=== PATIENT | male | born 1970 | race Caucasian/White ===

== ENCOUNTER 2020-12-03 18:45 | Inpatient (IN) | payer BC ==
[2020-12-03] MEDS ORDERED: KETOROLAC 15 MG/ML 1 ML VIAL IVP STA (19:01)
[2020-12-03] MEDS ORDERED: DEXAMETHASONE SOD PHOSPHATE 4 MG/ML 1 ML VIAL IV STA (19:01)
--- NOTE | 2020-12-03 19:46 | XR ---
EXAMINATION TYPE: XR chest 1V portable DATE OF EXAM: 12/03/2020 COMPARISON: NONE HISTORY: Shortness of breath. TECHNIQUE: Single frontal view of the chest is obtained. FINDINGS: There is bilateral diffuse patchy airspace opacities. No pleural effusion, or pneumothorax seen. The cardiac silhouette size is within normal limits. The osseous structures are intact. IMPRESSION: Bilateral infiltrates.
[2020-12-03 19:55] LABS: Basophils % (A) 0 %; Eosinophils % (A) 0 %; HCT 39.7 % (39.0-53.0); Lymphocytes # (A) 1.1 k/uL (1.0-4.8); Lymphocytes % (A) 14 %; MCH 29.5 pg (25.0-35.0); MCHC 35.3 g/dL (31.0-37.0); MCV 83.5 fL (80.0-100.0); Mean Platelet Volume 7.1; Monocytes # (A) 0.5 k/uL (0-1.0); Monocytes % (A) 7 %; Neutrophils # (A) 5.6 k/uL (1.3-7.7); Neutrophils % (A) 77 %; Platelet Count 346 k/uL (150-450); RBC 4.75 m/uL (4.30-5.90); RDW 12.7 % (11.5-15.5); WBC 7.4 k/uL (3.8-10.6)
[2020-12-03 20:08] LABS: ALT 27 U/L (4-49); AST 39 U/L (17-59); African American GFR (CKD) >90 (>60 ml/min/1.73 sqM); Albumin 3.3 g/dL (3.5-5.0); Alkaline Phosphatase 71 U/L (38-126); Anion Gap 11 mmol/L; Blood Urea Nitrogen 20 mg/dL (9-20); Calcium 8.4 mg/dL (8.4-10.2); Carbon Dioxide 28 mmol/L (22-30); Chloride 93 mmol/L (98-107); Glucose 305 mg/dL (74-99); LDH 1489 U/L (313-618); Non-African American GFR(CKD) >90 (>60 ml/min/1.73 sqM); Potassium 4.2 mmol/L (3.5-5.1); Sodium 132 mmol/L (137-145); Total Bilirubin 0.7 mg/dL (0.2-1.3); Total Protein 6.5 g/dL (6.3-8.2)
[2020-12-03 20:17] LABS: INR 1.1 (<1.2); Partial Thromboplastin Time 23.9 sec (22.0-30.0); Prothrombin Time 11.2 sec (9.0-12.0)
[2020-12-03] MEDS: SODIUM CHLORIDE 0.9% 1,000 ML IV SCH (20:22)
[2020-12-03 20:24] LABS: D-Dimer 0.91 mg/L FEU (<0.60)
[2020-12-03 20:32] LABS: C Reactive Protein 294.2 mg/L (<10.0)
[2020-12-03] MEDS ORDERED: SODIUM CHLORIDE 0.9% 1,000 ML IV ONE (21:02)
--- NOTE | 2020-12-03 21:25 | CT ---
EXAMINATION TYPE: CT chest angio for PE DATE OF EXAM: 12/03/2020 COMPARISON: Same-day radiograph. HISTORY: Covid +, elevated d-dimer, hypoxia. CT DLP: 895.5 mGycm Automated exposure control for dose reduction was used. CONTRAST: CT Chest for pulmonary embolism performed with with IV Contrast, patient injected with 100 mL of Isov ue 370. FINDINGS: LUNGS: There is bilateral diffuse moderate to marked patchy groundglass opacities. No pleural effusio n or pneumothorax. MEDIASTINUM: There is satisfactory enhancement of the pulmonary artery and its branches, there is no CT evidence for pulmonary embolism. There are scattered multiple mildly enlarged mediastinal lymph n odes, may be reactive. OTHER: Hepatic steatosis. No additional significant abnormality is seen. IMPRESSION: Diffuse patchy ground glass opacities, compatible with history of Covid pneumonia. No acute PE.
[2020-12-03] MEDS ORDERED: AZITHROMYCIN 500 MG in SODIUM CHLORIDE 0.9% 250 ML IVPB STA (21:51)
[2020-12-03] MEDS ORDERED: NALOXONE 0.4 MG/ML 1 ML VIAL IV PRN (21:52)
--- NOTE | 2020-12-03 21:52 | ED ---
SOB HPI - General Chief Complaint: Shortness of Breath Stated Complaint: SOB Time Seen by Provider: 12/03/20 18:52 Source: EMS Mode of arrival: EMS Limitations: no limitations - History of Present Illness Initial Comments: 50-year-old male presenting to the emergency department today for chief complaint of shortness of breath, covert positive. Patient states he's had general malaise for the past 2 days. Patient states that today he developed shortness of breath and cough. He states he went to an urgent care where he started be quite hypoxic and is positive for covert and he was sent to the emergency department. EMS. Patient denies any chest pain jaw pain arm pain and diaphoresis he was to body aches and chills. He denies any nausea vomiting diarrhea or rashes. Patient denies any hemoptysis leg swelling or calf pain. Patient denies any previous history of DVT or pulmonary embolism he denies any history of hypertension or diabetes but states he does not see a primary care provider. Remaining abuse negative upon arrival patient appears well and nontoxic he's in no acute distress. - Related Data Home Medications Medication Instructions Recorded Confirmed No Known Home Medications 12/03/20 12/03/20 Allergies Allergy/AdvReac Type Severity Reaction Status Date / Time Mushroom Allergy Anaphylaxis Verified 12/03/20 20:36 Review of Systems ROS Statement: Those systems with pertinent positive or pertinent negative responses have been documented in the HPI. ROS Other: All systems not noted in ROS Statement are negative. Past Medical History Past Medical History: No Reported History History of Any Multi-Drug Resistant Organisms: None Reported Past Surgical History: Orthopedic Surgery Smoking Status: Former smoker Past Alcohol Use History: None Reported Past Drug Use History: None Reported General Exam - General Exam Comments Initial Comments: General: The patient is awake and alert, in no distress Eye: Pupils are equal, round and reactive to light, extra-ocular movements are intact. No nystagmus. There is normal conjunctiva bilaterally. No signs of icterus. Ears, nose, mouth and throat: There are moist mucous membranes and no oral lesions. Neck: The neck is supple, there is no tenderness or JVD. Cardiovascular: There is a regular rate and rhythm. No murmur, rub or gallop is appreciated. Respiratory: Lungs are clear to auscultation, respirations are non-labored, breath sounds are equal. No wheezes, stridor, rales, or rhonchi. No retractions no abdominal breathing Gastrointestinal: Soft, non-distended, non-tender abdomen without masses or organomegaly noted. There is no rebound or guarding present. Musculoskeletal: Normal ROM, no tenderness. Strength 5/5. Sensation intact. Pulses equal bilaterally 2+. Neurological: A&O x 3. CN II-XII intact, There are no obvious motor or sensory deficits. Coordination appears grossly intact. Speech is normal. Skin: Skin is warm and dry and no rashes or lesions are noted. No LE edema or calf pain Psychiatric: Cooperative, appropriate mood & affect, normal judgment. Limitations: no limitations Course Vital Signs 12/03/20 12/03/20 12/03/20 18:50 19:01 22:43 Temperature 98.8 F 98.9 F Pulse Rate 96 82 Respiratory 18 20 18 Rate Blood Pressure 141/91 127/80 O2 Sat by Pulse 87 L 92 L Oximetry Medical Decision Making - Medical Decision Making covid +/ no distress. but hypoxic. Patient has covert pneumonia. CT negative for pulmonary embolism. Patient was placed on supplemental oxygen given azithromycin as well as steroids. Pulmonary on consult patient be admitted to this hospital for further monitoring on continuous pulse ox. Patient is agreeable to this care plan as well as admission at this time. - Lab Data Result diagrams: 12/03/20 19:37 12/03/20 19:37 Lab Results 12/03/20 12/03/20 12/03/20 Range/Units 19:37 19:37 19:37 WBC 7.4 (3.8-10.6) k/uL RBC 4.75 (4.30-5.90) m/uL Hgb 14.0 (13.0-17.5) gm/dL Hct 39.7 (39.0-53.0) % MCV 83.5 (80.0-100.0) fL MCH 29.5 (25.0-35.0) pg MCHC 35.3 (31.0-37.0) g/dL RDW 12.7 (11.5-15.5) % Plt Count 346 (150-450) k/uL MPV 7.1 Neutrophils % 77 % Lymphocytes % 14 % Monocytes % 7 % Eosinophils % 0 % Basophils % 0 % Neutrophils # 5.6 (1.3-7.7) k/uL Lymphocytes # 1.1 (1.0-4.8) k/uL Monocytes # 0.5 (0-1.0) k/uL Eosinophils # 0.0 (0-0.7) k/uL Basophils # 0.0 (0-0.2) k/uL PT 11.2 (9.0-12.0) sec INR 1.1 (<1.2) APTT 23.9 (22.0-30.0) sec D-Dimer 0.91 H (<0.60) mg/L FEU Sodium 132 L (137-145) mmol/L Potassium 4.2 (3.5-5.1) mmol/L Chloride 93 L (98-107) mmol/L Carbon Dioxide 28 (22-30) mmol/L Anion Gap 11 mmol/L BUN 20 (9-20) mg/dL Creatinine 0.64 L (0.66-1.25) mg/dL Est GFR (CKD-EPI)AfAm >90 (>60 ml/min/1.73 sqM) Est GFR (CKD-EPI)NonAf >90 (>60 ml/min/1.73 sqM) Glucose 305 H (74-99) mg/dL Plasma Lactic Acid Markos (0.7-2.0) mmol/L Calcium 8.4 (8.4-10.2) mg/dL Magnesium 2.0 (1.6-2.3) mg/dL Total Bilirubin 0.7 (0.2-1.3) mg/dL AST 39 (17-59) U/L ALT 27 (4-49) U/L Alkaline Phosphatase 71 (38-126) U/L Lactate Dehydrogenase 1489 H (313-618) U/L Troponin I (0.000-0.034) ng/mL C-Reactive Protein 294.2 H (<10.0) mg/L NT-Pro-B Natriuret Pep pg/mL Total Protein 6.5 (6.3-8.2) g/dL Albumin 3.3 L (3.5-5.0) g/dL 12/03/20 12/03/20 12/03/20 Range/Units 19:37 19:37 19:37 WBC (3.8-10.6) k/uL RBC (4.30-5.90) m/uL Hgb (13.0-17.5) gm/dL Hct (39.0-53.0) % MCV (80.0-100.0) fL MCH (25.0-35.0) pg MCHC (31.0-37.0) g/dL RDW (11.5-15.5) % Plt Count (150-450) k/uL MPV Neutrophils % % Lymphocytes % % Monocytes % % Eosinophils % % Basophils % % Neutrophils # (1.3-7.7) k/uL Lymphocytes # (1.0-4.8) k/uL Monocytes # (0-1.0) k/uL Eosinophils # (0-0.7) k/uL Basophils # (0-0.2) k/uL PT (9.0-12.0) sec INR (<1.2) APTT (22.0-30.0) sec D-Dimer (<0.60) mg/L FEU Sodium (137-145) mmol/L Potassium (3.5-5.1) mmol/L Chloride (98-107) mmol/L Carbon Dioxide (22-30) mmol/L Anion Gap mmol/L BUN (9-20) mg/dL Creatinine (0.66-1.25) mg/dL Est GFR (CKD-EPI)AfAm (>60 ml/min/1.73 sqM) Est GFR (CKD-EPI)NonAf (>60 ml/min/1.73 sqM) Glucose (74-99) mg/dL Plasma Lactic Acid Markos 1.8 (0.7-2.0) mmol/L Calcium (8.4-10.2) mg/dL Magnesium (1.6-2.3) mg/dL Total Bilirubin (0.2-1.3) mg/dL AST (17-59) U/L ALT (4-49) U/L Alkaline Phosphatase (38-126) U/L Lactate Dehydrogenase (313-618) U/L Troponin I <0.012 (0.000-0.034) ng/mL C-Reactive Protein (<10.0) mg/L NT-Pro-B Natriuret Pep 203 pg/mL Total Protein (6.3-8.2) g/dL Albumin (3.5-5.0) g/dL Disposition Clinical Impression: Dyspnea, COVID-19, Pneumonia due to COVID-19 virus Disposition: ADMITTED IP TO THIS HOSP Condition: Stable Is patient prescribed a controlled substance at d/c from ED?: No Time of Disposition: 21:51 Decision to Admit Reason: Admit from EC Decision Date: 12/03/20 Decision Time: 21:51
[2020-12-04] MEDS ORDERED: ALPRAZolam 0.25 MG TAB PO PRN (03:01)
--- NOTE | 2020-12-04 03:07 | P.HPIM ---
History of Present Illness H&P Date: 12/03/20 Chief Complaint: hypoxemia 50-year-old male no significant past medical history Patient comes in today due to shortness of breath found to be hypoxemic at urgent care. Patient claims that for the past 2 days he was feeling sick with some malaise, sore throat, left shoulder pain which has started after he passed out at work he felt dizzy and was sweating profusely and passed out and fell down on his shoulder he woke up immediately denies any symptoms of palpitations chest pain after he woke up. However he was feeling dizzy and short of breath he was also having some sore throat. He denies any nausea vomiting or diarrhea denies any fevers or chills. His main symptoms are sweating and dizziness and shortness of breath. 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 Otherwise he denies any abdominal pain changes in his bowel habits he denies any urinary symptoms do not denies any GI bleeding denies any history of blood clots heart disease history He went to urgent care of [place] to be Covid positive and hypoxemic who recommended that he goes to the ER In the ED d-dimer was found to be slightly elevated blood sugar elevated LDH and CRP both elevated he was hypoxic on room air 87% Patient was started on oxygen currently on [address] angios of the chest showed no evidence of PE however showed diffuse patchy changes He denies any smoking or drug abuse, he denies daily drinking Review of Systems Pertinent positives as noted in HPI. All other systems were reviewed and are negative Past Medical History Past Medical History: No Reported History History of Any Multi-Drug Resistant Organisms: None Reported Past Surgical History: Orthopedic Surgery Smoking Status: Former smoker Past Alcohol Use History: None Reported Past Drug Use History: None Reported - Past Family History Family Family Medical History: No Reported History Medications and Allergies Home Medications Medication Instructions Recorded Confirmed Type No Known Home Medications 12/03/20 12/03/20 History Allergies Allergy/AdvReac Type Severity Reaction Status Date / Time Mushroom Allergy Anaphylaxis Verified 12/03/20 20:36 Physical Exam Vitals: Vital Signs Temp Pulse Resp BP Pulse Ox 12/03/20 19:01 20 12/03/20 18:50 98.8 F 96 18 141/91 87 L Intake and Output 12/03/20 12/03/20 12/03/20 06:59 14:59 22:59 Other: Weight 129.274 kg Constitutional: No acute distress, conversant, pleasant Eyes: Anicteric sclerae, moist conjunctiva, Pupils equal round reactive to light ENMT: NC/AT Oropharynx clear, no erythema, or exudates Neck: Supple, FROM, no masses, or JVD No carotid bruits No thyromegaly Lungs: Clear to auscultation Clear to percussion Normal respiratory effort, no accessory muscle use Cardiovascular: Heart regular in rate and rhythm, No murmurs, gallops, or rubs No peripheral edema Abdominal: Soft Nontender, no guarding, rebound or rigidity Abdomen moving with respiration Normoactive bowel sounds No hepatomegaly, No splenomegaly No palpable mass No abdominal wall hernia noted Skin: Normal temperature, tone, texture, turgor No induration No subcutaneous nodules No rash, lesions No ulcers Extremities: No digital cyanosis No clubbing Pedal pulses intact and symmetrical Radial pulses intact and symmetrical No calf tenderness Psychiatric: Alert and oriented to person, place and time Appropriate affect fair judgement Neuro Muscles Strength 5/5 in all 4 extremities Sensation to light touch grossly present throughout Cranial nerves II-XII grossly intact No focal sensory deficits Lymphatics: no palpable cervical or supraclavicular , or inguinal lymph nodes Results CBC & Chem 7: 12/03/20 19:37 12/03/20 19:37 Labs: Abnormal Lab Results - Last 24 Hours (Table) 12/03/20 12/03/20 Range/Units 19:37 19:37 D-Dimer 0.91 H (<0.60) mg/L FEU Sodium 132 L (137-145) mmol/L Chloride 93 L (98-107) mmol/L Creatinine 0.64 L (0.66-1.25) mg/dL Glucose 305 H (74-99) mg/dL Lactate Dehydrogenase 1489 H (313-618) U/L C-Reactive Protein 294.2 H (<10.0) mg/L Albumin 3.3 L (3.5-5.0) g/dL Assessment and Plan Assessment: Acute hypoxic respiratory failure Pneumonitis Hyperglycemia rule out diabetes mellitus Plan Supportive care Supplemental Oxygen as needed Patient started on Decadron Pulmonary consultation Zinc, vitamin C, vitamin D IV fluid hydration gentle Xanax for anxiety Monitor inflammatory markers Ruslanx 40 mg subcu daily Etiology of the chest no acute PE, showed diffuse patchy infiltrates Patient is full code DVT prophylaxis on Lovenox Anticipated length of stay more than 2 midnights Anticipated discharge to home A total of 70 minutes was spent on the care of this complex patient more than 50 % of the time was spent in counseling and care coordination.
[2020-12-04] MEDS: ENOXAPARIN 40 MG/0.4 ML SYRINGE SQ SCH (03:48)
[2020-12-04 05:09] LABS: Ferritin 1464.6 ng/mL (22.0-322.0)
[2020-12-04] MEDS ORDERED: REMDESIVIR 200 MG in SODIUM CHLORIDE 0.9% 250 ML IVPB ONE (09:00)
[2020-12-04] MEDS ORDERED: CHOLECALCIFEROL 25 MCG (1000 IU) TABLET PO SCH (09:00)
[2020-12-04] MEDS: ZINC SULFATE 220 MG CAP PO SCH (09:16)
[2020-12-04] MEDS: ASCORBIC ACID 500 MG TAB PO SCH (09:17)
[2020-12-04] MEDS: DEXAMETHASONE SOD PHOSPHATE 10 MG/ML 1 ML VIAL IV SCH (09:19)
[2020-12-04] MEDS: SODIUM CHLORIDE 0.9% 1,000 ML IV SCH (09:58)
--- NOTE | 2020-12-04 13:05 | P.CNPUL ---
History of Present Illness Consult date: 12/04/20 Requesting physician: Franco Horn Reason for consult: dyspnea, cough, chest pain, hypoxemia, pneumonia, abnormal CXR/CT Chief complaint: Weakness, syncope, shortness of breath. History of present illness: 50-year-old male, who presents to the emergency department, via EMS, with complaints of weakness, fatigue, syncope, and shortness of breath with cough. Apparently, the patient has not been feeling well for about 2 or 3 days prior to admission. He apparently initially went to urgent care, and was redirected to the emergency department. Currently, the patient is on 5 L nasal cannula. He is receiving saline at 75 mL an hour. He has no sleep and past medical history. He went to the urgent care on December 03. The patient tested positive for coronavirus, and was thought to have COVID 19 pneumonia. CBC was completely normal. He was 0.91. Sodium 132, potassium 4.2, chloride 93, CO2 28, anion gap 11, BUN 20, and creatinine 0.64. His ferritin was 1465, LDH 1489, C-reactive protein to 94, and pro-calcitonin level was 0.62. Chest x-ray was positive for bilateral infiltrates, and CT angiogram was negative for PE, but consistent with COVID 19 pneumonia. Review of Systems REVIEW OF SYSTEMS: CONSTITUTIONAL: Weakness, fatigue, fever. NEUROLOGIC: Syncope. HEENT: [ Negative.] CARDIAC: [Negative.] PULMONARY: Shortness of breath, chest congestion, cough. GI: [Negative.] : [Negative.] RHEUMATOLOGIC: [ Negative.] IMMUNOLOGIC: [ Negative.] ENDOCRINE: [Negative. ] DERMATOLOGIC: [Negative.] Past Medical History Past Medical History: No Reported History History of Any Multi-Drug Resistant Organisms: None Reported Past Surgical History: Orthopedic Surgery Smoking Status: Former smoker Past Alcohol Use History: None Reported Past Drug Use History: None Reported - Past Family History Family Family Medical History: No Reported History Medications and Allergies Home Medications Medication Instructions Recorded Confirmed Type No Known Home Medications 12/03/20 12/03/20 History Allergies Allergy/AdvReac Type Severity Reaction Status Date / Time Mushroom Allergy Anaphylaxis Verified 12/03/20 20:36 Physical Exam Osteopathic Statement: *. No significant issues noted on an osteopathic structural exam other than those noted in the History and Physical/Consult. Vitals: Vital Signs Temp Pulse Resp BP Pulse Ox 12/04/20 09:25 86 18 132/85 91 L 12/04/20 08:13 67 20 94 L 12/04/20 07:16 97.5 F L 76 141/85 90 L 12/04/20 03:47 74 22 130/83 92 L 12/03/20 22:43 98.9 F 82 18 127/80 92 L 12/03/20 19:01 20 12/03/20 18:50 98.8 F 96 18 141/91 87 L Intake and Output 12/03/20 12/04/20 12/04/20 22:59 06:59 14:59 Other: Weight 129.274 kg No acute distress, oriented 3. Nasal O2 at 5 L/m. No conversational dyspnea or use of accessory muscles. HEENT examination is grossly unremarkable. Mucous membranes are moist. No oral lesions. Neck supple. Full range of motion. No adenopathy thyromegaly or neck vein distention. Cardiovascular examination reveals regular rhythm rate. S1-S2 normal. No S3 or S4. No discernible murmur noted. Heart rate 86 bpm. Lungs reveal bilateral rhonchi, and basilar crackles. No wheezes. Breath sounds equal bilaterally. Abdomen soft bowel sounds are heard. No masses or tenderness. Extremities are intact. No cyanosis clubbing or edema. Skin is without rash or lesion. Neurologic examination is brief but nonfocal. Results - Laboratory Findings CBC and BMP: 12/03/20 19:37 12/03/20 19:37 PT/INR, D-dimer PT 11.2 sec (9.0-12.0) 12/03/20 19:37 INR 1.1 (<1.2) 12/03/20 19:37 D-Dimer 0.91 mg/L FEU (<0.60) H 12/03/20 19:37 Abnormal lab findings: Abnormal Labs 12/03/20 12/03/20 12/03/20 19:37 19:37 19:37 D-Dimer 0.91 H Sodium 132 L Chloride 93 L Creatinine 0.64 L Glucose 305 H Ferritin 1464.6 H Lactate Dehydrogenase 1489 H C-Reactive Protein 294.2 H Albumin 3.3 L Procalcitonin 0.62 H - Diagnostic Findings Chest x-ray: image reviewed CT scan - chest: image reviewed Assessment and Plan Assessment: Acute hypoxemic respiratory failure secondary to COVID 19 pneumonia. No significant other medical history. Plan: Plan dated 12/04/2020. We felt the patient was a good candidate for REM, Decadron, convalescent plasma, Lovenox, and vitamin C, D3, and zinc. Those are started IR team in the emergency department. The patient is apparently waiting for bed up on the floor. Patient should have repeat inflammatory markers and chest x-rays in a day or 2. Additional recommendations and suggestions are forthcoming. We will continue to follow and make appropriate recommendations. Time with Patient: Greater than 30
[2020-12-04] MEDS ORDERED: TOCILIZUMAB 800 MG in SODIUM CHLORIDE 0.9% 60 ML IV ONE (15:00)
[2020-12-04 15:54] LABS: Hemoglobin A1C 13.3 % (4.0-6.0)
--- NOTE | 2020-12-04 19:28 | P.PN ---
Subjective Progress Note Date: 12/04/20 (Delayed charting, patient checked on twice throughout the day once at approximately 10:15 AM and once approximately 2 PM.) Principal diagnosis: Shortness of breath Patient is a 50-year-old male with no known past medical history but obesity with BMI of 38.6 who initially presented to urgent care after being sick for 2 days. Urgent care and was found to be hypoxic and have Covid. He therefore presented to the ER. On arrival to the ER he was afebrile but did have a room air pulse ox of 87%. Laboratory analysis showed d-dimer 0.9 one sodium 132, blood sugar of 305, ferritin 1464, LDH 1489, CRP 294, procalcitonin 0.62. CT of the chest demonstrated diffuse groundglass opacities compatible with Covid and no acute pulmonary embolism. EKG demonstrated normal sinus rhythm without any significant ST-T wave changes. He was started on Decadron and REM. Pulmonary was consulted. Throughout the day on 12/04 his O2 requirements increased. Pulmonary was recontacted and the patient was started on TOCI. Patient seen and examined at bedside. He reports that his breathing feels somewhat better, he still feels very tired, he is having some difficulty taking a deep breath, he denies any headache/nausea/vomiting. General: Ill appearing, mild distress, diaphoretic, appears at stated age Derm: warm, [diaphoretic Head: atraumatic, normocephalic, symmetric Eyes: EOMI, no lid lag, anicteric sclera Mouth: no lip lesion, mucus membranes moist Cardiovascular: S1S2 reg, no murmur, positive posterior tibial pulse bilateral, Lungs: Coarse breath sounds bilateral, 3 word conversational dyspnea, no accessory muscle use Abdominal: soft, nontender to palpation, no guarding, no appreciable organomegaly Ext: no gross muscle atrophy, no edema, no contractures Neuro: CN II-XI grossly intact, no focal neuro deficits Psych: Alert, oriented, appropriate affect Covid 19 pneumonitis with acute hypoxic respiratory failure -Pulmonary consulted -Continue with vitamin C, vitamin D, zinc -Continue with REM, Decadron - Toci given 12/04 - wean O2 a able - follow inflammatory markers Hyponatremia -Likely secondary to dehydration -IV fluids Hyperglycemia -Hemoglobin A1c 13.3 consistent with newly discovered diabetes mellitus -Sliding-scale insulin -Consult paraeducator -Consult dietitian -will alert patient of new diagnosis in a.m. Morbid obesity with BMI 38.7 -Structured outpatient weight loss DVT prophylaxis: Lovenox Discussed with: Patient, nursing, pulmonary Anticipated discharge: 7-[address]: home A total of 45 minutes was spent on the care of this complex patient more than 50% of the time was spent in counseling and care coordination. Objective - Vital Signs Vital signs: Vital Signs Temp 97.7 F 12/04/20 16:00 Pulse 86 12/04/20 16:00 Resp 18 12/04/20 16:00 BP 130/94 12/04/20 16:00 Pulse Ox 93 L 12/04/20 16:00 Intake & Output 12/03/20 12/04/20 12/04/20 18:59 06:59 18:59 Intake Total 240 Balance 240 Weight 129.274 kg 129.274 kg Intake: Oral 240 - Labs CBC & Chem 7: 12/03/20 19:37 12/03/20 19:37 Labs: Abnormal Lab Results - Last 24 Hours (Table) 12/03/20 12/03/20 12/03/20 Range/Units 19:37 19:37 19:37 D-Dimer 0.91 H (<0.60) mg/L FEU Sodium 132 L (137-145) mmol/L Chloride 93 L (98-107) mmol/L Creatinine 0.64 L (0.66-1.25) mg/dL Glucose 305 H (74-99) mg/dL Hemoglobin A1c (4.0-6.0) % Ferritin 1464.6 H (22.0-322.0) ng/mL Lactate Dehydrogenase 1489 H (313-618) U/L C-Reactive Protein 294.2 H (<10.0) mg/L Albumin 3.3 L (3.5-5.0) g/dL Procalcitonin 0.62 H (0.02-0.09) ng/mL 12/04/20 Range/Units 04:01 D-Dimer (<0.60) mg/L FEU Sodium (137-145) mmol/L Chloride (98-107) mmol/L Creatinine (0.66-1.25) mg/dL Glucose (74-99) mg/dL Hemoglobin A1c 13.3 H (4.0-6.0) % Ferritin (22.0-322.0) ng/mL Lactate Dehydrogenase (313-618) U/L C-Reactive Protein (<10.0) mg/L Albumin (3.5-5.0) g/dL Procalcitonin (0.02-0.09) ng/mL
[2020-12-05] MEDS: SODIUM CHLORIDE 0.9% 1,000 ML IV SCH ×2 (06:43→13:27)
[2020-12-05] MEDS: CHOLECALCIFEROL 25 MCG (1000 IU) TABLET PO SCH (09:20)
[2020-12-05] MEDS: ASCORBIC ACID 500 MG TAB PO SCH (09:20)
[2020-12-05] MEDS: ZINC SULFATE 220 MG CAP PO SCH (09:20)
[2020-12-05] MEDS: REMDESIVIR 100 MG in SODIUM CHLORIDE 0.9% 250 ML IVPB SCH (09:21)
[2020-12-05] MEDS: ENOXAPARIN 40 MG/0.4 ML SYRINGE SQ SCH (09:21)
[2020-12-05] MEDS: DEXAMETHASONE SOD PHOSPHATE 10 MG/ML 1 ML VIAL IV SCH (09:21)
--- NOTE | 2020-12-05 10:42 | XR ---
EXAMINATION TYPE: XR chest 1V portable DATE OF EXAM: 12/05/2020 COMPARISON: 12/03/2020 HISTORY: Cough TECHNIQUE: Single frontal view of the chest is obtained. FINDINGS: Diffuse bilateral airspace disease is stable. No sizable pleural effusion or pneumothorax. Heart size normal. Arthropathy of the shoulders. IMPRESSION: Diffuse bilateral airspace disease stable
[2020-12-05 11:43] LABS: Glucose,Whole Blood 360 mg/dL (75-99)
[2020-12-05 11:52] LABS: African American GFR (CKD) >90 (>60 ml/min/1.73 sqM); Anion Gap 11 mmol/L; Blood Urea Nitrogen 22 mg/dL (9-20); C Reactive Protein 82.5 mg/L (<10.0); Calcium 8.2 mg/dL (8.4-10.2); Carbon Dioxide 22 mmol/L (22-30); Chloride 101 mmol/L (98-107); Glucose 380 mg/dL (74-99); LDH 1004 U/L (313-618); Magnesium 2.1 mg/dL (1.6-2.3); Non-African American GFR(CKD) >90 (>60 ml/min/1.73 sqM); Sodium 134 mmol/L (137-145)
[2020-12-05 12:00] LABS: HCT 40.4 % (39.0-53.0); HGB 13.9 gm/dL (13.0-17.5); MCH 29.7 pg (25.0-35.0); MCHC 34.4 g/dL (31.0-37.0); MCV 86.4 fL (80.0-100.0); Mean Platelet Volume 7.7; Platelet Count 388 k/uL (150-450); RBC 4.67 m/uL (4.30-5.90); RDW 12.8 % (11.5-15.5); WBC 6.5 k/uL (3.8-10.6)
[2020-12-05] MEDS: LINAGLIPTIN 5 MG TABLET PO SCH (13:26)
[2020-12-05] MEDS: INSULIN ASPART (NovoLOG) 100 UNIT/ML VIAL SQ SCH ×3 (13:26→20:37)
[2020-12-05 14:57] VITALS: BMI 38.3
[2020-12-05 16:12] LABS: Glucose,Whole Blood 328 mg/dL (75-99)
--- NOTE | 2020-12-05 17:00 | P.PN ---
Subjective Progress Note Date: 12/05/20 Principal diagnosis: Acute hypoxemic respiratory failure. 50-year-old male, who presents to the emergency department, via EMS, with complaints of weakness, fatigue, syncope, and shortness of breath with cough. Apparently, the patient has not been feeling well for about 2 or 3 days prior to admission. He apparently initially went to urgent care, and was redirected to the emergency department. Currently, the patient is on 5 L nasal cannula. He is receiving saline at 75 mL an hour. He has no sleep and past medical history. He went to the urgent care on December 03. The patient tested positive for coronavirus, and was thought to have COVID 19 pneumonia. CBC was completely normal. He was 0.91. Sodium 132, potassium 4.2, chloride 93, CO2 28, anion gap 11, BUN 20, and creatinine 0.64. His ferritin was 1465, LDH 1489, C- reactive protein to 94, and pro-calcitonin level was 0.62. Chest x-ray was positive for bilateral infiltrates, and CT angiogram was negative for PE, but consistent with COVID 19 pneumonia. Progress note dated 12/05/2020. Currently, the patient's on 15 L high flow nasal O2. The patient is getting saline at 75 mL an hour. He states that he feeling a bit better. The patient did get REM, and TOCI. The patient denies any chest pain or chest discomfort. He is short of breath. He denies any fever or chills. White count 6.5, hemoglobin 13.9, hematocrit 40.4, and platelet count 398,000. D-dimer is 4.17. Sodium 134, potassium 5, chlorides 101, CO2 22, anion gap 11, BUN 22 and creatinine 0.51. LDH is 1004, and C-reactive protein is 82.5. Chest x-ray shows diffuse bilateral airspace disease. Objective - Vital Signs Vital signs: Vital Signs Temp 98.5 F 12/05/20 08:00 Pulse 92 12/05/20 08:00 Resp 22 12/05/20 08:00 BP 138/90 12/05/20 08:00 Pulse Ox 96 12/05/20 08:00 Intake & Output 12/04/20 12/05/20 12/05/20 18:59 06:59 18:59 Intake Total 240 1320 Output Total 200 Balance 240 -200 1320 Weight 128.3 kg 128.3 kg Intake: Oral 240 1320 Output: Urine 200 Other: Voiding Method Toilet Toilet - Exam No acute distress, oriented 3. Nasal O2 at 15 L/m. No conversational dyspnea or use of accessory muscles. HEENT examination is grossly unremarkable. Mucous membranes are moist. No oral lesions. Neck supple. Full range of motion. No adenopathy thyromegaly or neck vein distention. Cardiovascular examination reveals regular rhythm rate. S1-S2 normal. No S3 or S4. No discernible murmur noted. Heart rate 92 bpm. Lungs reveal bilateral rhonchi, and basilar crackles. No wheezes. Breath sounds equal bilaterally. Breath sounds are bit worse today. Abdomen soft bowel sounds are heard. No masses or tenderness. Extremities are intact. No cyanosis clubbing or edema. Skin is without rash or lesion. Neurologic examination is brief but nonfocal. - Labs CBC & Chem 7: 12/05/20 10:05 12/05/20 10:05 Labs: Abnormal Lab Results - Last 24 Hours (Table) 12/05/20 12/05/20 12/05/20 Range/Units 10:05 10:05 11:41 D-Dimer 4.17 H (<0.60) mg/L FEU Sodium 134 L (137-145) mmol/L BUN 22 H (9-20) mg/dL Creatinine 0.51 L (0.66-1.25) mg/dL Glucose 380 H (74-99) mg/dL POC Glucose (mg/dL) 360 H (75-99) mg/dL Calcium 8.2 L (8.4-10.2) mg/dL Lactate Dehydrogenase 1004 H (313-618) U/L C-Reactive Protein 82.5 H (<10.0) mg/L 12/05/20 Range/Units 16:08 D-Dimer (<0.60) mg/L FEU Sodium (137-145) mmol/L BUN (9-20) mg/dL Creatinine (0.66-1.25) mg/dL Glucose (74-99) mg/dL POC Glucose (mg/dL) 328 H (75-99) mg/dL Calcium (8.4-10.2) mg/dL Lactate Dehydrogenase (313-618) U/L C-Reactive Protein (<10.0) mg/L Microbiology - Last 24 Hours (Table) 12/03/20 19:37 Blood Culture - Preliminary Blood No Growth after 24 hours 12/03/20 19:37 Blood Culture - Preliminary Blood No Growth after 24 hours Assessment and Plan Assessment: Acute hypoxemic respiratory failure secondary to COVID 19 pneumonia. No significant other medical history. Plan: Plan dated 12/04/2020. We felt the patient was a good candidate for REM, Decadron, convalescent plasma, Lovenox, and vitamin C, D3, and zinc. Those are started IR team in the [facility] department. The patient is apparently waiting for bed up on the floor. Patient should have repeat inflammatory markers and chest x-rays in a day or 2. Additional recommendations and suggestions are forthcoming. We will continue to follow and make appropriate recommendations. Plan dated 12/05/2020. The patient received REM, Decadron, convalescent plasma, Lovenox, vitamin C, vitamin D3, and zinc. In addition, the cause of his worsening oxygenation, patient did receive TOCI. We will continue to follow the patient closely, and make additional recommendations were appropriate. Prognosis remains guarded. Will continue to follow. The patient will continue on all current medications. I did tell him to move about in bed. Time with Patient: Less than 30
--- NOTE | 2020-12-05 18:14 | P.PN ---
Subjective Progress Note Date: 12/05/20 Principal diagnosis: Shortness of breath Patient is a 50-year-old male with no known past medical history but obesity with BMI of 38.6 who initially presented to urgent care after being sick for 2 days. Urgent care and was found to be hypoxic and have Covid. He therefore presented to the ER. On arrival to the ER he was afebrile but did have a room air pulse ox of 87%. Laboratory analysis showed d-dimer 0.9 one sodium 132, blood sugar of 305, ferritin 1464, LDH 1489, CRP 294, procalcitonin 0.62. CT of the chest demonstrated diffuse groundglass opacities compatible with Covid and no acute pulmonary embolism. EKG demonstrated normal sinus rhythm without any significant ST-T wave changes. He was started on Decadron and REM. Pulmonary was consulted. Throughout the day on 12/04 his O2 requirements increased. Pulmonary was recontacted and the patient was started on TOCI. Patient seen and examined at bedside. Feeling much better than yesterday, brething better, no merida/n/v/diarrhea/chest pain. We had a long discussion likely home on long acting insulin and oral, new DM 2, shane is a diabetic on insulin who can help him General: Ill appearing, no distress, diaphoretic, appears at stated age Derm: warm, diaphoretic Head: atraumatic, normocephalic, symmetric Eyes: EOMI, no lid lag, anicteric sclera Mouth: no lip lesion, mucus membranes moist Cardiovascular: S1S2 reg, no murmur, positive posterior tibial pulse bilateral, Lungs: Coarse breath sounds bilateral, 3 word conversational dyspnea, no accessory muscle use Abdominal: soft, nontender to palpation, no guarding, no appreciable organomegaly Ext: no gross muscle atrophy, no edema, no contractures Neuro: CN II-XI grossly intact, no focal neuro deficits Psych: Alert, oriented, appropriate affect Covid 19 pneumonitis with acute hypoxic respiratory failure -Pulmonary recs -Continue with vitamin C, vitamin D, zinc -Continue with REM, Decadron - Toci given 12/04 - wean O2 a able - follow inflammatory markers - lovenox changed to 50 q12h Hyponatremia, improving -Likely secondary to dehydration -IV fluids Newly discovered DM 2 -Hemoglobin A1c 13.3 -Sliding-scale insulin - nurses educator recs -dietitian recs Morbid obesity with BMI 38.7 -Structured outpatient weight loss DVT prophylaxis: Lovenox Discussed with: Patient, nursing, Anticipated discharge: [address]: home A total of 45 minutes was spent on the care of this complex patient more than 50% of the time was spent in counseling and care coordination. Objective - Vital Signs Vital signs: Vital Signs Temp 98.5 F 12/05/20 08:00 Pulse 92 12/05/20 08:00 Resp 22 12/05/20 08:00 BP 138/90 12/05/20 08:00 Pulse Ox 96 12/05/20 08:00 Intake & Output 12/04/20 12/05/20 12/05/20 18:59 06:59 18:59 Intake Total 240 2100 Output Total 200 Balance 240 -200 2100 Weight 128.3 kg 128.3 kg Intake: Oral 240 2100 Output: Urine 200 Other: Voiding Method Toilet Toilet # Voids 1 - Labs CBC & Chem 7: 12/05/20 10:05 12/05/20 10:05 Labs: Abnormal Lab Results - Last 24 Hours (Table) 12/05/20 12/05/20 12/05/20 Range/Units 10:05 10:05 11:41 D-Dimer 4.17 H (<0.60) mg/L FEU Sodium 134 L (137-145) mmol/L BUN 22 H (9-20) mg/dL Creatinine 0.51 L (0.66-1.25) mg/dL Glucose 380 H (74-99) mg/dL POC Glucose (mg/dL) 360 H (75-99) mg/dL Calcium 8.2 L (8.4-10.2) mg/dL Lactate Dehydrogenase 1004 H (313-618) U/L C-Reactive Protein 82.5 H (<10.0) mg/L 12/05/20 Range/Units 16:08 D-Dimer (<0.60) mg/L FEU Sodium (137-145) mmol/L BUN (9-20) mg/dL Creatinine (0.66-1.25) mg/dL Glucose (74-99) mg/dL POC Glucose (mg/dL) 328 H (75-99) mg/dL Calcium (8.4-10.2) mg/dL Lactate Dehydrogenase (313-618) U/L C-Reactive Protein (<10.0) mg/L Microbiology - Last 24 Hours (Table) 12/03/20 19:37 Blood Culture - Preliminary Blood No Growth after 24 hours 12/03/20 19:37 Blood Culture - Preliminary Blood No Growth after 24 hours
[2020-12-05 19:51] LABS: Glucose,Whole Blood 331 mg/dL (75-99)
[2020-12-05] MEDS: ENOXAPARIN 60 MG/0.6 ML SYRINGE SQ SCH (20:38)
[2020-12-05] MEDS ORDERED: ACETAMINOPHEN TAB 325 MG TAB PO PRN (20:42)
[2020-12-06 06:06] LABS: Glucose,Whole Blood 255 mg/dL (75-99)
[2020-12-06] MEDS: INSULIN ASPART (NovoLOG) 100 UNIT/ML VIAL SQ SCH ×4 (06:17→21:15)
[2020-12-06 06:47] LABS: Basophils % (A) 0 %; Eosinophils % (A) 1 %; HCT 40.1 % (39.0-53.0); HGB 13.8 gm/dL (13.0-17.5); Lymphocytes # (A) 0.8 k/uL (1.0-4.8); Lymphocytes % (A) 12 %; MCH 29.2 pg (25.0-35.0); MCHC 34.3 g/dL (31.0-37.0); Monocytes # (A) 0.5 k/uL (0-1.0); Monocytes % (A) 7 %; Neutrophils # (A) 5.1 k/uL (1.3-7.7); Neutrophils % (A) 78 %; Platelet Count 412 k/uL (150-450); RBC 4.72 m/uL (4.30-5.90); RDW 12.6 % (11.5-15.5); WBC 6.6 k/uL (3.8-10.6)
[2020-12-06 06:59] LABS: ALT 26 U/L (4-49); AST 27 U/L (17-59); African American GFR (CKD) >90 (>60 ml/min/1.73 sqM); Albumin 2.7 g/dL (3.5-5.0); Alkaline Phosphatase 72 U/L (38-126); Anion Gap 8 mmol/L; Blood Urea Nitrogen 18 mg/dL (9-20); C Reactive Protein 52.5 mg/L (<10.0); Calcium 8.9 mg/dL (8.4-10.2); Carbon Dioxide 26 mmol/L (22-30); Chloride 101 mmol/L (98-107); Glucose 274 mg/dL (74-99); LDH 892 U/L (313-618); Non-African American GFR(CKD) >90 (>60 ml/min/1.73 sqM); Potassium 4.8 mmol/L (3.5-5.1); Sodium 135 mmol/L (137-145); Total Bilirubin 0.4 mg/dL (0.2-1.3); Total Protein 5.6 g/dL (6.3-8.2)
[2020-12-06] MEDS: CHOLECALCIFEROL 25 MCG (1000 IU) TABLET PO SCH (09:32)
[2020-12-06] MEDS: ENOXAPARIN 60 MG/0.6 ML SYRINGE SQ SCH ×2 (09:32→21:15)
[2020-12-06] MEDS: ZINC SULFATE 220 MG CAP PO SCH (09:32)
[2020-12-06] MEDS: DEXAMETHASONE SOD PHOSPHATE 10 MG/ML 1 ML VIAL IV SCH (09:33)
[2020-12-06] MEDS: REMDESIVIR 100 MG in SODIUM CHLORIDE 0.9% 250 ML IVPB SCH (09:33)
[2020-12-06] MEDS: ASCORBIC ACID 500 MG TAB PO SCH (09:33)
[2020-12-06] MEDS: LINAGLIPTIN 5 MG TABLET PO SCH (09:33)
--- NOTE | 2020-12-06 10:59 | P.PN ---
Subjective Progress Note Date: 12/06/20 Patient is doing well today. He denies any shortness of breath. No acute events overnight reported by nursing staff. Objective - Vital Signs Vital signs: Vital Signs Temp 97.2 F L 12/06/20 08:00 Pulse 75 12/06/20 08:00 Resp 20 12/06/20 08:00 BP 148/72 12/06/20 08:00 Pulse Ox 91 L 12/06/20 08:00 Intake & Output 12/05/20 12/06/20 12/06/20 18:59 06:59 18:59 Intake Total 2100 224 240 Balance 2100 224 240 Weight 128.3 kg 135 kg Intake: Oral 2100 240 Blood Product 0 224 Ffp Pher Conval Covid19 0 224 Acda 1 Unit [id number] Other: Voiding Method Toilet Toilet # Voids 1 1 - Exam General: The patient is awake and alert, in no distress Eye: there is normal conjunctiva bilaterally. Neck: The neck is supple, there is no JVD. Cardiovascular: Normal S1-S2, no S3-S4, no murmurs. Respiratory: Lungs clear to auscultation bilaterally Gastrointestinal: Abdomen is soft, nontender Musculoskeletal: There is no pedal edema. Neurological:. Speech is normal. Skin: Skin is warm and dry - Labs CBC & Chem 7: 12/06/20 06:05 12/06/20 06:05 Labs: Abnormal Lab Results - Last 24 Hours (Table) 12/05/20 12/05/20 12/05/20 Range/Units 10:05 10:05 11:41 Lymphocytes # (1.0-4.8) k/uL D-Dimer 4.17 H (<0.60) mg/L FEU Sodium 134 L (137-145) mmol/L BUN 22 H (9-20) mg/dL Creatinine 0.51 L (0.66-1.25) mg/dL Glucose 380 H (74-99) mg/dL POC Glucose (mg/dL) 360 H (75-99) mg/dL Calcium 8.2 L (8.4-10.2) mg/dL Lactate Dehydrogenase 1004 H (313-618) U/L C-Reactive Protein 82.5 H (<10.0) mg/L Total Protein (6.3-8.2) g/dL Albumin (3.5-5.0) g/dL 12/05/20 12/05/20 12/06/20 Range/Units 16:08 19:49 05:52 Lymphocytes # (1.0-4.8) k/uL D-Dimer (<0.60) mg/L FEU Sodium (137-145) mmol/L BUN (9-20) mg/dL Creatinine (0.66-1.25) mg/dL Glucose (74-99) mg/dL POC Glucose (mg/dL) 328 H 331 H 255 H (75-99) mg/dL Calcium (8.4-10.2) mg/dL Lactate Dehydrogenase (313-618) U/L C-Reactive Protein (<10.0) mg/L Total Protein (6.3-8.2) g/dL Albumin (3.5-5.0) g/dL 12/06/20 12/06/20 12/06/20 Range/Units 06:05 06:05 06:05 Lymphocytes # 0.8 L (1.0-4.8) k/uL D-Dimer 3.57 H (<0.60) mg/L FEU Sodium 135 L (137-145) mmol/L BUN (9-20) mg/dL Creatinine 0.54 L (0.66-1.25) mg/dL Glucose 274 H (74-99) mg/dL POC Glucose (mg/dL) (75-99) mg/dL Calcium (8.4-10.2) mg/dL Lactate Dehydrogenase 892 H (313-618) U/L C-Reactive Protein 52.5 H (<10.0) mg/L Total Protein 5.6 L (6.3-8.2) g/dL Albumin 2.7 L (3.5-5.0) g/dL Microbiology - Last 24 Hours (Table) 12/03/20 19:37 Blood Culture - Preliminary Blood No Growth after 48 hours 12/03/20 19:37 Blood Culture - Preliminary Blood No Growth after 48 hours Assessment and Plan Assessment: Patient is a 50-year-old male with no known past medical history but obesity with BMI of 38.6 who initially presented to urgent care after being sick for 2 days. Urgent care and was found to be hypoxic and have Covid. He therefore presented to the ER. On arrival to the ER he was afebrile but did have a room air pulse ox of 87%. Laboratory analysis showed d-dimer 0.9 one sodium 132, blood sugar of 305, ferritin 1464, LDH 1489, CRP 294, procalcitonin 0.62. CT of the chest demonstrated diffuse groundglass opacities compatible with Covid and no acute pulmonary embolism. EKG demonstrated normal sinus rhythm without any significant ST-T wave changes. He was started on Decadron and REM. Pulmonary was consulted. Throughout the day on 12/04 his O2 requirements increased. Pulmonary was recontacted and the patient was started on TOCI. Covid 19 pneumonitis with acute hypoxic respiratory failure -Pulmonary recs -Continue with vitamin C, vitamin D, zinc -Continue with REM, Decadron - Toci given 12/04 - wean O2 a able - follow inflammatory markers - lovenox Hyponatremia, improving -Likely secondary to dehydration -IV fluids Newly discovered DM 2 -Hemoglobin A1c 13.3 -Sliding-scale insulin -Start Levemir 15 units once a day - industrial design engineer recs -dietitian recs Morbid obesity with BMI 38.7 -Structured outpatient weight loss DVT prophylaxis: Lovenox Discussed with: Patient, nursing, Anticipated discharge: [address]: home A total of 45 minutes was spent on the care of this complex patient more than 50% of the time was spent in counseling and care coordination.
[2020-12-06] MEDS: SODIUM CHLORIDE 0.9% 1,000 ML IV SCH (11:18)
[2020-12-06 11:57] LABS: Glucose,Whole Blood 277 mg/dL (75-99)
[2020-12-06] MEDS: INSULIN DETEMIR (LEVEMIR) 100 UNIT/ML SYR SQ SCH (13:43)
--- NOTE | 2020-12-06 14:46 | P.PN ---
Subjective Progress Note Date: 12/06/20 Principal diagnosis: Acute hypoxemic respiratory failure. 50-year-old male, who presents to the emergency department, via EMS, with complaints of weakness, fatigue, syncope, and shortness of breath with cough. Apparently, the patient has not been feeling well for about 2 or 3 days prior to admission. He apparently initially went to urgent care, and was redirected to the emergency department. Currently, the patient is on 5 L nasal cannula. He is receiving saline at 75 mL an hour. He has no sleep and past medical history. He went to the urgent care on December 03. The patient tested positive for coronavirus, and was thought to have COVID 19 pneumonia. CBC was completely normal. He was 0.91. Sodium 132, potassium 4.2, chloride 93, CO2 28, anion gap 11, BUN 20, and creatinine 0.64. His ferritin was 1465, LDH 1489, C- reactive protein to 94, and pro-calcitonin level was 0.62. Chest x-ray was positive for bilateral infiltrates, and CT angiogram was negative for PE, but consistent with COVID 19 pneumonia. Progress note dated 12/05/2020. Currently, the patient's on 15 L high flow nasal O2. The patient is getting saline at 75 mL an hour. He states that he feeling a bit better. The patient did get REM, and TOCI. The patient denies any chest pain or chest discomfort. He is short of breath. He denies any fever or chills. White count 6.5, hemoglobin 13.9, hematocrit 40.4, and platelet count 398,000. D-dimer is 4.17. Sodium 134, potassium 5, chlorides 101, CO2 22, anion gap 11, BUN 22 and creatinine 0.51. LDH is 1004, and C-reactive protein is 82.5. Chest x-ray shows diffuse bilateral airspace disease. Progress note dated 12/06/2020. 50-year-old male, with COVID 19 pneumonitis, and acute hypoxemic respiratory failure. The patient remains on 15 L high flow nasal O2, and saline at 75 mL an hour. He does feel better. The patient was started on REM, and also received TOCI. Currently, the patient does feel a bit better. He feels like his breathing is improved although he does get short of breath with activity. White count 6.6, he will 13.8, hematocrit 40.1, and platelet count 412,000. D-dimer is 3.57. Sodium 135, potassium 4.8,, chlorides 101, CO2 26, anion gap 8, BUN 18, creatinine 0.54. LDH is 892, and C-reactive protein at 52.5. Objective - Vital Signs Vital signs: Vital Signs Temp 97.2 F L 12/06/20 08:00 Pulse 75 12/06/20 08:00 Resp 20 12/06/20 08:00 BP 148/72 12/06/20 08:00 Pulse Ox 91 L 12/06/20 08:00 Intake & Output 12/05/20 12/06/20 12/06/20 18:59 06:59 18:59 Intake Total 2100 224 240 Balance 2100 224 240 Weight 128.3 kg 135 kg Intake: Oral 2100 240 Blood Product 0 224 Ffp Pher Conval Covid19 0 224 Acda 1 Unit [id number] Other: Voiding Method Toilet Toilet # Voids 1 1 - Exam No acute distress, oriented 3. Nasal O2 at 15 L/m. No conversational dyspnea or use of accessory muscles. HEENT examination is grossly unremarkable. Mucous membranes are moist. No oral lesions. Neck supple. Full range of motion. No adenopathy thyromegaly or neck vein distention. Cardiovascular examination reveals regular rhythm rate. S1-S2 normal. No S3 or S4. No discernible murmur noted. Heart rate 75 bpm. Lungs reveal bilateral rhonchi, and basilar crackles. No wheezes. Breath sounds equal bilaterally. Breath sounds are bit worse today. Abdomen soft bowel sounds are heard. No masses or tenderness. Extremities are intact. No cyanosis clubbing or edema. Skin is without rash or lesion. Neurologic examination is brief but nonfocal. - Labs CBC & Chem 7: 12/06/20 06:05 12/06/20 06:05 Labs: Abnormal Lab Results - Last 24 Hours (Table) 12/05/20 12/05/20 12/06/20 Range/Units 16:08 19:49 05:52 Lymphocytes # (1.0-4.8) k/uL D-Dimer (<0.60) mg/L FEU Sodium (137-145) mmol/L Creatinine (0.66-1.25) mg/dL Glucose (74-99) mg/dL POC Glucose (mg/dL) 328 H 331 H 255 H (75-99) mg/dL Lactate Dehydrogenase (313-618) U/L C-Reactive Protein (<10.0) mg/L Total Protein (6.3-8.2) g/dL Albumin (3.5-5.0) g/dL 12/06/20 12/06/20 12/06/20 Range/Units 06:05 06:05 06:05 Lymphocytes # 0.8 L (1.0-4.8) k/uL D-Dimer 3.57 H (<0.60) mg/L FEU Sodium 135 L (137-145) mmol/L Creatinine 0.54 L (0.66-1.25) mg/dL Glucose 274 H (74-99) mg/dL POC Glucose (mg/dL) (75-99) mg/dL Lactate Dehydrogenase 892 H (313-618) U/L C-Reactive Protein 52.5 H (<10.0) mg/L Total Protein 5.6 L (6.3-8.2) g/dL Albumin 2.7 L (3.5-5.0) g/dL 12/06/20 Range/Units 11:55 Lymphocytes # (1.0-4.8) k/uL D-Dimer (<0.60) mg/L FEU Sodium (137-145) mmol/L Creatinine (0.66-1.25) mg/dL Glucose (74-99) mg/dL POC Glucose (mg/dL) 277 H (75-99) mg/dL Lactate Dehydrogenase (313-618) U/L C-Reactive Protein (<10.0) mg/L Total Protein (6.3-8.2) g/dL Albumin (3.5-5.0) g/dL Microbiology - Last 24 Hours (Table) 12/03/20 19:37 Blood Culture - Preliminary Blood No Growth after 48 hours 12/03/20 19:37 Blood Culture - Preliminary Blood No Growth after 48 hours Assessment and Plan Assessment: Acute hypoxemic respiratory failure secondary to COVID 19 pneumonia. No significant other medical history. Plan: Plan dated 12/04/2020. We felt the patient was a good candidate for REM, Decadron, convalescent plasma, Lovenox, and vitamin C, D3, and zinc. Those are started IR team in the emergency department. The patient is apparently waiting for bed up on the floor. Patient should have repeat inflammatory markers and chest x-rays in a day or 2. Additional recommendations and suggestions are forthcoming. We will continue to follow and make appropriate recommendations. Plan dated 12/05/2020. The patient received REM, Decadron, convalescent plasma, Lovenox, vitamin C, vitamin D3, and zinc. In addition, the cause of his worsening oxygenation, patient did receive TOCI. We will continue to follow the patient closely, and make additional recommendations were appropriate. Prognosis remains guarded. Will continue to follow. The patient will continue on all current medications. I did tell him to move about in bed. Plan dated 12/06/2020. The patient has received REM, Decadron, convalescent plasma, Lovenox, vitamin C, vitamin D3, and zinc. He also received TOCI. The patient remains on 15 L high flow oxygen. Labs x-rays a medications are all reviewed. Clinically, he seems to be feeling a bit better. He does get quite a bit short of breath with any activity. We will continue to follow make recommendations were appropriate. Prognosis is guarded. Time with Patient: Less than 30
[2020-12-06 17:00] LABS: Glucose,Whole Blood 307 mg/dL (75-99)
[2020-12-06 20:42] LABS: Glucose,Whole Blood 359 mg/dL (75-99)
[2020-12-07 06:12] LABS: Glucose,Whole Blood 263 mg/dL (75-99)
[2020-12-07] MEDS: INSULIN DETEMIR (LEVEMIR) 100 UNIT/ML SYR SQ SCH ×2 (06:46→21:23)
[2020-12-07] MEDS: INSULIN ASPART (NovoLOG) 100 UNIT/ML VIAL SQ SCH ×6 (06:46→21:23)
[2020-12-07] MEDS: REMDESIVIR 100 MG in SODIUM CHLORIDE 0.9% 250 ML IVPB SCH (09:43)
[2020-12-07] MEDS: DEXAMETHASONE SOD PHOSPHATE 10 MG/ML 1 ML VIAL IV SCH (09:44)
[2020-12-07] MEDS: ASCORBIC ACID 500 MG TAB PO SCH (09:44)
[2020-12-07] MEDS: LINAGLIPTIN 5 MG TABLET PO SCH (09:44)
[2020-12-07] MEDS: ZINC SULFATE 220 MG CAP PO SCH (09:44)
[2020-12-07] MEDS: ENOXAPARIN 60 MG/0.6 ML SYRINGE SQ SCH ×2 (09:44→21:23)
[2020-12-07] MEDS: CHOLECALCIFEROL 25 MCG (1000 IU) TABLET PO SCH (09:44)
[2020-12-07 12:09] LABS: Glucose,Whole Blood 241 mg/dL (75-99)
--- NOTE | 2020-12-07 13:06 | P.PN ---
Subjective Progress Note Date: 12/07/20 Patient is doing fairly well today. He is still on 15 L of oxygen via high flow nasal cannula. He denies any shortness of breath. He is more dyspneic when he get up to the bathroom. No significant cough. No acute events overnight reported by nursing staff. Objective - Vital Signs Vital signs: Vital Signs Temp 97.5 F L 12/07/20 08:00 Pulse 114 H 12/07/20 08:00 Resp 22 12/07/20 08:00 BP 139/97 12/07/20 08:00 Pulse Ox 89 L 12/07/20 08:00 Intake & Output 12/06/20 12/07/20 12/07/20 18:59 06:59 18:59 Intake Total 800 560 Output Total 600 150 Balance 200 -150 560 Weight 137 kg Intake: Oral 800 560 Output: Urine 600 150 Other: Voiding Method Toilet # Voids 0 # Bowel Movements 0 - Exam General: The patient is awake and alert, in no distress Eye: there is normal conjunctiva bilaterally. Neck: The neck is supple, there is no JVD. Cardiovascular: Normal S1-S2, no S3-S4, no murmurs. Respiratory: Lungs clear to auscultation bilaterally Gastrointestinal: Abdomen is soft, nontender Musculoskeletal: There is no pedal edema. Neurological:. Speech is normal. Skin: Skin is warm and dry - Labs CBC & Chem 7: 12/06/20 06:05 12/06/20 06:05 Labs: Abnormal Lab Results - Last 24 Hours (Table) 12/06/20 12/06/20 12/07/20 Range/Units 16:59 20:28 06:07 POC Glucose (mg/dL) 307 H 359 H 263 H (75-99) mg/dL 12/07/20 Range/Units 12:06 POC Glucose (mg/dL) 241 H (75-99) mg/dL Microbiology - Last 24 Hours (Table) 12/03/20 19:37 Blood Culture - Preliminary Blood No Growth after 72 hours 12/03/20 19:37 Blood Culture - Preliminary Blood No Growth after 72 hours Assessment and Plan Assessment: Patient is a 50-year-old male with no known past medical history but obesity with BMI of 38.6 who initially presented to urgent care after being sick for 2 days. Urgent care and was found to be hypoxic and have Covid. He therefore presented to the ER. On arrival to the ER he was afebrile but did have a room air pulse ox of 87%. Laboratory analysis showed d-dimer 0.9 one sodium 132, blood sugar of 305, ferritin 1464, LDH 1489, CRP 294, procalcitonin 0.62. CT of the chest demonstrated diffuse groundglass opacities compatible with Covid and no acute pulmonary embolism. EKG demonstrated normal sinus rhythm without any significant ST-T wave changes. He was started on Decadron and REM. Pulmonary was consulted. Throughout the day on 12/04 his O2 requirements increased. Pulmonary was recontacted and the patient was started on TOCI. Covid 19 pneumonitis with acute hypoxic respiratory failure -Pulmonary recs -Continue with vitamin C, vitamin D, zinc -Continue with REM, Decadron - Toci given 12/04 - wean O2 a able - follow inflammatory markers - lovenox Hyponatremia, improving -Likely secondary to dehydration -Improved with IV fluid hydration Newly discovered DM 2 -Hemoglobin A1c 13.3 -Sliding-scale insulin -Started Levemir 15 units once a day -Blood glucose not well controlled. Add NovoLog 5 units 3 times a day before each meal - clinical educator recs -dietitian recs Morbid obesity with BMI 38.7 -Structured outpatient weight loss DVT prophylaxis: Lovenox Discussed with: Patient, nursing, Anticipated discharge: [address]: home A total of 45 minutes was spent on the care of this complex patient more than 50% of the time was spent in counseling and care coordination.
[2020-12-07 17:00] LABS: Glucose,Whole Blood 265 mg/dL (75-99)
--- NOTE | 2020-12-07 17:45 | P.PN ---
Subjective Progress Note Date: 12/07/20 Principal diagnosis: Acute hypoxemic respiratory failure. 50-year-old male, who presents to the emergency department, via EMS, with complaints of weakness, fatigue, syncope, and shortness of breath with cough. Apparently, the patient has not been feeling well for about 2 or 3 days prior to admission. He apparently initially went to urgent care, and was redirected to the emergency department. Currently, the patient is on 5 L nasal cannula. He is receiving saline at 75 mL an hour. He has no sleep and past medical history. He went to the urgent care on December 03. The patient tested positive for coronavirus, and was thought to have COVID 19 pneumonia. CBC was completely normal. He was 0.91. Sodium 132, potassium 4.2, chloride 93, CO2 28, anion gap 11, BUN 20, and creatinine 0.64. His ferritin was 1465, LDH 1489, C- reactive protein to 94, and pro-calcitonin level was 0.62. Chest x-ray was positive for bilateral infiltrates, and CT angiogram was negative for PE, but consistent with COVID 19 pneumonia. Progress note dated 12/05/2020. Currently, the patient's on 15 L high flow nasal O2. The patient is getting saline at 75 mL an hour. He states that he feeling a bit better. The patient did get REM, and TOCI. The patient denies any chest pain or chest discomfort. He is short of breath. He denies any fever or chills. White count 6.5, hemoglobin 13.9, hematocrit 40.4, and platelet count 398,000. D-dimer is 4.17. Sodium 134, potassium 5, chlorides 101, CO2 22, anion gap 11, BUN 22 and creatinine 0.51. LDH is 1004, and C-reactive protein is 82.5. Chest x-ray shows diffuse bilateral airspace disease. Progress note dated 12/06/2020. 50-year-old male, with COVID 19 pneumonitis, and acute hypoxemic respiratory failure. The patient remains on 15 L high flow nasal O2, and saline at 75 mL an hour. He does feel better. The patient was started on REM, and also received TOCI. Currently, the patient does feel a bit better. He feels like his breathing is improved although he does get short of breath with activity. White count 6.6, he will 13.8, hematocrit 40.1, and platelet count 412,000. D-dimer is 3.57. Sodium 135, potassium 4.8,, chlorides 101, CO2 26, anion gap 8, BUN 18, creatinine 0.54. LDH is 892, and C-reactive protein at 52.5. Progress note dated 12/07/2020. 50-year-old male, admitted with a diagnosis of COVID 19 pneumonitis, and acute hypoxemic respiratory failure. The patient remains on high flow nasal cannula at 15 L. He is also on saline at 75 mL an hour. He does feel a bit better. His breathing is improved. The patient was started on REM, and also received TOCI. There were no new labs today. Also, his last chest x-ray was done on December 05. Objective - Vital Signs Vital signs: Vital Signs Temp 97.5 F L 12/07/20 08:00 Pulse 95 12/07/20 12:00 Resp 18 12/07/20 14:00 BP 140/87 12/07/20 12:00 Pulse Ox 89 L 12/07/20 12:00 Intake & Output 12/06/20 12/07/20 12/07/20 18:59 06:59 18:59 Intake Total 800 1120 Output Total 600 150 Balance 200 -150 1120 Weight 137 kg Intake: Oral 800 1120 Output: Urine 600 150 Other: Voiding Method Toilet # Voids 0 # Bowel Movements 0 - Exam No acute distress, oriented 3. Nasal O2 at 15 L/m. No conversational dyspnea or use of accessory muscles. HEENT examination is grossly unremarkable. Mucous membranes are moist. No oral lesions. Neck supple. Full range of motion. No adenopathy thyromegaly or neck vein distention. Cardiovascular examination reveals regular rhythm rate. S1-S2 normal. No S3 or S4. No discernible murmur noted. Heart rate 95 bpm. Lungs reveal bilateral rhonchi, and basilar crackles. No wheezes. Breath sounds equal bilaterally. Breath sounds are bit worse today. Abdomen soft bowel sounds are heard. No masses or tenderness. Extremities are intact. No cyanosis clubbing or edema. Skin is without rash or lesion. Neurologic examination is brief but nonfocal. - Labs CBC & Chem 7: 12/06/20 06:05 12/06/20 06:05 Labs: Abnormal Lab Results - Last 24 Hours (Table) 12/06/20 12/07/20 12/07/20 Range/Units 20:28 06:07 12:06 POC Glucose (mg/dL) 359 H 263 H 241 H (75-99) mg/dL 12/07/20 Range/Units 16:58 POC Glucose (mg/dL) 265 H (75-99) mg/dL Microbiology - Last 24 Hours (Table) 12/03/20 19:37 Blood Culture - Preliminary Blood No Growth after 72 hours 12/03/20 19:37 Blood Culture - Preliminary Blood No Growth after 72 hours Assessment and Plan Assessment: Acute hypoxemic respiratory failure secondary to COVID 19 pneumonia. No significant other medical history. Plan: Plan dated 12/04/2020. We felt the patient was a good candidate for REM, Decadron, convalescent plasma, Lovenox, and vitamin C, D3, and zinc. Those are started IR team in the emergency department. The patient is apparently waiting for bed up on the floor. Patient should have repeat inflammatory markers and chest x-rays in a day or 2. Additional recommendations and suggestions are forthcoming. We will continue to follow and make appropriate recommendations. Plan dated 12/05/2020. The patient received REM, Decadron, convalescent plasma, Lovenox, vitamin C, vitamin D3, and zinc. In addition, the cause of his worsening oxygenation, patient did receive TOCI. We will continue to follow the patient closely, and make additional recommendations were appropriate. Prognosis remains guarded. Will continue to follow. The patient will continue on all current medications. I did tell him to move about in bed. Plan dated 12/06/2020. The patient has received REM, Decadron, convalescent plasma, Lovenox, vitamin C, vitamin D3, and zinc. He also received TOCI. The patient remains on 15 L high flow oxygen. Labs x-rays a medications are all reviewed. Clinically, he seems to be feeling a bit better. He does get quite a bit short of breath with any activity. We will continue to follow make recommendations were appropriate. Prognosis is guarded. Plan dated 12/07/2020. The patient does feel clinically better today. The patient has received all appropriate therapies including REM, Decadron, convalescent plasma, Lovenox, vitamin C, vitamin D3, zinc, and TOCI. The patient remains on nasal O2, 15 L high flow, saturations in the low 90s. He does feel less short of breath. I've asked him to move around in bed. I've also asked him to get out of bed and sit in the chair. We will continue to follow. Prognosis is guarded. No additional recommendations are made this time. Time with Patient: Less than 30
[2020-12-07 20:25] LABS: Glucose,Whole Blood 294 mg/dL (75-99)
[2020-12-08 07:05] LABS: Glucose,Whole Blood 191 mg/dL (75-99)
[2020-12-08] MEDS: INSULIN ASPART (NovoLOG) 100 UNIT/ML VIAL SQ SCH ×7 (07:06→20:47)
[2020-12-08] MEDS: INSULIN DETEMIR (LEVEMIR) 100 UNIT/ML SYR SQ SCH ×2 (07:06→20:47)
[2020-12-08] MEDS: ZINC SULFATE 220 MG CAP PO SCH (08:23)
[2020-12-08] MEDS: CHOLECALCIFEROL 25 MCG (1000 IU) TABLET PO SCH (08:23)
[2020-12-08] MEDS: LINAGLIPTIN 5 MG TABLET PO SCH (08:24)
[2020-12-08] MEDS: ASCORBIC ACID 500 MG TAB PO SCH (08:24)
[2020-12-08] MEDS: REMDESIVIR 100 MG in SODIUM CHLORIDE 0.9% 250 ML IVPB SCH (08:24)
[2020-12-08] MEDS: DEXAMETHASONE SOD PHOSPHATE 10 MG/ML 1 ML VIAL IV SCH (08:24)
[2020-12-08] MEDS: ENOXAPARIN 60 MG/0.6 ML SYRINGE SQ SCH ×2 (08:26→20:47)
[2020-12-08 09:33] LABS: African American GFR (CKD) >90 (>60 ml/min/1.73 sqM); Anion Gap 6 mmol/L; Basophils % (A) 1 %; Blood Urea Nitrogen 15 mg/dL (9-20); C Reactive Protein 20.4 mg/L (<10.0); Calcium 8.7 mg/dL (8.4-10.2); Carbon Dioxide 28 mmol/L (22-30); Chloride 98 mmol/L (98-107); Eosinophils # (A) 0.1 k/uL (0-0.7); Eosinophils % (A) 2 %; Glucose 298 mg/dL (74-99); HCT 40.8 % (39.0-53.0); HGB 14.3 gm/dL (13.0-17.5); LDH 1347 U/L (313-618); Lymphocytes # (A) 1.7 k/uL (1.0-4.8); Lymphocytes % (A) 21 %; MCH 29.4 pg (25.0-35.0); MCHC 35.1 g/dL (31.0-37.0); MCV 83.9 fL (80.0-100.0); Mean Platelet Volume 6.8; Monocytes # (A) 0.6 k/uL (0-1.0); Monocytes % (A) 8 %; Neutrophils # (A) 5.2 k/uL (1.3-7.7); Neutrophils % (A) 67 %; Non-African American GFR(CKD) >90 (>60 ml/min/1.73 sqM); Platelet Count 421 k/uL (150-450); Potassium 4.1 mmol/L (3.5-5.1); RBC 4.86 m/uL (4.30-5.90); RDW 12.8 % (11.5-15.5); Sodium 132 mmol/L (137-145); WBC 7.8 k/uL (3.8-10.6)
--- NOTE | 2020-12-08 10:22 | XR ---
EXAMINATION TYPE: XR chest 1V portable DATE OF EXAM: 12/08/2020 COMPARISON: 12/05/2020 INDICATION: Short of breath TECHNIQUE: Single frontal view of the chest is obtained. FINDINGS: The heart size is normal. The pulmonary vasculature is slightly prominent. Patchy infiltrates are present bilaterally. This is improving from comparison. IMPRESSION: 1. Diffuse patchy infiltrates present bilaterally. Correlate for atypical pneumonia.
--- NOTE | 2020-12-08 11:49 | P.PN ---
Subjective Progress Note Date: 12/08/20 Patient is doing fairly well today. He is still on 15 L of oxygen via high flow nasal cannula. He denies any shortness of breath. O2 sats around 90% on 15 L. No acute events overnight reported by nursing staff. Objective - Vital Signs Vital signs: Vital Signs Temp 97.9 F 12/08/20 08:00 Pulse 105 H 12/08/20 08:00 Resp 20 12/08/20 08:00 BP 118/75 12/08/20 08:00 Pulse Ox 91 L 12/08/20 08:00 Intake & Output 12/07/20 12/08/20 12/08/20 18:59 06:59 18:59 Intake Total 1680 540 360 Output Total 300 Balance 1380 540 360 Weight 136.5 kg Intake: Oral 1680 540 360 Output: Urine 300 Other: Voiding Method Toilet # Voids 1 - Exam General: The patient is awake and alert, in no distress Eye: there is normal conjunctiva bilaterally. Neck: The neck is supple, there is no JVD. Cardiovascular: Normal S1-S2, no S3-S4, no murmurs. Respiratory: Lungs clear to auscultation bilaterally Gastrointestinal: Abdomen is soft, nontender Musculoskeletal: There is no pedal edema. Neurological:. Speech is normal. Skin: Skin is warm and dry - Labs CBC & Chem 7: 12/08/20 08:57 12/08/20 08:57 Labs: Abnormal Lab Results - Last 24 Hours (Table) 12/07/20 12/07/20 12/07/20 Range/Units 12:06 16:58 20:23 Sodium (137-145) mmol/L Creatinine (0.66-1.25) mg/dL Glucose (74-99) mg/dL POC Glucose (mg/dL) 241 H 265 H 294 H (75-99) mg/dL Lactate Dehydrogenase (313-618) U/L C-Reactive Protein (<10.0) mg/L 12/08/20 12/08/20 Range/Units 07:04 08:57 Sodium 132 L (137-145) mmol/L Creatinine 0.45 L (0.66-1.25) mg/dL Glucose 298 H (74-99) mg/dL POC Glucose (mg/dL) 191 H (75-99) mg/dL Lactate Dehydrogenase 1347 H (313-618) U/L C-Reactive Protein 20.4 H (<10.0) mg/L Microbiology - Last 24 Hours (Table) 12/03/20 19:37 Blood Culture - Preliminary Blood No Growth after 96 hours 12/03/20 19:37 Blood Culture - Preliminary Blood No Growth after 96 hours Assessment and Plan Assessment: Patient is a 50-year-old male with no known past medical history but obesity with BMI of 38.6 who initially presented to urgent care after being sick for 2 days. Urgent care and was found to be hypoxic and have Covid. He therefore presented to the ER. On arrival to the ER he was afebrile but did have a room air pulse ox of 87%. Laboratory analysis showed d-dimer 0.9 one sodium 132, blood sugar of 305, ferritin 1464, LDH 1489, CRP 294, procalcitonin 0.62. CT of the chest demonstrated diffuse groundglass opacities compatible with Covid and no acute pulmonary embolism. EKG demonstrated normal sinus rhythm without any significant ST-T wave changes. He was started on Decadron and REM. Pulmonary was consulted. Throughout the day on 12/04 his O2 requirements increased. Pulmonary was recontacted and the patient was started on TOCI. Covid 19 pneumonitis with acute hypoxic respiratory failure -Pulmonary recs -Continue with vitamin C, vitamin D, zinc -Continue with REM, Decadron - Toci given 12/04 - wean O2 a able currently on 15 L - follow inflammatory markers - lovenox Hyponatremia, improving -Likely secondary to dehydration -Improved with IV fluid hydration Newly discovered DM 2 -Hemoglobin A1c 13.3 -Sliding-scale insulin -Started Levemir 15 units once a day -Blood glucose not well controlled. Add NovoLog 5 units 3 times a day before each meal - patient educator recs -dietitian recs Morbid obesity with BMI 38.7 -Structured outpatient weight loss DVT prophylaxis: Lovenox Discussed with: Patient, nursing, Anticipated discharge: [address]: home A total of 45 minutes was spent on the care of this complex patient more than 50% of the time was spent in counseling and care coordination.
[2020-12-08 12:09] LABS: Glucose,Whole Blood 309 mg/dL (75-99)
--- NOTE | 2020-12-08 16:13 | P.PN ---
Subjective Progress Note Date: 12/08/20 Principal diagnosis: Acute hypoxemic respiratory failure. 50-year-old male, who presents to the emergency department, via EMS, with complaints of weakness, fatigue, syncope, and shortness of breath with cough. Apparently, the patient has not been feeling well for about 2 or 3 days prior to admission. He apparently initially went to urgent care, and was redirected to the emergency department. Currently, the patient is on 5 L nasal cannula. He is receiving saline at 75 mL an hour. He has no sleep and past medical history. He went to the urgent care on December 03. The patient tested positive for coronavirus, and was thought to have COVID 19 pneumonia. CBC was completely normal. He was 0.91. Sodium 132, potassium 4.2, chloride 93, CO2 28, anion gap 11, BUN 20, and creatinine 0.64. His ferritin was 1465, LDH 1489, C- reactive protein to 94, and pro-calcitonin level was 0.62. Chest x-ray was positive for bilateral infiltrates, and CT angiogram was negative for PE, but consistent with COVID 19 pneumonia. Progress note dated 12/05/2020. Currently, the patient's on 15 L high flow nasal O2. The patient is getting saline at 75 mL an hour. He states that he feeling a bit better. The patient did get REM, and TOCI. The patient denies any chest pain or chest discomfort. He is short of breath. He denies any fever or chills. White count 6.5, hemoglobin 13.9, hematocrit 40.4, and platelet count 398,000. D-dimer is 4.17. Sodium 134, potassium 5, chlorides 101, CO2 22, anion gap 11, BUN 22 and creatinine 0.51. LDH is 1004, and C-reactive protein is 82.5. Chest x-ray shows diffuse bilateral airspace disease. Progress note dated 12/06/2020. 50-year-old male, with COVID 19 pneumonitis, and acute hypoxemic respiratory failure. The patient remains on 15 L high flow nasal O2, and saline at 75 mL an hour. He does feel better. The patient was started on REM, and also received TOCI. Currently, the patient does feel a bit better. He feels like his breathing is improved although he does get short of breath with activity. White count 6.6, he will 13.8, hematocrit 40.1, and platelet count 412,000. D-dimer is 3.57. Sodium 135, potassium 4.8,, chlorides 101, CO2 26, anion gap 8, BUN 18, creatinine 0.54. LDH is 892, and C-reactive protein at 52.5. Progress note dated 12/07/2020. 50-year-old male, admitted with a diagnosis of COVID 19 pneumonitis, and acute hypoxemic respiratory failure. The patient remains on high flow nasal cannula at 15 L. He is also on saline at 75 mL an hour. He does feel a bit better. His breathing is improved. The patient was started on REM, and also received TOCI. There were no new labs today. Also, his last chest x-ray was done on December 05. Progress note dated 12/08/2020. 50-year-old male, admitted with a diagnosis of acute hypoxemic respiratory failure, secondary to COVID 19 pneumonitis. The patient remains on high flow nasal O2 at 15 L/m, and saline at 75 mL an hour. He again tells me that he feels better clinically even though his oxygen requirements are still quite high. He feels like he's less short of breath when he is moving around. The patient was started on REM, and also TOCI, and is getting the usual other medications including vitamins, steroids, and blood thinner. Labs today include a white count of 7.8, hemoglobin 14.3, hematocrit 40.8, platelet count 421,000. Sodium 132, potassium 4.1, chlorides 98, CO2 28, anion gap 6, BUN 15, creatinine 0.45. LDH is 1347. C-reactive protein is 20.4. Chest x-ray done today shows diffuse patchy infiltrates bilaterally. Objective - Vital Signs Vital signs: Vital Signs Temp 97.8 F 12/08/20 12:00 Pulse 114 H 12/08/20 12:00 Resp 20 12/08/20 12:00 BP 130/96 12/08/20 12:00 Pulse Ox 92 L 12/08/20 12:00 Intake & Output 12/07/20 12/08/20 12/08/20 18:59 06:59 18:59 Intake Total 1680 540 970 Output Total 300 Balance 1380 540 970 Weight 136.5 kg Intake: Intake, IV Titration 250 Amount Remdesivir 100 mg In 250 Sodium Chloride 0.9% 250 ml @ 250 mls/hr IVPB DAILY [facility] Rx#:[id number] Oral 1680 540 720 Output: Urine 300 Other: Voiding Method Toilet # Voids 1 - Exam No acute distress, oriented 3. Nasal O2 at 15 L/m. No conversational dyspnea or use of accessory muscles. Saturations 91-92%. HEENT examination is grossly unremarkable. Mucous membranes are moist. No oral lesions. Neck supple. Full range of motion. No adenopathy thyromegaly or neck vein distention. Cardiovascular examination reveals regular rhythm rate. S1-S2 normal. No S3 or S4. No discernible murmur noted. Heart rate 114 bpm. Lungs reveal bilateral rhonchi, and basilar crackles. No wheezes. Breath sounds equal bilaterally. Abdomen soft bowel sounds are heard. No masses or tenderness. Extremities are intact. No cyanosis clubbing or edema. Skin is without rash or lesion. Neurologic examination is brief but nonfocal. - Labs CBC & Chem 7: 12/08/20 08:57 12/08/20 08:57 Labs: Abnormal Lab Results - Last 24 Hours (Table) 12/07/20 12/07/20 12/08/20 Range/Units 16:58 20:23 07:04 Sodium (137-145) mmol/L Creatinine (0.66-1.25) mg/dL Glucose (74-99) mg/dL POC Glucose (mg/dL) 265 H 294 H 191 H (75-99) mg/dL Lactate Dehydrogenase (313-618) U/L C-Reactive Protein (<10.0) mg/L 12/08/20 12/08/20 Range/Units 08:57 11:38 Sodium 132 L (137-145) mmol/L Creatinine 0.45 L (0.66-1.25) mg/dL Glucose 298 H (74-99) mg/dL POC Glucose (mg/dL) 309 H (75-99) mg/dL Lactate Dehydrogenase 1347 H (313-618) U/L C-Reactive Protein 20.4 H (<10.0) mg/L Microbiology - Last 24 Hours (Table) 12/03/20 19:37 Blood Culture - Preliminary Blood No Growth after 96 hours 12/03/20 19:37 Blood Culture - Preliminary Blood No Growth after 96 hours Assessment and Plan Assessment: Acute hypoxemic respiratory failure secondary to COVID 19 pneumonia. No significant other medical history. Plan: Plan dated 12/04/2020. We felt the patient was a good candidate for REM, Decadron, convalescent plasma, Lovenox, and vitamin C, D3, and zinc. Those are started IR team in the emergency department. The patient is apparently waiting for bed up on the floor. Patient should have repeat inflammatory markers and chest x-rays in a day or 2. Additional recommendations and suggestions are forthcoming. We will continue to follow and make appropriate recommendations. Plan dated 12/05/2020. The patient received REM, Decadron, convalescent plasma, Lovenox, vitamin C, vitamin D3, and zinc. In addition, the cause of his worsening oxygenation, patient did receive TOCI. We will continue to follow the patient closely, and make additional recommendations were appropriate. Prognosis remains guarded. Will continue to follow. The patient will continue on all current medications. I did tell him to move about in bed. Plan dated 12/06/2020. The patient has received REM, Decadron, convalescent plasma, Lovenox, vitamin C, vitamin D3, and zinc. He also received TOCI. The patient remains on 15 L high flow oxygen. Labs x-rays a medications are all reviewed. Clinically, he seems to be feeling a bit better. He does get quite a bit short of breath with any activity. We will continue to follow make recommendations were appropriate. Prognosis is guarded. Plan dated 12/07/2020. The patient does feel clinically better today. The patient has received all appropriate therapies including REM, Decadron, convalescent plasma, Lovenox, vitamin C, vitamin D3, zinc, and TOCI. The patient remains on nasal O2, 15 L high flow, saturations in the low 90s. He does feel less short of breath. I've asked him to move around in bed. I've also asked him to get out of bed and sit in the chair. We will continue to follow. Prognosis is guarded. No additional recommendations are made this time. Plan dated 12/08/2020. Clinically, the patient feels better, even though his oxygen requirements have not declined. The patient has received all therapies including REM, Decadron, convalescent plasma, Lovenox, vitamin C, vitamin D3, zinc, and TOCI. The patient remains on O2, high flow nasal cannula, at 15 L. The patient's also getting saline at 75 mL an hour. He remains in good spirits. I did tell him to move about in bed. In addition, he should get out of bed, and sit in the chair. This would improve his diaphragmatic function. Time with Patient: Less than 30
[2020-12-08 16:57] LABS: Glucose,Whole Blood 349 mg/dL (75-99)
[2020-12-08 20:44] LABS: Glucose,Whole Blood 293 mg/dL (75-99)
[2020-12-09 07:06] LABS: Glucose,Whole Blood 207 mg/dL (75-99)
[2020-12-09] MEDS: INSULIN ASPART (NovoLOG) 100 UNIT/ML VIAL SQ SCH ×7 (07:08→20:09)
[2020-12-09] MEDS: INSULIN DETEMIR (LEVEMIR) 100 UNIT/ML SYR SQ SCH ×2 (07:08→20:09)
[2020-12-09] MEDS: LINAGLIPTIN 5 MG TABLET PO SCH (08:59)
[2020-12-09] MEDS: CHOLECALCIFEROL 25 MCG (1000 IU) TABLET PO SCH (08:59)
[2020-12-09] MEDS: ENOXAPARIN 60 MG/0.6 ML SYRINGE SQ SCH ×2 (09:00→20:10)
[2020-12-09] MEDS: ASCORBIC ACID 500 MG TAB PO SCH (09:00)
[2020-12-09] MEDS: ZINC SULFATE 220 MG CAP PO SCH (09:00)
[2020-12-09] MEDS: DEXAMETHASONE SOD PHOSPHATE 10 MG/ML 1 ML VIAL IV SCH (09:00)
--- NOTE | 2020-12-09 11:31 | P.PN ---
Subjective Progress Note Date: 12/09/20 Patient is doing better today. Shortness of breath is improving. He was on 15 L of oxygen via nasal cannula when I saw him this morning. I personally checked his O2 sats and he was around 95%. I decreased his oxygen gradually to 10 L high flow with O2 sats remained around 92%. Otherwise patient blood glucose is not very well controlled. Objective - Vital Signs Vital signs: Vital Signs Temp 98.4 F 12/09/20 08:00 Pulse 84 12/09/20 08:00 Resp 20 12/09/20 08:00 BP 130/81 12/09/20 08:00 Pulse Ox 95 12/09/20 08:00 Intake & Output 12/08/20 12/09/20 12/09/20 18:59 06:59 18:59 Intake Total 1210 540 Balance 1210 540 Intake: Intake, IV Titration 250 Amount Remdesivir 100 mg In 250 Sodium Chloride 0.9% 250 ml @ 250 mls/hr IVPB DAILY [facility] Rx#:[id number] Oral 960 540 Other: Voiding Method Toilet # Voids 1 - Exam General: The patient is awake and alert, in no distress Eye: there is normal conjunctiva bilaterally. Neck: The neck is supple, there is no JVD. Cardiovascular: Normal S1-S2, no S3-S4, no murmurs. Respiratory: Lungs clear to auscultation bilaterally Gastrointestinal: Abdomen is soft, nontender Musculoskeletal: There is no pedal edema. Neurological:. Speech is normal. Skin: Skin is warm and dry - Labs CBC & Chem 7: 12/08/20 08:57 12/08/20 08:57 Labs: Abnormal Lab Results - Last 24 Hours (Table) 12/08/20 12/08/20 12/08/20 Range/Units 11:38 16:40 20:42 POC Glucose (mg/dL) 309 H 349 H 293 H (75-99) mg/dL 12/09/20 Range/Units 07:05 POC Glucose (mg/dL) 207 H (75-99) mg/dL Microbiology - Last 24 Hours (Table) 12/03/20 19:37 Blood Culture - Preliminary Blood No Growth after 120 hours 12/03/20 19:37 Blood Culture - Preliminary Blood No Growth after 120 hours Assessment and Plan Assessment: Patient is a 50-year-old male with no known past medical history but obesity with BMI of 38.6 who initially presented to urgent care after being sick for 2 days. Urgent care and was found to be hypoxic and have Covid. He therefore presented to the ER. On arrival to the ER he was afebrile but did have a room air pulse ox of 87%. Laboratory analysis showed d-dimer 0.9 one sodium 132, blood sugar of 305, ferritin 1464, LDH 1489, CRP 294, procalcitonin 0.62. CT of the chest demonstrated diffuse groundglass opacities compatible with Covid and no acute pulmonary embolism. EKG demonstrated normal sinus rhythm without any significant ST-T wave changes. He was started on Decadron and REM. Pulmonary was consulted. Throughout the day on 12/04 his O2 requirements increased. Pulmonary was recontacted and the patient was started on TOCI. Covid 19 pneumonitis with acute hypoxic respiratory failure -Pulmonary recs -Continue with vitamin C, vitamin D, zinc -Continue with REM, Decadron - Toci given 12/04 - wean O2 a able currently on 10 L - follow inflammatory markers - lovenox Hyponatremia, improving -Likely secondary to dehydration -Improved with IV fluid hydration Newly discovered DM 2 -Hemoglobin A1c 13.3 -Sliding-scale insulin -Started Levemir 15 units in the morning and 5 units at night. Increase NovoLog to 8 units 3 times a day before each meal. Continue sliding scale insulin. - steam hoist operator recs -dietitian recs Morbid obesity with BMI 38.7 -Structured outpatient weight loss DVT prophylaxis: Lovenox Discussed with: Patient, nursing, Anticipated discharge: 1-[address]: home A total of 45 minutes was spent on the care of this complex patient more than 50% of the time was spent in counseling and care coordination.
[2020-12-09 12:09] LABS: Glucose,Whole Blood 243 mg/dL (75-99)
--- NOTE | 2020-12-09 16:58 | P.PN ---
Subjective Progress Note Date: 12/09/20 Principal diagnosis: Acute CoVID 19 pneumonia 50-year-old male, who presents to the emergency department, via EMS, with complaints of weakness, fatigue, syncope, and shortness of breath with cough. Apparently, the patient has not been feeling well for about 2 or 3 days prior to admission. He apparently initially went to urgent care, and was redirected to the emergency department. Currently, the patient is on 5 L nasal cannula. He is receiving saline at 75 mL an hour. He has no sleep and past medical history. He went to the urgent care on December 03. The patient tested positive for coronavirus, and was thought to have COVID 19 pneumonia. CBC was completely normal. He was 0.91. Sodium 132, potassium 4.2, chloride 93, CO2 28, anion gap 11, BUN 20, and creatinine 0.64. His ferritin was 1465, LDH 1489, C- reactive protein to 94, and pro-calcitonin level was 0.62. Chest x-ray was positive for bilateral infiltrates, and CT angiogram was negative for PE, but consistent with COVID 19 pneumonia. Progress note dated 12/05/2020. Currently, the patient's on 15 L high flow nasal O2. The patient is getting saline at 75 mL an hour. He states that he feeling a bit better. The patient did get REM, and TOCI. The patient denies any chest pain or chest discomfort. He is short of breath. He denies any fever or chills. White count 6.5, hemoglobin 13.9, hematocrit 40.4, and platelet count 398,000. D-dimer is 4.17. Sodium 134, potassium 5, chlorides 101, CO2 22, anion gap 11, BUN 22 and creatinine 0.51. LDH is 1004, and C-reactive protein is 82.5. Chest x-ray shows diffuse bilateral airspace disease. Progress note dated 12/06/2020. 50-year-old male, with COVID 19 pneumonitis, and acute hypoxemic respiratory failure. The patient remains on 15 L high flow nasal O2, and saline at 75 mL an hour. He does feel better. The patient was started on REM, and also received TOCI. Currently, the patient does feel a bit better. He feels like his dennis thing is improved although he does get short of breath with activity. White count 6.6, he will 13.8, hematocrit 40.1, and platelet count 412,000. D-dimer is 3.57. Sodium 135, potassium 4.8,, chlorides 101, CO2 26, anion gap 8, BUN 18, creatinine 0.54. LDH is 892, and C-reactive protein at 52.5. Progress note dated 12/07/2020. 50-year-old male, admitted with a diagnosis of COVID 19 pneumonitis, and acute hypoxemic respiratory failure. The patient remains on high flow nasal cannula at 15 L. He is also on saline at 75 mL an hour. He does feel a bit better. His breathing is improved. The patient was started on REM, and also received TOCI. There were no new labs today. Also, his last chest x-ray was done on December 05. Progress note dated 12/08/2020. 50-year-old male, admitted with a diagnosis of acute hypoxemic respiratory failure, secondary to COVID 19 pneumonitis. The patient remains on high flow nasal O2 at 15 L/m, and saline at 75 mL an hour. He again tells me that he fee ls better clinically even though his oxygen requirements are still quite high. He feels like he's less short of breath when he is moving around. The patient was started on REM, and also TOCI, and is getting the usual other medications including vitamins, steroids, and blood thinner. Labs today include a white count of 7.8, hemoglobin 14.3, hematocrit 40.8, platelet count 421,000. Sodium 132, potassium 4.1, chlorides 98, CO2 28, anion gap 6, BUN 15, creatinine 0.45. LDH is 1347. C-reactive protein is 20.4. Chest x-ray done today shows diffuse patchy infiltrates bilaterally. The patient is seen today 12/09/2020 in follow-up on the selective care unit. He is currently resting comfortably in bed. Awake and alert in no acute distress. States he is doing better today compared to yesterday. He is down to 10 L high flow nasal cannula with O2 saturation 92%. Pulling 1750 on the incen tive spirometer. Making multiple position changes while in bed. Blood glucose 243. He did receive Remdesivir, tocilizumab and convalescent plasma. Objective - Vital Signs Vital signs: Vital Signs Temp 98.3 F 12/09/20 16:20 Pulse 92 12/09/20 16:20 Resp 20 12/09/20 16:20 BP 134/95 12/09/20 16:20 Pulse Ox 90 L 12/09/20 16:20 Intake & Output 12/08/20 12/09/20 12/09/20 18:59 06:59 18:59 Intake Total 1210 540 600 Balance 1210 540 600 Intake: Intake, IV Titration 250 Amount Remdesivir 100 mg In 250 Sodium Chloride 0.9% 250 ml @ 250 mls/hr [facility] Rx#:[id number] Oral 960 540 600 Other: Voiding Method Toilet # Voids 1 2 - Exam Alert, oriented very pleasant 50-year-old gentleman. No acute distress, oriented 3. Nasal O2 at 10 L/m. No conversational dyspnea or use of accessory muscles. Saturations 90-92%. HEENT examination is grossly unremarkable. Mucous membranes are moist. No oral lesions. Neck supple. Full range of motion. No adenopathy thyromegaly or neck vein distention. Cardiovascular examination reveals regular rhythm rate. S1-S2 normal. No S3 or S4. No discernible murmur noted. Heart rate 114 bpm. Lungs reveal bilateral rhonchi, and basilar crackles. No wheezes. Breath sounds equal bilaterally. Abdomen soft bowel sounds are heard. No masses or tenderness. Extremities are intact. No cyanosis clubbing or edema. Skin is without rash or lesion. Neurologic examination is brief but nonfocal. - Labs CBC & Chem 7: 12/08/20 08:57 12/08/20 08:57 Labs: Abnormal Lab Results - Last 24 Hours (Table) 12/08/20 12/08/20 12/09/20 Range/Units 16:40 20:42 07:05 POC Glucose (mg/dL) 349 H 293 H 207 H (75-99) mg/dL 12/09/20 Range/Units 11:58 POC Glucose (mg/dL) 243 H (75-99) mg/dL Microbiology - Last 24 Hours (Table) 12/03/20 19:37 Blood Culture - Preliminary Blood No Growth after 120 hours 12/03/20 19:37 Blood Culture - Preliminary Blood No Growth after 120 hours Assessment and Plan Assessment: 1 Acute hypoxemic respiratory failure secondary to CoVID 19 pneumonia. Received Remdesivir, Tocilizumab and convalescent plasma. Currently on 10 L high flow nasal cannula. Plan: The patient was seen and evaluated by Dr. Tee Feeling stronger and less short of breath with exertion Currently down to 10 L high flow nasal cannula Continues to reposition himself in bed frequently Up in a chair at the bedside Working well with the incentive spirometer Follow-up inflammatory markers in the a.m. We will continue to follow I, the cosigning physician, performed a history & physical examination of the patient. Lungs sounds with fine crackles in the bilateral bases. Maintaining good O2 saturations in the 90s on 10 L high flow nasal cannula. I discussed the assessment and plan of care with my nurse practitioner, Corine Murillo. I attest to the above note as dictated by her.
[2020-12-09 17:06] LABS: Glucose,Whole Blood 300 mg/dL (75-99)
[2020-12-09 20:05] LABS: Glucose,Whole Blood 196 mg/dL (75-99)
[2020-12-10 07:07] LABS: Glucose,Whole Blood 220 mg/dL (75-99)
[2020-12-10] MEDS: INSULIN ASPART (NovoLOG) 100 UNIT/ML VIAL SQ SCH ×7 (07:10→20:33)
[2020-12-10] MEDS: INSULIN DETEMIR (LEVEMIR) 100 UNIT/ML SYR SQ SCH ×2 (07:10→20:33)
[2020-12-10 07:57] LABS: Basophils # (A) 0.1 k/uL (0-0.2); Basophils % (A) 1 %; Eosinophils # (A) 0.2 k/uL (0-0.7); Eosinophils % (A) 2 %; HCT 44.9 % (39.0-53.0); HGB 15.8 gm/dL (13.0-17.5); Lymphocytes # (A) 2.5 k/uL (1.0-4.8); Lymphocytes % (A) 29 %; MCH 29.7 pg (25.0-35.0); MCHC 35.2 g/dL (31.0-37.0); MCV 84.3 fL (80.0-100.0); Mean Platelet Volume 6.9; Monocytes # (A) 0.6 k/uL (0-1.0); Monocytes % (A) 7 %; Neutrophils # (A) 5.2 k/uL (1.3-7.7); Neutrophils % (A) 60 %; Platelet Count 438 k/uL (150-450); RBC 5.33 m/uL (4.30-5.90); RDW 13.1 % (11.5-15.5); WBC 8.7 k/uL (3.8-10.6)
[2020-12-10] MEDS ORDERED: INSULIN DETEMIR (LEVEMIR) 100 UNIT/ML SYR SQ SCH (08:00)
[2020-12-10 08:20] LABS: African American GFR (CKD) >90 (>60 ml/min/1.73 sqM); Anion Gap 4 mmol/L; Blood Urea Nitrogen 15 mg/dL (9-20); C Reactive Protein 14.7 mg/L (<10.0); Calcium 9.3 mg/dL (8.4-10.2); Carbon Dioxide 31 mmol/L (22-30); Chloride 98 mmol/L (98-107); Glucose 239 mg/dL (74-99); LDH 1182 U/L (313-618); Non-African American GFR(CKD) >90 (>60 ml/min/1.73 sqM); Potassium 4.7 mmol/L (3.5-5.1); Sodium 133 mmol/L (137-145)
[2020-12-10] MEDS ORDERED: INSULIN DETEMIR (LEVEMIR) 100 UNIT/ML SYR SQ ONE (08:30)
--- NOTE | 2020-12-10 10:22 | P.PN ---
Subjective Progress Note Date: 12/10/20 Acute CoVID 19 pneumonia 50-year-old male, who presents to the emergency department, via EMS, with compl aints of weakness, fatigue, syncope, and shortness of breath with cough. Apparently, the patient has not been feeling well for about 2 or 3 days prior to admission. He apparently initially went to urgent care, and was redirected to the emergency department. Currently, the patient is on 5 L nasal cannula. He is receiving saline at 75 mL an hour. He has no sleep and past medical history. He went to the urgent care on December 03. The patient tested positive for coronavirus, and was thought to have COVID 19 pneumonia. CBC was completely normal. He was 0.91. Sodium 132, potassium 4.2, chloride 93, CO2 28, anion gap 11, BUN 20, and creatinine 0.64. His ferritin was 1465, LDH 1489, C- reactive protein to 94, and pro-calcitonin level was 0.62. Chest x-ray was positive for bilateral infiltrates, and CT angiogram was negative for PE, but consistent with COVID 19 pneumonia. Progress note dated 12/05/2020. Currently, the patient's on 15 L high flow nasal O2. The patient is getting saline at 75 mL an hour. He states that he feeling a bit better. The patient did get REM, and TOCI. The patient denies any chest pain or chest discomfort. He is short of breath. He denies any fever or chills. White count 6.5, hemoglobin 13.9, hematocrit 40.4, and platelet count 398,000. D-dimer is 4.17. Sodium 134, potassium 5, chlorides 101, CO2 22, anion gap 11, BUN 22 and creatinine 0.51. LDH is 1004, and C-reactive protein is 82.5. Chest x-ray shows diffuse bilateral airspace disease. Progress note dated 12/06/2020. 50-year-old male, with COVID 19 pneumonitis, and acute hypoxemic respiratory failure. The patient remains on 15 L high flow nasal O2, and saline at 75 mL an hour. He does feel better. The patient was started on REM, and also received TOCI. Currently, the patient does feel a bit better. He feels like his breathing is improved although he does get short of breath with activity. White count 6.6, he will 13.8, hematocrit 40.1, and platelet count 412,000. D-dimer is 3.57. Sodium 135, potassium 4.8,, chlorides 101, CO2 26, anion gap 8, BUN 18, creatinine 0.54. LDH is 892, and C-reactive protein at 52.5. Progress note dated 12/07/2020. 50-year-old male, admitted with a diagnosis of COVID 19 pneumonitis, and acute hypoxemic respiratory failure. The patient remains on high flow nasal cannula at 15 L. He is also on saline at 75 mL an hour. He does feel a bit better. His breathing is improved. The patient was started on REM, and also received TOCI. There were no new labs today. Also, his last chest x-ray was done on December 05. Progress note dated 12/08/2020. 50-year-old male, admitted with a diagnosis of acute hypoxemic respiratory [place], secondary to COVID 19 pneumonitis. The patient remains on high flow nasal O2 at 15 L/m, and saline at 75 mL an hour. He again tells me that he feels better clinically even though his oxygen requirements are still quite high. He feels like he's less short of breath when he is moving around. The patient was started on REM, and also TOCI, and is getting the usual other medications including vitamins, steroids, and blood thinner. Labs today include a white count of 7.8, hemoglobin 14.3, hematocrit 40.8, platelet count 421,000. Sodium 132, potassium 4.1, chlorides 98, CO2 28, anion gap 6, BUN 15, creatinine 0.45. LDH is 1347. C-reactive protein is 20.4. Chest x-ray done today shows diffuse patchy infiltrates bilaterally. The patient is seen today 12/09/2020 in follow-up on the selective care unit. He is currently resting comfortably in bed. Awake and alert in no acute distre ss. States he is doing better today compared to yesterday. He is down to 10 L high flow nasal cannula with O2 saturation 92%. Pulling 1750 on the incentive spirometer. Making multiple position changes while in bed. Blood glucose 243. He did receive Remdesivir, tocilizumab and convalescent plasma. On 12/10/2020 the patient is being seen in follow-up. The patient is a case of Covid 19 related to pneumonia with hypoxic respiratory failure. The patient is currently on 10 L of oxygen by nasal cannula. During the course of the treatment, the patient received a combination of treatment and the patient completed Remdesivir, tocilizumab and convalescent plasma. The patient otherwise is doing well. He is gradually feeling stronger. His breathing deep. He is using incentive spirometer. Is doing positional therapy and toning therapy. No fever. No chills. Inflammatory markers are being monitored. His LDH level during his last check was 1347 and the CRP was 20.4. The patient remains on Decadron 6 mg every 24 hours. The patient remains on Lovenox 40 mg once a day, Levemir is 25 units in the morning and 5 units at bedtime, NovoLog 8 units 3 times a day with meals and sliding scale coverage. The LDH level is 1182 and a CRP level is 13.7 with a d-dimer of 2.82 on today's evaluation. Rest of the blood work is all within normal limits. Objective - Vital Signs Vital signs: Vital Signs Temp 98.2 F 12/10/20 04:00 Pulse 77 12/10/20 04:00 Resp 20 12/10/20 04:00 BP 140/93 12/10/20 04:00 Pulse Ox 91 L 12/10/20 04:00 Intake & Output 12/09/20 12/10/20 12/10/20 18:59 06:59 18:59 Intake Total 1200 780 120 Balance 1200 780 120 Weight 134.5 kg Intake: Oral 1200 780 120 Other: Voiding Method Toilet # Voids 2 2 - Exam Alert, oriented very pleasant 50-year-old gentleman. No acute distress, oriented 3. Nasal O2 at 10 L/m. No conversational dyspnea or use of accessory muscles. Saturations 90-92%. HEENT examination is grossly unremarkable. Mucous membranes are moist. No oral lesions. Neck supple. Full range of motion. No adenopathy thyromegaly or neck vein distention. Cardiovascular examination reveals regular rhythm rate. S1-S2 normal. No S3 or S4. No discernible murmur noted. Heart rate 114 bpm. Lungs reveal bilateral rhonchi, and basilar crackles. No wheezes. Breath sounds equal bilaterally. Abdomen soft bowel sounds are heard. No masses or tenderness. Extremities are intact. No cyanosis clubbing or edema. Skin is without rash or lesion. Neurologic examination is brief but nonfocal. - Labs CBC & Chem 7: 12/10/20 07:26 12/10/20 07:26 Labs: Abnormal Lab Results - Last 24 Hours (Table) 12/09/20 12/09/20 12/09/20 Range/Units 11:58 16:51 20:04 D-Dimer (<0.60) mg/L FEU Sodium (137-145) mmol/L Carbon Dioxide (22-30) mmol/L Creatinine (0.66-1.25) mg/dL Glucose (74-99) mg/dL POC Glucose (mg/dL) 243 H 300 H 196 H (75-99) mg/dL Lactate Dehydrogenase (313-618) U/L C-Reactive Protein (<10.0) mg/L 12/10/20 12/10/20 12/10/20 Range/Units 07:06 07:26 07:26 D-Dimer 2.82 H (<0.60) mg/L FEU Sodium 133 L (137-145) mmol/L Carbon Dioxide 31 H (22-30) mmol/L Creatinine 0.61 L (0.66-1.25) mg/dL Glucose 239 H (74-99) mg/dL POC Glucose (mg/dL) 220 H (75-99) mg/dL Lactate Dehydrogenase 1182 H (313-618) U/L C-Reactive Protein 14.7 H (<10.0) mg/L Microbiology - Last 24 Hours (Table) 12/03/20 19:37 Blood Culture - Final Blood No Growth after 144 hours 12/03/20 19:37 Blood Culture - Final Blood No Growth after 144 hours Assessment and Plan Plan: 1 Acute hypoxemic respiratory failure secondary to CoVID 19 pneumonia. Received Remdesivir, Tocilizumab and convalescent plasma. Currently on 10 L high flow nasal cannula. 2 diabetes mellitus with blood sugars elevated secondary to steroids 3 elevated inflammatory markers including d-dimer currently on Lovenox Plan: Currently down to 7 L high flow nasal cannula Continues to reposition himself in bed frequently , including prone positioning Up in a chair at the bedside Continue Lovenox , the dose can be reduced to 40 mg subcu daily prophylactic dose Working well with the incentive spirometer Follow-up inflammatory markers in the a.m. We will continue to follow
[2020-12-10] MEDS: ENOXAPARIN 40 MG/0.4 ML SYRINGE SQ SCH (10:24)
[2020-12-10] MEDS: ZINC SULFATE 220 MG CAP PO SCH (10:25)
[2020-12-10] MEDS: ASCORBIC ACID 500 MG TAB PO SCH (10:25)
[2020-12-10] MEDS: LINAGLIPTIN 5 MG TABLET PO SCH (10:25)
[2020-12-10] MEDS: DEXAMETHASONE SOD PHOSPHATE 10 MG/ML 1 ML VIAL IV SCH (10:25)
[2020-12-10] MEDS: CHOLECALCIFEROL 25 MCG (1000 IU) TABLET PO SCH (10:26)
--- NOTE | 2020-12-10 11:02 | P.PN ---
Subjective Progress Note Date: 12/10/20 Patient is doing well today. He denies shortness of breath. He still maintained on 10 L of oxygen via high flow nasal cannula and O2 sats around 95%. I decreased his oxygen to 7 L and O2 sats remained around 90-91%. Patient is doing incentive spirometer as directed. Objective - Vital Signs Vital signs: Vital Signs Temp 98.2 F 12/10/20 04:00 Pulse 77 12/10/20 04:00 Resp 20 12/10/20 04:00 BP 140/93 12/10/20 04:00 Pulse Ox 91 L 12/10/20 04:00 Intake & Output 12/09/20 12/10/20 12/10/20 18:59 06:59 18:59 Intake Total 1200 780 120 Balance 1200 780 120 Weight 134.5 kg Intake: Oral 1200 780 120 Other: Voiding Method Toilet # Voids 2 2 - Exam General: The patient is awake and alert, in no distress Eye: there is normal conjunctiva bilaterally. Neck: The neck is supple, there is no JVD. Cardiovascular: Normal S1-S2, no S3-S4, no murmurs. Respiratory: Lungs clear to auscultation bilaterally Gastrointestinal: Abdomen is soft, nontender Musculoskeletal: There is no pedal edema. Neurological:. Speech is normal. Skin: Skin is warm and dry - Labs CBC & Chem 7: 12/10/20 07:26 12/10/20 07:26 Labs: Abnormal Lab Results - Last 24 Hours (Table) 12/09/20 12/09/20 12/09/20 Range/Units 11:58 16:51 20:04 D-Dimer (<0.60) mg/L FEU Sodium (137-145) mmol/L Carbon Dioxide (22-30) mmol/L Creatinine (0.66-1.25) mg/dL Glucose (74-99) mg/dL POC Glucose (mg/dL) 243 H 300 H 196 H (75-99) mg/dL Lactate Dehydrogenase (313-618) U/L C-Reactive Protein (<10.0) mg/L 12/10/20 12/10/20 12/10/20 Range/Units 07:06 07:26 07:26 D-Dimer 2.82 H (<0.60) mg/L FEU Sodium 133 L (137-145) mmol/L Carbon Dioxide 31 H (22-30) mmol/L Creatinine 0.61 L (0.66-1.25) mg/dL Glucose 239 H (74-99) mg/dL POC Glucose (mg/dL) 220 H (75-99) mg/dL Lactate Dehydrogenase 1182 H (313-618) U/L C-Reactive Protein 14.7 H (<10.0) mg/L Microbiology - Last 24 Hours (Table) 12/03/20 19:37 Blood Culture - Final Blood No Growth after 144 hours 12/03/20 19:37 Blood Culture - Final Blood No Growth after 144 hours Assessment and Plan Assessment: Patient is a 50-year-old male with no known past medical history but obesity with BMI of 38.6 who initially presented to urgent care after being sick for 2 days. Urgent care and was found to be hypoxic and have Covid. He therefore presented to the ER. On arrival to the ER he was afebrile but did have a room air pulse ox of 87%. Laboratory analysis showed d-dimer 0.9 one sodium 132, blood sugar of 305, ferritin 1464, LDH 1489, CRP 294, procalcitonin 0.62. CT of the chest demonstrated diffuse groundglass opacities compatible with Covid and no acute pulmonary embolism. EKG demonstrated normal sinus rhythm without any significant ST-T wave changes. He was started on Decadron and REM. Pulmonary was consulted. Throughout the day on 12/04 his O2 requirements increased. Pulmonary was recontacted and the patient was started on TOCI. Covid 19 pneumonitis with acute hypoxic respiratory failure -Pulmonary recs -Continue with vitamin C, vitamin D, zinc -Continue with REM, Decadron - Toci given 12/04 - wean O2 a able currently on 7 L - follow inflammatory markers - lovenox Hyponatremia, improved -Likely secondary to dehydration Newly discovered DM 2 -Hemoglobin A1c 13.3 -Sliding-scale insulin -Started Levemir 25 units in the morning and 5 units at night. Increase NovoLog to 8 units 3 times a day before each meal. Continue sliding scale insulin. - ems educator recs -dietitian recs Morbid obesity with BMI 38.7 -Structured outpatient weight loss DVT prophylaxis: Lovenox Discussed with: Patient, nursing, Anticipated discharge: 1-[address]: home A total of 45 minutes was spent on the care of this complex patient more than 50% of the time was spent in counseling and care coordination.
[2020-12-10 12:00] LABS: Glucose,Whole Blood 213 mg/dL (75-99)
[2020-12-10 17:07] LABS: Glucose,Whole Blood 363 mg/dL (75-99)
[2020-12-10 20:29] LABS: Glucose,Whole Blood 395 mg/dL (75-99)
[2020-12-11 06:14] LABS: Glucose,Whole Blood 184 mg/dL (75-99)
[2020-12-11 07:10] LABS: Glucose,Whole Blood 263 mg/dL (75-99)
[2020-12-11] MEDS: INSULIN DETEMIR (LEVEMIR) 100 UNIT/ML SYR SQ SCH ×2 (07:10→20:14)
[2020-12-11] MEDS: INSULIN ASPART (NovoLOG) 100 UNIT/ML VIAL SQ SCH ×7 (07:10→20:14)
--- NOTE | 2020-12-11 08:43 | XR ---
EXAMINATION TYPE: XR chest 1V DATE OF EXAM: 12/11/2020 COMPARISON: 12/08/2020 HISTORY: Shortness of breath TECHNIQUE: Single frontal view of the chest is obtained. FINDINGS: Diffuse patchy bilateral infiltrate stable. No pneumothorax. Heart size stable. No pleural effusion. Hypertrophic change of the AC joints. IMPRESSION: Bilateral diffuse patchy infiltrate stable.
--- NOTE | 2020-12-11 10:38 | P.PN ---
Subjective Progress Note Date: 12/11/20 50-year-old male, who presents to the emergency department, via EMS, with complaints of weakness, fatigue, syncope, and shortness of breath with cough. Apparently, the patient has not been feeling well for about 2 or 3 days prior to admission. He apparently initially went to urgent care, and was redirected to the emergency department. Currently, the patient is on 5 L nasal cannula. He is receiving saline at 75 mL an hour. He has no sleep and past medical history. He went to the urgent care on December 03. The patient tested positive for coronavirus, and was thought to have COVID 19 pneumonia. CBC was completely normal. He was 0.91. Sodium 132, potassium 4.2, chloride 93, CO2 28, anio n gap 11, BUN 20, and creatinine 0.64. His ferritin was 1465, LDH 1489, C- reactive protein to 94, and pro-calcitonin level was 0.62. Chest x-ray was positive for bilateral infiltrates, and CT angiogram was negative for PE, but consistent with COVID 19 pneumonia. Progress note dated 12/05/2020. Currently, the patient's on 15 L high flow nasal O2. The patient is getting saline at 75 mL an hour. He states that he feeling a bit better. The patient did get REM, and TOCI. The patient denies any chest pain or chest discomfort. He is short of breath. He denies any fever or chills. White count 6.5, hemoglobin 13.9, hematocrit 40.4, and platelet count 398,000. D-dimer is 4.17. Sodium 134, potassium 5, chlorides 101, CO2 22, anion gap 11, BUN 22 and creatinine 0.51. LDH is 1004, and C-reactive protein is 82.5. Chest x-ray shows diffuse bilateral airspace disease. Progress note dated 12/06/2020. 50-year-old male, with COVID 19 pneumonitis, and acute hypoxemic respiratory failure. The patient remains on 15 L high flow nasal O2, and saline at 75 mL an hour. He does feel better. The patient was started on REM, and also received TOCI. Currently, the patient does feel a bit better. He feels like his breathing is improved although he does get short of breath with activity. White count 6.6, he will 13.8, hematocrit 40.1, and platelet count 412,000. D-dimer is 3.57. Sodium 135, potassium 4.8,, chlorides 101, CO2 26, anion gap 8, BUN 18, creatinine 0.54. LDH is 892, and C-reactive protein at 52.5. Progress note dated 12/07/2020. 50-year-old male, admitted with a diagnosis of COVID 19 pneumonitis, and acute hypoxemic respiratory failure. The patient remains on high flow nasal cannula at 15 L. He is also on saline at 75 mL an hour. He does feel a bit better. Hi s breathing is improved. The patient was started on REM, and also received TOCI. There were no new labs today. Also, his last chest x-ray was done on December 05. Progress note dated 12/08/2020. 50-year-old male, admitted with a diagnosis of acute hypoxemic respiratory failure, secondary to COVID 19 pneumonitis. The patient remains on high flow nasal O2 at 15 L/m, and saline at 75 mL an hour. He again tells me that he feels better clinically even though his oxygen requirements are still quite high. He feels like he's less short of breath when he is moving around. The patient was started on REM, and also TOCI, and is getting the usual other medications including vitamins, steroids, and blood thinner. Labs today include a white count of 7.8, hemoglobin 14.3, hematocrit 40.8, platelet count 421,000. Sodium 132, potassium 4.1, chlorides 98, CO2 28, anion gap 6, BUN 15, creatinine 0.45. LDH is 1347. C-reactive protein is 20.4. Chest x-ray done today shows diffuse patchy infiltrates bilaterally. The patient is seen today 12/09/2020 in follow-up on the selective care unit. He is currently resting comfortably in bed. Awake and alert in no acute distress. States he is doing better today compared to yesterday. He is down to 10 L high flow nasal cannula with O2 saturation 92%. Pulling 1750 on the incentive spirometer. Making multiple position changes while in bed. Blood glucose 243. He did receive Remdesivir, tocilizumab and convalescent plasma. On 12/10/2020 the patient is being seen in follow-up. The patient is a case of Covid 19 related to pneumonia with hypoxic respiratory failure. The patient is currently on 10 L of oxygen by nasal cannula. During the course of the treatment, the patient received a combination of treatment and the patient completed Remdesivir, tocilizumab and convalescent plasma. The patient otherwise is doing well. He is gradually feeling stronger. His breathing deep. He is using incentive spirometer. Is doing positional therapy and toning therapy. No fever. No chills. Inflammatory markers are being monitored. His LDH level during his last check was 1347 and the CRP was 20.4. The patient remains on Decadron 6 mg every 24 hours. The patient remains on Lovenox 40 mg once a day, Levemir is 25 units in the morning and 5 units at bedtime, NovoLog 8 units 3 times a day with meals and sliding scale coverage. The LDH level is 1182 and a CRP level is 13.7 with a d-dimer of 2.82 on today's evaluation. Rest of the blood work is all within normal limits. 12/11/2020 patient is being seen for a follow-up. I yesterday when it down to 7 L and overnight the patient was weaned down to 5 L of oxygen by nasal cannula with a pulse ox of 95-96%. Doing well. No specific complaints. He remains on Decadron 6 mg every 24 hours. He is also on Lovenox 40 mg subcu on a daily basis. He is on Levemir insulin 25 units in the morning in addition to 5 units at bedtime and the patient is also on NovoLog 8 units 3 times a day sliding scale coverage. Chest x-ray from today showing stable bilateral pulmonary infiltrates, unchanged along with smaller lung volumes. Overall elevation is essentially unchanged. Inflammatory markers are not measured from today. His blood sugars at 263. No new labs are available from today. Later d-dimer is at 2.82. Objective - Vital Signs Vital signs: Vital Signs Temp 97.6 F 12/10/20 23:31 Pulse 80 12/11/20 04:00 Resp 19 12/11/20 04:00 BP 115/85 12/11/20 04:00 Pulse Ox 94 L 12/11/20 04:00 Intake & Output 12/10/20 12/11/20 12/11/20 18:59 06:59 18:59 Intake Total 1080 560 Output Total 400 Balance 680 560 Weight 133.5 kg Intake: Oral 1080 560 Output: Urine 400 Other: Voiding Method Toilet # Voids 2 - Exam Alert, oriented very pleasant 50-year-old gentleman. No acute distress, oriented 3. Nasal O2 at 5 L/m. No conversational dyspnea or use of accessory muscles. Saturations 90-92%. HEENT examination is grossly unremarkable. Mucous membranes are moist. No oral lesions. Neck supple. Full range of motion. No adenopathy thyromegaly or neck vein distention. Cardiovascular examination reveals regular rhythm rate. S1-S2 normal. No S3 or S4. No discernible murmur noted. Heart rate 114 bpm. Lungs reveal bilateral rhonchi, and basilar crackles. No wheezes. Breath sounds equal bilaterally. Abdomen soft bowel sounds are heard. No masses or tenderness. Extremities are intact. No cyanosis clubbing or edema. Skin is without rash or lesion. Neurologic examination is brief but nonfocal. - Labs CBC & Chem 7: 12/10/20 07:26 12/10/20 07:26 Labs: Abnormal Lab Results - Last 24 Hours (Table) 12/10/20 12/10/20 12/10/20 Range/Units 11:58 17:00 20:27 POC Glucose (mg/dL) 213 H 363 H 395 H (75-99) mg/dL 12/11/20 12/11/20 Range/Units 06:12 07:09 POC Glucose (mg/dL) 184 H 263 H (75-99) mg/dL Assessment and Plan Plan: 1 Acute hypoxemic respiratory failure secondary to CoVID 19 pneumonia. Received Remdesivir, Tocilizumab and convalescent plasma. Currently on 5 L high flow nasal cannula. 2 diabetes mellitus with blood sugars elevated secondary to steroids 3 elevated inflammatory markers including d-dimer currently on Lovenox Plan: Currently down to 4 L high flow nasal cannula and monitor the pulse ox, clinically better, chest as if findings are unchanged. Continues to reposition himself in bed frequently , including prone positioning Up in a chair at the bedside Continue Lovenox , the dose can be reduced to 40 mg subcu daily prophylactic dose Working well with the incentive spirometer Follow-up inflammatory markers in the a.m. We will continue to follow
[2020-12-11] MEDS: DEXAMETHASONE SOD PHOSPHATE 10 MG/ML 1 ML VIAL IV SCH (10:40)
[2020-12-11] MEDS: CHOLECALCIFEROL 25 MCG (1000 IU) TABLET PO SCH (10:40)
[2020-12-11] MEDS: ENOXAPARIN 40 MG/0.4 ML SYRINGE SQ SCH (10:40)
[2020-12-11] MEDS: ASCORBIC ACID 500 MG TAB PO SCH (10:41)
[2020-12-11] MEDS: ZINC SULFATE 220 MG CAP PO SCH (10:41)
[2020-12-11] MEDS: LINAGLIPTIN 5 MG TABLET PO SCH (10:41)
[2020-12-11 11:39] LABS: Glucose,Whole Blood 201 mg/dL (75-99)
--- NOTE | 2020-12-11 12:54 | P.PN ---
Subjective Progress Note Date: 12/11/20 Hospital course: Patient is a 50-year-old male with no known past medical history but has not been under care of a PCP. Patient presented to the hospital on 12/03/20 with a chief complaint of shortness of breath, generalized malaise, sore throat, syncopal episodes and left shoulder pain. He initially presented to the urgent care and was found to be hypoxic on positive for Covid 19 virus infection and sent to the emergency department for further evaluation. Upon arrival to the hospital patient was hypoxic on room air at 87% requiring oxygen supplementation. Patient was admitted under our services with consult to pulmonology. Initial EKG revealed normal sinus rhythm at 88 bpm with no noted T-wave or ST abnormalities present. He had a CTA completed which revealed diffuse patchy groundglass opacities compatible with Covid pneumonia negative for acute PE. Chest x-ray was positive for bilateral infiltrates. Repeat chest x-ray on 12/05/20 revealing diffuse bilateral airspace disease stable and repeat chest x-ray on 12/08/20 showing diffuse patchy infiltrates present bilaterally reported to be improving in comparison from previous exam and on 12/11/20 chest x-ray continuing to show bilateral diffuse patchy infiltrates stable at this time. Patient has shown improvement daily and is being weaned down from oxygen. Patient's oxygen needs were as high as 15 L high flow nasal cannula and he is currently down to 5 L maintaining SpO2 at 92% at this time. His inflammatory markers also shows significant improvement with d-dimer 2.82 which is down from previous 4.17, CRP currently 14.7 significantly decreased from initial 294.2, and LDH now 1182 from previous 1489. Upon admission, patient was found to be hyperglycemic with blood glucose in the 300's. Hemoglobin A1c was obtained resulting at 13.3 resulting in new diagnosis of type 2 diabetes mellitus. Patient being treated with oxygen supplementation, steroids, melatonin, zinc, vitamin C, and vitamin D. In addition patient placed on long-acting insulin with Levemir 25 units daily and 5 units nightly in addition to NovoLog sliding scale. Physical exam: Patient was seen and fully evaluated at the bedside this morning. He was sitting up in the chair. Currently on 5 L O2 via high flow nasal cannula with SpO2 of 92%. He reports feeling better this morning. He remains slightly short of breath and generally fatigued, but states nearly 100% turnaround from how he reports he felt upon arrival to our facility 8 days ago. Patient denies having any headache, lightheadedness, dizziness, chest pain, palpitations, abdominal pain, or experiencing any GI/ complaints. He reports he has been eating his meals without any difficulties and is looking forward to going home. Arrangements being made for home oxygen and diabetic supplies including glucometer and testing strips. Patient to meet with elementary educator prior to discharge. We will continue to wean oxygen with goal for discharge home in the next day or 2. General: non toxic, no distress, appears at stated age Derm: warm, dry Head: atraumatic, normocephalic, symmetric Eyes: EOMI, no lid lag, anicteric sclera Mouth: no lip lesion, mucus membranes moist Cardiovascular: S1S2 normal with regular rate and rhythm. No murmur, gallop, or rub. Positive posterior tibial pulses bilaterally, cap refill less than 2 seconds. Lungs: Respirations even, regular, and unlabored on 5 L high flow nasal cannula with SpO2 92%. Lungs with noted soft crackles at the bases bilateral lower lob es. No wheezes or rhonchi noted. No accessory muscle use. Abdominal: soft, nontender to palpation, no guarding, no appreciable organomegaly Ext: Full range of motion, ambulatory in room without assistance steady gait, no gross muscle atrophy, no edema, no contractures Neuro: CN II-XI grossly intact, no focal neuro deficits Psych: Alert, oriented, appropriate affect Assessment and Plan of Care: Acute respiratory failure with hypoxia secondary to Covid Pneumonitis -Patient tested positive for Covid on 12/03/20 at urgent care facility prior to arrival in ED -CTA completed 12/03/20 which revealed diffuse patchy groundglass opacities compatible with Covid pneumonia negative for acute PE. -Chest x-ray was positive for bilateral infiltrates. Repeat chest x-ray on 12/05/20 revealing diffuse bilateral airspace disease stable and repeat chest x- ray on 12/08/20 showing diffuse patchy infiltrates present bilaterally reported to be improving in comparison from previous exam and on 12/11/20 chest x-ray continuing to show bilateral diffuse patchy infiltrates stable at this time. -Continue to wean Oxygenation as patient tolerates, currently on 5 L high flow nasal cannula with SpO2 92% -Pulmonology following, appreciate further recommendations. -Encourage use of Incentive Spirometry 10-15 times hourly while awake -Steroids: Continue Decadron 6 mg daily. Today is day 8 for steroid administration. -Continue melatonin, zinc, vitamin C, and vitamin D. -Lovenox per DVT prophylaxis Newly diagnosed diabetes mellitus type 2 -Hemoglobin A1c 13.3 -Patient to continue Levemir in addition to NovoLog sliding scale. -Morning blood glucose 184. -Consult to family life educator. Hyponatremia, improved -Sodium 133 -We will continue to monitor with repeat a.m. labs Morbid obesity with BMI of 38.7 -Structured outpatient weight loss program. Educated on heart healthy and carb consistent diet choices. -Consult to family life educator. CODE STATUS: Full code DVT prophylaxis: Lovenox Discussed with: Patient and RN Anticipated discharge date: 1-[address]: Home A total of 45 minutes was spent on the care of this complex patient more than 50% of the time was spent in counseling and care coordination. Objective - Vital Signs Vital signs: Vital Signs Temp 97.6 F 12/10/20 23:31 Pulse 80 12/11/20 04:00 Resp 19 12/11/20 04:00 BP 115/85 12/11/20 04:00 Pulse Ox 94 L 12/11/20 04:00 Intake & Output 12/10/20 12/11/20 12/11/20 18:59 06:59 18:59 Intake Total 1080 560 Output Total 400 Balance 680 560 Weight 133.5 kg Intake: Oral 1080 560 Output: Urine 400 Other: Voiding Method Toilet # Voids 2 - Labs CBC & Chem 7: 12/10/20 07:26 12/10/20 07:26 Labs: Abnormal Lab Results - Last 24 Hours (Table) 12/10/20 12/10/20 12/10/20 Range/Units 11:58 17:00 20:27 POC Glucose (mg/dL) 213 H 363 H 395 H (75-99) mg/dL 12/11/20 12/11/20 Range/Units 06:12 07:09 POC Glucose (mg/dL) 184 H 263 H (75-99) mg/dL
[2020-12-11 17:03] LABS: Glucose,Whole Blood 342 mg/dL (75-99)
[2020-12-11 20:04] LABS: Glucose,Whole Blood 312 mg/dL (75-99)
[2020-12-11 23:39] VITALS: RESP 18
[2020-12-12] MEDS: INSULIN DETEMIR (LEVEMIR) 100 UNIT/ML SYR SQ SCH (06:58)
[2020-12-12] MEDS: INSULIN ASPART (NovoLOG) 100 UNIT/ML VIAL SQ SCH ×6 (06:58→17:30)
[2020-12-12 06:59] LABS: Glucose,Whole Blood 254 mg/dL (75-99)
[2020-12-12 08:41] VITALS: PULSE 99
[2020-12-12] MEDS: ENOXAPARIN 40 MG/0.4 ML SYRINGE SQ SCH (09:01)
[2020-12-12] MEDS: LINAGLIPTIN 5 MG TABLET PO SCH (09:02)
[2020-12-12] MEDS: ASCORBIC ACID 500 MG TAB PO SCH (09:02)
[2020-12-12] MEDS: DEXAMETHASONE SOD PHOSPHATE 10 MG/ML 1 ML VIAL IV SCH (09:02)
[2020-12-12] MEDS: ZINC SULFATE 220 MG CAP PO SCH (09:02)
[2020-12-12] MEDS: CHOLECALCIFEROL 25 MCG (1000 IU) TABLET PO SCH (09:02)
[2020-12-12 09:08] LABS: HCT 45.4 % (39.0-53.0); HGB 15.8 gm/dL (13.0-17.5); MCH 29.8 pg (25.0-35.0); MCHC 34.9 g/dL (31.0-37.0); MCV 85.4 fL (80.0-100.0); Platelet Count 423 k/uL (150-450); RBC 5.31 m/uL (4.30-5.90); RDW 13.2 % (11.5-15.5); WBC 10.2 k/uL (3.8-10.6)
[2020-12-12 09:39] LABS: African American GFR (CKD) >90 (>60 ml/min/1.73 sqM); Anion Gap 9 mmol/L; Blood Urea Nitrogen 21 mg/dL (9-20); C Reactive Protein 10.1 mg/L (<10.0); Calcium 9.4 mg/dL (8.4-10.2); Carbon Dioxide 24 mmol/L (22-30); Chloride 97 mmol/L (98-107); Glucose 339 mg/dL (74-99); Non-African American GFR(CKD) >90 (>60 ml/min/1.73 sqM); Sodium 130 mmol/L (137-145)
[2020-12-12 09:43] LABS: LDH 1297 U/L (313-618); Potassium 5.4 mmol/L (3.5-5.1)
--- NOTE | 2020-12-12 11:09 | P.DS ---
Providers Date of admission: 12/03/20 21:33 Expected date of discharge: 12/12/20 Attending physician: Franco Horn MD Consults: 12/03/20 21:52 Consult Physician Routine Consulting Provider: Howard Tee Consult Reason/Comments: hypoxic covid pneumonia Do you want consulting provider notified?: Yes Primary care physician: Stated None Hospital Course: Discharge Diagnoses: Acute respiratory failure with hypoxia secondary to Covid Pneumonitis Newly diagnosed diabetes mellitus type 2 Hyponatremia, improved Morbid obesity with BMI of 38.7 Hospital course: Patient is a 50-year-old male with no known past medical history but has not been under care of a PCP. Patient presented to the hospital on 12/03/20 with a chief complaint of shortness of breath, generalized malaise, sore throat, syncopal episodes and left shoulder pain. He initially presented to the urgent care and was found to be hypoxic on positive for Covid 19 virus infection and sent to the emergency department for further evaluation. Upon arrival to the hospital patient was hypoxic on room air at 87% requiring oxygen supplementation. Patient was admitted under our services with consult to pulmonology. Initial EKG revealed normal sinus rhythm at 88 bpm with no noted T-wave or ST abnormalities present. He had a CTA completed which revealed diffuse patchy groundglass opacities compatible with Covid pneumonia negative for acute PE. Chest x-ray was positive for bilateral infiltrates. Repeat chest x-ray on 12/05/20 revealing diffuse bilateral airspace disease stable and repeat chest x-ray on 12/08/20 showing diffuse patchy infiltrates present bilaterally reported to be improving in comparison from previous exam and on 12/11/20 chest x-ray continuing to show bilateral diffuse patchy infiltrates stable at this time. Patient has shown improvement daily and is being weaned down from oxygen. Patient's oxygen needs were as high as 15 L high flow nasal cannula and he is currently down to 2 L O2 at rest and 4L with ambulation maintaining SpO2 > 92% at this time. His inflammatory markers also showed significant improvement with d-dimer 2.82 which is down from previous 4.17, CRP currently 14.7 significantly decreased from initial 294.2, and LDH now 1182 from previous 1489. Upon admission, patient was also found to be hyperglycemic with blood glucose in the 300's. Hemoglobin A1c was obtained resulting at 13.3 resulting in new diagnosis of type 2 diabetes mellitus. Pt reports feeling great and is eager to go return home. He has received diabetic education and is being discharged home on oxygen being provided by [facility] along with a Glucometer being obtained from [facility]. Pt to take one more dose of Decadron to receive his full ten day course of steroids. He is being discharged home on multiple new medications including metformin 500 mg twice a day, Lantus 30 units nightly, Linagliptin 5 mg by mouth, along with vitamin C, vitamin D, and zinc. Patient given information for a local primary care provider as he requested. Patient to follow-up with PCP in 1-2 days and pulmonology in one week. Patient instructed on monitoring blood glucose levels daily and keeping a journal to bring with him to his next appointment with his PCP as adjustments may need to be made to his medication regimen. Patient being discharged home on oxygen 2 L at rest and 4 L with ambulation/exertion. Patient instructed to return to the hospital for notify his PCP immediately if he experiences any increase in shortness of breath, chest pain, dizziness, lightheadedness, or any other concerns. Physical exam: Patient was seen and fully evaluated at the bedside this morning. He is sitting up in bed on 2 L nasal cannula with SpO2 of 94%. Reports feeling great this morning and is very eager to go home. He reports fatigue has significantly improved and he denies having any shortness of breath at rest or with ambulation throughout his room. Patient denies having any headache, lightheadedness, dizziness, chest pain, palpitations, abdominal pain, or experiencing any GI/ complaints. He reports he has been eating his meals without any difficulties and is looking forward to going home. Arrangements being made for home oxygen and diabetic supplies including glucometer and testing strips. Patient to meet with hematology nurse educator prior to discharge. We will continue to wean oxygen with goal for discharge home in the next day or 2. General: non toxic, no distress, appears at stated age Derm: warm, dry Head: atraumatic, normocephalic, symmetric Eyes: EOMI, no lid lag, anicteric sclera Mouth: no lip lesion, mucus membranes moist Cardiovascular: S1S2 normal with regular rate and rhythm. No murmur, gallop, or rub. Positive posterior tibial pulses bilaterally, cap refill less than 2 seconds. Lungs: Respirations even, regular, and unlabored on 5 L high flow nasal cannula with SpO2 92%. Lungs with noted soft crackles at the bases bilateral lower lobes. No wheezes or rhonchi noted. No accessory muscle use. Abdominal: soft, nontender to palpation, no guarding, no appreciable organomegaly Ext: Full range of motion, ambulatory in room without assistance steady gait, no gross muscle atrophy, no edema, no contractures Neuro: CN II-XI grossly intact, no focal neuro deficits Psych: Alert, oriented, appropriate affect A total of 45 minutes of time were spent preparing this complex discharge summary. Patient Condition at Discharge: Stable Plan - Discharge Summary Discharge Rx Participant: Yes New Discharge Prescriptions: New metFORMIN HCL 500 mg PO BID 30 Days #60 tablet Dexamethasone [Decadron] 6 mg PO DAILY 1 Days #1 tablet Insulin Glargine [Lantus] 30 unit SQ HS #1 vial Zinc Sulfate [Orazinc] 220 mg PO DAILY 30 Days #30 cap Linagliptin [Tradjenta] 5 mg PO DAILY 30 Days #30 tablet Ascorbic Acid [Vitamin C] 500 mg PO DAILY 30 Days #30 tab Cholecalciferol [Vitamin D3 (25 Mcg = 1000 Iu)] 100 mcg PO DAILY 30 Days #120 tablet Discharge Medication List Ascorbic Acid [Vitamin C] 500 mg PO DAILY 30 Days #30 tab 12/12/20 [Rx] Cholecalciferol [Vitamin D3 (25 Mcg = 1000 Iu)] 100 mcg PO DAILY 30 Days #120 tablet 12/12/20 [Rx] Dexamethasone [Decadron] 6 mg PO DAILY 1 Days #1 tablet 12/12/20 [Rx] Insulin Glargine [Lantus] 30 unit SQ HS #1 vial 12/12/20 [Rx] Linagliptin [Tradjenta] 5 mg PO DAILY 30 Days #30 tablet 12/12/20 [Rx] Zinc Sulfate [Orazinc] 220 mg PO DAILY 30 Days #30 cap 12/12/20 [Rx] metFORMIN HCL 500 mg PO BID 30 Days #60 tablet 12/12/20 [Rx] Follow up Appointment(s)/Referral(s): Matias Frost MD [STAFF PHYSICIAN] - 1 Week Rashawn Cohen [STAFF PHYSICIAN] - 1-2 Days Patient Instructions/Handouts: Coronavirus Disease 2019 (COVID-19) Activity/Diet/Wound Care/Special Instructions: Activity: As tolerated, take breaks as needed. Diet: Regular diet Special Instructions: You are being discharged home on oxygen, 2L at rest and increase to 4L with any ambulation or exertion. Please continue to wear this oxygen at all times until you are instructed further by your [employer] [address] Frost on your follow up appointment. You will need one more dose of steroids. You are being sent home on Decadron 6 mg it is only one tablet due to be taken tomorrow morning at 9:[address] Cohen, is a primary care physician we are referring you to go see. Please call his office and schedule an appointment for your follow up visit and bring your discharge papers with you. Please take your blood glucose levels daily and document in a journal to bring with you to your appointment with your PCP, adjustments may be needed to your medications once you are done taking the steroids. Thank you for allowing us to participate in your care!! Discharge Disposition: HOME SELF-CARE
--- NOTE | 2020-12-12 11:33 | P.PN ---
Subjective Progress Note Date: 12/12/20 50-year-old male, who presents to the emergency department, via EMS, with complaints of weakness, fatigue, syncope, and shortness of breath with cough. Apparently, the patient has not been feeling well for about 2 or 3 days prior to admission. He apparently initially went to urgent care, and was redirected to the emergency department. Currently, the patient is on 5 L nasal cannula. He is receiving saline at 75 mL an hour. He has no sleep and past medical history. He went to the urgent care on December 03. The patient tested positive for coronavirus, and was thought to have COVID 19 pneumonia. CBC was completely normal. He was 0.91. Sodium 132, potassium 4.2, chloride 93, CO2 28, an ion gap 11, BUN 20, and creatinine 0.64. His ferritin was 1465, LDH 1489, C- reactive protein to 94, and pro-calcitonin level was 0.62. Chest x-ray was positive for bilateral infiltrates, and CT angiogram was negative for PE, but consistent with COVID 19 pneumonia. Progress note dated 12/05/2020. Currently, the patient's on 15 L high flow nasal O2. The patient is getting saline at 75 mL an hour. He states that he feeling a bit better. The patient did get REM, and TOCI. The patient denies any chest pain or chest discomfort. He is short of breath. He denies any fever or chills. White count 6.5, hemoglobin 13.9, hematocrit 40.4, and platelet count 398,000. D-dimer is 4.17. Sodium 134, potassium 5, chlorides 101, CO2 22, anion gap 11, BUN 22 and creatinine 0.51. LDH is 1004, and C-reactive protein is 82.5. Chest x-ray shows diffuse bilateral airspace disease. Progress note dated 12/06/2020. 50-year-old male, with COVID 19 pneumonitis, and acute hypoxemic respiratory failure. The patient remains on 15 L high flow nasal O2, and saline at 75 mL an hour. He does feel better. The patient was started on REM, and also received TOCI. Currently, the patient does feel a bit better. He feels like his breathing is improved although he does get short of breath with activity. White count 6.6, he will 13.8, hematocrit 40.1, and platelet count 412,000. D-dimer is 3.57. Sodium 135, potassium 4.8,, chlorides 101, CO2 26, anion gap 8, BUN 18, creatinine 0.54. LDH is 892, and C-reactive protein at 52.5. Progress note dated 12/07/2020. 50-year-old male, admitted with a diagnosis of COVID 19 pneumonitis, and acute hypoxemic respiratory failure. The patient remains on high flow nasal cannula at 15 L. He is also on saline at 75 mL an hour. He does feel a bit better. His breathing is improved. The patient was started on REM, and also received TOCI. There were no new labs today. Also, his last chest x-ray was done on December 05. Progress note dated 12/08/2020. 50-year-old male, admitted with a diagnosis of acute hypoxemic respiratory failure, secondary to COVID 19 pneumonitis. The patient remains on high flow nasal O2 at 15 L/m, and saline at 75 mL an hour. He again tells me that he feels better clinically even though his oxygen requirements are still quite high. He feels like he's less short of breath when he is moving around. The patient was started on REM, and also TOCI, and is getting the usual other medications including vitamins, steroids, and blood thinner. Labs today include a white count of 7.8, hemoglobin 14.3, hematocrit 40.8, platelet count 421,000. Sodium 132, potassium 4.1, chlorides 98, CO2 28, anion gap 6, BUN 15, creatinine 0.45. LDH is 1347. C-reactive protein is 20.4. Chest x-ray done today shows diffuse patchy infiltrates bilaterally. The patient is seen today 12/09/2020 in follow-up on the selective care unit. He is currently resting comfortably in bed. Awake and alert in no acute distress. States he is doing better today compared to yesterday. He is down to 10 L high flow nasal cannula with O2 saturation 92%. Pulling 1750 on the incentive spirometer. Making multiple position changes while in bed. Blood glucose 243. He did receive Remdesivir, tocilizumab and convalescent plasma. On 12/10/2020 the patient is being seen in follow-up. The patient is a case of Covid 19 related to pneumonia with hypoxic respiratory failure. The patient is currently on 10 L of oxygen by nasal cannula. During the course of the treatment, the patient received a combination of treatment and the patient completed Remdesivir, tocilizumab and convalescent plasma. The patient otherwise is doing well. He is gradually feeling stronger. His breathing deep. He is using incentive spirometer. Is doing positional therapy and toning therapy. No fever. No chills. Inflammatory markers are being monitored. His LDH level during his last check was 1347 and the CRP was 20.4. The patient remains on Decadron 6 mg every 24 hours. The patient remains on Lovenox 40 mg once a day, Levemir is 25 units in the morning and 5 units at bedtime, NovoLog 8 units 3 times a day with meals and sliding scale coverage. The LDH level is 1182 and a CRP level is 13.7 with a d-dimer of 2.82 on today's evaluation. Rest of the blood work is all within normal limits. 12/11/2020 patient is being seen for a follow-up. I yesterday when it down to 7 L and overnight the patient was weaned down to 5 L of oxygen by nasal cannula with a pulse ox of 95-96%. Doing well. No specific complaints. He remains on Decadron 6 mg every 24 hours. He is also on Lovenox 40 mg subcu on a daily basis. He is on Levemir insulin 25 units in the morning in addition to 5 units at bedtime and the patient is also on NovoLog 8 units 3 times a day sliding scale coverage. Chest x-ray from today showing stable bilateral pulmonary infiltrates, unchanged along with smaller lung volumes. Overall elevation is essentially unchanged. Inflammatory markers are not measured from today. His blood sugars at 263. No new labs are available from today. Later d-dimer is at 2.82. 12/12/2020, the patient is currently down to 2 L of oxygen by nasal cannula. Feeling well. He is on Decadron. Is on Lovenox. Is on Levemir insulin. No significant respiratory distress and the patient is being considered for discharge along with home oxygen. His labs showing a LDH level of 1297 with a CRP of 10.1. Creatinine is at 0.6. Sodium is at 130. The chest x-ray from yesterday was still showing stable bilateral pulmonary infiltrates. Nevertheless, clinically the patient is improved. Objective - Vital Signs Vital signs: Vital Signs Temp 98.4 F 12/12/20 08:00 Pulse 99 12/12/20 09:00 Resp 18 12/12/20 09:17 BP 133/74 12/12/20 08:00 Pulse Ox 91 L 12/12/20 09:17 Intake & Output 12/11/20 12/12/20 12/12/20 18:59 06:59 18:59 Intake Total 1360 360 Output Total 600 0 Balance 760 0 360 Weight 134 kg Intake: Oral 1360 360 Output: Urine 600 0 Other: Voiding Method Toilet Toilet # Voids 2 - Exam Alert, oriented very pleasant 50-year-old gentleman. No acute distress, oriented 3. Nasal O2 at 2 L/m. No conversational dyspnea or use of accessory muscles. Saturations 90-92%. HEENT examination is grossly unremarkable. Mucous membranes are moist. No oral lesions. Neck supple. Full range of motion. No adenopathy thyromegaly or neck vein distention. Cardiovascular examination reveals regular rhythm rate. S1-S2 normal. No S3 or S4. No discernible murmur noted. Heart rate 114 bpm. Lungs reveal bilateral rhonchi, and basilar crackles. No wheezes. Breath sound s equal bilaterally. Abdomen soft bowel sounds are heard. No masses or tenderness. Extremities are intact. No cyanosis clubbing or edema. Skin is without rash or lesion. Neurologic examination is brief but nonfocal. - Labs CBC & Chem 7: 12/12/20 08:27 12/12/20 08:27 Labs: Abnormal Lab Results - Last 24 Hours (Table) 12/11/20 12/11/20 12/11/20 Range/Units 11:38 17:01 20:02 Sodium (137-145) mmol/L Potassium (3.5-5.1) mmol/L Chloride (98-107) mmol/L BUN (9-20) mg/dL Creatinine (0.66-1.25) mg/dL Glucose (74-99) mg/dL POC Glucose (mg/dL) 201 H 342 H 312 H (75-99) mg/dL Lactate Dehydrogenase (313-618) U/L C-Reactive Protein (<10.0) mg/L 12/12/20 12/12/20 Range/Units 06:55 08:27 Sodium 130 L (137-145) mmol/L Potassium 5.4 H (3.5-5.1) mmol/L Chloride 97 L (98-107) mmol/L BUN 21 H (9-20) mg/dL Creatinine 0.60 L (0.66-1.25) mg/dL Glucose 339 H (74-99) mg/dL POC Glucose (mg/dL) 254 H (75-99) mg/dL Lactate Dehydrogenase 1297 H (313-618) U/L C-Reactive Protein 10.1 H (<10.0) mg/L Assessment and Plan Plan: 1 Acute hypoxemic respiratory failure secondary to CoVID 19 pneumonia. Received Remdesivir, Tocilizumab and convalescent plasma. Currently on 2 L high flow nasal cannula. 2 diabetes mellitus with blood sugars elevated secondary to steroids 3 elevated inflammatory markers including d-dimer currently on Lovenox Plan: Currently down to 2 L high flow nasal cannula and monitor the pulse ox Working well with the incentive spirometer She is going to be discharged home along with oxygen at 2 L and he will be having a home concentrator, he will completed his course of Decadron at home. I think it is useful to send him home with some Xarelto 10 mg by mouth daily for the next 4 weeks. BS is currently being managed by medicine. I would allow medicine to treat his blood sugar and diabetes. He is currently on Levemir insulin. He'll be likely discharged home on Lantus insulin along with a metformin/Trajenda and sliding scale coverage. I will see him back in the office and 3-4 weeks time. We will continue to follow
[2020-12-12 11:46] VITALS: BP 141/91; TEMP 98.5
[2020-12-12 12:27] LABS: Glucose,Whole Blood 359 mg/dL (75-99)
[2020-12-12 17:26] LABS: Glucose,Whole Blood 475 mg/dL (75-99)
== END 2020-12-12 18:42 | disposition home or self-care (01) | DRG 177 ==
LOC: EC 18:45 → 3SCARD 21:33
PROVIDERS: ADMIT Internal Medicine; ATTEND Internal Medicine
PROC: XW033H5 Introduction of Tocilizumab into Peripheral Vein, Percutaneous Approach, New Technology Group 5 (ICD-10-PCS; principal; 2020-12-04)
PROC: XW033E5 Introduction of Remdesivir Anti-infective into Peripheral Vein, Percutaneous Approach, New Technology Group 5 (ICD-10-PCS; 2020-12-04)
PROC: 5A0955A Assistance with Respiratory Ventilation, Greater than 96 Consecutive Hours, High Flow/Velocity Cannula (ICD-10-PCS; 2020-12-04)
PROC: XW13325 Transfusion of Convalescent Plasma (Nonautologous) into Peripheral Vein, Percutaneous Approach, New Technology Group 5 (ICD-10-PCS; 2020-12-05)
DX: U07.1 COVID-19 (principal); J12.82 Pneumonia due to coronavirus disease 2019; J96.01 Acute respiratory failure with hypoxia; E87.1 Hypo-osmolality and hyponatremia; Z87.891 Personal history of nicotine dependence; E11.65 Type 2 diabetes mellitus with hyperglycemia; F41.9 Anxiety disorder, unspecified; E86.0 Dehydration; E66.01 Morbid (severe) obesity due to excess calories; Z68.38 Body mass index [BMI] 38.0-38.9, adult; T38.0X5A Adverse effect of glucocorticoids and synthetic analogues, initial encounter; Y92.239 Unspecified place in hospital as the place of occurrence of the external cause; M25.512 Pain in left shoulder; Z79.4 Long term (current) use of insulin; Z79.01 Long term (current) use of anticoagulants
CPT/HCPCS: 36415; 71045; 71275; 80048; 80053; 82728; 83036; 83605; 83615; 83735; 83880; 84145; 84484; 85025; 85027; 85379; 85610; 85730; 86140; 86850; 86900; 86901; 87040; 93005; 96374; 96375; 99285

== ENCOUNTER 2022-11-24 13:13 | Inpatient (IN) | payer BC ==
--- NOTE | 2022-11-24 14:37 | ED ---
Skin/Abscess/FB HPI - General Chief complaint: Skin/Abscess/Foreign Body Stated complaint: "growth between legs" Time Seen by Provider: 11/24/22 13:30 Source: patient Mode of arrival: ambulatory Limitations: no limitations - History of Present Illness Initial comments: 52-year-old male with past medical history of diabetes who presents to the emergency department reporting a growth in his groin. He admits that he is a diabetic however does not check his sugars. He is supposed to be on insulin however cannot afford it and therefore has not taken any insulin for the past 8 months. He began having pain in his testicles and had drainage running down his leg. It's been going on for the past couple of days. Went into an urgent care who transferred him to the hospital. He denies history of MRSA. No fevers. Does have significant pain but is not taking anything at home for pain. Denies any difficulties urinating or having a bowel movement. No other alleviating, Perceptin or modifying factors - Related Data Home Medications Medication Instructions Recorded Confirmed Insulin Glargine [Lantus] 30 unit SQ DIRECTED 11/24/22 11/24/22 Linagliptin [Tradjenta] 5 mg PO DIRECTED 11/24/22 11/24/22 metFORMIN HCL 500 mg PO DIRECTED 11/24/22 11/24/22 Allergies Allergy/AdvReac Type Severity Reaction Status Date / Time Mushroom Allergy Anaphylaxis Verified 11/24/22 14:37 Review of Systems ROS Statement: Those systems with pertinent positive or pertinent negative responses have been documented in the HPI. ROS Other: All systems not noted in ROS Statement are negative. Past Medical History Past Medical History: No Reported History History of Any Multi-Drug Resistant Organisms: None Reported Past Surgical History: Orthopedic Surgery Additional Past Surgical History / Comment(s): LEFT KNEE ARTHROSCOPY Past Anesthesia/Blood Transfusion Reactions: No Reported Reaction Past Psychological History: No Psychological Hx Reported Smoking Status: Former smoker Past Alcohol Use History: None Reported Past Drug Use History: None Reported - Past Family History Family Family Medical History: No Reported History Additional Family Medical History / Comment(s): PATIENT ADOPTED FAMILY HX UNKNOWN General Exam Limitations: no limitations General appearance: alert, in no apparent distress Head exam: Present: atraumatic, normocephalic, normal inspection Eye exam: Present: normal appearance, PERRL, EOMI. Absent: scleral icterus, conjunctival injection, periorbital swelling ENT exam: Present: normal exam, mucous membranes moist Neck exam: Present: normal inspection. Absent: tenderness, meningismus, lymphadenopathy Respiratory exam: Present: normal lung sounds bilaterally. Absent: respiratory distress, wheezes, rales, rhonchi, stridor Cardiovascular Exam: Present: normal rhythm, tachycardia, normal heart sounds. Absent: systolic murmur, diastolic murmur, rubs, gallop, clicks GI/Abdominal exam: Present: soft, normal bowel sounds. Absent: distended, tenderness, guarding, rebound, rigid exam: Present: other (large fluctuant and indurated left scrotum. erythema with active seeping of serosanginous material. no crepitance) Extremities exam: Present: normal inspection, full ROM, normal capillary refill. Absent: tenderness, pedal edema, joint swelling, calf tenderness Back exam: Present: normal inspection Neurological exam: Present: alert, oriented X3, CN II-XII intact Psychiatric exam: Present: normal affect, normal mood Skin exam: Present: warm, dry, intact, normal color. Absent: rash Course Vital Signs 11/24/22 11/24/22 11/24/22 13:28 15:00 16:00 Temperature 98.5 F Pulse Rate 118 H 98 Respiratory 20 18 Rate Blood Pressure 134/82 141/92 138/84 O2 Sat by Pulse 99 100 Oximetry 11/24/22 19:05 Temperature Pulse Rate 87 Respiratory 18 Rate Blood Pressure 129/74 O2 Sat by Pulse 99 Oximetry Medical Decision Making - Medical Decision Making Was pt. sent in by a medical professional or institution (, PA, E COMMERCE DIRECTOR, urgent care, hospital, or [facility]...) When possible be specific @ -Urgent care Did you speak to anyone other than the patient for history (EMS, parent, family, police, friend...)? What history was obtained from this source @ -No Did you review nursing and triage notes (agree or disagree)? Why? @ -I reviewed and agree with nursing and triage notes Were old charts reviewed (outside hosp., previous admission, EMS record, old EKG, old radiological studies, urgent care reports/EKG's, [facility] records)? Report findings @ -No old charts were reviewed Differential Diagnosis (chest pain, altered mental status, abdominal pain women, abdominal pain men, vaginal bleeding, weakness, fever, dyspnea, syncope, headache, dizziness, GI bleed, back pain, seizure, CVA, palpatations, mental health, musculoskeletal)? @ -scrotal abscess, necrotizing facitis, scrotal absess EKG interpreted by me (3pts min.). @ -As above X-rays interpreted by me (1pt min.). @ -No CT interpreted by me (1pt min.). @ -Yes U/S interpreted by me (1pt. min.). @ -None done What testing was considered but not performed or refused? (CT, X-rays, U/S, labs)? Why? @ -None What meds were considered but not given or refused? Why? @ -None Did you discuss the management of the patient with other professionals (professionals i.e. , PA, E COMMERCE DIRECTOR, lab, RT, psych nurse, social media community manager, general operator, teacher, county records management officer, case operator)? Give summary @ -urologist conditioner tumbler, hospitalist Was smoking cessation discussed for >3mins.? @ -No Was critical care preformed (if so, how long)? @ -No Were there social determinants of health that impacted care today? How? (Homelessness, low income, unemployed, alcoholism, drug addiction, transportation, low edu. Level, literacy, decrease access to med. care, longterm, rehab)? @ -Low income - can not afford insulin Was there de-escalation of care discussed even if they declined (Discuss DNR or withdrawal of care, Hospice)? DNR status @ -No What co-morbidities impacted this encounter? (DM, HTN, Smoking, COPD, CAD, Cancer, CVA, ARF, Chemo, Hep., AIDS, mental health diagnosis, sleep apnea, morbid obesity)? @ -uncontrolled DM Was patient admitted / discharged? Hospital course, mention meds given and route, prescriptions, significant lab abnormalities, going to OR and other pertinent info. @ -Upon arrival patient is placed into room 8. A thorough history and physical exam was performed. Patient does have concerning signs of 4 necrotizing fasciitis therefore IV is initiated and patient is started on Zosyn and Vanco. Lab studies are conducted. White count 15. Sed rate 77. CRP 14.3. Glucose 330. He is given Dilaudid for pain control. CT was performed which demonstrates scrotal cellulitis however no signs of necrotizing fasciitis. Results were discussed with Dr. Srivastava and Dr. Montiel. Patient will be admitted to [facility] with urology to consult. Undiagnosed new problem with uncertain prognosis? @ -yes Drug Therapy requiring intensive monitoring for toxicity (Heparin, Nitro, Insulin, Cardizem)? @ -No Were any procedures done? @ -No Diagnosis/symptom? @ -acute scrotal abscess with cellulitis, uncontrolled DM Acute, or Chronic, or Acute on Chronic? @ -acute Uncomplicated (without systemic symptoms) or Complicated (systemic symptoms)? @ -complicated Side effects of treatment? @ -No Exacerbation, Progression, or Severe Exacerbation? @ -No Poses a threat to life or bodily function? How? (Chest pain, USA, SC, pneumonia, PE, COPD, DKA, ARF, appy, cholecystitis, CVA, Diverticulitis, Homicidal, Suicidal, threat to staff... and all critical care pts) @ -Yes - Lab Data Result diagrams: 11/26/22 06:42 11/27/22 02:41 Lab Results 11/24/22 11/24/22 11/24/22 Range/Units 14:46 14:46 14:46 WBC 15.0 H (3.8-10.6) k/uL RBC 5.13 (4.30-5.90) m/uL Hgb 14.9 (13.0-17.5) gm/dL Hct 42.7 (39.0-53.0) % MCV 83.2 (80.0-100.0) fL MCH 29.1 (25.0-35.0) pg MCHC 34.9 (31.0-37.0) g/dL RDW 12.7 (11.5-15.5) % Plt Count 306 (150-450) k/uL MPV 8.1 Neutrophils % 83 % Lymphocytes % 8 % Monocytes % 7 % Eosinophils % 0 % Basophils % 0 % Neutrophils # 12.4 H (1.3-7.7) k/uL Lymphocytes # 1.2 (1.0-4.8) k/uL Monocytes # 1.0 (0-1.0) k/uL Eosinophils # 0.1 (0-0.7) k/uL Basophils # 0.1 (0-0.2) k/uL ESR 77 H (0-15) mm/hr PT 11.0 (9.0-12.0) sec INR 1.0 (<1.2) APTT 24.7 (22.0-30.0) sec Sodium 133 L (137-145) mmol/L Potassium 3.9 (3.5-5.1) mmol/L Chloride 98 (98-107) mmol/L Carbon Dioxide 21 L (22-30) mmol/L Anion Gap 14 mmol/L BUN 11 (9-20) mg/dL Creatinine 0.60 L (0.66-1.25) mg/dL Est GFR (CKD-EPI)AfAm >90 (>60 ml/min/1.73 sqM) Est GFR (CKD-EPI)NonAf >90 (>60 ml/min/1.73 sqM) Glucose 330 H (74-99) mg/dL Plasma Lactic Acid Markos (0.7-2.0) mmol/L Calcium 9.0 (8.4-10.2) mg/dL Total Bilirubin 0.7 (0.2-1.3) mg/dL AST 14 L (17-59) U/L ALT 15 (4-49) U/L Alkaline Phosphatase 110 (38-126) U/L C-Reactive Protein 14.3 H (<1.0) mg/dL Total Protein 6.7 (6.3-8.2) g/dL Albumin 3.5 (3.5-5.0) g/dL 11/24/22 Range/Units 14:46 WBC (3.8-10.6) k/uL RBC (4.30-5.90) m/uL Hgb (13.0-17.5) gm/dL Hct (39.0-53.0) % MCV (80.0-100.0) fL MCH (25.0-35.0) pg MCHC (31.0-37.0) g/dL RDW (11.5-15.5) % Plt Count (150-450) k/uL MPV Neutrophils % % Lymphocytes % % Monocytes % % Eosinophils % % Basophils % % Neutrophils # (1.3-7.7) k/uL Lymphocytes # (1.0-4.8) k/uL Monocytes # (0-1.0) k/uL Eosinophils # (0-0.7) k/uL Basophils # (0-0.2) k/uL ESR (0-15) mm/hr PT (9.0-12.0) sec INR (<1.2) APTT (22.0-30.0) sec Sodium (137-145) mmol/L Potassium (3.5-5.1) mmol/L Chloride (98-107) mmol/L Carbon Dioxide (22-30) mmol/L Anion Gap mmol/L BUN (9-20) mg/dL Creatinine (0.66-1.25) mg/dL Est GFR (CKD-EPI)AfAm (>60 ml/min/1.73 sqM) Est GFR (CKD-EPI)NonAf (>60 ml/min/1.73 sqM) Glucose (74-99) mg/dL Plasma Lactic Acid Markos 1.2 (0.7-2.0) mmol/L Calcium (8.4-10.2) mg/dL Total Bilirubin (0.2-1.3) mg/dL AST (17-59) U/L ALT (4-49) U/L Alkaline Phosphatase (38-126) U/L C-Reactive Protein (<1.0) mg/dL Total Protein (6.3-8.2) g/dL Albumin (3.5-5.0) g/dL Disposition Clinical Impression: Cellulitis of scrotum Disposition: ADMITTED IP TO THIS [facility] Condition: Serious Is patient prescribed a controlled substance at d/c from ED?: No Time of Disposition: 16:09 Decision to Admit Reason: Admit from EC Decision Date: 11/24/22 Decision Time: 16:09
[2022-11-24] MEDS ORDERED: VANCOMYCIN IV PER PHARMACY 1 EACH MISC MISCELLANE PRN (14:44)
[2022-11-24] MEDS ORDERED: HYDROmorphone 1 MG/ML 1 ML SYRINGE IVP STA ×2 (14:45→16:26)
[2022-11-24] MEDS ORDERED: SODIUM CHLORIDE 0.9% 2,000 ML IV ONE (14:45)
[2022-11-24] MEDS ORDERED: VANCOMYCIN 1,750 MG in SODIUM CHLORIDE 0.9% 500 ML 500 ML IVPB STA (14:47)
[2022-11-24 15:17] LABS: Basophils # (A) 0.1 k/uL (0-0.2); Basophils % (A) 0 %; Eosinophils # (A) 0.1 k/uL (0-0.7); Eosinophils % (A) 0 %; HCT 42.7 % (39.0-53.0); HGB 14.9 gm/dL (13.0-17.5); Lymphocytes # (A) 1.2 k/uL (1.0-4.8); Lymphocytes % (A) 8 %; MCH 29.1 pg (25.0-35.0); MCHC 34.9 g/dL (31.0-37.0); MCV 83.2 fL (80.0-100.0); Mean Platelet Volume 8.1; Monocytes % (A) 7 %; Neutrophils # (A) 12.4 k/uL (1.3-7.7); Neutrophils % (A) 83 %; Platelet Count 306 k/uL (150-450); RBC 5.13 m/uL (4.30-5.90); RDW 12.7 % (11.5-15.5)
[2022-11-24 15:30] LABS: Partial Thromboplastin Time 24.7 sec (22.0-30.0)
[2022-11-24 15:44] LABS: ALT 15 U/L (4-49); AST 14 U/L (17-59); African American GFR (CKD) >90 (>60 ml/min/1.73 sqM); Albumin 3.5 g/dL (3.5-5.0); Alkaline Phosphatase 110 U/L (38-126); Anion Gap 14 mmol/L; Blood Urea Nitrogen 11 mg/dL (9-20); Carbon Dioxide 21 mmol/L (22-30); Chloride 98 mmol/L (98-107); Glucose 330 mg/dL (74-99); Non-African American GFR(CKD) >90 (>60 ml/min/1.73 sqM); Potassium 3.9 mmol/L (3.5-5.1); Sodium 133 mmol/L (137-145); Total Bilirubin 0.7 mg/dL (0.2-1.3); Total Protein 6.7 g/dL (6.3-8.2)
[2022-11-24 15:57] LABS: C Reactive Protein 14.3 mg/dL (<1.0)
[2022-11-24] MEDS ORDERED: PIPERACILLIN-TAZOBACTAM 3.375 GM in SODIUM CHLORIDE 0.9% 100 ML IVPB SCH (16:00)
[2022-11-24 16:03] LABS: Erythrocyte Sedimentation Rate 77 mm/hr (0-15)
--- NOTE | 2022-11-24 16:06 | CT ---
EXAMINATION TYPE: CT pelvis w con DATE OF EXAM: 11/24/2022 COMPARISON: None. HISTORY: scrotal swelling CT DLP: 1322.4 mGycm Automated exposure control for dose reduction was used. CONTRAST: Performed with IV Contrast, patient injected with 100 mL of Isovue 370. FINDINGS: Visualized liver, gallbladder, spleen, and inferior pancreas are unremarkable. Visualized kidneys are unremarkable. There is moderate to severe distended bladder. Prostate gland is normal in size. No guaman spicious small or large bowel dilatation. No free fluid in the pelvis. Moderate disc space narrowing L5-S1 level. Bilateral scrotum shows symmetric appearing testicles infe riorly. There is asymmetric left-sided scrotal fluid collection or hydrocele. There is more heterogen eous fluid superior to both testicles with suggestion of some enhancement and fat stranding greater o n the left. No intrascrotal air is identified to suggest necrotizing fasciitis. There are prominent and slightly enlarged bilateral groin lymph nodes. IMPRESSION: As above.
[2022-11-24] MEDS ORDERED: ONDANSETRON 4 MG/2 ML VIAL IVP PRN (16:23)
[2022-11-24] MEDS ORDERED: NALOXONE 0.4 MG/ML 1 ML VIAL IV PRN (16:23)
[2022-11-24] MEDS ORDERED: DEXTROSE 50% SYRINGE 50 ML IVP PRN ×2 (16:39)
[2022-11-24 17:44] LABS: Glucose,Whole Blood 239 mg/dL (70-110)
--- NOTE | 2022-11-24 18:11 | P.GSCN ---
History of Present Illness Consult date: 11/24/22 History of present illness: 52 yo non compliant diabetic who came to the er after 4 days of scrotal swelling. He was evaluated and found to have perineal and left scrotal swelling. A ct scan didnt show any air but I was asked to see the patient. The patient isnt havingn poblem voiding. He states that he isnt febrile A ct scan showed alot ofd edema without air. He is supposed to be on hoe meds but doesnt take them due to cost. Review of Systems All systems: negative - Constitutional Denies fever, Denies weight loss - EENT Eyes: denies blurred vision Ears, nose, mouth and throat: Denies dysphagia - Cardiovascular Denies chest pain, Denies shortness of breath - Respiratory Denies cough, Denies 7 - Gastrointestinal Reports as per HPI - Genitourinary Denies dysuria, Denies hematuria - Integumentary Denies rash, Denies unusual bruising - Neurological Denies headaches, Denies syncope - Hematologic/Lymphatic Denies easy bleeding, Denies easy bruising Past Medical History Past Medical History: No Reported History History of Any Multi-Drug Resistant Organisms: None Reported Past Surgical History: Orthopedic Surgery Additional Past Surgical History / Comment(s): LEFT KNEE ARTHROSCOPY Past Anesthesia/Blood Transfusion Reactions: No Reported Reaction Past Psychological History: No Psychological Hx Reported Smoking Status: Former smoker Past Alcohol Use History: None Reported Past Drug Use History: None Reported - Past Family History Family Family Medical History: No Reported History Additional Family Medical History / Comment(s): PATIENT ADOPTED FAMILY HX UNKNOWN Medications and Allergies Home Medications Medication Instructions Recorded Confirmed Type Insulin Glargine [Lantus] 30 unit SQ DIRECTED 11/24/22 11/24/22 History Linagliptin [Tradjenta] 5 mg PO DIRECTED 11/24/22 11/24/22 History metFORMIN HCL 500 mg PO DIRECTED 11/24/22 11/24/22 History Allergies Allergy/AdvReac Type Severity Reaction Status Date / Time Mushroom Allergy Anaphylaxis Verified 11/24/22 14:37 Surgical - Exam Vital Signs Temp Pulse Resp BP Pulse Ox 98.5 F 118 H 20 134/82 99 11/24/22 13:28 11/24/22 13:28 11/24/22 13:28 11/24/22 13:28 11/24/22 13:28 - General well developed, well nourished, moderate distress - Eyes PERRL - Abdomen Abdomen: soft, non tender - Genitourinary perineal abscess, draining. Left inguinal fluctuance with hidradentitis trevor cteristics.ntender no crepitace. Results - Labs 11/24/22 14:46 11/24/22 14:46 Abnormal Lab Results - Last 24 Hours (Table) 11/24/22 11/24/22 11/24/22 Range/Units 14:46 14:46 17:40 WBC 15.0 H (3.8-10.6) k/uL Neutrophils # 12.4 H (1.3-7.7) k/uL ESR 77 H (0-15) mm/hr Sodium 133 L (137-145) mmol/L Carbon Dioxide 21 L (22-30) mmol/L Creatinine 0.60 L (0.66-1.25) mg/dL Glucose 330 H (74-99) mg/dL POC Glucose (mg/dL) 239 H (70-110) mg/dL AST 14 L (17-59) U/L C-Reactive Protein 14.3 H (<1.0) mg/dL Diabetes panel 11/24/22 Range/Units 14:46 Sodium 133 L (137-145) mmol/L Potassium 3.9 (3.5-5.1) mmol/L Chloride 98 (98-107) mmol/L Carbon Dioxide 21 L (22-30) mmol/L BUN 11 (9-20) mg/dL Creatinine 0.60 L (0.66-1.25) mg/dL Glucose 330 H (74-99) mg/dL Calcium 9.0 (8.4-10.2) mg/dL AST 14 L (17-59) U/L ALT 15 (4-49) U/L Alkaline Phosphatase 110 (38-126) U/L Total Protein 6.7 (6.3-8.2) g/dL Albumin 3.5 (3.5-5.0) g/dL Calcium panel 11/24/22 Range/Units 14:46 Calcium 9.0 (8.4-10.2) mg/dL Albumin 3.5 (3.5-5.0) g/dL Pituitary panel 11/24/22 Range/Units 14:46 Sodium 133 L (137-145) mmol/L Potassium 3.9 (3.5-5.1) mmol/L Chloride 98 (98-107) mmol/L Carbon Dioxide 21 L (22-30) mmol/L BUN 11 (9-20) mg/dL Creatinine 0.60 L (0.66-1.25) mg/dL Glucose 330 H (74-99) mg/dL Calcium 9.0 (8.4-10.2) mg/dL Adrenal panel 11/24/22 Range/Units 14:46 Sodium 133 L (137-145) mmol/L Potassium 3.9 (3.5-5.1) mmol/L Chloride 98 (98-107) mmol/L Carbon Dioxide 21 L (22-30) mmol/L BUN 11 (9-20) mg/dL Creatinine 0.60 L (0.66-1.25) mg/dL Glucose 330 H (74-99) mg/dL Calcium 9.0 (8.4-10.2) mg/dL Total Bilirubin 0.7 (0.2-1.3) mg/dL AST 14 L (17-59) U/L ALT 15 (4-49) U/L Alkaline Phosphatase 110 (38-126) U/L Total Protein 6.7 (6.3-8.2) g/dL Albumin 3.5 (3.5-5.0) g/dL - Imaging CT scan - pelvis: report reviewed, image reviewed Assessment and Plan Assessment: Impression: scrotal abscess. Diabetes uncontrolled Plan: the patient needs I&D of this abscess. This has been discussed with the patient. I will do this tonight.
[2022-11-24 18:50] LABS: Appearance,Urine Clear (Clear); Bilirubin,Urine Negative (Negative); Blood,Urine Negative (Negative); Color,Urine Light Yellow; Glucose,Urine (UA) 4+ (Negative); Leukocyte Esterase,Urine Negative (Negative); Mucus,Urine Rare /hpf; Nitrite,Urine Negative (Negative); Protein,Urine 1+ (Negative); RBC,Urine 2 /hpf (0-5); Squamous Epithelial Cell,Urine 1 /hpf (0-4); WBC,Urine 2 /hpf (0-5)
[2022-11-24] MEDS: INSULIN ASPART (NovoLOG) 100 UNIT/ML VIAL SQ SCH ×3 (18:51→23:27)
[2022-11-24 18:55] LABS: Ketones,Urine 4+ (Negative); Specific Gravity,Urine >1.050 (1.001-1.035)
[2022-11-24] MEDS: AMPICILLIN-SULBACTAM 3 GM in SODIUM CHLORIDE 0.9% 100 ML IVPB SCH ×2 (19:04→23:22)
[2022-11-24 19:50] LABS: Glucose,Whole Blood 240 mg/dL (70-110)
[2022-11-24] MEDS ORDERED: PROPOFOL 10 MG/ML 20 ML VIAL IV ONE (19:51)
[2022-11-24] MEDS ORDERED: MIDAZOLAM 2 MG/2 ML VIAL ONE (19:51)
[2022-11-24] MEDS ORDERED: LIDOCAINE 2% INJ 20 MG/ML (2 ML VIAL) ONE (19:51)
[2022-11-24] MEDS ORDERED: ONDANSETRON 4 MG/2 ML VIAL ONE (19:51)
[2022-11-24] MEDS ORDERED: KETAMINE 10 MG/ML 20 ML VIAL ONE (19:51)
[2022-11-24] MEDS ORDERED: SUCCINYLCHOLINE CHLORIDE 200 MG/10 ML VIAL IV ONE (19:51)
[2022-11-24] MEDS ORDERED: DEXAMETHASONE SOD PHOS (MDV) 100 MG/10 ML VIAL ONE (19:51)
[2022-11-24] MEDS ORDERED: fentaNYL (PF) 50 MCG/ML 2 ML AMP ONE (19:51)
[2022-11-24] MEDS ORDERED: LACTATED RINGERS 1,000 ML IV ONE (19:54)
--- NOTE | 2022-11-24 20:17 | P.OP ---
Date of Procedure: 11/24/22 Preoperative Diagnosis: Scrotal abscess Postoperative Diagnosis: Same Procedure(s) Performed: Incision and drainage culture of scrotal abscess Anesthesia: GLENN Surgeon: Navneet Srivastava Estimated Blood Loss (ml): 25 Pathology: other (Wound culture) Condition: stable Disposition: PACU Indications for Procedure: Patient is 52-year-old diabetic who is relatively noncompliant with his medications due to cost. Patient came in with a four-day history of scrotal swelling and has an obvious perineal abscess extending into the left groin and scrotum. Description of Procedure: Patient brought up and suite. Given general anesthesia. Placed lithotomy position with sterile prep and drape. I first make a midline perineal incision and draining abscess. I then make a counter incision the left groin and more abscesses drained. The 2 areas communicated. A irrigate thoroughly the wound appeared I then pack it with a 1 inch iodine gauze. The wound is packed patient awake and returned recovery in good condition. Blood loss was 25 mL. He tolerated procedure well be observed in the hospital postoperatively.
[2022-11-24 20:33] LABS: Glucose,Whole Blood 223 mg/dL (70-110)
[2022-11-24] MEDS ORDERED: INSULIN ASPART (NovoLOG) 100 UNIT/ML VIAL SQ ONE (20:40)
[2022-11-24] MEDS ORDERED: KETOROLAC 15 MG/ML 1 ML VIAL IVP ONE (20:43)
[2022-11-24] MEDS ORDERED: VANCOMYCIN 1,500 MG in SODIUM CHLORIDE 0.9% 500 ML 500 ML IVPB SCH (23:00)
[2022-11-24] MEDS: INSULIN DETEMIR (LEVEMIR) 100 UNIT/ML SYR SQ SCH (23:16)
[2022-11-24 23:21] LABS: Glucose,Whole Blood 312 mg/dL (70-110)
[2022-11-24] MEDS: LACTATED RINGERS 1,000 ML IV SCH (23:28)
[2022-11-25] MEDS: ACETAMINOPHEN TAB 325 MG TAB PO PRN ×2 (01:01→11:18)
[2022-11-25] MEDS: HYDROmorphone 1 MG/ML 1 ML SYRINGE IVP PRN ×2 (01:35→19:46)
[2022-11-25] MEDS: VANCOMYCIN 1,750 MG in SODIUM CHLORIDE 0.9% 500 ML 500 ML IVPB SCH ×2 (04:32→16:01)
[2022-11-25 06:54] LABS: Glucose,Whole Blood 278 mg/dL (70-110)
[2022-11-25] MEDS ORDERED: HYDROmorphone 0.5 MG/0.5 ML SYRINGE IVP PRN (07:00)
[2022-11-25] MEDS: AMPICILLIN-SULBACTAM 3 GM in SODIUM CHLORIDE 0.9% 100 ML IVPB SCH ×3 (07:31→17:45)
[2022-11-25] MEDS: INSULIN ASPART (NovoLOG) 100 UNIT/ML VIAL SQ SCH ×7 (07:48→20:00)
[2022-11-25] MEDS: PANTOPRAZOLE 40 MG TABLET PO SCH (08:48)
--- NOTE | 2022-11-25 09:19 | P.PN ---
Subjective Progress Note Date: 11/25/22 The patient is a 52-year-old male with a past medical history of diabetes. Attempted to the emergency department on 11/24/22 after 4 days of scrotal swelling and reporting a growth in his groin. He reported having pain in his testicles and having drainage. He was evaluated and found to have a perineal and left scrotal swelling. There were concerns for necrotizing fasciitis and the patient was started on Zosyn and Vanco. He denied any fevers or chills. Leukocytosis present with a WBC of 15.0, ESR 77, UA not suggestive of UTI. Pelvis CT with contrast revealed a asymmetric left-sided scrotal fluid co llection or hydrocele. There is more heterogeneous fluids. To both testicles with suggestion of some enhancement and fat stranding greater on the left. No intrascrotal air is identified to suggest necrotizing fasciitis. There are prominent and slightly enlarged bilateral groin lymph nodes. He was evaluated by Dr. Srivastava and underwent an Incision and drainage of left scrotal abscess. Objective - Vital Signs Vital signs: Vital Signs Temp 98.3 F 11/25/22 07:30 Pulse 66 11/25/22 07:30 Resp 18 11/25/22 07:30 BP 130/80 11/25/22 07:30 Pulse Ox 98 11/25/22 07:30 FiO2 Intake & Output 11/24/22 11/25/22 11/25/22 18:59 06:59 18:59 Intake Total 400 200 Output Total 620 Balance -220 200 Weight 112.945 kg Intake: IV 400 Intake, IV Titration 200 Amount Lactated Ringers 1,000 ml 200 @ 20 mls/hr IV .Q24H [facility] Rx#:[id number] Output: Urine 600 Estimated Blood Loss 20 Other: Voiding Method Toilet # Voids 1 1 # Bowel Movements 0 - Exam General: Well developed, well nourished. No acute distress. [id number]. HEENT: Head is atraumatic, normocephalic. Lungs: Respirations even and nonlabored. on RA Abdomen/GI: Soft, non-distended. No guarding, rigidity, or abdominal tenderness. : Left groin and perinal incision with bloody drainage noted on dressing. Skin: Warm and dry Neurologic: Alert and oriented 3, CN II-XII grossly intact. No focal deficits. Psychiatric: Appropriate mood and affect. - Labs CBC & Chem 7: 11/25/22 07:22 11/25/22 07:22 Labs: Abnormal Lab Results - Last 24 Hours (Table) 11/24/22 11/24/22 11/24/22 Range/Units 14:46 14:46 17:40 WBC 15.0 H (3.8-10.6) k/uL Neutrophils # 12.4 H (1.3-7.7) k/uL ESR 77 H (0-15) mm/hr Sodium 133 L (137-145) mmol/L Carbon Dioxide 21 L (22-30) mmol/L Creatinine 0.60 L (0.66-1.25) mg/dL Glucose 330 H (74-99) mg/dL POC Glucose (mg/dL) 239 H (70-110) mg/dL AST 14 L (17-59) U/L C-Reactive Protein 14.3 H (<1.0) mg/dL Ur Specific [place] (1.001-1.035) Urine Protein (Negative) Urine Glucose (UA) (Negative) Urine Ketones (Negative) Urine Mucus (None) /hpf 11/24/22 11/24/22 11/24/22 Range/Units 18:40 19:48 20:31 WBC (3.8-10.6) k/uL Neutrophils # (1.3-7.7) k/uL ESR (0-15) mm/hr Sodium (137-145) mmol/L Carbon Dioxide (22-30) mmol/L Creatinine (0.66-1.25) mg/dL Glucose (74-99) mg/dL POC Glucose (mg/dL) 240 H 223 H (70-110) mg/dL AST (17-59) U/L C-Reactive Protein (<1.0) mg/dL Ur Specific [place] >1.050 H (1.001-1.035) Urine Protein 1+ H (Negative) Urine Glucose (UA) 4+ H (Negative) Urine Ketones 4+ H (Negative) Urine Mucus Rare H (None) /hpf 11/24/22 11/25/22 Range/Units 23:19 06:53 WBC (3.8-10.6) k/uL Neutrophils # (1.3-7.7) k/uL ESR (0-15) mm/hr Sodium (137-145) mmol/L Carbon Dioxide (22-30) mmol/L Creatinine (0.66-1.25) mg/dL Glucose (74-99) mg/dL POC Glucose (mg/dL) 312 H 278 H (70-110) mg/dL AST (17-59) U/L C-Reactive Protein (<1.0) mg/dL Ur Specific [place] (1.001-1.035) Urine Protein (Negative) Urine Glucose (UA) (Negative) Urine Ketones (Negative) Urine Mucus (None) /hpf Microbiology - Last 24 Hours (Table) 11/24/22 20:11 Wound Culture - Preliminary Other - Other 11/24/22 20:11 Anaerobic Culture - Preliminary Scrotum Assessment and Plan Assessment: The patient states his pain has improved. He is afebrile and vitals are stable. Wound cultures pending. Will change dressing and repack wound tomorrow. (1) Scrotal abscess Current Visit: Yes Status: Acute Code(s): N49.2 - INFLAMMATORY DISORDERS OF SCROTUM SNOMED Code(s): 97984502 Plan: - Continue antibiotics - Awaiting finalization of wound cultures - Continue current pain regimen Impression and plan of care have been directed as dictated by the signing physician. Maureen Way nurse practitioner acting as scribe for signing physician. Maureen Way [facility]- Palliative Care/Urology [facility] [phone] Email: [email or web address] The patient has been examined by me.. The swelling and pain are markedly reduced after the I&D yesterday. I concur with [facility] above note We will change the dressing and packing tomorrow. swati Srivastava MD
[2022-11-25 10:32] LABS: Basophils # (A) 0.04 X 10*3/uL (0.00-0.10); Basophils % (A) 0.3 %; Eosinophils # (A) 0.01 X 10*3/uL (0.04-0.35); Eosinophils % (A) 0.1 %; HCT 39.8 % (39.6-50.0); HGB 13.6 g/dL (13.0-17.0); Immature Grans, Automated 0.7 %; Lymphocytes # (A) 1.33 X 10*3/uL (0.90-5.00); Lymphocytes % (A) 9.9 %; MCH 28.9 pg (27.0-32.0); MCHC 34.2 g/dL (32.0-37.0); MCV 84.5 fL (80.0-97.0); Mean Platelet Volume 10.5 fL (9.5-12.2); Monocytes # (A) 0.91 X 10*3/uL (0.20-1.00); Monocytes % (A) 6.8 %; NRBC Per 100 WBC 0 /100 WBCS (0.0-0.0); Neutrophils % (A) 82.2 %; Platelet Count 314 X 10*3/uL (140-440); RBC 4.71 X 10*6/uL (4.40-5.60); RDW 12.3 % (11.5-14.5); WBC 13.38 X 10*3/uL (4.50-10.00)
[2022-11-25 10:40] LABS: African American GFR (CKD) 136.8 (60.0-200.0); Anion Gap 12.9 mmol/L (10.00-18.00); BUN/Creat Ratio 19.66 Ratio (12.00-20.00); Blood Urea Nitrogen 11.6 mg/dL (9.0-27.0); Calcium 8.9 mg/dL (8.7-10.3); Carbon Dioxide 19.9 mmol/L (20.0-27.5); Non-African American GFR(CKD) 118.1 (60.0-200.0); Potassium 4.8 mmol/L (3.5-5.5)
[2022-11-25 11:52] LABS: Glucose,Whole Blood 251 mg/dL (70-110)
--- NOTE | 2022-11-25 12:13 | P.HPIM ---
History of Present Illness H&P Date: 11/24/22 Patient is a 52-year-old male with known history of diabetes with us and has not been taking her his insulin R any other diabetic medications for about 8 months came in with complaints of swelling and drainage from the scrotum found to have abscess in the scrotal area. Patient denied any history of MRSA patient was given vancomycin and Zosyn and urology was consulted. Patient doesn't have any fevers does have leukocytosis and bit hyponatremic. Patient blood sugars are highly elevated. REVIEW OF SYSTEMS: CONSTITUTIONAL: No fever, no malaise, no fatigue. HEENT: No recent visual problems or hearing problems. Denied any sore throat. CARDIOVASCULAR: No chest pain, orthopnea, PND, no palpitations, no syncope. PULMONARY: No shortness of breath, no cough, no hemoptysis. GASTROINTESTINAL: No diarrhea, no nausea, no vomiting, no abdominal pain. NEUROLOGICAL: No headaches, no weakness, no numbness. HEMATOLOGICAL: Denies any bleeding or petechiae. GENITOURINARY: Denies any burning micturition, frequency, or urgency. MUSCULOSKELETAL/RHEUMATOLOGICAL: Denies any joint pain, swelling, or any muscle pain. ENDOCRINE: Denies any polyuria or polydipsia. The rest of the 14-point review of systems is negative. PHYSICAL EXAMINATION: GENERAL: The patient is alert and oriented x3, not in any acute distress. Well developed, well nourished. HEENT: Pupils are round and equally reacting to light. EOMI. No scleral icterus. No conjunctival pallor. Normocephalic, atraumatic. No pharyngeal erythema. No thyromegaly. CARDIOVASCULAR: S1 and S2 present. No murmurs, rubs, or gallops. PULMONARY: Chest is clear to auscultation, no wheezing or crackles. ABDOMEN: Soft, nontender, nondistended, normoactive bowel sounds. No palpable organomegaly. MUSCULOSKELETAL: No joint swelling or deformity. EXTREMITIES: No cyanosis, clubbing, or pedal edema. NEUROLOGICAL: Gross neurological examination did not reveal any focal deficits. SKIN: No rashes. Significant scrotal cellulitis and abscess in the posterior part of the scrotum, purulent drainage from the scrotum Assessment and plan -Scrotal abscess: Neurology will evaluate the patient patient was started on vancomycin and Zosyn. Abscesses secondary to noncompliance with medications. -Hyponatremia secondary to hyperglycemia expected to improve with the improvement in blood sugars patient was started on IV fluids -Type 2 diabetes mellitus uncontrolled blood sugars secondary to noncompliance with medication patient will be started on 34 units of long-acting insulin along with sliding scale with each meal and titration depending on the blood sugars DVT prophylaxis: Lovenox Past Medical History Past Medical History: No Reported History Additional Past Medical History / Comment(s): Covid 3 years ago, with hospitalization History of Any Multi-Drug Resistant Organisms: None Reported Past Surgical History: Orthopedic Surgery Additional Past Surgical History / Comment(s): LEFT KNEE ARTHROSCOPY Past Anesthesia/Blood Transfusion Reactions: No Reported Reaction Past Psychological History: No Psychological Hx Reported Smoking Status: Former smoker Past Alcohol Use History: None Reported Past Drug Use History: None Reported - Past Family History Family Family Medical History: No Reported History Additional Family Medical History / Comment(s): PATIENT ADOPTED FAMILY HX UNKNOWN Medications and Allergies Home Medications Medication Instructions Recorded Confirmed Type Insulin Glargine [Lantus] 30 unit SQ DIRECTED 11/24/22 11/24/22 History Linagliptin [Tradjenta] 5 mg PO DIRECTED 11/24/22 11/24/22 History metFORMIN HCL 500 mg PO DIRECTED 11/24/22 11/24/22 History Allergies Allergy/AdvReac Type Severity Reaction Status Date / Time Mushroom Allergy Anaphylaxis Verified 11/24/22 14:37 Physical Exam Vitals: Vital Signs Temp Pulse Pulse Pulse Resp BP BP 11/25/22 10:40 66 18 11/25/22 07:30 98.3 F 66 18 130/80 11/25/22 03:20 97.4 F L 60 18 125/75 11/24/22 22:28 75 125/79 11/24/22 21:58 98.5 F 81 122/73 11/24/22 21:44 79 128/80 11/24/22 21:28 80 141/84 11/24/22 21:13 94 140/80 11/24/22 20:59 96 140/85 11/24/22 20:50 87 15 158/81 11/24/22 20:35 92 16 159/91 11/24/22 20:21 98.4 F 96 18 158/87 11/24/22 20:00 16 11/24/22 19:05 87 18 129/74 11/24/22 16:00 138/84 11/24/22 15:00 98 18 141/92 11/24/22 13:28 98.5 F 118 H 20 134/82 Pulse Ox 11/25/22 10:40 11/25/22 07:30 98 11/25/22 03:20 99 11/24/22 22:28 97 11/24/22 21:58 11/24/22 21:44 90 L 11/24/22 21:28 99 11/24/22 21:13 97 11/24/22 20:59 98 11/24/22 20:50 100 11/24/22 20:35 97 11/24/22 20:21 98 11/24/22 20:00 11/24/22 19:05 99 11/24/22 16:00 11/24/22 15:00 100 11/24/22 13:28 99 Intake and Output 11/24/22 11/25/22 11/25/22 22:59 06:59 14:59 Intake Total 400 200 Output Total 620 Balance -220 200 Intake: IV 400 Intake, IV Titration 200 Amount Lactated Ringers 1,000 ml 200 @ 20 mls/hr IV .Q24H [facility] Rx#:[id number] Output: Urine 600 Estimated Blood Loss 20 Other: Voiding Method Toilet Toilet # Voids 1 1 # Bowel Movements 0 Results CBC & Chem 7: 11/25/22 07:22 11/25/22 07:22 Labs: Abnormal Lab Results - Last 24 Hours (Table) 11/24/22 11/24/22 11/24/22 Range/Units 14:46 14:46 17:40 WBC 15.0 H (3.8-10.6) k/uL Immature Gran # (0.00-0.04) X 10*3/uL Neutrophils # 12.4 H (1.3-7.7) k/uL Eosinophils # (0.04-0.35) X 10*3/uL ESR 77 H (0-15) mm/hr Sodium 133 L (137-145) mmol/L Carbon Dioxide 21 L (22-30) mmol/L Creatinine 0.60 L (0.66-1.25) mg/dL Glucose 330 H (74-99) mg/dL POC Glucose (mg/dL) 239 H (70-110) mg/dL AST 14 L (17-59) U/L C-Reactive Protein 14.3 H (<1.0) mg/dL Ur Specific [place] (1.001-1.035) Urine Protein (Negative) Urine Glucose (UA) (Negative) Urine Ketones (Negative) Urine Mucus (None) /hpf 11/24/22 11/24/22 11/24/22 Range/Units 18:40 19:48 20:31 WBC (3.8-10.6) k/uL Immature Gran # (0.00-0.04) X 10*3/uL Neutrophils # (1.3-7.7) k/uL Eosinophils # (0.04-0.35) X 10*3/uL ESR (0-15) mm/hr Sodium (137-145) mmol/L Carbon Dioxide (22-30) mmol/L Creatinine (0.66-1.25) mg/dL Glucose (74-99) mg/dL POC Glucose (mg/dL) 240 H 223 H (70-110) mg/dL AST (17-59) U/L C-Reactive Protein (<1.0) mg/dL Ur Specific [place] >1.050 H (1.001-1.035) Urine Protein 1+ H (Negative) Urine Glucose (UA) 4+ H (Negative) Urine Ketones 4+ H (Negative) Urine Mucus Rare H (None) /hpf 11/24/22 11/25/22 11/25/22 Range/Units 23:19 06:53 07:22 WBC 13.38 H (3.8-10.6) k/uL Immature Gran # 0.09 H (0.00-0.04) X 10*3/uL Neutrophils # 11.00 H (1.3-7.7) k/uL Eosinophils # 0.01 L (0.04-0.35) X 10*3/uL ESR (0-15) mm/hr Sodium (137-145) mmol/L Carbon Dioxide (22-30) mmol/L Creatinine (0.66-1.25) mg/dL Glucose (74-99) mg/dL POC Glucose (mg/dL) 312 H 278 H (70-110) mg/dL AST (17-59) U/L C-Reactive Protein (<1.0) mg/dL Ur Specific [place] (1.001-1.035) Urine Protein (Negative) Urine Glucose (UA) (Negative) Urine Ketones (Negative) Urine Mucus (None) /hpf 11/25/22 11/25/22 Range/Units 07:22 11:50 WBC (3.8-10.6) k/uL Immature Gran # (0.00-0.04) X 10*3/uL Neutrophils # (1.3-7.7) k/uL Eosinophils # (0.04-0.35) X 10*3/uL ESR (0-15) mm/hr Sodium 134 L (137-145) mmol/L Carbon Dioxide 19.9 L (22-30) mmol/L Creatinine (0.66-1.25) mg/dL Glucose 294 H (74-99) mg/dL POC Glucose (mg/dL) 251 H (70-110) mg/dL AST (17-59) U/L C-Reactive Protein (<1.0) mg/dL Ur Specific [place] (1.001-1.035) Urine Protein (Negative) Urine Glucose (UA) (Negative) Urine Ketones (Negative) Urine Mucus (None) /hpf Microbiology - Last 24 Hours (Table) 11/24/22 20:11 Wound Culture - Preliminary Other - Other 11/24/22 20:11 Anaerobic Culture - Preliminary Scrotum Thrombosis Risk Factor Assmnt - Choose All That Apply Each Factor Represents 1 point: Obesity (BMI >25) Thrombosis Risk Factor Assessment Total Risk Factor Score: 1 Thrombosis Risk Factor Assessment Level: Low Risk
[2022-11-25 18:16] LABS: Glucose,Whole Blood 261 mg/dL (70-110)
[2022-11-25 19:55] LABS: Glucose,Whole Blood 281 mg/dL (70-110)
[2022-11-25] MEDS: LACTATED RINGERS 1,000 ML IV SCH (20:02)
[2022-11-25] MEDS: INSULIN DETEMIR (LEVEMIR) 100 UNIT/ML SYR SQ SCH (21:35)
--- NOTE | 2022-11-25 22:46 | P.CONS ---
History of Present Illness - Reason for Consult Consult date: 11/25/22 - History of Present Illness Patient is a 52-year-old male presenting to the ER yesterday afternoon for evaluation of pain and discomfort to the groin area apparently the patient symptom has been going on for few days and the patient initially thought he may have pulled off his muscle while working, patient did have increasing pain and swelling to the left scrotal and perineal area patient describes the pain to be sharp almost 10 out of 10 with no radiation with associated swelling redness denies having any drainage patient on presentation to the hospital was afebrile and no fever was recorded subsequently patient did have vital 15,000 with a left shift kidney function was normal liver enzymes are normal CRP is 14.3 urine is negative patient did have a pelvic CT which shows asymmetric left-sided scrotal fluid collection or hydrocele no intrascrotal air patient was evaluated by urology and the patient is status post incision and drainage of the scrotal abscess patient was started on Unasyn and vancomycin infectious disease was consulted for further management of antibiotic therapy Past Medical History Past Medical History: No Reported History Additional Past Medical History / Comment(s): Covid 3 years ago, with hospitalization History of Any Multi-Drug Resistant Organisms: None Reported Past Surgical History: Orthopedic Surgery Additional Past Surgical History / Comment(s): LEFT KNEE ARTHROSCOPY Past Anesthesia/Blood Transfusion Reactions: No Reported Reaction Past Psychological History: No Psychological Hx Reported Smoking Status: Former smoker Past Alcohol Use History: None Reported Past Drug Use History: None Reported - Past Family History Family Family Medical History: No Reported History Additional Family Medical History / Comment(s): PATIENT ADOPTED FAMILY HX UNKNOWN Medications and Allergies Home Medications Medication Instructions Recorded Confirmed Type Insulin Glargine [Lantus] 30 unit SQ DIRECTED 11/24/22 11/24/22 History Linagliptin [Tradjenta] 5 mg PO DIRECTED 11/24/22 11/24/22 History metFORMIN HCL 500 mg PO DIRECTED 11/24/22 11/24/22 History Allergies Allergy/AdvReac Type Severity Reaction Status Date / Time Mushroom Allergy Anaphylaxis Verified 11/24/22 14:37 Physical Exam Vitals: Vital Signs Temp Pulse Pulse Pulse Resp BP BP 11/25/22 07:30 98.3 F 66 18 130/80 11/25/22 03:20 97.4 F L 60 18 125/75 11/24/22 22:28 75 125/79 11/24/22 21:58 98.5 F 81 122/73 11/24/22 21:44 79 128/80 11/24/22 21:28 80 141/84 11/24/22 21:13 94 140/80 11/24/22 20:59 96 140/85 11/24/22 20:50 87 15 158/81 11/24/22 20:35 92 16 159/91 11/24/22 20:21 98.4 F 96 18 158/87 11/24/22 20:00 16 11/24/22 19:05 87 18 129/74 11/24/22 16:00 138/84 11/24/22 15:00 98 18 141/92 11/24/22 13:28 98.5 F 118 H 20 134/82 Pulse Ox 11/25/22 07:30 98 11/25/22 03:20 99 11/24/22 22:28 97 11/24/22 21:58 11/24/22 21:44 90 L 11/24/22 21:28 99 11/24/22 21:13 97 11/24/22 20:59 98 11/24/22 20:50 100 11/24/22 20:35 97 11/24/22 20:21 98 11/24/22 20:00 11/24/22 19:05 99 11/24/22 16:00 11/24/22 15:00 100 11/24/22 13:28 99 Intake and Output 11/24/22 11/25/22 11/25/22 22:59 06:59 14:59 Intake Total 400 200 Output Total 620 Balance -220 200 Intake: IV 400 Intake, IV Titration 200 Amount Lactated Ringers 1,000 ml 200 @ 20 mls/hr IV .Q24H [facility] Rx#:[id number] Output: Urine 600 Estimated Blood Loss 20 Other: Voiding Method Toilet # Voids 1 1 # Bowel Movements 0 Results CBC & Chem 7: 11/25/22 07:22 11/25/22 07:22 Labs: Abnormal Lab Results - Last 24 Hours (Table) 11/24/22 11/24/22 11/24/22 Range/Units 14:46 14:46 17:40 WBC 15.0 H (3.8-10.6) k/uL Immature Gran # (0.00-0.04) X 10*3/uL Neutrophils # 12.4 H (1.3-7.7) k/uL Eosinophils # (0.04-0.35) X 10*3/uL ESR 77 H (0-15) mm/hr Sodium 133 L (137-145) mmol/L Carbon Dioxide 21 L (22-30) mmol/L Creatinine 0.60 L (0.66-1.25) mg/dL Glucose 330 H (74-99) mg/dL POC Glucose (mg/dL) 239 H (70-110) mg/dL AST 14 L (17-59) U/L C-Reactive Protein 14.3 H (<1.0) mg/dL Ur Specific [place] (1.001-1.035) Urine Protein (Negative) Urine Glucose (UA) (Negative) Urine Ketones (Negative) Urine Mucus (None) /hpf 11/24/22 11/24/22 11/24/22 Range/Units 18:40 19:48 20:31 WBC (3.8-10.6) k/uL Immature Gran # (0.00-0.04) X 10*3/uL Neutrophils # (1.3-7.7) k/uL Eosinophils # (0.04-0.35) X 10*3/uL ESR (0-15) mm/hr Sodium (137-145) mmol/L Carbon Dioxide (22-30) mmol/L Creatinine (0.66-1.25) mg/dL Glucose (74-99) mg/dL POC Glucose (mg/dL) 240 H 223 H (70-110) mg/dL AST (17-59) U/L C-Reactive Protein (<1.0) mg/dL Ur Specific [place] >1.050 H (1.001-1.035) Urine Protein 1+ H (Negative) Urine Glucose (UA) 4+ H (Negative) Urine Ketones 4+ H (Negative) Urine Mucus Rare H (None) /hpf 11/24/22 11/25/22 11/25/22 Range/Units 23:19 06:53 07:22 WBC 13.38 H (3.8-10.6) k/uL Immature Gran # 0.09 H (0.00-0.04) X 10*3/uL Neutrophils # 11.00 H (1.3-7.7) k/uL Eosinophils # 0.01 L (0.04-0.35) X 10*3/uL ESR (0-15) mm/hr Sodium (137-145) mmol/L Carbon Dioxide (22-30) mmol/L Creatinine (0.66-1.25) mg/dL Glucose (74-99) mg/dL POC Glucose (mg/dL) 312 H 278 H (70-110) mg/dL AST (17-59) U/L C-Reactive Protein (<1.0) mg/dL Ur Specific [place] (1.001-1.035) Urine Protein (Negative) Urine Glucose (UA) (Negative) Urine Ketones (Negative) Urine Mucus (None) /hpf 11/25/22 Range/Units 07:22 WBC (3.8-10.6) k/uL Immature Gran # (0.00-0.04) X 10*3/uL Neutrophils # (1.3-7.7) k/uL Eosinophils # (0.04-0.35) X 10*3/uL ESR (0-15) mm/hr Sodium 134 L (137-145) mmol/L Carbon Dioxide 19.9 L (22-30) mmol/L Creatinine (0.66-1.25) mg/dL Glucose 294 H (74-99) mg/dL POC Glucose (mg/dL) (70-110) mg/dL AST (17-59) U/L C-Reactive Protein (<1.0) mg/dL Ur Specific [place] (1.001-1.035) Urine Protein (Negative) Urine Glucose (UA) (Negative) Urine Ketones (Negative) Urine Mucus (None) /hpf Microbiology - Last 24 Hours (Table) 11/24/22 20:11 Wound Culture - Preliminary Other - Other 11/24/22 20:11 Anaerobic Culture - Preliminary Scrotum Assessment and Plan Plan: 1patient presented to hospital with left scrotal abscess in this patient status post surgical drainage more likely from gram-positive skin wing such as strep and MRSA less likely gram-negative but not entirely excluded 2patient to continue with the Unasyn and vancomycin while waiting for the culture to finalize We will follow on clinical condition and cultures to further adjust medication if needed Thank you for this consultation we will follow the patient along with you Time with Patient: Greater than 30
[2022-11-26] MEDS: AMPICILLIN-SULBACTAM 3 GM in SODIUM CHLORIDE 0.9% 100 ML IVPB SCH ×4 (00:38→18:45)
[2022-11-26] MEDS: HYDROmorphone 1 MG/ML 1 ML SYRINGE IVP PRN ×2 (00:44→06:56)
[2022-11-26] MEDS: VANCOMYCIN 1,750 MG in SODIUM CHLORIDE 0.9% 500 ML 500 ML IVPB SCH ×2 (03:54→17:45)
--- NOTE | 2022-11-26 05:19 | P.PN ---
Subjective Progress Note Date: 11/25/22 Patient is a 52-year-old male with known history of diabetes with us and has not been taking her his insulin R any other diabetic medications for about 8 months came in with complaints of swelling and drainage from the scrotum found to have abscess in the scrotal area. Patient denied any history of MRSA patient was given vancomycin and Zosyn and urology was consulted. Patient doesn't have any fevers does have leukocytosis and bit hyponatremic. Patient blood sugars are highly elevated. 11/25/2022 Patient is seen and evaluated this morning in follow-up status post incision and drainage of scrotal abscess with urology. Cultures were obtained with infectious disease following an patient is maintained on IV antibiotics. Patient to continue with local wound care and dressing changes will be done by urology tomorrow. Patient is diabetic with uncontrolled blood sugars extremely uncontrolled outpatient with an elevated hemoglobin A1c about 14 would recommend Accu-Cheks before meals and at bedtime and will increase some pre-meal insulin along with sliding scale and long-acting. Patient reports being concerned of going home unable to properly manage his wound care and will discuss with case management if patient requires IV antibiotics were nursing needs if there is an option of possible ECF of which patient is agreeable to. Patient is currently afebrile with no reports of chest pain or shortness of breath. Patient reports some improvement in pain and swelling of the scrotal area and would encourage increase activity as tolerated. Review of systems: Constitutional: No reports of fatigue, fever, or chills Cardiovascular: No reports of chest pain or palpitations Respiratory: No reports of shortness of breath or cough GI: No reports of nausea, vomiting, or diarrhea : No reports of dysuria or retention Neurovascular: No reports of weakness or numbness All medications have been reviewed Active Medications Acetaminophen (Acetaminophen Tab 325 Mg Tab) 650 mg PO Q6HR PRN PRN Reason: Fever and/ or Pain Last Admin: 11/25/22 11:18 Dose: 650 mg Dextrose/Water (Dextrose 50% Syringe 50 Ml) 25 ml IVP PER PROTOCOL PRN; Protocol PRN Reason: Hypoglycemia Dextrose/Water (Dextrose 50% Syringe 50 Ml) 50 ml IVP PER PROTOCOL PRN; Protocol PRN Reason: Hypoglycemia Hydromorphone HCl (Hydromorphone 1 Mg/Ml 1 Ml Syringe) 1 mg IVP Q3HR PRN PRN Reason: Severe Pain (Scale 7 to 10) Last Admin: 11/26/22 00:44 Dose: 1 mg Ampicillin Sodium/Sulbactam (Sodium 3 gm/ Sodium Chloride) 100 mls @ 200 mls/hr IVPB Q6HR [facility]; Protocol Last Admin: 11/26/22 00:38 Dose: 200 mls/hr Lactated Ringer's (Lactated Ringers) 1,000 mls @ 20 mls/hr IV .Q24H [facility] Last Admin: 11/25/22 20:02 Dose: 20 mls/hr Vancomycin HCl 1,750 mg/ (Sodium Chloride) 500 mls @ 167 mls/hr IVPB Q12H [facility] Last Admin: 11/26/22 03:54 Dose: 167 mls/hr Insulin Aspart (Insulin Aspart (Novolog) 100 Unit/Ml Vial) 0 unit SQ [facility]; Protocol Last Admin: 11/25/22 20:00 Dose: 3 unit Insulin Aspart (Insulin Aspart (Novolog) 100 Unit/Ml Vial) 15 unit SQ AC-TID [facility] Insulin Detemir (Insulin Detemir (Levemir) 100 Unit/Ml Syr) 30 unit SQ [facility] Last Admin: 11/25/22 21:35 Dose: 30 unit Miscellaneous Information (Vancomycin Iv Per Pharmacy 1 Each Misc) 1 each [place] DIRECTED PRN; Protocol PRN Reason: Per Protocol Naloxone HCl (Naloxone 0.4 Mg/Ml 1 Ml Vial) 0.2 mg IV Q2M PRN PRN Reason: Opioid Reversal Ondansetron HCl (Ondansetron 4 Mg/2 Ml Vial) 4 mg IVP Q8HR PRN PRN Reason: Nausea And Vomiting Pantoprazole Sodium (Pantoprazole 40 Mg Tablet) 40 mg PO AC-BRKFST [facility] Last Admin: 11/25/22 08:48 Dose: 40 mg PHYSICAL EXAMINATION: GENERAL: The patient is alert and oriented x3, not in any acute distress. Well developed, well nourished. HEENT: Pupils are round and equally reacting to light. EOMI. No scleral icterus. No conjunctival pallor. Normocephalic, atraumatic. No pharyngeal erythema. No thyromegaly. CARDIOVASCULAR: S1 and S2 present. No murmurs, rubs, or gallops. PULMONARY: Chest is clear to auscultation, no wheezing or crackles. ABDOMEN: Soft, nontender, nondistended, normoactive bowel sounds. No palpable organomegaly. MUSCULOSKELETAL: No joint swelling or deformity. EXTREMITIES: No cyanosis, clubbing, or pedal edema. NEUROLOGICAL: Gross neurological examination did not reveal any focal deficits. SKIN: No rashes. Significant scrotal cellulitis and abscess in the posterior part of the scrotum, purulent drainage from the scrotum, status post incision and drainage with packing currently Assessment: -Left Scrotal abscess:Abscesses secondary to noncompliance with medications. Status post incision and drainage with urology -Hyponatremia secondary to hyperglycemia expected to improve with the improvement in blood sugars patient was started on IV fluids -Type 2 diabetes mellitus uncontrolled blood sugars secondary to noncompliance with medication -Obesity with BMI of 34.7 -DVT prophylaxis: Lovenox -GI prophylaxis -Both code Plan: Recommend continue with IV antibiotics with urology and infectious is following waiting on cultures were done on incision and drainage of the left scrotal abscess Recommend local wound care and continued packing and will follow-up with dressing changes with urology in the a.m. WBC elevated and will follow-up with repeat labs Recommend consistent carb diet and tight glycemic control with Accu-Cheks before meals and at bedtime. Continue sliding scale along with pre-meals and long- acting Case management following an patient is concerned about overall wound care management and inability to do by himself as he lives alone and given the area of the abscess, patient reports having difficulty reaching the area and concerned he will not be able to properly care for these wounds and agreeable to ECF. Will discuss further once cultures are finalized to determine if patient requires IV antibiotic therapy in addition to wound care. Will follow-up with repeat labs Encouraged increased activity as tolerated The impression and plan of care has been dictated by Dorcas Spangler, Nurse Practitioner as directed. Dr. Dinesh MD I have performed a history and examination and MDM of this patient, discussed the same with the dictator, and agree with the dictator's assessment and plan as written ,documented as a scribe. Based on total visit time, I have performed more than 50% of the visit. Objective - Vital Signs Vital signs: Vital Signs Temp 98.3 F 11/25/22 07:30 Pulse 66 11/25/22 07:30 Resp 18 11/25/22 07:30 BP 130/80 11/25/22 07:30 Pulse Ox 98 11/25/22 07:30 FiO2 Intake & Output 11/24/22 11/25/22 11/25/22 18:59 06:59 18:59 Intake Total 400 200 Output Total 620 Balance -220 200 Weight 112.945 kg Intake: IV 400 Intake, IV Titration 200 Amount Lactated Ringers 1,000 ml 200 @ 20 mls/hr IV .Q24H [facility] Rx#:[id number] Output: Urine 600 Estimated Blood Loss 20 Other: Voiding Method Toilet # Voids 1 1 # Bowel Movements 0 - Labs CBC & Chem 7: 11/25/22 07:22 11/25/22 07:22 Labs: Abnormal Lab Results - Last 24 Hours (Table) 11/24/22 11/24/22 11/24/22 Range/Units 14:46 14:46 17:40 WBC 15.0 H (3.8-10.6) k/uL Neutrophils # 12.4 H (1.3-7.7) k/uL ESR 77 H (0-15) mm/hr Sodium 133 L (137-145) mmol/L Carbon Dioxide 21 L (22-30) mmol/L Creatinine 0.60 L (0.66-1.25) mg/dL Glucose 330 H (74-99) mg/dL POC Glucose (mg/dL) 239 H (70-110) mg/dL AST 14 L (17-59) U/L C-Reactive Protein 14.3 H (<1.0) mg/dL Ur Specific [place] (1.001-1.035) Urine Protein (Negative) Urine Glucose (UA) (Negative) Urine Ketones (Negative) Urine Mucus (None) /hpf 11/24/22 11/24/22 11/24/22 Range/Units 18:40 19:48 20:31 WBC (3.8-10.6) k/uL Neutrophils # (1.3-7.7) k/uL ESR (0-15) mm/hr Sodium (137-145) mmol/L Carbon Dioxide (22-30) mmol/L Creatinine (0.66-1.25) mg/dL Glucose (74-99) mg/dL POC Glucose (mg/dL) 240 H 223 H (70-110) mg/dL AST (17-59) U/L C-Reactive Protein (<1.0) mg/dL Ur Specific [place] >1.050 H (1.001-1.035) Urine Protein 1+ H (Negative) Urine Glucose (UA) 4+ H (Negative) Urine Ketones 4+ H (Negative) Urine Mucus Rare H (None) /hpf 11/24/22 11/25/22 Range/Units 23:19 06:53 WBC (3.8-10.6) k/uL Neutrophils # (1.3-7.7) k/uL ESR (0-15) mm/hr Sodium (137-145) mmol/L Carbon Dioxide (22-30) mmol/L Creatinine (0.66-1.25) mg/dL Glucose (74-99) mg/dL POC Glucose (mg/dL) 312 H 278 H (70-110) mg/dL AST (17-59) U/L C-Reactive Protein (<1.0) mg/dL Ur Specific [place] (1.001-1.035) Urine Protein (Negative) Urine Glucose (UA) (Negative) Urine Ketones (Negative) Urine Mucus (None) /hpf Microbiology - Last 24 Hours (Table) 11/24/22 20:11 Wound Culture - Preliminary Other - Other 11/24/22 20:11 Anaerobic Culture - Preliminary Scrotum
[2022-11-26 07:10] LABS: Glucose,Whole Blood 216 mg/dL (70-110)
[2022-11-26] MEDS: INSULIN ASPART (NovoLOG) 100 UNIT/ML VIAL SQ SCH ×7 (07:30→20:30)
[2022-11-26] MEDS: PANTOPRAZOLE 40 MG TABLET PO SCH (09:13)
[2022-11-26 10:32] LABS: Eosinophils # (A) 0.27 X 10*3/uL (0.04-0.35); Eosinophils % (A) 2.7 %; HCT 39.1 % (39.6-50.0); HGB 13.1 g/dL (13.0-17.0); Lymphocytes # (A) 2.55 X 10*3/uL (0.90-5.00); Lymphocytes % (A) 25.3 %; MCH 28.7 pg (27.0-32.0); MCHC 33.5 g/dL (32.0-37.0); MCV 85.7 fL (80.0-97.0); Mean Platelet Volume 10.2 fL (9.5-12.2); Monocytes # (A) 1.13 X 10*3/uL (0.20-1.00); Monocytes % (A) 11.2 %; NRBC Per 100 WBC 0 /100 WBCS (0.0-0.0); Neutrophils # (A) 5.91 X 10*3/uL (1.80-7.70); Neutrophils % (A) 58.8 %; Platelet Count 310 X 10*3/uL (140-440); RBC 4.56 X 10*6/uL (4.40-5.60); RDW 12.5 % (11.5-14.5); WBC 10.06 X 10*3/uL (4.50-10.00)
[2022-11-26 11:03] LABS: Magnesium 1.6 mg/dL (1.5-2.4)
[2022-11-26 11:07] LABS: African American GFR (CKD) 146.4 (60.0-200.0); Anion Gap 12.3 mmol/L (10.00-18.00); BUN/Creat Ratio 24.2 Ratio (12.00-20.00); Blood Urea Nitrogen 12.1 mg/dL (9.0-27.0); Calcium 8.6 mg/dL (8.7-10.3); Carbon Dioxide 21.7 mmol/L (20.0-27.5); Non-African American GFR(CKD) 126.4 (60.0-200.0); Potassium 3.6 mmol/L (3.5-5.5)
[2022-11-26 11:11] LABS: Glucose,Whole Blood 179 mg/dL (70-110)
[2022-11-26] MEDS: HYDROcodone/APAP 5-325MG 1 EACH TAB PO PRN (12:50)
[2022-11-26] MEDS ORDERED: Magnesium Replacement Protocol 1 EACH MISC MISCELLANE PRN (12:50)
[2022-11-26] MEDS: MAGNESIUM SULFATE-D5W PMX 1 GM in DEXTROSE/WATER 1 100ML.BAG IVPB SCH ×2 (13:31→15:17)
[2022-11-26 13:37] VITALS: BMI 34.7
--- NOTE | 2022-11-26 14:57 | P.PN ---
Subjective Progress Note Date: 11/26/22 Principal diagnosis: Scrotal abscess Patient is a 52-year-old male presenting to the ER yesterday afternoon for evaluation of pain and discomfort to the groin area , patient has been diagnosed with the scrotal and perineal abscess status post surgical drainage. on today's evaluation that is 11/26/2022, the patient denies having any fever or chills, still complaining of pain to the scrotal/groin area no chest pain shortness of breath or cough no abdominal pain or diarrhea Objective - Vital Signs Vital signs: Vital Signs Temp 98.5 F 11/26/22 07:30 Pulse 74 11/26/22 07:30 Resp 20 11/26/22 09:00 BP 114/84 11/26/22 07:30 Pulse Ox 99 11/26/22 07:30 FiO2 Intake & Output 11/25/22 11/26/22 11/26/22 18:59 06:59 18:59 Intake Total 1040 450 Balance 1040 450 Intake: Intake, IV Titration 1040 Amount Ampicillin-Sulbactam 3 gm 100 In Sodium Chloride 0.9% 100 ml @ 200 mls/hr IVPB Q6HR [facility] Rx#:[id number] Lactated Ringers 1,000 ml 440 @ 20 mls/hr IV .Q24H [facility] Rx#:[id number] Vancomycin 1,750 mg In 500 Sodium Chloride 0.9% 500 ml 500 ml @ 167 mls/hr IVPB Q12H [facility] Rx#: [id number] Oral 450 Other: Voiding Method Toilet Toilet Toilet # Voids 1 1 # Bowel Movements 0 - Exam GENERAL DESCRIPTION: An elderly male lying in bed in no distress RESPIRATORY SYSTEM: Unlabored breathing , decreased breath sounds at bases HEART: S1 S2 regular rate and rhythm , ABDOMEN: Soft , no tenderness : Scrotal area is currently packed no significant redness or foul-smelling drainage - Labs CBC & Chem 7: 11/26/22 06:42 11/26/22 06:42 Labs: Abnormal Lab Results - Last 24 Hours (Table) 11/25/22 11/25/22 11/25/22 Range/Units 07:22 18:15 19:53 WBC (4.50-10.00) X 10*3/uL Hct (39.6-50.0) % Immature Gran # (0.00-0.04) X 10*3/uL Monocytes # (0.20-1.00) X 10*3/uL Creatinine (0.6-1.5) mg/dL BUN/Creatinine Ratio (12.00-20.00) Ratio Glucose (70-110) mg/dL POC Glucose (mg/dL) 261 H 281 H (70-110) mg/dL Hemoglobin A1c 14.5 H (0.0-6.0) % Calcium (8.7-10.3) mg/dL 11/26/22 11/26/22 11/26/22 Range/Units 06:42 06:42 07:09 WBC 10.06 H (4.50-10.00) X 10*3/uL Hct 39.1 L (39.6-50.0) % Immature Gran # 0.10 H (0.00-0.04) X 10*3/uL Monocytes # 1.13 H (0.20-1.00) X 10*3/uL Creatinine 0.5 L (0.6-1.5) mg/dL BUN/Creatinine Ratio 24.20 H (12.00-20.00) Ratio Glucose 281 H (70-110) mg/dL POC Glucose (mg/dL) 216 H (70-110) mg/dL Hemoglobin A1c (0.0-6.0) % Calcium 8.6 L (8.7-10.3) mg/dL 11/26/22 Range/Units 11:09 WBC (4.50-10.00) X 10*3/uL Hct (39.6-50.0) % Immature Gran # (0.00-0.04) X 10*3/uL Monocytes # (0.20-1.00) X 10*3/uL Creatinine (0.6-1.5) mg/dL BUN/Creatinine Ratio (12.00-20.00) Ratio Glucose (70-110) mg/dL POC Glucose (mg/dL) 179 H (70-110) mg/dL Hemoglobin A1c (0.0-6.0) % Calcium (8.7-10.3) mg/dL Microbiology - Last 24 Hours (Table) 11/25/22 07:22 Blood Culture - Preliminary Blood No Growth after 24 hours 11/24/22 20:11 Gram Stain - Preliminary Other - Other Wound Culture - Preliminary 11/24/22 14:46 Blood Culture - Preliminary Blood No Growth after 24 hours Assessment and Plan (1) Cellulitis of scrotum Current Visit: Yes Status: Acute Code(s): N49.2 - INFLAMMATORY DISORDERS OF SCROTUM SNOMED Code(s): 84725498 (2) Scrotal abscess Current Visit: Yes Status: Acute Code(s): N49.2 - INFLAMMATORY DISORDERS OF SCROTUM SNOMED Code(s): 30321840 Plan: 1patient presented to hospital with left scrotal abscess in this patient status post surgical drainage more likely from gram-positive skin wing such as strep and MRSA less likely gram-negative but not entirely excluded, initial culture with possible strep 2patient to continue with the Unasyn and vancomycin while waiting for the culture to finalize and monitor clinical course closely Time with Patient: Less than 30
--- NOTE | 2022-11-26 15:27 | P.PN ---
Subjective Progress Note Date: 11/26/22 The patient is a 52-year-old male with a past medical history of diabetes. Attempted to the emergency department on 11/24/22 after 4 days of scrotal swelling and reporting a growth in his groin. He reported having pain in his testicles and having drainage. He was evaluated and found to have a perineal and left scrotal swelling. There were concerns for necrotizing fasciitis and the patient was started on Zosyn and Vanco. He denied any fevers or chills. Leukocytosis present with a WBC of 15.0, ESR 77, UA not suggestive of UTI. Pelvis CT with contrast revealed a asymmetric left-sided scrotal fluid co llection or hydrocele. There is more heterogeneous fluids. To both testicles with suggestion of some enhancement and fat stranding greater on the left. No intrascrotal air is identified to suggest necrotizing fasciitis. There are prominent and slightly enlarged bilateral groin lymph nodes. He was evaluated by Dr. Srivastava and underwent an Incision and drainage of left scrotal abscess. 11/26 The patient states his pain has improved. He is afebrile and vitals are stable. The swelling markedly reduced. Wound cultures pending. Will change dressing and repack wound tomorrow. Objective - Vital Signs Vital signs: Vital Signs Temp 97.6 F 11/26/22 13:23 Pulse 79 11/26/22 13:23 Resp 18 11/26/22 13:23 BP 132/83 11/26/22 13:23 Pulse Ox 97 11/26/22 13:23 FiO2 Intake & Output 11/25/22 11/26/22 11/26/22 18:59 06:59 18:59 Intake Total 1040 450 Balance 1040 450 Weight 112.945 kg Intake: Intake, IV Titration 1040 Amount Ampicillin-Sulbactam 3 gm 100 In Sodium Chloride 0.9% 100 ml @ 200 mls/hr IVPB Q6HR [facility] Rx#:[id number] Lactated Ringers 1,000 ml 440 @ 20 mls/hr IV .Q24H [facility] Rx#:[id number] Vancomycin 1,750 mg In 500 Sodium Chloride 0.9% 500 ml 500 ml @ 167 mls/hr IVPB Q12H [facility] Rx#: [id number] Oral 450 Other: Voiding Method Toilet Toilet Toilet # Voids 1 1 # Bowel Movements 0 - Exam General: Well developed, well nourished. No acute distress. [id number]. HEENT: Head is atraumatic, normocephalic. Lungs: Respirations even and nonlabored. on RA Abdomen/GI: Soft, non-distended. No guarding, rigidity, or abdominal tenderness. : Left groin and perinal incision with bloody drainage noted on dressing. Skin: Warm and dry Neurologic: Alert and oriented 3, CN II-XII grossly intact. No focal deficits. Psychiatric: Appropriate mood and affect. - Labs CBC & Chem 7: 11/26/22 06:42 11/26/22 06:42 Labs: Abnormal Lab Results - Last 24 Hours (Table) 11/25/22 11/25/22 11/26/22 Range/Units 18:15 19:53 06:42 WBC 10.06 H (4.50-10.00) X 10*3/uL Hct 39.1 L (39.6-50.0) % Immature Gran # 0.10 H (0.00-0.04) X 10*3/uL Monocytes # 1.13 H (0.20-1.00) X 10*3/uL Creatinine (0.6-1.5) mg/dL BUN/Creatinine Ratio (12.00-20.00) Ratio Glucose (70-110) mg/dL POC Glucose (mg/dL) 261 H 281 H (70-110) mg/dL Calcium (8.7-10.3) mg/dL 11/26/22 11/26/22 11/26/22 Range/Units 06:42 07:09 11:09 WBC (4.50-10.00) X 10*3/uL Hct (39.6-50.0) % Immature Gran # (0.00-0.04) X 10*3/uL Monocytes # (0.20-1.00) X 10*3/uL Creatinine 0.5 L (0.6-1.5) mg/dL BUN/Creatinine Ratio 24.20 H (12.00-20.00) Ratio Glucose 281 H (70-110) mg/dL POC Glucose (mg/dL) 216 H 179 H (70-110) mg/dL Calcium 8.6 L (8.7-10.3) mg/dL Microbiology - Last 24 Hours (Table) 11/24/22 20:11 Gram Stain - Preliminary Other - Other Wound Culture - Preliminary Strep agalactiae - (group b) 11/25/22 07:22 Blood Culture - Preliminary Blood No Growth after 24 hours 11/24/22 14:46 Blood Culture - Preliminary Blood No Growth after 24 hours Assessment and Plan Assessment: The patient states he had a little more pain over night than expected. He is afebrile, WBC 10.06. Blood cultures negative, preliminary gram stain of wound culture strep agalactiae (group b), anaerobic culture pending. ID following. The patient states that heis not very flexible and has numb finger tips from pinched nerves. He does not have anyone at home to help him with packing/dressing changes which will need to be done twice daily. (1) Scrotal abscess Current Visit: Yes Status: Acute Code(s): N49.2 - INFLAMMATORY DISORDERS OF SCROTUM SNOMED Code(s): 89584706 Plan: - Continue antibiotics - per ID recommendations - Awaiting finalization of wound cultures - [place] added to pain regimen - Sitz bath and dressing change with packing twice daily Impression and plan of care have been directed as dictated by the signing physician. Maureen Way nurse practitioner acting as scribe for signing physician. Maureen [facility] [id number] Email: [email or web address] The patient has been interviewed and examined by me.. I agree with the above note. Navneet Srivastava MD
[2022-11-26] MEDS: HYDROmorphone 0.5 MG/0.5 ML SYRINGE IVP PRN (15:43)
[2022-11-26 17:23] LABS: Glucose,Whole Blood 190 mg/dL (70-110)
[2022-11-26 20:05] LABS: Glucose,Whole Blood 164 mg/dL (70-110)
[2022-11-26] MEDS: LACTATED RINGERS 1,000 ML IV SCH (20:18)
[2022-11-26] MEDS: INSULIN DETEMIR (LEVEMIR) 100 UNIT/ML SYR SQ SCH (20:30)
[2022-11-27] MEDS: AMPICILLIN-SULBACTAM 3 GM in SODIUM CHLORIDE 0.9% 100 ML IVPB SCH ×5 (00:45→23:28)
[2022-11-27] MEDS ORDERED: VANCOMYCIN TROUGH DUE 1 EACH MISC MISCELLANE ONE (03:00)
[2022-11-27] MEDS: VANCOMYCIN 1,750 MG in SODIUM CHLORIDE 0.9% 500 ML 500 ML IVPB SCH (03:13)
[2022-11-27 03:32] LABS: African American GFR (CKD) >90 (>60 ml/min/1.73 sqM); Magnesium 1.7 mg/dL (1.6-2.3); Non-African American GFR(CKD) >90 (>60 ml/min/1.73 sqM)
[2022-11-27] MEDS ORDERED: Magnesium Replacement Protocol 1 EACH MISC MISCELLANE PRN (05:27)
[2022-11-27] MEDS ORDERED: MAGNESIUM SULFATE-D5W PMX 1 GM in DEXTROSE/WATER 1 100ML.BAG IVPB ONE (05:27)
--- NOTE | 2022-11-27 05:59 | P.PN ---
Subjective Progress Note Date: 11/26/22 Patient is a 52-year-old male with known history of diabetes with us and has not been taking her his insulin R any other diabetic medications for about 8 months came in with complaints of swelling and drainage from the scrotum found to have abscess in the scrotal area. Patient denied any history of MRSA patient was given vancomycin and Zosyn and urology was consulted. Patient doesn't have any fevers does have leukocytosis and bit hyponatremic. Patient blood sugars are highly elevated. 11/25/2022 Patient is seen and evaluated this morning in follow-up status post incision and drainage of scrotal abscess with urology. Cultures were obtained with infectious disease following an patient is maintained on IV antibiotics. Patient to continue with local wound care and dressing changes will be done by urology tomorrow. Patient is diabetic with uncontrolled blood sugars extremely uncontrolled outpatient with an elevated hemoglobin A1c about 14 would recommend Accu-Cheks before meals and at bedtime and will increase some pre-meal insulin along with sliding scale and long-acting. Patient reports being concerned of going home unable to properly manage his wound care and will discuss with case management if patient requires IV antibiotics were nursing needs if there is an option of possible ECF of which patient is agreeable to. Patient is currently afebrile with no reports of chest pain or shortness of breath. Patient reports some improvement in pain and swelling of the scrotal area and would encourage increase activity as tolerated. 11/26/2022 Patient is seen in follow-up today with urology following along with infectious disease. Patient is maintained on IV antibiotics while awaiting for cultures of the left scrotal abscess incision and drainage. Patient reports his pain p ersists and also discuss recommend limiting IV pain medications. Urology planning on repacking the site after a sitz bath and cleansing the area thoroughly. Case management following working on discharge planning needs for possible ECF in the event patient requires IV antibiotic and continued extensive wound care. Encouraged increase activity as tolerated and oral intake. Recommend tight glycemic control and will adjust medications accordingly. Review of systems: Constitutional: No reports of fatigue, fever, or chills Cardiovascular: No reports of chest pain or palpitations Respiratory: No reports of shortness of breath or cough GI: No reports of nausea, vomiting, or diarrhea : No reports of dysuria or retention Neurovascular: No reports of weakness or numbness All medications have been reviewed Active Medications Acetaminophen (Acetaminophen Tab 325 Mg Tab) 650 mg PO Q6HR PRN PRN Reason: Fever and/ or Pain Last Admin: 11/25/22 11:18 Dose: 650 mg Hydrocodone Bitart/Acetaminophen (Hydrocodone/Apap 5-325mg 1 Each Tab) 1 each PO Q4HR PRN PRN Reason: Pain Last Admin: 11/26/22 12:50 Dose: 1 each Dextrose/Water (Dextrose 50% Syringe 50 Ml) 25 ml IVP PER PROTOCOL PRN; Protocol PRN Reason: Hypoglycemia Dextrose/Water (Dextrose 50% Syringe 50 Ml) 50 ml IVP PER PROTOCOL PRN; Protocol PRN Reason: Hypoglycemia Hydromorphone HCl (Hydromorphone 0.5 Mg/0.5 Ml Syringe) 0.5 mg IVP Q4HR PRN PRN Reason: Pain Scale 6 to 10 Last Admin: 11/26/22 15:43 Dose: 0.5 mg Ampicillin Sodium/Sulbactam (Sodium 3 gm/ Sodium Chloride) 100 mls @ 200 mls/hr IVPB Q6HR [facility]; Protocol Last Admin: 11/27/22 05:20 Dose: 200 mls/hr Lactated Ringer's (Lactated Ringers) 1,000 mls @ 20 mls/hr IV .Q24H [facility] Last Admin: 11/26/22 20:18 Dose: Not Given Vancomycin HCl 1,750 mg/ (Sodium Chloride) 500 mls @ 167 mls/hr IVPB Q12H [facility] Last Admin: 11/27/22 03:13 Dose: 167 mls/hr Magnesium Sulfate/Dextrose 1 (gm/ IV Solution) 100 mls @ 100 mls/hr IVPB ONCE ONE; Protocol Stop: 11/27/22 06:26 Insulin Aspart (Insulin Aspart (Novolog) 100 Unit/Ml Vial) 0 unit SQ ACHS [facility]; Protocol Last Admin: 11/26/22 20:30 Dose: 1 unit Insulin Aspart (Insulin Aspart (Novolog) 100 Unit/Ml Vial) 15 unit SQ AC-TID [facility] Last Admin: 11/26/22 17:45 Dose: 15 unit Insulin Detemir (Insulin Detemir (Levemir) 100 Unit/Ml Syr) 30 unit SQ HS [facility] Last Admin: 11/26/22 20:30 Dose: 30 unit Miscellaneous Information (Magnesium Replacement Protocol 1 Each Misc) 1 each MISCELLANE DAILY PRN; Protocol PRN Reason: Per Protocol Miscellaneous Information (Magnesium Replacement Protocol 1 Each Mis) 1 each MISCELLANE DAILY PRN; Protocol PRN Reason: Per Protocol Naloxone HCl (Naloxone 0.4 Mg/Ml 1 Ml Vial) 0.2 mg IV Q2M PRN PRN Reason: Opioid Reversal Ondansetron HCl (Ondansetron 4 Mg/2 Ml Vial) 4 mg IVP Q8HR PRN PRN Reason: Nausea And Vomiting Pantoprazole Sodium (Pantoprazole 40 Mg Tablet) 40 mg PO AC-[id number] [facility] Last Admin: 11/26/22 09:13 Dose: 40 mg PHYSICAL EXAMINATION: GENERAL: The patient is alert and oriented x3, not in any acute distress. Well developed, well nourished. HEENT: Pupils are round and equally reacting to light. EOMI. No scleral icterus. No conjunctival pallor. Normocephalic, atraumatic. No pharyngeal erythema. No thyromegaly. CARDIOVASCULAR: S1 and S2 present. No murmurs, rubs, or gallops. PULMONARY: Chest is clear to auscultation, no wheezing or crackles. ABDOMEN: Soft, nontender, nondistended, normoactive bowel sounds. No palpable organomegaly. MUSCULOSKELETAL: No joint swelling or deformity. EXTREMITIES: No cyanosis, clubbing, or pedal edema. NEUROLOGICAL: Gross neurological examination did not reveal any focal deficits. SKIN: No rashes. Significant scrotal cellulitis and abscess in the posterior part of the scrotum, purulent drainage from the scrotum, status post incision and drainage with packing currently Assessment: -Left Scrotal abscess:Abscesses secondary to noncompliance with medications. Status post incision and drainage with urology -Hyponatremia secondary to hyperglycemia expected to improve with the improvement in blood sugars patient was started on IV fluids -Type 2 diabetes mellitus uncontrolled blood sugars secondary to noncompliance with medication -Obesity with BMI of 34.7 -DVT prophylaxis: Lovenox -GI prophylaxis -Both code Plan: Recommend continue with IV antibiotics with urology and infectious is following waiting on cultures were done on incision and drainage of the left scrotal abscess Recommend local wound care and continued packing and will undergo sitz bath and dressing changes with urology later today WBC elevated and will follow-up with repeat labs Recommend consistent carb diet and tight glycemic control with Accu-Cheks before meals and at bedtime. Continue sliding scale along with pre-meals and long- acting Case management following an patient is concerned about overall wound care management and inability to do by himself as he lives alone and given the area of the abscess, patient reports having difficulty reaching the area and concerned he will not be able to properly care for these wounds and agreeable to ECF. Will discuss further once cultures are finalized to determine if patient requires IV antibiotic therapy in addition to wound care. Will follow-up with repeat labs Encouraged increased activity as tolerated The impression and plan of care has been dictated by Dorcas Spangler, Nurse Practitioner as directed. Dr. Dinesh MD I have performed a history and examination and MDM of this patient, discussed the same with the dictator, and agree with the dictator's assessment and plan as written ,documented as a scribe. Based on total visit time, I have performed more than 50% of the visit. Objective - Vital Signs Vital signs: Vital Signs Temp 97.6 F 11/26/22 13:23 Pulse 79 11/26/22 13:23 Resp 18 11/26/22 13:23 BP 132/83 11/26/22 13:23 Pulse Ox 97 11/26/22 13:23 FiO2 Intake & Output 11/25/22 11/26/22 11/26/22 18:59 06:59 18:59 Intake Total 1040 450 Output Total 275 Balance 1040 450 -275 Weight 112.945 kg Intake: Intake, IV Titration 1040 Amount Ampicillin-Sulbactam 3 gm 100 In Sodium Chloride 0.9% 100 ml @ 200 mls/hr IVPB Q6HR [facility] Rx#:[id number] Lactated Ringers 1,000 ml 440 @ 20 mls/hr IV .Q24H [facility] Rx#:[id number] Vancomycin 1,750 mg In 500 Sodium Chloride 0.9% 500 ml 500 ml @ 167 mls/hr IVPB Q12H [facility] Rx#: [id number] Oral 450 Output: Urine 275 Other: Voiding Method Toilet Toilet Toilet # Voids 1 1 1 # Bowel Movements 0 - Labs CBC & Chem 7: 11/26/22 06:42 11/27/22 02:41 Labs: Abnormal Lab Results - Last 24 Hours (Table) 11/25/22 11/25/22 11/26/22 Range/Units 18:15 19:53 06:42 WBC 10.06 H (4.50-10.00) X 10*3/uL Hct 39.1 L (39.6-50.0) % Immature Gran # 0.10 H (0.00-0.04) X 10*3/uL Monocytes # 1.13 H (0.20-1.00) X 10*3/uL Creatinine (0.6-1.5) mg/dL BUN/Creatinine Ratio (12.00-20.00) Ratio Glucose (70-110) mg/dL POC Glucose (mg/dL) 261 H 281 H (70-110) mg/dL Calcium (8.7-10.3) mg/dL 11/26/22 11/26/22 11/26/22 Range/Units 06:42 07:09 11:09 WBC (4.50-10.00) X 10*3/uL Hct (39.6-50.0) % Immature Gran # (0.00-0.04) X 10*3/uL Monocytes # (0.20-1.00) X 10*3/uL Creatinine 0.5 L (0.6-1.5) mg/dL BUN/Creatinine Ratio 24.20 H (12.00-20.00) Ratio Glucose 281 H (70-110) mg/dL POC Glucose (mg/dL) 216 H 179 H (70-110) mg/dL Calcium 8.6 L (8.7-10.3) mg/dL Microbiology - Last 24 Hours (Table) 11/24/22 20:11 Gram Stain - Preliminary Other - Other Wound Culture - Preliminary Strep agalactiae - (group b) 11/25/22 07:22 Blood Culture - Preliminary Blood No Growth after 24 hours 11/24/22 14:46 Blood Culture - Preliminary Blood No Growth after 24 hours
[2022-11-27 07:02] LABS: Glucose,Whole Blood 207 mg/dL (70-110)
[2022-11-27] MEDS: HYDROcodone/APAP 5-325MG 1 EACH TAB PO PRN ×4 (07:56→21:57)
[2022-11-27] MEDS: INSULIN ASPART (NovoLOG) 100 UNIT/ML VIAL SQ SCH ×7 (07:58→20:51)
[2022-11-27] MEDS: PANTOPRAZOLE 40 MG TABLET PO SCH (08:37)
[2022-11-27] MEDS: HYDROmorphone 0.5 MG/0.5 ML SYRINGE IVP PRN ×2 (10:25→21:09)
[2022-11-27 11:35] LABS: Glucose,Whole Blood 213 mg/dL (70-110)
--- NOTE | 2022-11-27 11:46 | P.PN ---
Subjective Progress Note Date: 11/27/22 The patient is a 52-year-old male with a past medical history of diabetes. Attempted to the emergency department on 11/24/22 after 4 days of scrotal swelling and reporting a growth in his groin. He reported having pain in his testicles and having drainage. He was evaluated and found to have a perineal and left scrotal swelling. There were concerns for necrotizing fasciitis and the patient was started on Zosyn and Vanco. He denied any fevers or chills. Leukocytosis present with a WBC of 15.0, ESR 77, UA not suggestive of UTI. Pelvis CT with contrast revealed a asymmetric left-sided scrotal fluid co llection or hydrocele. There is more heterogeneous fluids. To both testicles with suggestion of some enhancement and fat stranding greater on the left. No intrascrotal air is identified to suggest necrotizing fasciitis. There are prominent and slightly enlarged bilateral groin lymph nodes. He was evaluated by Dr. Srivastava and underwent an Incision and drainage of left scrotal abscess. 11/25 The patient states his pain has improved. He is afebrile and vitals are stable. The swelling markedly reduced. Wound cultures pending. Will change dressing and repack wound tomorrow. 11/26 The patient states he had a little more pain over night than expected. He is afebrile, WBC 10.06. Blood cultures negative, preliminary gram stain of wound culture strep agalactiae (group b), anaerobic culture pending. ID following. The patient states that heis not very flexible and has numb finger tips from pinched nerves. He does not have anyone at home to help him with packing/dressing changes which will need to be done twice daily. Objective - Vital Signs Vital signs: Vital Signs Temp 98.2 F 11/27/22 07:51 Pulse 62 11/27/22 07:51 Resp 16 11/27/22 07:51 BP 138/90 11/27/22 07:51 Pulse Ox 97 11/27/22 07:51 FiO2 Intake & Output 11/26/22 11/27/22 11/27/22 18:59 06:59 18:59 Intake Total 940 240 Output Total 275 Balance 665 240 Weight 112.945 kg Intake: Intake, IV Titration 940 Amount Lactated Ringers 1,000 ml 240 @ 20 mls/hr IV .Q24H [facility] Rx#:[id number] Magnesium Sulfate-D5w Pmx 200 1 gm In Dextrose/Water 1 100ml.bag @ 100 mls/hr IVPB Q1H [facility] Rx#: [id number] Vancomycin 1,750 mg In 500 Sodium Chloride 0.9% 500 ml 500 ml @ 167 mls/hr IVPB Q12H [facility] Rx#: [id number] Oral 240 Output: Urine 275 Other: Voiding Method Toilet Toilet # Voids 1 1 - Exam General: Well developed, well nourished. No acute distress. [id number]-[id number]. HEENT: Head is atraumatic, normocephalic. Lungs: Respirations even and nonlabored. on RA Abdomen/GI: Soft, non-distended. No guarding, rigidity, or abdominal tenderness. : Left groin and perinal incision with bloody drainage noted on dressing. Skin: Warm and dry Neurologic: Alert and oriented 3, CN II-XII grossly intact. No focal deficits. Psychiatric: Appropriate mood and affect. - Labs CBC & Chem 7: 11/26/22 06:42 11/27/22 02:41 Labs: Abnormal Lab Results - Last 24 Hours (Table) 11/26/22 11/26/22 11/27/22 Range/Units 17:22 20:03 02:41 Creatinine 0.45 L (0.66-1.25) mg/dL POC Glucose (mg/dL) 190 H 164 H (70-110) mg/dL 11/27/22 11/27/22 Range/Units 07:00 11:34 Creatinine (0.66-1.25) mg/dL POC Glucose (mg/dL) 207 H 213 H (70-110) mg/dL Microbiology - Last 24 Hours (Table) 11/25/22 07:22 Blood Culture - Preliminary Blood No Growth after 48 hours 11/24/22 14:46 Blood Culture - Preliminary Blood No Growth after 48 hours 11/24/22 20:11 Gram Stain - Preliminary Other - Other Wound Culture - Preliminary Strep agalactiae - (group b) Assessment and Plan Assessment: The patient has been afebrile, his vitals are stable and he is on room air. Blood culture NGTD. Preliminary gram stain of wound culture strep agalactiae (group b), anaerobic culture pending. ID following. The patient states the dressing change was painful. He was encouraged to ask for pain medication prior to dressing change. Care management current looking for a custodial facility to accept patient for wound care. (1) Scrotal abscess Current Visit: Yes Status: Acute Code(s): N49.2 - INFLAMMATORY DISORDERS OF SCROTUM SNOMED Code(s): 46335336 Plan: - Continue antibiotics - per ID recommendations - Awaiting finalization of wound cultures - Continue current pain regimen - Sitz bath and dressing change with packing twice daily Impression and plan of care have been directed as dictated by the signing physician. Maureen Way nurse practitioner acting as scribe for signing physician. Maureen Way [facility] Palliative Care/Urology [facility] [place] [phone] Email: [email or web address] The patient has been examined and interviewed by myself. I concur with the above-mentioned note. Patient does not feel he can change his own dressings. He'll require a rehab facility until the packings are not necessary. Navneet Srivastava M.D.
[2022-11-27] MEDS ORDERED: VANCOMYCIN 1,750 MG in SODIUM CHLORIDE 0.9% 500 ML 500 ML IVPB SCH (12:00)
[2022-11-27 17:07] LABS: Glucose,Whole Blood 181 mg/dL (70-110)
--- NOTE | 2022-11-27 18:47 | P.PN ---
Subjective Progress Note Date: 11/27/22 Principal diagnosis: Scrotal abscess Patient is a 52-year-old male presenting to the ER yesterday afternoon for evaluation of pain and discomfort to the groin area , patient has been diagnosed with the scrotal and perineal abscess status post surgical drainage. on today's evaluation that is 11/27/2022, the patient remains to be afebrile, the patient pain to the scrotal/groin area is currently controlled with pain medication, no chest pain shortness of breath or cough no abdominal pain or diarrhea Objective - Vital Signs Vital signs: Vital Signs Temp 98.2 F 11/27/22 07:51 Pulse 62 11/27/22 07:51 Resp 16 11/27/22 07:51 BP 138/90 11/27/22 07:51 Pulse Ox 97 11/27/22 07:51 FiO2 Intake & Output 11/26/22 11/27/22 11/27/22 18:59 06:59 18:59 Intake Total 940 240 Output Total 275 Balance 665 240 Weight 112.945 kg Intake: Intake, IV Titration 940 Amount Lactated Ringers 1,000 ml 240 @ 20 mls/hr IV .Q24H [facility] Rx#:[id number] Magnesium Sulfate-D5w Pmx 200 1 gm In Dextrose/Water 1 100ml.bag @ 100 mls/hr IVPB Q1H [facility] Rx#: [id number] Vancomycin 1,750 mg In 500 Sodium Chloride 0.9% 500 ml 500 ml @ 167 mls/hr IVPB Q12H [facility] Rx#: [id number] Oral 240 Output: Urine 275 Other: Voiding Method Toilet Toilet # Voids 1 1 - Exam GENERAL DESCRIPTION: An elderly male lying in bed in no distress RESPIRATORY SYSTEM: Unlabored breathing , decreased breath sounds at bases HEART: S1 S2 regular rate and rhythm , ABDOMEN: Soft , no tenderness : Scrotal area is currently packed no significant redness or foul-smelling drainage - Labs CBC & Chem 7: 11/26/22 06:42 11/27/22 02:41 Labs: Abnormal Lab Results - Last 24 Hours (Table) 11/26/22 11/26/22 11/27/22 Range/Units 17:22 20:03 02:41 Creatinine 0.45 L (0.66-1.25) mg/dL POC Glucose (mg/dL) 190 H 164 H (70-110) mg/dL 11/27/22 Range/Units 07:00 Creatinine (0.66-1.25) mg/dL POC Glucose (mg/dL) 207 H (70-110) mg/dL Microbiology - Last 24 Hours (Table) 11/25/22 07:22 Blood Culture - Preliminary Blood No Growth after 48 hours 11/24/22 14:46 Blood Culture - Preliminary Blood No Growth after 48 hours 11/24/22 20:11 Gram Stain - Preliminary Other - Other Wound Culture - Preliminary Strep agalactiae - (group b) Assessment and Plan (1) Cellulitis of scrotum Current Visit: Yes Status: Acute Code(s): N49.2 - INFLAMMATORY DISORDERS OF SCROTUM SNOMED Code(s): 86827303 (2) Scrotal abscess Current Visit: Yes Status: Acute Code(s): N49.2 - INFLAMMATORY DISORDERS OF SCROTUM SNOMED Code(s): 00186235 Plan: 1patient presented to hospital with left scrotal abscess in this patient status post surgical drainage more likely from gram-positive skin wing such as strep and MRSA less likely gram-negative but not entirely excluded, cultures currently growing group B strep 2patient to continue with the Unasyn and we will discontinue vancomycin and monitor clinical course closely Time with Patient: Less than 30
[2022-11-27 20:18] LABS: Glucose,Whole Blood 198 mg/dL (70-110)
[2022-11-27] MEDS ORDERED: BENZOCAINE/MENTHOL LOZENG 1 EACH LOZENGE MUCOUS MEM PRN (20:58)
[2022-11-27] MEDS ORDERED: INSULIN DETEMIR (LEVEMIR) 100 UNIT/ML SYR SQ SCH (21:00)
[2022-11-27] MEDS: LACTATED RINGERS 1,000 ML IV SCH (21:12)
[2022-11-28] MEDS: AMPICILLIN-SULBACTAM 3 GM in SODIUM CHLORIDE 0.9% 100 ML IVPB SCH ×4 (05:53→23:48)
[2022-11-28] MEDS: HYDROcodone/APAP 5-325MG 1 EACH TAB PO PRN ×2 (05:56→22:24)
--- NOTE | 2022-11-28 06:39 | P.PN ---
Subjective Progress Note Date: 11/27/22 Patient is a 52-year-old male with known history of diabetes with us and has not been taking her his insulin R any other diabetic medications for about 8 months came in with complaints of swelling and drainage from the scrotum found to have abscess in the scrotal area. Patient denied any history of MRSA patient was given vancomycin and Zosyn and urology was consulted. Patient doesn't have any fevers does have leukocytosis and bit hyponatremic. Patient blood sugars are highly elevated. 11/25/2022 Patient is seen and evaluated this morning in follow-up status post incision and drainage of scrotal abscess with urology. Cultures were obtained with infectious disease following an patient is maintained on IV antibiotics. Patient to continue with local wound care and dressing changes will be done by urology tomorrow. Patient is diabetic with uncontrolled blood sugars extremely uncontrolled outpatient with an elevated hemoglobin A1c about 14 would recommend Accu-Cheks before meals and at bedtime and will increase some pre-meal insulin along with sliding scale and long-acting. Patient reports being concerned of going home unable to properly manage his wound care and will discuss with case management if patient requires IV antibiotics were nursing needs if there is an option of possible ECF of which patient is agreeable to. Patient is currently afebrile with no reports of chest pain or shortness of breath. Patient reports some improvement in pain and swelling of the scrotal area and would encourage increase activity as tolerated. 11/26/2022 Patient is seen in follow-up today with urology following along with infectious disease. Patient is maintained on IV antibiotics while awaiting for cultures of the left scrotal abscess incision and drainage. Patient reports his pain p ersists and also discuss recommend limiting IV pain medications. Urology planning on repacking the site after a sitz bath and cleansing the area thoroughly. Case management following working on discharge planning needs for possible ECF in the event patient requires IV antibiotic and continued extensive wound care. Encouraged increase activity as tolerated and oral intake. Recommend tight glycemic control and will adjust medications accordingly. 11/27/2022 Patient is seen in follow-up this morning currently maintained on antibiotics and vancomycin has been discontinued with infectious disease following closely. Cultures growing group B strep and will discuss further with infectious diseases patient is requiring IV antibiotics. Patient continues with sitz baths and dressing changes and the packing being changed by urology. Patient is afebrile with no reports of chest pain or shortness of breath. Patient is tolerating diet and blood sugars being monitored closely. Will continue current regimen. Will discuss further with urology about discharge planning as well. Encouraged increase activity as tolerated. Review of systems: Constitutional: No reports of fatigue, fever, or chills Cardiovascular: No reports of chest pain or palpitations Respiratory: No reports of shortness of breath or cough GI: No reports of nausea, vomiting, or diarrhea : No reports of dysuria or retention, reports continued scrotal pain Neurovascular: No reports of weakness or numbness All medications have been reviewed Active Medications Acetaminophen (Acetaminophen Tab 325 Mg Tab) 650 mg PO Q6HR PRN PRN Reason: Fever and/ or Pain Last Admin: 11/25/22 11:18 Dose: 650 mg Hydrocodone Bitart/Acetaminophen (Hydrocodone/Apap 5-325mg 1 Each Tab) 1 each PO Q4HR PRN PRN Reason: Pain Last Admin: 11/28/22 05:56 Dose: 1 each Benzocaine/Menthol (Benzocaine/Menthol Lozeng 1 Each Lozenge) 1 each MUCOUS MEM Q6HR PRN PRN Reason: Sore Throat Last Admin: 11/27/22 21:08 Dose: 1 each Dextrose/Water (Dextrose 50% Syringe 50 Ml) 25 ml IVP PER PROTOCOL PRN; Prot ocol PRN Reason: Hypoglycemia Dextrose/Water (Dextrose 50% Syringe 50 Ml) 50 ml IVP PER PROTOCOL PRN; Protocol PRN Reason: Hypoglycemia Hydromorphone HCl (Hydromorphone 0.5 Mg/0.5 Ml Syringe) 0.5 mg IVP Q4HR PRN PRN Reason: Pain Scale 6 to 10 Last Admin: 11/27/22 21:09 Dose: 0.5 mg Ampicillin Sodium/Sulbactam (Sodium 3 gm/ Sodium Chloride) 100 mls @ 200 mls/hr IVPB Q6HR [facility]; Protocol Last Admin: 11/28/22 05:53 Dose: 200 mls/hr Lactated Ringer's (Lactated Ringers) 1,000 mls @ 20 mls/hr IV .Q24H [facility] Last Admin: 11/27/22 21:12 Dose: 20 mls/hr Insulin Aspart (Insulin Aspart (Novolog) 100 Unit/Ml Vial) 0 unit SQ ACHS [facility]; Protocol Last Admin: 11/27/22 20:51 Dose: 1 unit Insulin Aspart (Insulin Aspart (Novolog) 100 Unit/Ml Vial) 10 unit SQ AC-TID [facility] Last Admin: 11/27/22 17:51 Dose: 10 unit Insulin Detemir (Insulin Detemir (Levemir) 100 Unit/Ml Syr) 45 unit SQ HS [facility] Last Admin: 11/27/22 20:51 Dose: 45 unit Miscellaneous Information (Magnesium Replacement Protocol 1 Each Misc) 1 each MISCELLANE DAILY PRN; Protocol PRN Reason: Per Protocol Naloxone HCl (Naloxone 0.4 Mg/Ml 1 Ml Vial) 0.2 mg IV Q2M PRN PRN Reason: Opioid Reversal Ondansetron HCl (Ondansetron 4 Mg/2 Ml Vial) 4 mg IVP Q8HR PRN PRN Reason: Nausea And Vomiting Pantoprazole Sodium (Pantoprazole 40 Mg Tablet) 40 mg PO AC-BRKFST [facility] Last Admin: 11/27/22 08:37 Dose: 40 mg PHYSICAL EXAMINATION: GENERAL: The patient is alert and oriented x3, not in any acute distress. Well developed, well nourished. HEENT: Pupils are round and equally reacting to light. EOMI. No scleral icterus. No conjunctival pallor. Normocephalic, atraumatic. No pharyngeal erythema. No thyromegaly. CARDIOVASCULAR: S1 and S2 present. No murmurs, rubs, or gallops. PULMONARY: Chest is clear to auscultation, no wheezing or crackles. ABDOMEN: Soft, nontender, nondistended, normoactive bowel sounds. No palpable organomegaly. MUSCULOSKELETAL: No joint swelling or deformity. EXTREMITIES: No cyanosis, clubbing, or pedal edema. NEUROLOGICAL: Gross neurological examination did not reveal any focal deficits. SKIN: No rashes. Significant scrotal cellulitis and abscess in the posterior part of the scrotum, purulent drainage from the scrotum, status post incision and drainage with packing currently, with some improvement Assessment: -Left Scrotal abscess:Abscesses secondary to noncompliance with medications. Status post incision and drainage with urology -Hyponatremia secondary to hyperglycemia improving -Type 2 diabetes mellitus uncontrolled blood sugars secondary to noncompliance with medication -Obesity with BMI of 34.7 -DVT prophylaxis: Lovenox -GI prophylaxis -Full code Plan: Recommend continue with IV antibiotics with urology and infectious is following waiting on cultures were done on incision and drainage of the left scrotal abscess Recommend local wound care and continued packing and patient to continue with sitz bath and dressing changes with urology later today Recommend consistent carb diet and tight glycemic control with Accu-Cheks before meals and at bedtime. Continue sliding scale along with pre-meals and long- acting Case management following an patient is concerned about overall wound care management and inability to do by himself as he lives alone and given the area of the abscess, patient reports having difficulty reaching the area and concerned he will not be able to properly care for these wounds and agreeable to ECF. Will discuss further once cultures are finalized to determine if patient requires IV antibiotic therapy in addition to wound care. Will follow-up with repeat labs Encouraged increased activity as tolerated Possible discharge in the next 24-48 hours The impression and plan of care has been dictated by Dorcas Spangler, Nurse Practitioner as directed. Dr. Jose Luis MD I have performed a history and examination and MDM of this patient, discussed the same with the dictator, and agree with the dictator's assessment and plan as written ,documented as a scribe. Based on total visit time, I have performed more than 50% of the visit. Objective - Vital Signs Vital signs: Vital Signs Temp 97.5 F L 11/28/22 02:28 Pulse 75 11/28/22 02:28 Resp 16 11/28/22 02:28 BP 144/91 11/28/22 02:28 Pulse Ox 98 11/28/22 02:28 FiO2 Intake & Output 11/27/22 11/27/22 11/28/22 06:59 18:59 06:59 Intake Total 240 600 Balance 240 600 Intake: Intake, IV Titration 200 Amount Ampicillin-Sulbactam 3 gm 200 In Sodium Chloride 0.9% 100 ml @ 200 mls/hr IVPB Q6HR [facility] Rx#:[id number] Oral 240 400 Other: Voiding Method Toilet # Voids 1 1 - Labs CBC & Chem 7: 11/26/22 06:42 11/27/22 02:41 Labs: Abnormal Lab Results - Last 24 Hours (Table) 11/27/22 11/27/22 11/27/22 Range/Units 07:00 11:34 17:06 POC Glucose (mg/dL) 207 H 213 H 181 H (70-110) mg/dL 11/27/22 Range/Units 20:16 POC Glucose (mg/dL) 198 H (70-110) mg/dL Microbiology - Last 24 Hours (Table) 11/24/22 14:46 Blood Culture - Preliminary Blood No Growth after 72 hours 11/24/22 20:11 Gram Stain - Final Other - Other Wound Culture - Final Strep agalactiae - (group b) 11/24/22 20:11 Anaerobic Culture - Preliminary Scrotum 11/25/22 07:22 Blood Culture - Preliminary Blood No Growth after 48 hours
[2022-11-28 07:01] LABS: Glucose,Whole Blood 245 mg/dL (70-110)
[2022-11-28] MEDS: INSULIN ASPART (NovoLOG) 100 UNIT/ML VIAL SQ SCH ×7 (08:42→21:14)
[2022-11-28] MEDS: HYDROmorphone 0.5 MG/0.5 ML SYRINGE IVP PRN ×2 (09:05→21:20)
--- NOTE | 2022-11-28 09:24 | P.PN ---
Subjective Progress Note Date: 11/28/22 The patient is a 52-year-old male with a past medical history of diabetes. Attempted to the emergency department on 11/24/22 after 4 days of scrotal swelling and reporting a growth in his groin. He reported having pain in his testicles and having drainage. He was evaluated and found to have a perineal and left scrotal swelling. There were concerns for necrotizing fasciitis and the patient was started on Zosyn and Vanco. He denied any fevers or chills. Leukocytosis present with a WBC of 15.0, ESR 77, UA not suggestive of UTI. Pelvis CT with contrast revealed a asymmetric left-sided scrotal fluid co llection or hydrocele. There is more heterogeneous fluids. To both testicles with suggestion of some enhancement and fat stranding greater on the left. No intrascrotal air is identified to suggest necrotizing fasciitis. There are prominent and slightly enlarged bilateral groin lymph nodes. He was evaluated by Dr. Srivastava and underwent an Incision and drainage of left scrotal abscess. 11/25 The patient states his pain has improved. He is afebrile and vitals are stable. The swelling markedly reduced. Wound cultures pending. Will change dressing and repack wound tomorrow. 11/26 The patient states he had a little more pain over night than expected. He is afebrile, WBC 10.06. Blood cultures negative, preliminary gram stain of wound culture strep agalactiae (group b), anaerobic culture pending. ID following. The patient states that heis not very flexible and has numb finger tips from pinched nerves. He does not have anyone at home to help him with packing/dressing changes which will need to be done twice daily. 11/27 The patient has been afebrile, his vitals are stable and he is on room air. Blood culture NGTD. Preliminary gram stain of wound culture strep agalactiae (group b), anaerobic culture pending. ID following. The patient states the dressing change was painful. He was encouraged to ask for pain medication prior to dressing change. Care management current looking for a halfway facility to accept patient for wound care. Objective - Vital Signs Vital signs: Vital Signs Temp 97.7 F 11/28/22 07:01 Pulse 77 11/28/22 07:01 Resp 18 11/28/22 07:01 BP 162/91 11/28/22 07:01 Pulse Ox 97 11/28/22 07:01 FiO2 Intake & Output 11/27/22 11/28/22 11/28/22 18:59 06:59 18:59 Intake Total 600 Balance 600 Intake: Intake, IV Titration 200 Amount Ampicillin-Sulbactam 3 gm 200 In Sodium Chloride 0.9% 100 ml @ 200 mls/hr IVPB Q6HR [facility] Rx#:[id number] Oral 400 Other: # Voids 1 - Exam General: Well developed, well nourished. No acute distress. Non-toxic- appearing. HEENT: Head is atraumatic, normocephalic. Lungs: Respirations even and nonlabored. on RA Abdomen/GI: Soft, non-distended. No guarding, rigidity, or abdominal tenderness. : Left groin and perinal incision with bloody drainage noted on dressing. Skin: Warm and dry Neurologic: Alert and oriented 3, CN II-XII grossly intact. No focal deficits. Psychiatric: Appropriate mood and affect. - Labs CBC & Chem 7: 11/26/22 06:42 11/27/22 02:41 Labs: Abnormal Lab Results - Last 24 Hours (Table) 11/27/22 11/27/22 11/27/22 Range/Units 11:34 17:06 20:16 POC Glucose (mg/dL) 213 H 181 H 198 H (70-110) mg/dL 11/28/22 Range/Units 06:59 POC Glucose (mg/dL) 245 H (70-110) mg/dL Microbiology - Last 24 Hours (Table) 11/24/22 14:46 Blood Culture - Preliminary Blood No Growth after 72 hours 11/24/22 20:11 Gram Stain - Final Other - Other Wound Culture - Final Strep agalactiae - (group b) 11/24/22 20:11 Anaerobic Culture - Preliminary Scrotum 11/25/22 07:22 Blood Culture - Preliminary Blood No Growth after 48 hours Assessment and Plan Assessment: The patient has been afebrile and he is on room air. He is hypertensive this morning. Blood culture NGTD. Preliminary gram stain of wound culture growing strep agalactiae (group b), anaerobic culture pending. ID following, possible need for IV antibiotics. The patient to incisions were repacked by Dr. Srivastava this morning. Care management currently looking for a halfway facility to accept patient for daily wound care. (1) Scrotal abscess Current Visit: Yes Status: Acute Code(s): N49.2 - INFLAMMATORY DISORDERS OF SCROTUM SNOMED Code(s): 05867297 Plan: - Continue antibiotics - per ID recommendations - Awaiting finalization of wound cultures - Continue current pain regimen - Sitz bath and dressing change with packing twice daily Impression and plan of care have been directed as dictated by the signing physician. Maureen Way nurse practitioner acting as scribe for signing physician. Maureen Way [facility] Palliative Care/Urology Spectralink [phone] Email: [email or web address] patient was interviewed and examined by me.. I changed his dressings The wound continues to improve. We are continuing to exploring dressing change options as an op. Navneet Srivastava MD
[2022-11-28] MEDS: PANTOPRAZOLE 40 MG TABLET PO SCH (09:55)
[2022-11-28] MEDS ORDERED: VANCOMYCIN TROUGH DUE 1 EACH MISC MISCELLANE ONE (11:00)
[2022-11-28 11:13] LABS: Glucose,Whole Blood 196 mg/dL (70-110)
--- NOTE | 2022-11-28 11:13 | P.PN ---
Subjective Progress Note Date: 11/28/22 Principal diagnosis: Scrotal abscess Patient is a 52-year-old male presenting to the ER yesterday afternoon for evaluation of pain and discomfort to the groin area , patient has been diagnosed with the scrotal and perineal abscess status post surgical drainage. on today's evaluation that is 11/28/2022, the patient continues to be afebrile, the patient is complaining of pain to the scrotal/groin area after dressing change his this morning, the patient denies chest pain shortness of breath or cough no abdominal pain or diarrhea Objective - Vital Signs Vital signs: Vital Signs Temp 97.7 F 11/28/22 07:01 Pulse 77 11/28/22 07:01 Resp 18 11/28/22 07:01 BP 162/91 11/28/22 07:01 Pulse Ox 97 11/28/22 07:01 FiO2 Intake & Output 11/27/22 11/28/22 11/28/22 18:59 06:59 18:59 Intake Total 600 Balance 600 Intake: Intake, IV Titration 200 Amount Ampicillin-Sulbactam 3 gm 200 In Sodium Chloride 0.9% 100 ml @ 200 mls/hr IVPB Q6HR [facility]PLAC[facility] BY [facility] Rx#:[id number] Oral 400 Other: # Voids 1 - Exam GENERAL DESCRIPTION: An elderly male lying in bed in no distress RESPIRATORY SYSTEM: Unlabored breathing , decreased breath sounds at bases HEART: S1 S2 regular rate and rhythm , ABDOMEN: Soft , no tenderness : Scrotal area is currently packed no drainage on the dressing - Labs CBC & Chem 7: 11/26/22 06:42 11/27/22 02:41 Labs: Abnormal Lab Results - Last 24 Hours (Table) 11/27/22 11/27/22 11/27/22 Range/Units 11:34 17:06 20:16 POC Glucose (mg/dL) 213 H 181 H 198 H (70-110) mg/dL 11/28/22 Range/Units 06:59 POC Glucose (mg/dL) 245 H (70-110) mg/dL Microbiology - Last 24 Hours (Table) 11/24/22 14:46 Blood Culture - Preliminary Blood No Growth after 72 hours 11/24/22 20:11 Gram Stain - Final Other - Other Wound Culture - Final Strep agalactiae - (group b) 11/24/22 20:11 Anaerobic Culture - Preliminary Scrotum 11/25/22 07:22 Blood Culture - Preliminary Blood No Growth after 48 hours Assessment and Plan (1) Cellulitis of scrotum Current Visit: Yes Status: Acute Code(s): N49.2 - INFLAMMATORY DISORDERS OF SCROTUM SNOMED Code(s): 65900576 (2) Scrotal abscess Current Visit: Yes Status: Acute Code(s): N49.2 - INFLAMMATORY DISORDERS OF SCROTUM SNOMED Code(s): 41625245 Plan: 1patient presented to hospital with left scrotal abscess in this patient status post surgical drainage more likely from gram-positive skin wing such as strep and MRSA less likely gram-negative but not entirely excluded, cultures currently growing group B strep 2patient apparently waiting for placement to the long term for his wound and the patient also benefit from continuation of IV antibiotic in view of extensive infection PICC line will be ordered Time with Patient: Less than 30
[2022-11-28] MEDS ORDERED: LIDOCAINE 1% INJ 10MG/ML (5 ML VIAL-PF) SQ ONE (13:16)
[2022-11-28 15:00] LABS: African American GFR (CKD) >90 (>60 ml/min/1.73 sqM); Non-African American GFR(CKD) >90 (>60 ml/min/1.73 sqM)
[2022-11-28 17:09] LABS: Glucose,Whole Blood 173 mg/dL (70-110)
[2022-11-28] MEDS: LACTATED RINGERS 1,000 ML IV SCH (19:42)
[2022-11-28 19:47] LABS: Glucose,Whole Blood 200 mg/dL (70-110)
--- NOTE | 2022-11-28 19:55 | P.PN ---
Subjective Progress Note Date: 11/28/22 Patient is a 52-year-old male with known history of diabetes with us and has not been taking her his insulin R any other diabetic medications for about 8 months came in with complaints of swelling and drainage from the scrotum found to have abscess in the scrotal area. Patient denied any history of MRSA patient was given vancomycin and Zosyn and urology was consulted. Patient doesn't have any fevers does have leukocytosis and bit hyponatremic. Patient blood sugars are highly elevated. 11/25/2022 Patient is seen and evaluated this morning in follow-up status post incision and drainage of scrotal abscess with urology. Cultures were obtained with infectious disease following an patient is maintained on IV antibiotics. Patient to continue with local wound care and dressing changes will be done by urology tomorrow. Patient is diabetic with uncontrolled blood sugars extremely uncontrolled outpatient with an elevated hemoglobin A1c about 14 would recommend Accu-Cheks before meals and at bedtime and will increase some pre-meal insulin along with sliding scale and long-acting. Patient reports being concerned of going home unable to properly manage his wound care and will discuss with case management if patient requires IV antibiotics were nursing needs if there is an option of possible ECF of which patient is agreeable to. Patient is currently afebrile with no reports of chest pain or shortness of breath. Patient reports some improvement in pain and swelling of the scrotal area and would encourage increase activity as tolerated. 11/26/2022 Patient is seen in follow-up today with urology following along with infectious disease. Patient is maintained on IV antibiotics while awaiting for cultures of the left scrotal abscess incision and drainage. Patient reports his pain p ersists and also discuss recommend limiting IV pain medications. Urology planning on repacking the site after a sitz bath and cleansing the area thoroughly. Case management following working on discharge planning needs for possible ECF in the event patient requires IV antibiotic and continued extensive wound care. Encouraged increase activity as tolerated and oral intake. Recommend tight glycemic control and will adjust medications accordingly. 11/27/2022 Patient is seen in follow-up this morning currently maintained on antibiotics and vancomycin has been discontinued with infectious disease following closely. Cultures growing group B strep and will discuss further with infectious diseases patient is requiring IV antibiotics. Patient continues with sitz baths and dressing changes and the packing being changed by urology. Patient is afebrile with no reports of chest pain or shortness of breath. Patient is tolerating diet and blood sugars being monitored closely. Will continue current regimen. Will discuss further with urology about discharge planning as well. Encouraged increase activity as tolerated. 11/28/2022 Patient is seen and evaluated in follow-up today maintained on IV Zosyn with infectious disease following. Given patient's significant abscess and cellulitis infectious disease recommend IV antibiotics on discharge along with continued wound care. Patient with difficulty managing wound care given its location and body habitus as well as IV antibiotics and no one to help recommending ECF for nursing care. Insurance authorization was submitted and currently pending at this time for possible [facility]. Urology following recommending sitz bath and continued pain management with IV antibiotics. Encouraged increase activity as tolerated. Blood sugars a little bit elevated will adjust long-acting and continue monitor Accu-Cheks before meal s and at bedtime. Review of systems: Constitutional: No reports of fatigue, fever, or chills Cardiovascular: No reports of chest pain or palpitations Respiratory: No reports of shortness of breath or cough GI: No reports of nausea, vomiting, or diarrhea : No reports of dysuria or retention, reports continued scrotal pain Neurovascular: No reports of weakness or numbness All medications have been reviewed Active Medications Acetaminophen (Acetaminophen Tab 325 Mg Tab) 650 mg PO Q6HR PRN PRN Reason: Fever and/ or Pain Last Admin: 11/25/22 11:18 Dose: 650 mg Hydrocodone Bitart/Acetaminophen (Hydrocodone/Apap 5-325mg 1 Each Tab) 1 each PO Q4HR PRN PRN Reason: Pain Last Admin: 11/28/22 05:56 Dose: 1 each Benzocaine/Menthol (Benzocaine/Menthol Lozeng 1 Each Lozenge) 1 each MUCOUS MEM Q6HR PRN PRN Reason: Sore Throat Last Admin: 11/27/22 21:08 Dose: 1 each Dextrose/Water (Dextrose 50% Syringe 50 Ml) 25 ml IVP PER PROTOCOL PRN; Protocol PRN Reason: Hypoglycemia Dextrose/Water (Dextrose 50% Syringe 50 Ml) 50 ml IVP PER PROTOCOL PRN; Protocol PRN Reason: Hypoglycemia Hydromorphone HCl (Hydromorphone 0.5 Mg/0.5 Ml Syringe) 0.5 mg IVP Q4HR PRN PRN Reason: Pain Scale 6 to 10 Last Admin: 11/28/22 09:05 Dose: 0.5 mg Ampicillin Sodium/Sulbactam (Sodium 3 gm/ Sodium Chloride) 100 mls @ 200 mls/hr IVPB Q6HR [facility]; Protocol Last Admin: 11/28/22 17:52 Dose: 200 mls/hr Lactated Ringer's (Lactated Ringers) 1,000 mls @ 20 mls/hr IV .Q24H [facility] Last Admin: 11/28/22 19:42 Dose: Not Given Insulin Aspart (Insulin Aspart (Novolog) 100 Unit/Ml Vial) 0 unit SQ ACHS [facility]; Protocol Last Admin: 11/28/22 17:52 Dose: 1 unit Insulin Aspart (Insulin Aspart (Novolog) 100 Unit/Ml Vial) 10 unit SQ AC-TID [facility] Last Admin: 11/28/22 17:52 Dose: 10 unit Insulin Detemir (Insulin Detemir (Levemir) 100 Unit/Ml Syr) 25 unit SQ BID [facility] Miscellaneous Information (Magnesium Replacement Protocol 1 Each Misc) 1 each MISCELLANE DAILY PRN; Protocol PRN Reason: Per Protocol Naloxone HCl (Naloxone 0.4 Mg/Ml 1 Ml Vial) 0.2 mg IV Q2M PRN PRN Reason: Opioid Reversal Ondansetron HCl (Ondansetron 4 Mg/2 Ml Vial) 4 mg IVP Q8HR PRN PRN Reason: Nausea And Vomiting Pantoprazole Sodium (Pantoprazole 40 Mg Tablet) 40 mg PO AC-BRKFST [facility] Last Admin: 11/28/22 09:55 Dose: 40 mg PHYSICAL EXAMINATION: GENERAL: The patient is alert and oriented x3, not in any acute distress. Well developed, well nourished. HEENT: Pupils are round and equally reacting to light. EOMI. No scleral icterus. No conjunctival pallor. Normocephalic, atraumatic. No pharyngeal erythema. No thyromegaly. CARDIOVASCULAR: S1 and S2 present. No murmurs, rubs, or gallops. PULMONARY: Chest is clear to auscultation, no wheezing or crackles. ABDOMEN: Soft, nontender, nondistended, normoactive bowel sounds. No palpable organomegaly. MUSCULOSKELETAL: No joint swelling or deformity. EXTREMITIES: No cyanosis, clubbing, or pedal edema. NEUROLOGICAL: Gross neurological examination did not reveal any focal deficits. SKIN: No rashes. Significant scrotal swelling in the posterior part of the scrotum, status post incision and drainage with packing currently, with some improvement Assessment: -Left Scrotal abscess:Abscesses secondary to noncompliance with medications. Status post incision and drainage with urology -Hyponatremia secondary to hyperglycemia improving -Hypomagnesemia -Type 2 diabetes mellitus uncontrolled blood sugars secondary to noncompliance with medication -Obesity with BMI of 34.7 -DVT prophylaxis: Lovenox -GI prophylaxis -Full code Plan: Recommend continue with IV antibiotics with urology and infectious is following waiting on cultures to finalized from the incision and drainage of the left scrotal abscess Recommend local wound care and continued packing and patient to continue with sitz bath and dressing changes Recommend consistent carb diet and tight glycemic control with Accu-Cheks before meals and at bedtime. Continue sliding scale along with pre-meals and long- acting Case management following an patient is concerned about overall wound care management and inability to do by himself as he lives alone and given the area of the abscess, patient reports having difficulty reaching the area and concerned he will not be able to properly care for these wounds and agreeable to ECF. Discussed with infectious disease and will require PICC line and continued Zosyn with continued wound care. [facility] has submitted for insurance authorization which is currently pending Will follow-up with repeat labs Encouraged increased activity as tolerated The impression and plan of care has been dictated by Dorcas Spangler, Nurse Practitioner as directed. Dr. Jose Luis MD I have performed a history and examination and MDM of this patient, discussed the same with the dictator, and agree with the dictator's assessment and plan as written ,documented as a scribe. Based on total visit time, I have performed more than 50% of the visit. Objective - Vital Signs Vital signs: Vital Signs Temp 97.7 F 11/28/22 12:35 Pulse 65 11/28/22 12:35 Resp 18 11/28/22 12:35 BP 149/90 11/28/22 12:35 Pulse Ox 98 11/28/22 12:35 FiO2 Intake & Output 11/28/22 11/28/22 11/29/22 06:59 18:59 06:59 Intake Total 200 Balance 200 Intake: Intake, IV Titration 200 Amount Ampicillin-Sulbactam 3 gm 200 In Sodium Chloride 0.9% 100 ml @ 200 mls/hr IVPB Q6HR [facility] Rx#:[id number] Other: Voiding Method Toilet # Voids 1 - Labs CBC & Chem 7: 11/26/22 06:42 11/28/22 11:03 Labs: Abnormal Lab Results - Last 24 Hours (Table) 11/27/22 11/28/22 11/28/22 Range/Units 20:16 06:59 11:03 Creatinine 0.51 L (0.66-1.25) mg/dL POC Glucose (mg/dL) 198 H 245 H (70-110) mg/dL 11/28/22 11/28/22 Range/Units 11:11 17:08 Creatinine (0.66-1.25) mg/dL POC Glucose (mg/dL) 196 H 173 H (70-110) mg/dL Microbiology - Last 24 Hours (Table) 11/24/22 14:46 Blood Culture - Preliminary Blood No Growth after 96 hours 11/25/22 07:22 Blood Culture - Preliminary Blood No Growth after 72 hours 11/24/22 20:11 Gram Stain - Final Other - Other Wound Culture - Final Strep agalactiae - (group b)
[2022-11-28] MEDS: INSULIN DETEMIR (LEVEMIR) 100 UNIT/ML SYR SQ SCH (21:14)
[2022-11-29] MEDS: AMPICILLIN-SULBACTAM 3 GM in SODIUM CHLORIDE 0.9% 100 ML IVPB SCH ×4 (05:30→23:26)
[2022-11-29 07:07] LABS: Glucose,Whole Blood 180 mg/dL (70-110)
[2022-11-29] MEDS: INSULIN DETEMIR (LEVEMIR) 100 UNIT/ML SYR SQ SCH ×2 (07:55→20:38)
[2022-11-29] MEDS: PANTOPRAZOLE 40 MG TABLET PO SCH (07:55)
[2022-11-29] MEDS: INSULIN ASPART (NovoLOG) 100 UNIT/ML VIAL SQ SCH ×7 (07:56→20:38)
[2022-11-29] MEDS: ACETAMINOPHEN TAB 325 MG TAB PO PRN (08:01)
[2022-11-29 08:58] LABS: Basophils # (A) 0.03 X 10*3/uL (0.00-0.10); Basophils % (A) 0.4 %; Eosinophils # (A) 0.28 X 10*3/uL (0.04-0.35); Eosinophils % (A) 3.5 %; HCT 36.8 % (39.6-50.0); HGB 12.2 g/dL (13.0-17.0); Immature Grans, Automated 1.4 %; Lymphocytes # (A) 2.04 X 10*3/uL (0.90-5.00); Lymphocytes % (A) 25.6 %; MCH 28.6 pg (27.0-32.0); MCHC 33.2 g/dL (32.0-37.0); MCV 86.2 fL (80.0-97.0); Mean Platelet Volume 9.9 fL (9.5-12.2); Monocytes # (A) 0.94 X 10*3/uL (0.20-1.00); Monocytes % (A) 11.8 %; NRBC Per 100 WBC 0 /100 WBCS (0.0-0.0); Neutrophils # (A) 4.56 X 10*3/uL (1.80-7.70); Neutrophils % (A) 57.3 %; Platelet Count 349 X 10*3/uL (140-440); RBC 4.27 X 10*6/uL (4.40-5.60); RDW 12.4 % (11.5-14.5); WBC 7.96 X 10*3/uL (4.50-10.00)
[2022-11-29 09:34] LABS: African American GFR (CKD) 146.4 (60.0-200.0); Anion Gap 7.2 mmol/L (10.00-18.00); BUN/Creat Ratio 12.6 Ratio (12.00-20.00); Blood Urea Nitrogen 6.3 mg/dL (9.0-27.0); Calcium 8.6 mg/dL (8.7-10.3); Carbon Dioxide 29.8 mmol/L (20.0-27.5); Magnesium 1.6 mg/dL (1.5-2.4); Non-African American GFR(CKD) 126.4 (60.0-200.0); Potassium 3.9 mmol/L (3.5-5.5)
--- NOTE | 2022-11-29 09:38 | P.PN ---
Subjective Progress Note Date: 11/29/22 The patient is in the hospital with a perineal and scrotal abscess. He is improving. He is getting dressing changes. Objective - Vital Signs Vital signs: Vital Signs Temp 98.3 F 11/29/22 07:02 Pulse 77 11/29/22 07:02 Resp 16 11/29/22 07:02 BP 153/91 11/29/22 07:02 Pulse Ox 94 L 11/29/22 07:02 FiO2 Intake & Output 11/28/22 11/29/22 11/29/22 18:59 06:59 18:59 Intake Total 200 800 Balance 200 800 Intake: Intake, IV Titration 200 200 Amount Ampicillin-Sulbactam 3 gm 200 200 In Sodium Chloride 0.9% 100 ml @ 200 mls/hr IVPB Q6HR [facility] Rx#:[id number] Oral 600 Other: Voiding Method Toilet Toilet # Voids 2 - Genitourinary Genitourinary Comment(s): The induration and inflammation of the left groin and perineum is diminishing. It is less tender. - Labs CBC & Chem 7: 11/29/22 05:44 11/29/22 05:44 Labs: Abnormal Lab Results - Last 24 Hours (Table) 11/28/22 11/28/22 11/28/22 Range/Units 11:03 11:11 17:08 RBC (4.40-5.60) X 10*6/uL Hgb (13.0-17.0) g/dL Hct (39.6-50.0) % Immature Gran # (0.00-0.04) X 10*3/uL Carbon Dioxide (20.0-27.5) mmol/L Anion Gap (10.00-18.00) mmol/L BUN (9.0-27.0) mg/dL Creatinine 0.51 L (0.66-1.25) mg/dL Glucose (70-110) mg/dL POC Glucose (mg/dL) 196 H 173 H (70-110) mg/dL Calcium (8.7-10.3) mg/dL 11/28/22 11/29/22 11/29/22 Range/Units 19:37 05:44 05:44 RBC 4.27 L (4.40-5.60) X 10*6/uL Hgb 12.2 L (13.0-17.0) g/dL Hct 36.8 L (39.6-50.0) % Immature Gran # 0.11 H (0.00-0.04) X 10*3/uL Carbon Dioxide 29.8 H (20.0-27.5) mmol/L Anion Gap 7.20 L (10.00-18.00) mmol/L BUN 6.3 L (9.0-27.0) mg/dL Creatinine 0.5 L (0.66-1.25) mg/dL Glucose 183 H (70-110) mg/dL POC Glucose (mg/dL) 200 H (70-110) mg/dL Calcium 8.6 L (8.7-10.3) mg/dL 11/29/22 Range/Units 07:05 RBC (4.40-5.60) X 10*6/uL Hgb (13.0-17.0) g/dL Hct (39.6-50.0) % Immature Gran # (0.00-0.04) X 10*3/uL Carbon Dioxide (20.0-27.5) mmol/L Anion Gap (10.00-18.00) mmol/L BUN (9.0-27.0) mg/dL Creatinine (0.66-1.25) mg/dL Glucose (70-110) mg/dL POC Glucose (mg/dL) 180 H (70-110) mg/dL Calcium (8.7-10.3) mg/dL Microbiology - Last 24 Hours (Table) 11/24/22 14:46 Blood Culture - Preliminary Blood No Growth after 96 hours 11/25/22 07:22 Blood Culture - Preliminary Blood No Growth after 72 hours Assessment and Plan Assessment: Impression: Scrotal and perineal abscess improving. Diabetes. (1) Scrotal abscess Current Visit: Yes Status: Acute Code(s): N49.2 - INFLAMMATORY DISORDERS OF SCROTUM SNOMED Code(s): 41002600 Plan: Plan: The patient can be probably discharged home in the next 24-48 hours. He has visiting nurse coming out to do the dressing changes. I'll see him in the office in one week. I will keep him off work for 1 week.
[2022-11-29 12:25] LABS: Glucose,Whole Blood 190 mg/dL (70-110)
[2022-11-29] MEDS: HYDROmorphone 0.5 MG/0.5 ML SYRINGE IVP PRN ×2 (12:58→22:10)
--- NOTE | 2022-11-29 17:04 | P.PN ---
Subjective Progress Note Date: 11/29/22 Principal diagnosis: Scrotal abscess Patient is a 52-year-old male presenting to the ER yesterday afternoon for evaluation of pain and discomfort to the groin area , patient has been diagnosed with the scrotal and perineal abscess status post surgical drainage. on today's evaluation that is 11/29/2022, the patient denies any fever or any chills, the patient pain to the scrotal/groin area has decreased in intensity, the patient denies chest pain shortness of breath or cough no abdominal pain or diarrhea Objective - Vital Signs Vital signs: Vital Signs Temp 98.5 F 11/29/22 11:10 Pulse 78 11/29/22 11:10 Resp 18 11/29/22 11:10 BP 133/81 11/29/22 11:10 Pulse Ox 97 11/29/22 11:10 FiO2 Intake & Output 11/28/22 11/29/22 11/29/22 18:59 06:59 18:59 Intake Total 200 800 Balance 200 800 Intake: Intake, IV Titration 200 200 Amount Ampicillin-Sulbactam 3 gm 200 200 In Sodium Chloride 0.9% 100 ml @ 200 mls/hr IVPB Q6HR [facility] Rx#:[id number] Oral 600 Other: Voiding Method Toilet Toilet Toilet # Voids 2 - Exam GENERAL DESCRIPTION: An elderly male lying in bed in no distress RESPIRATORY SYSTEM: Unlabored breathing , decreased breath sounds at bases HEART: S1 S2 regular rate and rhythm , ABDOMEN: Soft , no tenderness : Left Scrotal wound 2 base looks clean some surrounding redness no foul- smelling drainage - Labs CBC & Chem 7: 11/29/22 05:44 11/29/22 05:44 Labs: Abnormal Lab Results - Last 24 Hours (Table) 11/28/22 11/28/22 11/28/22 Range/Units 11:03 17:08 19:37 RBC (4.40-5.60) X 10*6/uL Hgb (13.0-17.0) g/dL Hct (39.6-50.0) % Immature Gran # (0.00-0.04) X 10*3/uL Carbon Dioxide (20.0-27.5) mmol/L Anion Gap (10.00-18.00) mmol/L BUN (9.0-27.0) mg/dL Creatinine 0.51 L (0.66-1.25) mg/dL Glucose (70-110) mg/dL POC Glucose (mg/dL) 173 H 200 H (70-110) mg/dL Calcium (8.7-10.3) mg/dL 11/29/22 11/29/22 11/29/22 Range/Units 05:44 05:44 07:05 RBC 4.27 L (4.40-5.60) X 10*6/uL Hgb 12.2 L (13.0-17.0) g/dL Hct 36.8 L (39.6-50.0) % Immature Gran # 0.11 H (0.00-0.04) X 10*3/uL Carbon Dioxide 29.8 H (20.0-27.5) mmol/L Anion Gap 7.20 L (10.00-18.00) mmol/L BUN 6.3 L (9.0-27.0) mg/dL Creatinine 0.5 L (0.66-1.25) mg/dL Glucose 183 H (70-110) mg/dL POC Glucose (mg/dL) 180 H (70-110) mg/dL Calcium 8.6 L (8.7-10.3) mg/dL 11/29/22 Range/Units 12:23 RBC (4.40-5.60) X 10*6/uL Hgb (13.0-17.0) g/dL Hct (39.6-50.0) % Immature Gran # (0.00-0.04) X 10*3/uL Carbon Dioxide (20.0-27.5) mmol/L Anion Gap (10.00-18.00) mmol/L BUN (9.0-27.0) mg/dL Creatinine (0.66-1.25) mg/dL Glucose (70-110) mg/dL POC Glucose (mg/dL) 190 H (70-110) mg/dL Calcium (8.7-10.3) mg/dL Microbiology - Last 24 Hours (Table) 11/25/22 07:22 Blood Culture - Preliminary Blood No Growth after 96 hours 11/24/22 14:46 Blood Culture - Preliminary Blood No Growth after 96 hours Assessment and Plan (1) Cellulitis of scrotum Current Visit: Yes Status: Acute Code(s): N49.2 - INFLAMMATORY DISORDERS OF SCROTUM SNOMED Code(s): 75172583 (2) Scrotal abscess Current Visit: Yes Status: Acute Code(s): N49.2 - INFLAMMATORY DISORDERS OF SCROTUM SNOMED Code(s): 56952809 Plan: 1patient presented to hospital with left scrotal abscess in this patient status post surgical drainage more likely from gram-positive skin wing such as strep and MRSA less likely gram-negative but not entirely excluded, cultures currently growing group B strep 2patient slowly clinically improving continue with Unasyn with the discharge antibiotics on the basis of either discharge home versus going to the jail awaiting final approval Time with Patient: Less than 30
[2022-11-29 17:09] LABS: Glucose,Whole Blood 152 mg/dL (70-110)
[2022-11-29] MEDS: LACTATED RINGERS 1,000 ML IV SCH (20:05)
[2022-11-29 20:38] LABS: Glucose,Whole Blood 148 mg/dL (70-110)
[2022-11-29] MEDS: HYDROcodone/APAP 5-325MG 1 EACH TAB PO PRN (23:26)
[2022-11-30] MEDS: MAGNESIUM SULFATE-D5W PMX 1 GM in DEXTROSE/WATER 1 100ML.BAG IVPB SCH ×2 (01:27→02:40)
[2022-11-30] MEDS: AMPICILLIN-SULBACTAM 3 GM in SODIUM CHLORIDE 0.9% 100 ML IVPB SCH ×4 (05:34→23:33)
[2022-11-30 07:15] LABS: Glucose,Whole Blood 234 mg/dL (70-110)
[2022-11-30] MEDS: PANTOPRAZOLE 40 MG TABLET PO SCH (08:04)
[2022-11-30] MEDS: INSULIN ASPART (NovoLOG) 100 UNIT/ML VIAL SQ SCH ×7 (08:04→21:21)
[2022-11-30] MEDS: INSULIN DETEMIR (LEVEMIR) 100 UNIT/ML SYR SQ SCH ×2 (08:04→21:26)
[2022-11-30 09:35] LABS: ALT 14 U/L (10-49); AST 16 U/L (14-35); Albumin 2.9 g/dL (3.8-4.9); Albumin/Globulin Ratio 1.08 (1.60-3.17); Alkaline Phosphatase 90 U/L (41-126); BUN/Creat Ratio 12.86 Ratio (12.00-20.00); Blood Urea Nitrogen 9.1 mg/dL (9.0-27.0); Calcium 8.7 mg/dL (8.7-10.3); Carbon Dioxide 31.5 mmol/L (20.0-27.5); Chloride 100 mmol/L (96-109); Globulin 2.7 g/dL (1.6-3.3); Glucose 240 mg/dL (70-110); Non-African American GFR(CKD) 109.6 (60.0-200.0); Potassium 4.3 mmol/L (3.5-5.5); Sodium 139 mmol/L (135-145); Total Bilirubin <0.15 mg/dL (0.30-1.20); Total Protein 5.6 g/dL (6.2-8.2)
[2022-11-30 11:19] LABS: Glucose,Whole Blood 198 mg/dL (70-110)
[2022-11-30] MEDS: HYDROmorphone 0.5 MG/0.5 ML SYRINGE IVP PRN ×2 (12:59→21:19)
--- NOTE | 2022-11-30 15:51 | P.PN ---
Subjective Progress Note Date: 11/30/22 Principal diagnosis: Scrotal abscess Patient is a 52-year-old male presenting to the ER yesterday afternoon for evaluation of pain and discomfort to the groin area , patient has been diagnosed with the scrotal and perineal abscess status post surgical drainage. on today's evaluation that is 11/30/2022, the patient remains to be afebrile, the patient pain to the scrotal/groin area has decreased in intensity and is requiring less packing material to prevent the wound per patient, the patient denies chest pain shortness of breath or cough no abdominal pain or diarrhea Objective - Vital Signs Vital signs: Vital Signs Temp 98.5 F 11/30/22 11:15 Pulse 84 11/30/22 11:15 Resp 18 11/30/22 11:15 BP 146/82 11/30/22 11:15 Pulse Ox 97 11/30/22 11:15 FiO2 Intake & Output 11/29/22 11/30/22 11/30/22 18:59 06:59 18:59 Intake Total 200 800 Balance 200 800 Intake: Intake, IV Titration 200 400 Amount Ampicillin-Sulbactam 3 gm 200 200 In Sodium Chloride 0.9% 100 ml @ 200 mls/hr IVPB Q6HR [facility] Rx#:[id number] Magnesium Sulfate-D5w Pmx 200 1 gm In Dextrose/Water 1 100ml.bag @ 100 mls/hr IVPB Q1H [facility] Rx#: [id number] Oral 400 Other: Voiding Method Toilet Toilet # Voids 3 2 - Exam GENERAL DESCRIPTION: An elderly male lying in bed in no distress RESPIRATORY SYSTEM: Unlabored breathing , decreased breath sounds at bases HEART: S1 S2 regular rate and rhythm , ABDOMEN: Soft , no tenderness : Left Scrotal wound 2 currently dressed - Labs CBC & Chem 7: 11/29/22 05:44 11/30/22 06:28 Labs: Abnormal Lab Results - Last 24 Hours (Table) 11/29/22 11/29/22 11/30/22 Range/Units 17:07 20:36 06:28 Carbon Dioxide 31.5 H (20.0-27.5) mmol/L Anion Gap 8.10 L (10.00-18.00) mmol/L Glucose 240 H (70-110) mg/dL POC Glucose (mg/dL) 152 H 148 H (70-110) mg/dL Total Bilirubin <0.15 L (0.30-1.20) mg/dL Total Protein 5.6 L (6.2-8.2) g/dL Albumin 2.9 L (3.8-4.9) g/dL Albumin/Globulin Ratio 1.08 L (1.60-3.17) g/dL 11/30/22 11/30/22 Range/Units 07:14 11:18 Carbon Dioxide (20.0-27.5) mmol/L Anion Gap (10.00-18.00) mmol/L Glucose (70-110) mg/dL POC Glucose (mg/dL) 234 H 198 H (70-110) mg/dL Total Bilirubin (0.30-1.20) mg/dL Total Protein (6.2-8.2) g/dL Albumin (3.8-4.9) g/dL Albumin/Globulin Ratio (1.60-3.17) g/dL Microbiology - Last 24 Hours (Table) 11/25/22 07:22 Blood Culture - Preliminary Blood No Growth after 120 hours 11/24/22 14:46 Blood Culture - Preliminary Blood No Growth after 120 hours 11/24/22 20:11 Anaerobic Culture - Final Scrotum Anaerobic Gm Negative Bacilli Assessment and Plan (1) Cellulitis of scrotum Current Visit: Yes Status: Acute Code(s): N49.2 - INFLAMMATORY DISORDERS OF SCROTUM SNOMED Code(s): 82698739 (2) Scrotal abscess Current Visit: Yes Status: Acute Code(s): N49.2 - INFLAMMATORY DISORDERS OF SCROTUM SNOMED Code(s): 60153312 Plan: 1patient presented to hospital with left scrotal abscess in this patient status post surgical drainage more likely from gram-positive skin wing ., cultures currently growing group B strep and anaerobes 2patient has shown clinical improvement, patient will continue with Unasyn with the discharge antibiotics on the basis of either discharge home versus going to the [facility] , local wound care to continue as ordered Time with Patient: Less than 30
[2022-11-30 17:34] LABS: Glucose,Whole Blood 144 mg/dL (70-110)
[2022-11-30 20:14] LABS: Glucose,Whole Blood 151 mg/dL (70-110)
[2022-11-30] MEDS: LACTATED RINGERS 1,000 ML IV SCH (21:22)
[2022-11-30] MEDS: HYDROcodone/APAP 5-325MG 1 EACH TAB PO PRN (22:38)
--- NOTE | 2022-12-01 00:32 | P.PN ---
Subjective Progress Note Date: 11/29/22 Patient is a 52-year-old male with known history of diabetes with us and has not been taking her his insulin R any other diabetic medications for about 8 months came in with complaints of swelling and drainage from the scrotum found to have abscess in the scrotal area. Patient denied any history of MRSA patient was given vancomycin and Zosyn and urology was consulted. Patient doesn't have any fevers does have leukocytosis and bit hyponatremic. Patient blood sugars are highly elevated. 11/25/2022 Patient is seen and evaluated this morning in follow-up status post incision and drainage of scrotal abscess with urology. Cultures were obtained with infectious disease following an patient is maintained on IV antibiotics. Patient to continue with local wound care and dressing changes will be done by urology tomorrow. Patient is diabetic with uncontrolled blood sugars extremely uncontrolled outpatient with an elevated hemoglobin A1c about 14 would recommend Accu-Cheks before meals and at bedtime and will increase some pre-meal insulin along with sliding scale and long-acting. Patient reports being concerned of going home unable to properly manage his wound care and will discuss with case management if patient requires IV antibiotics were nursing needs if there is an option of possible ECF of which patient is agreeable to. Patient is currently afebrile with no reports of chest pain or shortness of breath. Patient reports some improvement in pain and swelling of the scrotal area and would encourage increase activity as tolerated. 11/26/2022 Patient is seen in follow-up today with urology following along with infectious disease. Patient is maintained on IV antibiotics while awaiting for cultures of the left scrotal abscess incision and drainage. Patient reports his pain per sists and also discuss recommend limiting IV pain medications. Urology planning on repacking the site after a sitz bath and cleansing the area thoroughly. Case management following working on discharge planning needs for possible ECF in the event patient requires IV antibiotic and continued extensive wound care. Encouraged increase activity as tolerated and oral intake. Recommend tight glycemic control and will adjust medications accordingly. 11/27/2022 Patient is seen in follow-up this morning currently maintained on antibiotics and vancomycin has been discontinued with infectious disease following closely. Cultures growing group B strep and will discuss further with infectious diseases patient is requiring IV antibiotics. Patient continues with sitz baths and dressing changes and the packing being changed by urology. Patient is afebrile with no reports of chest pain or shortness of breath. Patient is tolerating diet and blood sugars being monitored closely. Will continue current regimen. Will discuss further with urology about discharge planning as well. Encouraged increase activity as tolerated. 11/28/2022 Patient is seen and evaluated in follow-up today maintained on IV Zosyn with infectious disease following. Given patient's significant abscess and cellulitis infectious disease recommend IV antibiotics on discharge along with continued wound care. Patient with difficulty managing wound care given its location and body habitus as well as IV antibiotics and no one to help recommending ECF for nursing care. Insurance authorization was submitted and currently pending at this time for possible [facility]. Urology following recommending sitz bath and continued pain management with IV antibiotics. Encouraged increase activity as tolerated. Blood sugars a little bit elevated will adjust long-acting and continue monitor Accu-Cheks before meals and at bedtime. 11/29/2022 Patient is resting in bed. Awake alert and oriented x3. Scrotal swelling and redness is much improved. No complaints of fever. No nausea vomiting abdominal pain or diarrhea. Patient is being cannula antibiotics in the form of Unasyn. ID is on board. Anaerobic culture and wound cultures showed strep. Laboratory data showed WBC 7.9 hemoglobin 12.1 platelets 349 BUN 6.3 and creatinine 0.5 Bicarb is 29.8. Magnesium 1.6 which is being replaced. Review of systems: Constitutional: No reports of fatigue, fever, or chills Cardiovascular: No reports of chest pain or palpitations Respiratory: No reports of shortness of breath or cough GI: No reports of nausea, vomiting, or diarrhea : No reports of dysuria or retention, reports continued scrotal pain Neurovascular: No reports of weakness or numbness All medications have been reviewed PHYSICAL EXAMINATION: GENERAL: The patient is alert and oriented x3, not in any acute distress. Well developed, well nourished. HEENT: Pupils are round and equally reacting to light. EOMI. No scleral icterus. No conjunctival pallor. Normocephalic, atraumatic. No pharyngeal erythema. No thyromegaly. CARDIOVASCULAR: S1 and S2 present. No murmurs, rubs, or gallops. PULMONARY: Chest is clear to auscultation, no wheezing or crackles. ABDOMEN: Soft, nontender, nondistended, normoactive bowel sounds. No palpable organomegaly. MUSCULOSKELETAL: No joint swelling or deformity. EXTREMITIES: No cyanosis, clubbing, or pedal edema. NEUROLOGICAL: Gross neurological examination did not reveal any focal deficits. SKIN: No rashes. Significant scrotal swelling in the posterior part of the scrotum, status post incision and drainage with packing currently, with some improvement Assessment: -Left Scrotal abscess:Abscesses secondary to noncompliance with medications. Status post incision and drainage with urology -Hyponatremia secondary to hyperglycemia improving -Hypomagnesemia -Type 2 diabetes mellitus uncontrolled blood sugars secondary to noncompliance with medication -Obesity with BMI of 34.7 -DVT prophylaxis: Lovenox -GI prophylaxis -Full code Plan: Recommend continue with IV antibiotics with urology and infectious is following waiting on cultures to finalized from the incision and drainage of the left scrotal abscess Recommend local wound care and continued packing and patient to continue with sitz bath and dressing changes Recommend consistent carb diet and tight glycemic control with Accu-Cheks before meals and at bedtime. Continue sliding scale along with pre-meals and long- acting Case management following an patient is concerned about overall wound care management and inability to do by himself as he lives alone and given the area of the abscess, patient reports having difficulty reaching the area and concerned he will not be able to properly care for these wounds and agreeable to ECF. Discussed with infectious disease and will require PICC line and continued unasyn with continued wound care. Bryson barron [facility] has submitted for insurance authorization which is currently pending Will follow-up with repeat labs Encouraged increased activity as tolerated Objective - Vital Signs Vital signs: Vital Signs Temp 98.3 F 11/29/22 19:39 Pulse 74 11/29/22 19:39 Resp 18 11/29/22 19:39 BP 153/92 11/29/22 19:39 Pulse Ox 98 11/29/22 19:39 FiO2 Intake & Output 11/29/22 11/29/22 11/30/22 06:59 18:59 06:59 Intake Total 800 200 Balance 800 200 Intake: Intake, IV Titration 200 200 Amount Ampicillin-Sulbactam 3 gm 200 200 In Sodium Chloride 0.9% 100 ml @ 200 mls/hr IVPB Q6HR [facility] Rx#:[id number] Oral 600 Other: Voiding Method Toilet Toilet # Voids 2 3 - Labs CBC & Chem 7: 11/29/22 05:44 11/30/22 06:28 Labs: Abnormal Lab Results - Last 24 Hours (Table) 11/29/22 11/29/22 11/29/22 Range/Units 05:44 05:44 07:05 RBC 4.27 L (4.40-5.60) X 10*6/uL Hgb 12.2 L (13.0-17.0) g/dL Hct 36.8 L (39.6-50.0) % Immature Gran # 0.11 H (0.00-0.04) X 10*3/uL Carbon Dioxide 29.8 H (20.0-27.5) mmol/L Anion Gap 7.20 L (10.00-18.00) mmol/L BUN 6.3 L (9.0-27.0) mg/dL Creatinine 0.5 L (0.6-1.5) mg/dL Glucose 183 H (70-110) mg/dL POC Glucose (mg/dL) 180 H (70-110) mg/dL Calcium 8.6 L (8.7-10.3) mg/dL 11/29/22 11/29/22 11/29/22 Range/Units 12:23 17:07 20:36 RBC (4.40-5.60) X 10*6/uL Hgb (13.0-17.0) g/dL Hct (39.6-50.0) % Immature Gran # (0.00-0.04) X 10*3/uL Carbon Dioxide (20.0-27.5) mmol/L Anion Gap (10.00-18.00) mmol/L BUN (9.0-27.0) mg/dL Creatinine (0.6-1.5) mg/dL Glucose (70-110) mg/dL POC Glucose (mg/dL) 190 H 152 H 148 H (70-110) mg/dL Calcium (8.7-10.3) mg/dL Microbiology - Last 24 Hours (Table) 11/24/22 14:46 Blood Culture - Preliminary Blood No Growth after 120 hours 11/24/22 20:11 Anaerobic Culture - Final Scrotum Anaerobic Gm Negative Bacilli 11/25/22 07:22 Blood Culture - Preliminary Blood No Growth after 96 hours
--- NOTE | 2022-12-01 00:37 | P.PN ---
Subjective Progress Note Date: 11/30/22 Patient is a 52-year-old male with known history of diabetes with us and has not been taking her his insulin R any other diabetic medications for about 8 months came in with complaints of swelling and drainage from the scrotum found to have abscess in the scrotal area. Patient denied any history of MRSA patient was given vancomycin and Zosyn and urology was consulted. Patient doesn't have any fevers does have leukocytosis and bit hyponatremic. Patient blood sugars are highly elevated. 11/25/2022 Patient is seen and evaluated this morning in follow-up status post incision and drainage of scrotal abscess with urology. Cultures were obtained with infectious disease following an patient is maintained on IV antibiotics. Patient to continue with local wound care and dressing changes will be done by urology tomorrow. Patient is diabetic with uncontrolled blood sugars extremely uncontrolled outpatient with an elevated hemoglobin A1c about 14 would recommend Accu-Cheks before meals and at bedtime and will increase some pre-meal insulin along with sliding scale and long-acting. Patient reports being concerned of going home unable to properly manage his wound care and will discuss with case management if patient requires IV antibiotics were nursing needs if there is an option of possible ECF of which patient is agreeable to. Patient is currently afebrile with no reports of chest pain or shortness of breath. Patient reports some improvement in pain and swelling of the scrotal area and would encourage increase activity as tolerated. 11/26/2022 Patient is seen in follow-up today with urology following along with infectious disease. Patient is maintained on IV antibiotics while awaiting for cultures of the left scrotal abscess incision and drainage. Patient reports his pain per sists and also discuss recommend limiting IV pain medications. Urology planning on repacking the site after a sitz bath and cleansing the area thoroughly. Case management following working on discharge planning needs for possible ECF in the event patient requires IV antibiotic and continued extensive wound care. Encouraged increase activity as tolerated and oral intake. Recommend tight glycemic control and will adjust medications accordingly. 11/27/2022 Patient is seen in follow-up this morning currently maintained on antibiotics and vancomycin has been discontinued with infectious disease following closely. Cultures growing group B strep and will discuss further with infectious diseases patient is requiring IV antibiotics. Patient continues with sitz baths and dressing changes and the packing being changed by urology. Patient is afebrile with no reports of chest pain or shortness of breath. Patient is tolerating diet and blood sugars being monitored closely. Will continue current regimen. Will discuss further with urology about discharge planning as well. Encouraged increase activity as tolerated. 11/28/2022 Patient is seen and evaluated in follow-up today maintained on IV Zosyn with infectious disease following. Given patient's significant abscess and cellulitis infectious disease recommend IV antibiotics on discharge along with continued wound care. Patient with difficulty managing wound care given its location and body habitus as well as IV antibiotics and no one to help recommending ECF for nursing care. Insurance authorization was submitted and currently pending at this time for possible [facility]. Urology following recommending sitz bath and continued pain management with IV antibiotics. Encouraged increase activity as tolerated. Blood sugars a little bit elevated will adjust long-acting and continue monitor Accu-Cheks before meals and at bedtime. 11/29/2022 Patient is resting in bed. Awake alert and oriented x3. Scrotal swelling and redness is much improved. No complaints of fever. No nausea vomiting abdominal pain or diarrhea. Patient is being cannula antibiotics in the form of Unasyn. ID is on board. Anaerobic culture and wound cultures showed strep. Laboratory data showed WBC 7.9 hemoglobin 12.1 platelets 349 BUN 6.3 and creatinine 0.5 Bicarb is 29.8. Magnesium 1.6 which is being replaced. 11/30/2022 Patient is resting in the bed. Awake alert and oriented x3. Chest pain or shortness of breath. No nausea vomiting abdominal pain or diarrhea. Scrotal swelling and numbness is much improved. Patient is being continued on Unasyn. Awaiting placement pending authorization. Laboratory test showed bicarb level is 31.5 and gap 8.1 BUN 9.1 and creatinine 0.7 and blood sugar is 240 this morning. Review of systems: Constitutional: No reports of fatigue, fever, or chills Cardiovascular: No reports of chest pain or palpitations Respiratory: No reports of shortness of breath or cough GI: No reports of nausea, vomiting, or diarrhea : No reports of dysuria or retention, reports continued scrotal pain Neurovascular: No reports of weakness or numbness All medications have been reviewed PHYSICAL EXAMINATION: GENERAL: The patient is alert and oriented x3, not in any acute distress. Well developed, well nourished. HEENT: Pupils are round and equally reacting to light. EOMI. No scleral icterus. No conjunctival pallor. Normocephalic, atraumatic. No pharyngeal erythema. No thyromegaly. CARDIOVASCULAR: S1 and S2 present. No murmurs, rubs, or gallops. PULMONARY: Chest is clear to auscultation, no wheezing or crackles. ABDOMEN: Soft, nontender, nondistended, normoactive bowel sounds. No palpable o rganomegaly. MUSCULOSKELETAL: No joint swelling or deformity. EXTREMITIES: No cyanosis, clubbing, or pedal edema. NEUROLOGICAL: Gross neurological examination did not reveal any focal deficits. SKIN: No rashes. Significant scrotal swelling in the posterior part of the scrotum, status post incision and drainage with packing currently, with some improvement Assessment: -Left Scrotal abscess:Abscesses secondary to noncompliance with medications. Status post incision and drainage with urology -Hyponatremia secondary to hyperglycemia improving -Hypomagnesemia -Type 2 diabetes mellitus uncontrolled blood sugars secondary to noncompliance with medication -Obesity with BMI of 34.7 -DVT prophylaxis: Lovenox -GI prophylaxis -Full code Plan: Recommend continue with IV antibiotics with urology and infectious is following waiting on cultures to finalized from the incision and drainage of the left scrotal abscess Recommend local wound care and continued packing and patient to continue with sitz bath and dressing changes Recommend consistent carb diet and tight glycemic control with Accu-Cheks before meals and at bedtime. Continue sliding scale along with pre-meals and long- acting Case management following an patient is concerned about overall wound care management and inability to do by himself as he lives alone and given the area of the abscess, patient reports having difficulty reaching the area and concerned he will not be able to properly care for these wounds and agreeable to ECF. Discussed with infectious disease and will require PICC line and continued unasyn with continued wound care. Bryson [facility] has submitted for insurance authorization which is currently pending Will follow-up with repeat labs Encouraged increased activity as tolerated Objective - Vital Signs Vital signs: Vital Signs Temp 98.5 F 11/30/22 11:15 Pulse 84 11/30/22 11:15 Resp 18 11/30/22 11:15 BP 146/82 11/30/22 11:15 Pulse Ox 97 11/30/22 11:15 FiO2 Intake & Output 11/30/22 11/30/22 12/01/22 06:59 18:59 06:59 Intake Total 800 200 Balance 800 200 Intake: Intake, IV Titration 400 200 Amount Ampicillin-Sulbactam 3 gm 200 200 In Sodium Chloride 0.9% 100 ml @ 200 mls/hr IVPB Q6HR [facility] Rx#:[id number] Magnesium Sulfate-D5w Pmx 200 1 gm In Dextrose/Water 1 100ml.bag @ 100 mls/hr IVPB Q1H [facility] Rx#: [id number] Oral 400 Other: Voiding Method Toilet # Voids 2 - Labs CBC & Chem 7: 11/29/22 05:44 11/30/22 06:28 Labs: Abnormal Lab Results - Last 24 Hours (Table) 11/29/22 11/30/22 11/30/22 Range/Units 20:36 06:28 07:14 Carbon Dioxide 31.5 H (20.0-27.5) mmol/L Anion Gap 8.10 L (10.00-18.00) mmol/L Glucose 240 H (70-110) mg/dL POC Glucose (mg/dL) 148 H 234 H (70-110) mg/dL Total Bilirubin <0.15 L (0.30-1.20) mg/dL Total Protein 5.6 L (6.2-8.2) g/dL Albumin 2.9 L (3.8-4.9) g/dL Albumin/Globulin Ratio 1.08 L (1.60-3.17) g/dL 11/30/22 11/30/22 11/30/22 Range/Units 11:18 17:30 20:12 Carbon Dioxide (20.0-27.5) mmol/L Anion Gap (10.00-18.00) mmol/L Glucose (70-110) mg/dL POC Glucose (mg/dL) 198 H 144 H 151 H (70-110) mg/dL Total Bilirubin (0.30-1.20) mg/dL Total Protein (6.2-8.2) g/dL Albumin (3.8-4.9) g/dL Albumin/Globulin Ratio (1.60-3.17) g/dL Microbiology - Last 24 Hours (Table) 03/27/23 14:46 Blood Culture - Final Blood No Growth after 144 hours 11/25/22 07:22 Blood Culture - Preliminary Blood No Growth after 120 hours
[2022-12-01] MEDS: AMPICILLIN-SULBACTAM 3 GM in SODIUM CHLORIDE 0.9% 100 ML IVPB SCH ×2 (05:51→12:42)
[2022-12-01 07:19] LABS: Glucose,Whole Blood 186 mg/dL (70-110)
[2022-12-01 07:33] VITALS: RESP 18
[2022-12-01] MEDS: INSULIN DETEMIR (LEVEMIR) 100 UNIT/ML SYR SQ SCH (08:08)
[2022-12-01] MEDS: INSULIN ASPART (NovoLOG) 100 UNIT/ML VIAL SQ SCH ×4 (08:08→12:42)
[2022-12-01] MEDS: PANTOPRAZOLE 40 MG TABLET PO SCH (08:08)
[2022-12-01 08:48] LABS: Basophils # (A) 0.02 X 10*3/uL (0.00-0.10); Basophils % (A) 0.2 %; Eosinophils # (A) 0.32 X 10*3/uL (0.04-0.35); Eosinophils % (A) 3.8 %; HCT 37.3 % (39.6-50.0); HGB 12.3 g/dL (13.0-17.0); Immature Grans, Automated 1.2 %; Lymphocytes # (A) 2.44 X 10*3/uL (0.90-5.00); Mean Platelet Volume 9.9 fL (9.5-12.2); Monocytes # (A) 0.79 X 10*3/uL (0.20-1.00); Monocytes % (A) 9.4 %; NRBC Per 100 WBC 0 /100 WBCS (0.0-0.0); Neutrophils # (A) 4.74 X 10*3/uL (1.80-7.70); Neutrophils % (A) 56.4 %; Platelet Count 375 X 10*3/uL (140-440); RBC 4.24 X 10*6/uL (4.40-5.60); RDW 12.3 % (11.5-14.5); WBC 8.41 X 10*3/uL (4.50-10.00)
--- NOTE | 2022-12-01 09:16 | IR ---
PICC LINE PLACEMENT: HISTORY: Infection requiring long-term antibiotic therapy PROCEDURE: Ultrasound and fluoroscopic guidance of PICC line placement. COMPLICATIONS: None ANESTHESIA: 1. 1% Lidocaine locally. FINDINGS/TECHNIQUE: The procedure was explained to the patient. The risks, complications, benefits and alternatives were discussed and any questions were answered. Informed consent was obtained. The patient was placed supine on the fluoroscopic table and prepped and draped in the usual sterile fash ion. Utilizing a 21 gauge needle and sonographic and fluoroscopic guidance, access in the left basi lic vein was achieved and there is placement of a 0.018 guidewire. The vein is patent. A 4-F sheath was placed over the guidewire. The guidewire and dilator were removed and a 4-F. PICC line was plac ed through the sheath with the tip at the level of the SVC. The sheath was removed, the catheter was flushed and sutured into position. The patient was stable throughout the procedure and remained sta ble upon discharge from the Department of Radiology. The vein puncture was patent under ultrasound. A vásquez scale image was obtained to document patency of the vein punctured. All elements of the maximal barrier technique were utilized. FLUOROSCOPY TIME: DAP 0.2832Gy cm2 IMPRESSION: Successful PICC line placement under ultrasound and fluoroscopic guidance.
[2022-12-01 09:28] LABS: African American GFR (CKD) 130.3 (60.0-200.0); Anion Gap 7.3 mmol/L (10.00-18.00); BUN/Creat Ratio 15.66 Ratio (12.00-20.00); Blood Urea Nitrogen 10.4 mg/dL (9.0-27.0); Calcium 8.4 mg/dL (8.7-10.3); Carbon Dioxide 28.8 mmol/L (20.0-27.5); Non-African American GFR(CKD) 112.5 (60.0-200.0); Potassium 4.1 mmol/L (3.5-5.5)
--- NOTE | 2022-12-01 11:10 | P.PN ---
Subjective Progress Note Date: 12/01/22 The patient is a 52-year-old male with a past medical history of diabetes. Attempted to the emergency department on 11/24/22 after 4 days of scrotal swelling and reporting a growth in his groin. He reported having pain in his testicles and having drainage. He was evaluated and found to have a perineal and left scrotal swelling. There were concerns for necrotizing fasciitis and the patient was started on Zosyn and Vanco. He denied any fevers or chills. Leukocytosis present with a WBC of 15.0, ESR 77, UA not suggestive of UTI. Pelvis CT with contrast revealed a asymmetric left-sided scrotal fluid co llection or hydrocele. There is more heterogeneous fluids. To both testicles with suggestion of some enhancement and fat stranding greater on the left. No intrascrotal air is identified to suggest necrotizing fasciitis. There are prominent and slightly enlarged bilateral groin lymph nodes. He was evaluated by Dr. Lemus and underwent an Incision and drainage of left scrotal abscess. 11/25 The patient states his pain has improved. He is afebrile and vitals are stable. The swelling markedly reduced. Wound cultures pending. Will change dressing and repack wound tomorrow. 11/26 The patient states he had a little more pain over night than expected. He is afebrile, WBC 10.06. Blood cultures negative, preliminary gram stain of wound culture strep agalactiae (group b), anaerobic culture pending. ID following. The patient states that heis not very flexible and has numb finger tips from pinched nerves. He does not have anyone at home to help him with packing/dressing changes which will need to be done twice daily. 11/27 The patient has been afebrile, his vitals are stable and he is on room air. Blood culture NGTD. Preliminary gram stain of wound culture strep agalactiae (group b), anaerobic culture pending. ID following. The patient states the dressing change was painful. He was encouraged to ask for pain medication prior to dressing change. Care management current looking for a intermediate facility to accept patient for wound care. 11/28 The patient has been afebrile and he is on room air. He is hypertensive this morning. Blood culture NGTD. Preliminary gram stain of wound culture growing strep agalactiae (group b), anaerobic culture pending. ID following, possible need for IV antibiotics. The patient to incisions were repacked by Dr. Lemus this morning. Care management currently looking for a intermediate facility to accept patient for daily wound care. 11/29 The patient is in the hospital with a perineal and scrotal abscess. He is improving. He is getting dressing changes.The patient can be probably discharged home in the next 24-48 hours and follow up in the office with Dr. Lemus in one week. Objective - Vital Signs Vital signs: Vital Signs Temp 98.2 F 12/01/22 06:51 Pulse 76 12/01/22 06:51 Resp 18 12/01/22 06:51 BP 144/84 12/01/22 06:51 Pulse Ox 97 12/01/22 06:51 FiO2 Intake & Output 11/30/22 12/01/22 12/01/22 18:59 06:59 18:59 Intake Total 200 Balance 200 Intake: Intake, IV Titration 200 Amount Ampicillin-Sulbactam 3 gm 200 In Sodium Chloride 0.9% 100 ml @ 200 mls/hr IVPB Q6HR [facility] Rx#:[id number] Other: Voiding Method Toilet # Voids 1 - Exam General: Well developed, well nourished. No acute distress. [id number]. HEENT: Head is atraumatic, normocephalic. Lungs: Respirations even and nonlabored. on RA Abdomen/GI: Soft, non-distended. No guarding, rigidity, or abdominal tenderness. : Left groin and perinal incision with bloody drainage noted on dressing. Skin: Warm and dry Neurologic: Alert and oriented 3, CN II-XII grossly intact. No focal deficits. Psychiatric: Appropriate mood and affect. - Labs CBC & Chem 7: 12/01/22 04:42 12/01/22 04:42 Labs: Abnormal Lab Results - Last 24 Hours (Table) 11/30/22 11/30/22 11/30/22 Range/Units 11:18 17:30 20:12 RBC (4.40-5.60) X 10*6/uL Hgb (13.0-17.0) g/dL Hct (39.6-50.0) % Immature Gran # (0.00-0.04) X 10*3/uL Carbon Dioxide (20.0-27.5) mmol/L Anion Gap (10.00-18.00) mmol/L Glucose (70-110) mg/dL POC Glucose (mg/dL) 198 H 144 H 151 H (70-110) mg/dL Calcium (8.7-10.3) mg/dL 12/01/22 12/01/22 12/01/22 Range/Units 04:42 04:42 06:53 RBC 4.24 L (4.40-5.60) X 10*6/uL Hgb 12.3 L (13.0-17.0) g/dL Hct 37.3 L (39.6-50.0) % Immature Gran # 0.10 H (0.00-0.04) X 10*3/uL Carbon Dioxide 28.8 H (20.0-27.5) mmol/L Anion Gap 7.30 L (10.00-18.00) mmol/L Glucose 231 H (70-110) mg/dL POC Glucose (mg/dL) 186 H (70-110) mg/dL Calcium 8.4 L (8.7-10.3) mg/dL Microbiology - Last 24 Hours (Table) 11/25/22 07:22 Blood Culture - Final Blood No Growth after 144 hours 11/24/22 14:46 Blood Culture - Final Blood No Growth after 144 hours Assessment and Plan Assessment: The patient has been afebrile and he is on room air. WBC 8.41 today. Wound cul ture growing strep agalactiae (group b), anaerobic culture grew anaerobic gram negative bacilli. Blood cultures negative. ID following. The patient has been getting dressing changed twice daily. The induration and inflammation of the left groin and perineum is diminishing. It is less tender. Care management currently looking for a intermediate facility versus home visiting nurse for daily wound care. (1) Scrotal abscess Status: Acute Code(s): N49.2 - INFLAMMATORY DISORDERS OF SCROTUM SNOMED Code(s): 80880646 Plan: - Continue antibiotics - per ID recommendations - Continue current pain regimen - Sitz bath and dressing change with packing twice daily - The patient may be discharged home - Follow up in the office with Dr. Lemus in one week Impression and plan of care have been directed as dictated by the signing physician. Maureen Stanson nurse practitioner acting as scribe for signing physician. Maureen Way [facility] Palliative Care/Urology Spectralink [id number] Email: [email or web address] the patient hs been evaluated by me and I concur with the above note Navneet lemus md
[2022-12-01 11:25] LABS: Glucose,Whole Blood 159 mg/dL (70-110)
[2022-12-01 12:06] VITALS: BP 135/80; PULSE 75; TEMP 97.5
[2022-12-01] MEDS: HYDROcodone/APAP 5-325MG 1 EACH TAB PO PRN (12:41)
--- NOTE | 2022-12-01 13:20 | P.DS ---
Providers Date of admission: 11/24/22 16:23 Expected date of discharge: 12/01/22 Attending physician: Madison Montiel Consults: 11/24/22 16:23 Consult Physician Urgent Consulting Provider: Navneet Srivastava Consult Reason/Comments: scrotal cellulitis Do you want consulting provider notified?: Already Contacted 11/24/22 16:42 Consult Physician Routine Consulting Provider: Sana Patterson Consult Reason/Comments: scrotal cellulitis Do you want consulting provider notified?: Yes Primary care physician: Stated None Hospital Course: Final diagnosis -Left Scrotal abscess:Abscesses secondary to noncompliance with medications. Status post incision and drainage with urology -Hyponatremia secondary to hyperglycemia, improved -Hypomagnesemia, improved -Type 2 diabetes mellitus uncontrolled blood sugars secondary to noncompliance with medication -Obesity with BMI of 34.7 -Strong history of noncompliance with medications -DVT prophylaxis: Lovenox -GI prophylaxis -Full code Discharge disposition Patient is being discharged in a stable condition with guarded prognosis to [facility]. Patient will follow-up with Dr. Robert in the outpatient setting upon discharge. Patient is to continue with hemodialysis as scheduled. Total time taken is greater than 35 minutes. Hospital course This is a 52-year-old male who was recently admitted with left scrotal cellu litis and edema underwent incision and drainage with urology maintained on IV antibiotics and will continue on Zosyn per ID recommendations. Patient also with extensive wound care and will continue wound care per ID recommendations. Patient is a noncompliant diabetic and would recommend continuing current regimen with diabetic diet and follow-up with primary care provider to establish. Patient will need urology follow-up in the outpatient setting in the next 1 week. Patient has been cleared by consultations. Please refer to consultation notes for further HPI. Currently no reports of chest pain, shortness of breath, or palpitations. Patient is afebrile. No reports of nausea or vomiting and patient is tolerating diet. Patient will be discharged to [facility] today. Guarded Prognosis Physical exam: Gen: This is a 52-year-old male who is awake, alert and oriented 3, well- developed, well-nourished, obese. HEENT: Head is atraumatic, normocephalic. Pupils equal, round. Sclerae is anicteric. NECK: Supple. No JVD. No lymphadenopathy. No thyromegaly. LUNGS: Clear to auscultation. No wheezes or rhonchi. No intercostal retractions. HEART: Regular rate and rhythm. No murmur. ABDOMEN: Soft. Bowel sounds are present. No masses. No tenderness. EXTREMITIES: No pedal edema. No calf tenderness. NEUROLOGICAL: Patient is awake, alert and oriented x3. Cranial nerves 2 through 12 are grossly intact. Please refer to medication reconciliation sheet for a list of medications. The impression and plan of care has been dictated by Dorcas Spangler, Nurse Practitioner as directed. Dr. Dinesh MD I have performed a history and examination and MDM of this patient, discussed the same with the dictator, and agree with the dictator's assessment and plan as written ,documented as a scribe. Based on total visit time, I have performed more than 50% of the visit. Patient Condition at Discharge: Stable Plan - Discharge Summary New Discharge Prescriptions: New INSULIN ASPART (NovoLOG) [NovoLOG (formulary)] 0 unit SQ ACHS each Ampicillin-Sulbactam [Unasyn 3 gm vial] 3 gm IVPB Q6HR each Insulin Detemir (Levemir) [Levemir] 25 unit SQ BID@0700,2100 each HYDROcodone/APAP 5-325MG [[place] 5-325] 1 each PO Q4HR PRN #6 tab PRN Reason: Pain INSULIN ASPART (NovoLOG) [NovoLOG (formulary)] 10 unit SQ AC-TID each Pantoprazole [Protonix] 40 mg PO AC-BRKFST tab Continue metFORMIN HCL 500 mg PO DIRECTED Linagliptin [Tradjenta] 5 mg PO DIRECTED Discontinued Insulin Glargine [Lantus Vial] 30 unit SQ DIRECTED Discharge Medication List Linagliptin [Tradjenta] 5 mg PO DIRECTED 11/24/22 [History] metFORMIN HCL 500 mg PO DIRECTED 11/24/22 [History] Ampicillin-Sulbactam [Unasyn 3 gm vial] 3 gm IVPB Q6HR each 12/01/22 [Rx] HYDROcodone/APAP 5-325MG [[place] 5-325] 1 each PO Q4HR PRN #6 tab 12/01/22 [Rx] INSULIN ASPART (NovoLOG) [NovoLOG (formulary)] 0 unit SQ ACHS each 12/01/22 [Rx] INSULIN ASPART (NovoLOG) [NovoLOG (formulary)] 10 unit SQ AC-TID each 12/01/22 [Rx] Insulin Detemir (Levemir) [Levemir] 25 unit SQ BID@0700,2100 each 12/01/22 [Rx] Pantoprazole [Protonix] 40 mg PO AC-BRKFST tab 12/01/22 [Rx] Follow up Appointment(s)/Referral(s): None,Stated [Primary Care Provider] - 1-2 days Navneet Srivastava MD [STAFF PHYSICIAN] - 1 Week [facility] Visiting Nurse, [NON-STAFF] - 1 Week Activity/Diet/Wound Care/Special Instructions: Patient is going to [facility] on the gupta Activity as tolerated Follow-up with infectious disease at the wound care center Follow-up urology outpatient Continue local wound care Continue diabetic diet Continue with current insulin regimen NovoLog sliding scale 0-150 equals 0 units 151-200 equals 2 units 201-250 equals 4 units 251-300 equals 6 units 301-350 equals 8 units 351-400 equals 10 units Please notify provider if blood sugar is 400 or above when you get released from [facility] your diabetic supplies will be a [facility] on file. Discharge Disposition: TRANSFER TO SNF/ECF
== END 2022-12-01 16:12 | DRG 717 ==
LOC: EC 13:13 → 5NMEDONC 16:23
PROVIDERS: ADMIT Internal Medicine; ATTEND Internal Medicine
PROC: 0V950ZZ Drainage of Scrotum, Open Approach (ICD-10-PCS; principal; 2022-11-24 20:00)
PROC: 02HV33Z Insertion of Infusion Device into Superior Vena Cava, Percutaneous Approach (ICD-10-PCS; 2022-12-01)
DX: N49.2 Inflammatory disorders of scrotum (principal); E87.1 Hypo-osmolality and hyponatremia; L02.215 Cutaneous abscess of perineum; E11.65 Type 2 diabetes mellitus with hyperglycemia; Z79.4 Long term (current) use of insulin; Z79.84 Long term (current) use of oral hypoglycemic drugs; E66.9 Obesity, unspecified; E11.628 Type 2 diabetes mellitus with other skin complications; T38.3X6A Underdosing of insulin and oral hypoglycemic [antidiabetic] drugs, initial encounter; Z68.34 Body mass index [BMI] 34.0-34.9, adult; E83.42 Hypomagnesemia; B95.1 Streptococcus, group B, as the cause of diseases classified elsewhere; N43.3 Hydrocele, unspecified; Z91.128 Patient's intentional underdosing of medication regimen for other reason; Z87.891 Personal history of nicotine dependence; Z91.199 Patient's noncompliance with other medical treatment and regimen due to unspecified reason; Z28.21 Immunization not carried out because of patient refusal; Z71.3 Dietary counseling and surveillance; Z86.14 Personal history of Methicillin resistant Staphylococcus aureus infection; Z79.899 Other long term (current) drug therapy
CPT/HCPCS: 36415; 36573; 72193; 80048; 80053; 80202; 81001; 82565; 83036; 83605; 83735; 85025; 85610; 85652; 85730; 86140; 87040; 87070; 87075; 87205; 96361; 96365; 96366; 96375; 96376; 99285

== ENCOUNTER 2023-03-12 12:39 | Inpatient (IN) | payer BC ==
[2023-03-12] MEDS ORDERED: VANCOMYCIN IV PER PHARMACY 1 EACH MISC MISCELLANE PRN (13:30)
[2023-03-12] MEDS ORDERED: VANCOMYCIN 1,750 MG in SODIUM CHLORIDE 0.9% 500 ML 500 ML IVPB STA (13:33)
[2023-03-12] MEDS ORDERED: HYDROmorphone 0.5 MG/0.5 ML SYRINGE IVP STA (13:45)
--- NOTE | 2023-03-12 13:46 | ED ---
General Adult HPI - General Chief complaint: Wound/Laceration Stated complaint: lt foot wound Time Seen by Provider: 03/12/23 13:11 Source: patient, RN notes reviewed Mode of arrival: wheelchair Limitations: no limitations - History of Present Illness Initial comments: This is a 52-year-old male presents emergency Department with chief complaint of left foot infection. Patient states she's been trying to manage her at home for last 4 weeks in which she states became more painful and worsen. Patient has a known diabetic. Patient states there is a very strong odor from his wound, there is multiple areas missing tissue, black discoloration. - Related Data Home Medications Medication Instructions Recorded Confirmed Acetaminophen [Tylenol] 650 mg PO Q6H PRN 03/12/23 03/12/23 Omeprazole 20 mg PO DAILY 03/12/23 03/12/23 metFORMIN HCL 1,000 mg PO BID 03/12/23 03/12/23 Allergies Allergy/AdvReac Type Severity Reaction Status Date / Time Mushroom Allergy Anaphylaxis Verified 03/12/23 13:43 Review of Systems ROS Statement: Those systems with pertinent positive or pertinent negative responses have been documented in the HPI. ROS Other: All systems not noted in ROS Statement are negative. Past Medical History Past Medical History: No Reported History Additional Past Medical History / Comment(s): Covid 3 years ago, with hospitalization History of Any Multi-Drug Resistant Organisms: None Reported Past Surgical History: Orthopedic Surgery Additional Past Surgical History / Comment(s): LEFT KNEE ARTHROSCOPY Past Anesthesia/Blood Transfusion Reactions: No Reported Reaction Past Psychological History: No Psychological Hx Reported Smoking Status: Former smoker Past Alcohol Use History: None Reported Past Drug Use History: None Reported - Past Family History Family Family Medical History: No Reported History Additional Family Medical History / Comment(s): PATIENT ADOPTED FAMILY HX UNKNOWN General Exam Limitations: no limitations General appearance: alert, in no apparent distress Head exam: Present: atraumatic, normocephalic, normal inspection Eye exam: Present: normal appearance, PERRL, EOMI. Absent: scleral icterus, conjunctival injection, periorbital swelling Respiratory exam: Present: normal lung sounds bilaterally. Absent: respiratory distress, wheezes, rales, rhonchi, stridor Cardiovascular Exam: Present: normal rhythm, tachycardia, normal heart sounds. Absent: systolic murmur, diastolic murmur, rubs, gallop, clicks Extremities exam: Present: other (Left foot there is extensive gangrene, diabetic ulceration infection) Neurological exam: Present: alert Skin exam: Present: warm. Absent: dry, intact, normal color, rash Course Vital Signs 03/12/23 13:03 Temperature 98.6 F Pulse Rate 105 H Respiratory 18 Rate Blood Pressure 152/88 O2 Sat by Pulse 99 Oximetry Medical Decision Making - Medical Decision Making Was pt. sent in by a medical professional or institution (, [employer], [employer], urgent care, hospital, or longterm...) When possible be specific @ -No Did you speak to anyone other than the patient for history (EMS, parent, family, police, friend...)? What history was obtained from this source @ -No Did you review nursing and triage notes (agree or disagree)? Why? @ -I reviewed and agree with nursing and triage notes Were old charts reviewed (outside hosp., previous admission, EMS record, old EKG, old radiological studies, urgent care reports/EKG's, longterm records)? Report findings @ -No old charts were reviewed Differential Diagnosis (chest pain, altered mental status, abdominal pain women, abdominal pain men, vaginal bleeding, weakness, fever, dyspnea, syncope, headache, dizziness, GI bleed, back pain, seizure, CVA, palpatations, mental health, musculoskeletal)? @ -Gangrene, cellulitis, diabetic foot ulceration, osteomyelitis EKG interpreted by me (3pts min.). @ -As above X-rays interpreted by me (1pt min.). @ -X-ray left foot shows diffuse gas formation, osteomyelitis CT interpreted by me (1pt min.). @ -None done U/S interpreted by me (1pt. min.). @ -None done What testing was considered but not performed or refused? (CT, X-rays, U/S, labs)? Why? @ -None What meds were considered but not given or refused? Why? @ -None Did you discuss the management of the patient with other professionals (professionals i.e. ADITI Kimbrough, [employer], lab, RT, psych nurse, mental health social worker, house worker general, teacher, space operations officer, caser shoe parts)? Give summary @ -Dr. Greenberg for admission for osteomyelitis, diabetic ulceration and gangrene with consults to ID and vascular surgery Was smoking cessation discussed for >3mins.? @ -No Was critical care preformed (if so, how long)? @ -No Were there social determinants of health that impacted care today? How? (Homelessness, low income, unemployed, alcoholism, drug addiction, transport ation, low edu. Level, literacy, decrease access to med. care, retirement, rehab)? @ -No Was there de-escalation of care discussed even if they declined (Discuss DNR or withdrawal of care, Hospice)? DNR status @ -No What co-morbidities impacted this encounter? (DM, HTN, Smoking, COPD, CAD, Cancer, CVA, ARF, Chemo, Hep., AIDS, mental health diagnosis, sleep apnea, morbid obesity)? @ -Diabetes Was patient admitted / discharged? Hospital course, mention meds given and route, prescriptions, significant lab abnormalities, going to OR and other pertinent info. @ -Admitted patient has evidence of left foot diabetic infection, gangrene, osteomyelitis patient was started on Zosyn, vancomycin patient's case discussed with admitting hospitalist patient will have an branch disease consult, eschar surgery consult patient was given pain control. Patient did have mild leuko cytosis, no hypotension or fever noted. Undiagnosed new problem with uncertain prognosis? @ -No Drug Therapy requiring intensive monitoring for toxicity (Heparin, Nitro, Insulin, Cardizem)? @ -No Were any procedures done? @ -No Diagnosis/symptom? @ -Left foot gangrene, osteomyelitis, diabetic infection Acute, or Chronic, or Acute on Chronic? @ -Acute Uncomplicated (without systemic symptoms) or Complicated (systemic symptoms)? @ -, Complicated Side effects of treatment? @ -No Exacerbation, Progression, or Severe Exacerbation? @ -No Poses a threat to life or bodily function? How? (Chest pain, [place], [place], pneumonia, PE, COPD, DKA, ARF, appy, cholecystitis, CVA, Diverticulitis, Homicidal, Suicidal, threat to staff... and all critical care pts) @ -Yes poses risk of sepsis, surgical risk - Lab Data Result diagrams: 03/12/23 13:43 03/12/23 13:43 Lab Results 03/12/23 03/12/23 03/12/23 Range/Units 13:43 13:43 13:43 WBC 11.4 H (3.8-10.6) k/uL RBC 3.59 L (4.30-5.90) m/uL Hgb 10.1 L (13.0-17.5) gm/dL Hct 30.9 L (39.0-53.0) % MCV 86.2 (80.0-100.0) fL MCH 28.2 (25.0-35.0) pg MCHC 32.7 (31.0-37.0) g/dL RDW 13.6 (11.5-15.5) % Plt Count 479 H (150-450) k/uL MPV 7.0 Neutrophils % 81 % Lymphocytes % 12 % Monocytes % 6 % Eosinophils % 0 % Basophils % 0 % Neutrophils # 9.2 H (1.3-7.7) k/uL Lymphocytes # 1.4 (1.0-4.8) k/uL Monocytes # 0.7 (0-1.0) k/uL Eosinophils # 0.0 (0-0.7) k/uL Basophils # 0.0 (0-0.2) k/uL Hypochromasia Slight Sodium 135 L (137-145) mmol/L Potassium 4.0 (3.5-5.1) mmol/L Chloride 98 (98-107) mmol/L Carbon Dioxide 23 (22-30) mmol/L Anion Gap 14 mmol/L BUN 11 (9-20) mg/dL Creatinine 0.43 L (0.66-1.25) mg/dL Est GFR (CKD-EPI)AfAm >90 (>60 ml/min/1.73 sqM) Est GFR (CKD-EPI)NonAf >90 (>60 ml/min/1.73 sqM) Glucose 315 H (74-99) mg/dL Plasma Lactic Acid Markos 0.8 (0.7-2.0) mmol/L Calcium 8.1 L (8.4-10.2) mg/dL Total Bilirubin 0.4 (0.2-1.3) mg/dL AST 12 L (17-59) U/L ALT 10 (4-49) U/L Alkaline Phosphatase 100 (38-126) U/L C-Reactive Protein 19.7 H (<1.0) mg/dL Total Protein 6.5 (6.3-8.2) g/dL Albumin 2.7 L (3.5-5.0) g/dL Disposition Clinical Impression: Foot osteomyelitis, left, Gangrene of left foot, Diabetic ulcer of left foot Disposition: ADMITTED IP TO THIS HOSP Condition: Poor Referrals: Rj Robert MD [Primary Care Provider] - 1-2 days Time of Disposition: 14:51
[2023-03-12 14:29] LABS: Basophils % (A) 0 %; Eosinophils % (A) 0 %; HCT 30.9 % (39.0-53.0); HGB 10.1 gm/dL (13.0-17.5); Hypochromasia Slight; Lymphocytes # (A) 1.4 k/uL (1.0-4.8); Lymphocytes % (A) 12 %; MCH 28.2 pg (25.0-35.0); MCHC 32.7 g/dL (31.0-37.0); MCV 86.2 fL (80.0-100.0); Monocytes # (A) 0.7 k/uL (0-1.0); Monocytes % (A) 6 %; Neutrophils # (A) 9.2 k/uL (1.3-7.7); Neutrophils % (A) 81 %; Platelet Count 479 k/uL (150-450); RBC 3.59 m/uL (4.30-5.90); RDW 13.6 % (11.5-15.5); WBC 11.4 k/uL (3.8-10.6)
--- NOTE | 2023-03-12 14:35 | XR ---
EXAMINATION TYPE: XR foot complete LT DATE OF EXAM: 03/12/2023 COMPARISON: NONE HISTORY: Swelling TECHNIQUE: Three views are submitted. FINDINGS: There is diffuse subcutaneous and soft tissue emphysema compatible with infectious etiology and cellu litis. There is destructive change of the proximal and distal phalanx of the second digit with a path ologic fracture of the distal margin of the proximal phalanx. There is more normal mineralization of the remaining osseous structures including the first metatarsal. MT P joint arthropathy of the first digit with spurring compatible with bunion. There is calcaneal spurs. Vascular calcifications noted. IMPRESSION: 1. Diffuse soft tissue edema with ulceration and subcutaneous emphysema compatible with cellulitis. T here is demineralization of the distal phalanx and proximal phalanx of the first digit compatible wit h osteomyelitis. 2. There is a intra-articular mildly displaced fracture of the distal margin of the proximal phalanx first digit suspected.
[2023-03-12 14:39] LABS: ALT 10 U/L (4-49); AST 12 U/L (17-59); African American GFR (CKD) >90 (>60 ml/min/1.73 sqM); Albumin 2.7 g/dL (3.5-5.0); Alkaline Phosphatase 100 U/L (38-126); Anion Gap 14 mmol/L; Blood Urea Nitrogen 11 mg/dL (9-20); Calcium 8.1 mg/dL (8.4-10.2); Carbon Dioxide 23 mmol/L (22-30); Chloride 98 mmol/L (98-107); Glucose 315 mg/dL (74-99); Non-African American GFR(CKD) >90 (>60 ml/min/1.73 sqM); Sodium 135 mmol/L (137-145); Total Bilirubin 0.4 mg/dL (0.2-1.3); Total Protein 6.5 g/dL (6.3-8.2)
[2023-03-12] MEDS ORDERED: ONDANSETRON 4 MG/2 ML VIAL IVP PRN (15:14)
[2023-03-12] MEDS ORDERED: HYDROmorphone 0.5 MG/0.5 ML SYRINGE IVP PRN (15:14)
[2023-03-12] MEDS ORDERED: NALOXONE 0.4 MG/ML 1 ML VIAL IV PRN (15:14)
[2023-03-12 15:21] LABS: C Reactive Protein 19.7 mg/dL (<1.0)
[2023-03-12] MEDS ORDERED: ALPRAZolam 0.25 MG TAB PO PRN (15:35)
[2023-03-12 15:50] LABS: Erythrocyte Sedimentation Rate 113 mm/hr (0-15)
[2023-03-12] MEDS ORDERED: HYDROmorphone 1 MG/ML 1 ML SYRINGE IVP STA (16:46)
--- NOTE | 2023-03-12 17:02 | P.GSCN ---
History of Present Illness Consult date: 03/12/23 History of present illness: Patient is a 52-year-old male with a past medical history of diabetes, previous hospitalization with bilateral thigh abscesses. He presented to the ER with complaints of a left foot infection. He states that back in October he was in the hospital at a facility for the wound dressing changes in his upper thighs due to his abscesses and then upon being discharged from that he noted beginning to have some coloration changes of his toe and portion of his left foot. 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 He states that the odor has become signi ficantly strong and the wound has been more painful in the past few weeks therefore he presented today for evaluation Past Medical History Past Medical History: No Reported History Additional Past Medical History / Comment(s): Covid 3 years ago, with hospitalization History of Any Multi-Drug Resistant Organisms: None Reported Past Surgical History: Orthopedic Surgery Additional Past Surgical History / Comment(s): LEFT KNEE ARTHROSCOPY Past Anesthesia/Blood Transfusion Reactions: No Reported Reaction Past Psychological History: No Psychological Hx Reported Smoking Status: Former smoker Past Alcohol Use History: None Reported Past Drug Use History: None Reported - Past Family History Family Family Medical History: No Reported History Additional Family Medical History / Comment(s): PATIENT ADOPTED FAMILY HX UNKNOWN Medications and Allergies Home Medications Medication Instructions Recorded Confirmed Type Acetaminophen [Tylenol] 650 mg PO Q6H PRN 03/12/23 03/12/23 History Omeprazole 20 mg PO DAILY 03/12/23 03/12/23 History metFORMIN HCL 1,000 mg PO BID 03/12/23 03/12/23 History Allergies Allergy/AdvReac Type Severity Reaction Status Date / Time Mushroom Allergy Anaphylaxis Verified 03/12/23 13:43 Surgical - Exam Vital Signs Temp Pulse Resp BP Pulse Ox 98.6 F 105 H 18 152/88 99 03/12/23 13:03 03/12/23 13:03 03/12/23 13:03 03/12/23 13:03 03/12/23 13:03 Gen. is a pleasant and cooperative male in no acute distress. HEENT is normal cephalic, atraumatic, extraocular motion intact. Heart appears regular at this time. Lungs are clear. Abdomen is soft obese nontender nondistended. Extremity show no clubbing or significant edema. He has palpable pedal pulses. On the left foot there is severe gangrene to his first and third toe with the essentially entire dorsum of his foot with gangrene tracking back to the lateral ankle. The second toe appears infected. There is bone and tendon exposed. Results X-rays reviewed - Labs 03/12/23 13:43 03/12/23 13:43 Abnormal Lab Results - Last 24 Hours (Table) 03/12/23 03/12/23 Range/Units 13:43 13:43 WBC 11.4 H (3.8-10.6) k/uL RBC 3.59 L (4.30-5.90) m/uL Hgb 10.1 L (13.0-17.5) gm/dL Hct 30.9 L (39.0-53.0) % Plt Count 479 H (150-450) k/uL Neutrophils # 9.2 H (1.3-7.7) k/uL ESR 113 H (0-15) mm/hr Sodium 135 L (137-145) mmol/L Creatinine 0.43 L (0.66-1.25) mg/dL Glucose 315 H (74-99) mg/dL Calcium 8.1 L (8.4-10.2) mg/dL AST 12 L (17-59) U/L C-Reactive Protein 19.7 H (<1.0) mg/dL Albumin 2.7 L (3.5-5.0) g/dL Diabetes panel 03/12/23 Range/Units 13:43 Sodium 135 L (137-145) mmol/L Potassium 4.0 (3.5-5.1) mmol/L Chloride 98 (98-107) mmol/L Carbon Dioxide 23 (22-30) mmol/L BUN 11 (9-20) mg/dL Creatinine 0.43 L (0.66-1.25) mg/dL Glucose 315 H (74-99) mg/dL Calcium 8.1 L (8.4-10.2) mg/dL AST 12 L (17-59) U/L ALT 10 (4-49) U/L Alkaline Phosphatase 100 (38-126) U/L Total Protein 6.5 (6.3-8.2) g/dL Albumin 2.7 L (3.5-5.0) g/dL Calcium panel 03/12/23 Range/Units 13:43 Calcium 8.1 L (8.4-10.2) mg/dL Albumin 2.7 L (3.5-5.0) g/dL Pituitary panel 03/12/23 Range/Units 13:43 Sodium 135 L (137-145) mmol/L Potassium 4.0 (3.5-5.1) mmol/L Chloride 98 (98-107) mmol/L Carbon Dioxide 23 (22-30) mmol/L BUN 11 (9-20) mg/dL Creatinine 0.43 L (0.66-1.25) mg/dL Glucose 315 H (74-99) mg/dL Calcium 8.1 L (8.4-10.2) mg/dL Adrenal panel 03/12/23 Range/Units 13:43 Sodium 135 L (137-145) mmol/L Potassium 4.0 (3.5-5.1) mmol/L Chloride 98 (98-107) mmol/L Carbon Dioxide 23 (22-30) mmol/L BUN 11 (9-20) mg/dL Creatinine 0.43 L (0.66-1.25) mg/dL Glucose 315 H (74-99) mg/dL Calcium 8.1 L (8.4-10.2) mg/dL Total Bilirubin 0.4 (0.2-1.3) mg/dL AST 12 L (17-59) U/L ALT 10 (4-49) U/L Alkaline Phosphatase 100 (38-126) U/L Total Protein 6.5 (6.3-8.2) g/dL Albumin 2.7 L (3.5-5.0) g/dL Assessment and Plan Assessment: Severe left diabetic foot infection Gangrene left foot Diabetes Plan: Long discussion was had with the patient regarding the severity of his wound, at the very least he is going to need it transmetatarsal amputation. This will also require excessive debridement to the dorsum of the foot. We discussed the long-term need for wound care for proper wound healing, he maintains palpable pedal pulses therefore hopefully should be able to heal. We discussed that he might end up needing a below-knee amputation should there be continuing infe ction and nonhealing of the wound. He seemingly understands all of this. We'll plan to make him nothing by mouth after midnight and go to surgery tomorrow for this.
[2023-03-12 17:09] LABS: Glucose,Whole Blood 249 mg/dL (70-110)
[2023-03-12] MEDS: INSULIN DETEMIR (LEVEMIR) 100 UNIT/ML SYR SQ SCH ×2 (17:19→20:45)
[2023-03-12] MEDS: PIPERACILLIN-TAZOBACTAM 3.375 GM in SODIUM CHLORIDE 0.9% 100 ML IVPB SCH (17:24)
[2023-03-12] MEDS: metroNIDAZOLE-NS PMX 500 MG in SALINE 1 100ML.BAG IVPB SCH ×2 (17:26→20:45)
[2023-03-12] MEDS ORDERED: DEXTROSE 50% SYRINGE 50 ML IVP PRN ×2 (18:03)
[2023-03-12] MEDS: INSULIN ASPART (NovoLOG) 100 UNIT/ML VIAL SQ SCH ×2 (18:11→20:43)
[2023-03-12 20:06] LABS: Glucose,Whole Blood 281 mg/dL (70-110)
[2023-03-12] MEDS: HYDROcodone/APAP 5-325MG 1 EACH TAB PO PRN (20:42)
[2023-03-12] MEDS: HEPARIN SODIUM,PORCINE/PF 5,000 UNIT/0.5 ML SYRINGE SQ SCH (20:44)
--- NOTE | 2023-03-12 20:57 | HP ---
HISTORY AND PHYSICAL CHIEF COMPLAINT: Left foot wound laceration. HISTORY OF PRESENT ILLNESS: This is a 52-year-old gentleman with a past medical history of diabetes mellitus type 2, history of previous COVID, multiple medical issues, possible noncompliance, complaining of significant infection of the foot for the last several days. The patient was trying to manage it at home in the last 4 weeks and because the pain is worse, the patient came to [facility] and was admitted for further evaluation and treatment. There is no history of any fever, rigors, or chills. PAST MEDICAL HISTORY: 1. Diabetes mellitus, type 2. 2. Multiple complications with possible noncompliance. HOME MEDICATIONS: Reviewed include metformin. ALLERGIES: Mushrooms. FAMILY HISTORY: The patient is adopted. SOCIAL HISTORY: Previous history of smoking. REVIEW OF SYSTEMS: Fourteen-point review is negative except as mentioned earlier. PHYSICAL EXAMINATION: VITAL SIGNS: Pulse is 105, blood pressure 122/82, respirations 18. HEENT: Conjunctivae are normal. NECK: No jugular venous distention. CARDIOVASCULAR: S1 and S2. RESPIRATORY: Breath sounds diminished at the bases. ABDOMEN: Soft, obese. LEGS: Left leg cellulitis and ulcer. Foul smelling also present. LABORATORY DATA: Labs are reviewed. Glucose 315. ASSESSMENT: 1. Left diabetic foot ulcer, cellulitis, rule out osteomyelitis with failure of outpatient treatment. 2. Diabetes mellitus, type 2. 3. History of noncompliance. 4. History of coronavirus disease. 5. History of scrotal abscess. RECOMMENDATIONS: Recommend to continue current medications, continue symptomatic treatment. Otherwise at this time, we will monitor blood sugars closely. We will initiate Lantus, hemoglobin A1c, broad-spectrum IV antibiotics. Infectious Disease and Vascular Surgery consultations. Prognosis guarded. Further recommendations to follow. See orders for further details. The patient is started on Zosyn and vancomycin. MMODL / IJN: [id number] /
[2023-03-12] MEDS ORDERED: INSULIN ASPART (NovoLOG) 100 UNIT/ML VIAL SQ SCH (21:00)
[2023-03-12] MEDS: VANCOMYCIN 1,750 MG in SODIUM CHLORIDE 0.9% 500 ML 500 ML IVPB SCH (23:11)
[2023-03-12] MEDS: ACETAMINOPHEN TAB 325 MG TAB PO PRN (23:21)
[2023-03-13] MEDS: PIPERACILLIN-TAZOBACTAM 3.375 GM in SODIUM CHLORIDE 0.9% 100 ML IVPB SCH ×3 (02:47→16:05)
[2023-03-13 05:59] LABS: Glucose,Whole Blood 232 mg/dL (70-110)
[2023-03-13] MEDS: HYDROcodone/APAP 5-325MG 1 EACH TAB PO PRN ×2 (06:37→20:59)
[2023-03-13] MEDS: PANTOPRAZOLE 40 MG TABLET PO SCH (06:37)
[2023-03-13] MEDS: INSULIN DETEMIR (LEVEMIR) 100 UNIT/ML SYR SQ SCH ×2 (06:38→21:02)
[2023-03-13] MEDS: VANCOMYCIN 1,750 MG in SODIUM CHLORIDE 0.9% 500 ML 500 ML IVPB SCH ×2 (06:39→15:40)
[2023-03-13] MEDS: INSULIN ASPART (NovoLOG) 100 UNIT/ML VIAL SQ SCH ×4 (06:39→21:00)
[2023-03-13] MEDS: HEPARIN SODIUM,PORCINE/PF 5,000 UNIT/0.5 ML SYRINGE SQ SCH ×2 (09:17→21:01)
[2023-03-13] MEDS: metroNIDAZOLE-NS PMX 500 MG in SALINE 1 100ML.BAG IVPB SCH ×3 (10:06→21:01)
[2023-03-13] MEDS: HYDROmorphone 0.5 MG/0.5 ML SYRINGE IVP PRN (10:07)
[2023-03-13 11:02] LABS: Basophils # (A) 0.03 X 10*3/uL (0.00-0.10); Basophils % (A) 0.3 %; Eosinophils # (A) 0.09 X 10*3/uL (0.04-0.35); HCT 30.3 % (39.6-50.0); HGB 9.6 d/dL (12.0-15.0); Lymphocytes # (A) 2.09 X 10*3/uL (0.90-5.00); Lymphocytes % (A) 23.2 %; MCH 27.2 pg (27.0-32.0); MCHC 31.7 d/dL (32.0-37.0); MCV 85.8 FL (80.0-97.0); Mean Platelet Volume 9.6 FL (9.5-12.2); Monocytes # (A) 1.11 X 10*3/uL (0.20-1.00); Monocytes % (A) 12.3 %; NRBC Per 100 WBC 0 X 10*3/uL (0.00-0.01); Neutrophils # (A) 5.64 X 10*3/uL (1.80-7.70); Neutrophils % (A) 62.8 %; Platelet Count 479 X 10*3/uL (140-440); RBC 3.53 X 10*6/uL (4.40-5.60); RDW 13.3 % (11.5-14.5)
[2023-03-13 11:31] LABS: Blood Urea Nitrogen 7.6 mg/dL (9.0-27.0); Calcium 8.2 mg/dL (8.7-10.3); Carbon Dioxide 25.6 mmol/L (21.6-31.8); Chloride 101 mmol/L (96-109); Glucose 269 mg/dL (70-110); Potassium 3.6 mmol/L (3.5-5.5); Sodium 135 mmol/L (135-145)
[2023-03-13 12:15] LABS: Glucose,Whole Blood 174 mg/dL (70-110)
[2023-03-13] MEDS ORDERED: IV FLUID CONTINUATION 1,000 ML IV ONE ×2 (12:15)
[2023-03-13] MEDS ORDERED: LACTATED RINGERS 1,000 ML IV ONE ×2 (12:16→14:27)
[2023-03-13] MEDS ORDERED: IV FLUID CONTINUATION 500 ML IV ONE ×2 (12:17)
[2023-03-13] MEDS ORDERED: ONDANSETRON 4 MG/2 ML VIAL IVP ONE (12:24)
[2023-03-13] MEDS ORDERED: MIDAZOLAM 2 MG/2 ML VIAL IVP ONE (12:31)
[2023-03-13] MEDS ORDERED: MIDAZOLAM 2 MG/2 ML VIAL ONE (12:45)
[2023-03-13] MEDS ORDERED: fentaNYL (PF) 50 MCG/ML 2 ML AMP ONE (12:45)
[2023-03-13] MEDS ORDERED: ROPIVACAINE 5 MG/ML 30 ML VIAL ONE (12:45)
[2023-03-13] MEDS ORDERED: SUCCINYLCHOLINE CHLORIDE 200 MG/10 ML VIAL IV ONE (12:45)
[2023-03-13] MEDS ORDERED: HYDROmorphone (PF) 1 MG/ML ONE (12:45)
[2023-03-13] MEDS ORDERED: DEXAMETHASONE SOD PHOSPHATE 4 MG/ML 1 ML VIAL ONE (12:45)
[2023-03-13] MEDS ORDERED: ePHEDrine 50 MG/ML 1 ML VIAL ONE (12:45)
[2023-03-13] MEDS ORDERED: PROPOFOL 10 MG/ML 20 ML VIAL IV ONE (12:45)
[2023-03-13] MEDS ORDERED: PHENYLEPHRINE 10 MG/ML VIAL ONE (12:45)
[2023-03-13] MEDS ORDERED: LIDOCAINE 2% INJ 20 MG/ML (2 ML VIAL) ONE (12:45)
[2023-03-13] MEDS ORDERED: KETAMINE 10 MG/ML 20 ML VIAL ONE (12:45)
[2023-03-13] MEDS ORDERED: VANCOMYCIN TROUGH DUE 1 EACH MISC MISCELLANE ONE (13:00)
--- NOTE | 2023-03-13 13:54 | P.ANPRN ---
Procedure Note - Anesthesia - Nerve Block Performed Left Adductor Canal Single Time Out Performed: Yes Date of Procedure: 03/13/23 Procedure Start Time: 12:31 Procedure Stop Time: 12:35 Location of Patient: PreOp Indication: Acute Post-Operative Pain, Requested by Surgeon Sedation Type: Sedate with meaningful contact maintained Preparation: Sterile Prep, Sterile Dressing Position: Supine Catheter: None Needle Types: Facet Needle Gauge: 20 Ultrasound used to visualize needle placement: Yes Ultrasound used to observe medication spread: Yes Injectate: 0.5% Ropivacaine (see comment for volume) (10 ml + decadron 2 mg) Blood Aspirated: No Pain Paresthesia on Injection Noted: No Resistance on Injection: Normal Image Stored and Saved: Yes Events: Uneventful and Well Tolerated Left Popliteal Single Time Out Performed: Yes Date of Procedure: 03/13/23 Procedure Start Time: 12:37 Procedure Stop Time: 12:44 Location of Patient: PreOp Indication: Acute Post-Operative Pain, Requested by Surgeon Sedation Type: Sedate with meaningful contact maintained Preparation: Sterile Prep, Sterile Dressing Position: Right Lateral Catheter: None Needle Types: Facet Needle Gauge: 20 Ultrasound used to visualize needle placement: Yes Ultrasound used to observe medication spread: Yes Injectate: 0.5% Ropivacaine (see comment for volume) (20 ml + decadron 2 mg) Blood Aspirated: No Pain Paresthesia on Injection Noted: No Resistance on Injection: Normal Image Stored and Saved: Yes Events: Uneventful and Well Tolerated
[2023-03-13 14:52] LABS: Glucose,Whole Blood 192 mg/dL (70-110)
--- NOTE | 2023-03-13 15:05 | P.OP ---
Date of Procedure: 03/13/23 Description of Procedure: DATE OF SERVICE: 03/13/2023 SURGEON: Shakira Mera DO PREOPERATIVE DIAGNOSIS: Diabetic foot infection, severe, gangrene left first and third toe and dorsum of foot POSTOPERATIVE DIAGNOSIS: Same OPERATION: Left transmetatarsal amputation Sharp excisional debridement of left dorsal foot wound 5.7 x 5 x 0.3 cm to muscle and fascia Initiation of wound VAC therapy ANESTHESIA: Regional block with sedation converted to general anesthesia ESTIMATED BLOOD LOSS: 100 mL SPECIMENS REMOVED: forefoot COMPLICATIONS: None DESCRIPTION OF PROCEDURE: This patient is a 52-year-old male with a history of diabetic foot wound to the past 4 weeks has had worsening of his wound and he has been caring for this at home by putting iodine on it. He presented to the ER was significant tissue loss and foul-smelling odor and evidence of infection diabetic foot ulceration. There is pain in the foot and at this time is recommended to undergo transmetatarsal amputation. Risks and benefits were discussed including but not limited to bleeding, infection and poor wound healing. They seemingly understands and is willing to proceed. The patient was brought to the operating room under local IV sedation and previous regional block was performed. And then subsequently converted to general anesthesia due to inability to tolerate, pain control. An incision at the mid foot was performed and plantar flap and subsequently deepened through the skin, fat, and tendons. Tendons were divided prior to plantar and dorsal aspect of the forefoot. The bone saw was used to transect the metatarsals. Electro cautery was used to remove the plantar portion of the tissues. Hemostasis was achieved with electrocautery and 3-0 Vicryl. A scalpel was used to excise the eschar at the dorsum of the foot with a measurement of the above. Is carried down through the level of the subcutaneous tissue to the muscle and fascia with exposed tendon. At this point there was no further purulent drainage or foul-smelling tissue present The wound was irrigated. The flap was then reapproximated with interrupted sutures of 3-0 Vicryl in the subcutaneous space and skin with 3-0 nylon interrupted mattress suture at the medial and lateral portion. Subsequently a wound VAC was placed at the dorsum of the foot and into the crevice remaining open of the transmetatarsal site. Dressing applied. The patient tolerated the procedure well.
[2023-03-13] MEDS ORDERED: INSULIN ASPART (NovoLOG) 100 UNIT/ML VIAL SQ ONE (15:25)
[2023-03-13 16:50] LABS: Glucose,Whole Blood 181 mg/dL (70-110)
[2023-03-13 16:53] VITALS: BMI 35.9
[2023-03-13 17:05] LABS: HCT 30.5 % (39.0-53.0); HGB 9.6 gm/dL (13.0-17.5); Hypochromasia Slight; MCH 27.2 pg (25.0-35.0); MCHC 31.6 g/dL (31.0-37.0); MCV 86.1 fL (80.0-100.0); Mean Platelet Volume 6.9; Platelet Count 449 k/uL (150-450); RBC 3.54 m/uL (4.30-5.90); RDW 13.7 % (11.5-15.5); WBC 6.9 k/uL (3.8-10.6)
[2023-03-13 17:58] LABS: Glucose,Whole Blood 355 mg/dL (70-110)
[2023-03-13 20:20] LABS: Glucose,Whole Blood 346 mg/dL (70-110)
[2023-03-13] MEDS: VANCOMYCIN 2,000 MG in SODIUM CHLORIDE 0.9% 500 ML 500 ML IVPB SCH (20:59)
--- NOTE | 2023-03-13 22:36 | P.CONS ---
History of Present Illness - Reason for Consult Consult date: 03/13/23 left foot osteomyelitis/ gangrene Requesting physician: Joe Roth - Chief Complaint Worsening swelling redness to the left foot x days - History of Present Illness Patient is a 52-year-old male with a past medical history significant for diabetes mellitus history of diabetic foot infection presenting to the hospital for increasing pain discoloration and drainage from his left foot symptom has been going on for more than a month denies any history of any trauma patient mention he was doctoring at home using iodine to keep it clean and 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 however the patient currently having increasing swelling redness patient describes the pain to be sharp almost almost 10 out of 10 in severity with associated swelling and foul-smelling drainage for the patient presented to hospital on arrival to the ER patient was afebrile and no fever has been recorded subsequently patient did have elevated white count of 11.4 with a left shift creatinine has been normal elevations are normal patient did have blood cultures came back positive with gram-positive cocci patient did have x-ray of the foot diffuse soft tissue edema with ulceration and subsequent emphysema compatible with cellulitis with features of osteomyelitis involving the first digit patient has been evaluated by vascular surgery and planning for transmetatarsal amputation this morning Review of Systems Positive point and negatives has been mentioned in the HPI, complete review of systems was performed and all other systems are negative Past Medical History Past Medical History: No Reported History, Diabetes Mellitus Additional Past Medical History / Comment(s): Covid 3 years ago, with hospitalization History of Any Multi-Drug Resistant Organisms: None Reported Past Surgical History: Orthopedic Surgery Additional Past Surgical History / Comment(s): LEFT KNEE ARTHROSCOPY Past Anesthesia/Blood Transfusion Reactions: No Reported Reaction Past Psychological History: No Psychological Hx Reported Smoking Status: Former smoker Past Alcohol Use History: None Reported Past Drug Use History: None Reported Additional Drug Use History / Comment(s): Occasional marijuana use - Past Family History Family Family Medical History: No Reported History Additional Family Medical History / Comment(s): PATIENT ADOPTED FAMILY HX UNKNOWN Medications and Allergies Home Medications Medication Instructions Recorded Confirmed Type Acetaminophen [Tylenol] 650 mg PO Q6H PRN 03/12/23 03/12/23 History Omeprazole 20 mg PO DAILY 03/12/23 03/12/23 History metFORMIN HCL 1,000 mg PO BID 03/12/23 03/12/23 History Allergies Allergy/AdvReac Type Severity Reaction Status Date / Time Mushroom Allergy Anaphylaxis Verified 03/13/23 11:55 Physical Exam Vitals: Vital Signs Temp Pulse Pulse Resp BP BP Pulse Ox 03/13/23 07:10 98.6 F 89 19 167/87 95 03/13/23 01:57 98.8 F 92 17 160/84 95 03/12/23 19:02 98.1 F 89 20 162/87 98 03/12/23 13:03 98.6 F 105 H 18 152/88 99 Intake and Output 03/12/23 03/13/23 03/13/23 22:59 06:59 14:59 Other: Voiding Method Toilet # Voids 0 2 Weight 117.027 kg GENERAL DESCRIPTION: Middle-aged male lying in bed, no distress. No tachypnea or accessory muscle of respiration use. HEENT: Shows Pallor , no scleral icterus. Oral mucous membrane is dry. No pharyngeal erythema or thrush NECK: Trachea central, no thyromegaly. LUNGS: Unlabored breathing. Clear to auscultation anteriorly. No wheeze or crackle. HEART: S1, S2, regular rate and rhythm. No loud murmur ABDOMEN: Soft, no tenderness , guarding or rigidity, no organomegaly EXTREMITIES: Left big toe is necrotic did have a significant swelling redness and foul-smelling drainage SKIN: No rash, no masses palpable. NEUROLOGICAL: The patient is awake, alert, oriented x3, mood and affect normal. Results CBC & Chem 7: 03/13/23 15:58 03/13/23 04:48 Labs: Abnormal Lab Results - Last 24 Hours (Table) 03/12/23 03/12/23 03/12/23 Range/Units 13:43 13:43 17:07 WBC 11.4 H (3.8-10.6) k/uL RBC 3.59 L (4.30-5.90) m/uL Hgb 10.1 L (13.0-17.5) gm/dL Hct 30.9 L (39.0-53.0) % MCHC (32.0-37.0) d/dL Plt Count 479 H (150-450) k/uL Neutrophils # 9.2 H (1.3-7.7) k/uL Monocytes # (0.20-1.00) X 10*3/uL ESR 113 H (0-15) mm/hr Sodium 135 L (137-145) mmol/L Creatinine 0.43 L (0.66-1.25) mg/dL Glucose 315 H (74-99) mg/dL POC Glucose (mg/dL) 249 H (70-110) mg/dL Calcium 8.1 L (8.4-10.2) mg/dL AST 12 L (17-59) U/L C-Reactive Protein 19.7 H (<1.0) mg/dL Albumin 2.7 L (3.5-5.0) g/dL 03/12/23 03/13/23 03/13/23 Range/Units 20:04 04:48 05:57 WBC (3.8-10.6) k/uL RBC 3.53 L (4.30-5.90) m/uL Hgb 9.6 L (13.0-17.5) gm/dL Hct 30.3 L (39.0-53.0) % MCHC 31.7 L (32.0-37.0) d/dL Plt Count 479 H (150-450) k/uL Neutrophils # (1.3-7.7) k/uL Monocytes # 1.11 H (0.20-1.00) X 10*3/uL ESR (0-15) mm/hr Sodium (137-145) mmol/L Creatinine (0.66-1.25) mg/dL Glucose (74-99) mg/dL POC Glucose (mg/dL) 281 H 232 H (70-110) mg/dL Calcium (8.4-10.2) mg/dL AST (17-59) U/L C-Reactive Protein (<1.0) mg/dL Albumin (3.5-5.0) g/dL Assessment and Plan (1) Bacteremia Current Visit: Yes Status: Acute Code(s): R78.81 - BACTEREMIA SNOMED Code(s): 0658433 (2) Diabetic ulcer of left foot Current Visit: Yes Status: Acute Code(s): E11.621 - TYPE 2 DIABETES MELLITUS WITH FOOT ULCER; L97.529 - NON-PRESSURE CHRONIC ULCER OTH PRT LEFT FOOT W UNSP SEVERITY SNOMED Code(s): 768343594 (3) Foot osteomyelitis, left Current Visit: Yes Status: Acute Code(s): M86.9 - OSTEOMYELITIS, UNSPECIFIED SNOMED Code(s): 8800834475572440 (4) Gangrene of left foot Current Visit: Yes Status: Acute Code(s): I96 - GANGRENE, NOT ELSEWHERE CLASSIFIED SNOMED Code(s): 74477364302759228 Plan: 1patient presented to hospital with extensive left diabetic foot infection with evidence of wet gangrene foul-smelling drainage we will need to cover for the polymicrobial wing usually associated with diabetic foot infection 2-patient positive blood culture with gram-positive cocci like related to his diabetic foot infection 3-blood cultures will be repeated document clearance of bacteremia 4-continue with the vancomycin however switch Zosyn to Unasyn while waiting for the work-up to be completed 5-await transmetatarsal amputation and deep culture We will follow on clinical condition and cultures to further adjust medication if needed Thank you for this consultation we will follow the patient along with you Time with Patient: Greater than 30
[2023-03-13] MEDS: AMPICILLIN-SULBACTAM 3 GM in SODIUM CHLORIDE 0.9% 100 ML IVPB SCH (23:53)
--- NOTE | 2023-03-14 01:02 | PN ---
PROGRESS NOTE DATE OF SERVICE: 03/13/2023 SUBJECTIVE: This is 52-year-old gentleman, who was admitted with left foot diabetic ulcer, scheduled for surgery today. No chest pain. No palpitations. No fever. OBJECTIVE: VITAL SIGNS: Pulse is 90, blood pressure 157/91, respirations 26. HEENT: Conjunctivae normal. CARDIOVASCULAR: S1, S2. ABDOMEN: Soft. LEGS: Left foot ulcer present. LABORATORY DATA: Labs are noted. ASSESSMENT: 1. Left foot diabetic ulcer, cellulitis, rule out osteomyelitis with failure of outpatient treatment. 2. Diabetes mellitus, type 2. 3. History of noncompliance. 4. History of coronavirus disease. 5. History of scrotal abscess. RECOMMENDATIONS: Recommend to continue current management, continue symptomatic treatment. Surgery per Dr. Mera. Repeat labs. Monitor blood sugars closely. Further recommendations to follow. MMODL / IJN: [id number] /
[2023-03-14] MEDS: VANCOMYCIN 2,000 MG in SODIUM CHLORIDE 0.9% 500 ML 500 ML IVPB SCH ×3 (03:26→19:58)
[2023-03-14 05:32] LABS: Glucose,Whole Blood 315 mg/dL (70-110)
[2023-03-14] MEDS: AMPICILLIN-SULBACTAM 3 GM in SODIUM CHLORIDE 0.9% 100 ML IVPB SCH ×4 (06:24→23:02)
[2023-03-14] MEDS: INSULIN ASPART (NovoLOG) 100 UNIT/ML VIAL SQ SCH ×4 (06:32→21:25)
[2023-03-14] MEDS: INSULIN DETEMIR (LEVEMIR) 100 UNIT/ML SYR SQ SCH ×2 (06:32→21:26)
[2023-03-14] MEDS: PANTOPRAZOLE 40 MG TABLET PO SCH (06:32)
[2023-03-14 06:40] LABS: African American GFR (CKD) >90 (>60 ml/min/1.73 sqM); Non-African American GFR(CKD) >90 (>60 ml/min/1.73 sqM)
[2023-03-14] MEDS: metroNIDAZOLE-NS PMX 500 MG in SALINE 1 100ML.BAG IVPB SCH ×3 (09:22→23:01)
[2023-03-14] MEDS: HEPARIN SODIUM,PORCINE/PF 5,000 UNIT/0.5 ML SYRINGE SQ SCH ×2 (09:22→21:25)
[2023-03-14 11:12] LABS: Glucose,Whole Blood 339 mg/dL (70-110)
[2023-03-14] MEDS: HYDROcodone/APAP 5-325MG 1 EACH TAB PO PRN ×2 (12:04→17:18)
[2023-03-14] MEDS: ACETAMINOPHEN TAB 325 MG TAB PO PRN (13:39)
--- NOTE | 2023-03-14 14:14 | P.PN ---
Subjective Progress Note Date: 03/14/23 Principal diagnosis: left foot gangrene Patient seen and evaluated. Doing well. States pain is controlled. Denies any fevers, chills, chest pain or shortness of breath. Objective - Vital Signs Vital signs: Vital Signs Temp 98.7 F 03/14/23 13:14 Pulse 80 03/14/23 07:12 Resp 17 03/14/23 13:14 BP 144/87 03/14/23 13:14 Pulse Ox 98 03/14/23 13:14 FiO2 Intake & Output 03/13/23 03/14/23 03/14/23 18:59 06:59 18:59 Intake Total 1300 Output Total 200 1400 Balance 1100 -1400 Weight 117.027 kg Intake: IV 1300 Output: Urine 1400 Estimated Blood Loss 200 Other: Voiding Method Toilet Urinal - Exam Left wound VAC in place with some mild serosanguineous drainage. No ischemia noted. Good capillary refill at the flap - Constitutional General appearance: Present: morbidly obese - EENT Eyes: Present: PERRLA - Respiratory Respiratory: bilateral: CTA - Cardiovascular Rhythm: regular - Psychiatric Psychiatric: Present: A&O x's 3, appropriate affect, intact judgment & insight - Labs CBC & Chem 7: 03/13/23 15:58 03/14/23 06:14 Labs: Abnormal Lab Results - Last 24 Hours (Table) 03/13/23 03/13/23 03/13/23 Range/Units 04:48 14:51 15:58 RBC 3.54 L (4.30-5.90) m/uL Hgb 9.6 L (13.0-17.5) gm/dL Hct 30.5 L (39.0-53.0) % Creatinine (0.66-1.25) mg/dL POC Glucose (mg/dL) 192 H (70-110) mg/dL Hemoglobin A1c 13.3 H (<=6.0) % 03/13/23 03/13/23 03/13/23 Range/Units 16:49 17:56 20:18 RBC (4.30-5.90) m/uL Hgb (13.0-17.5) gm/dL Hct (39.0-53.0) % Creatinine (0.66-1.25) mg/dL POC Glucose (mg/dL) 181 H 355 H 346 H (70-110) mg/dL Hemoglobin A1c (<=6.0) % 03/14/23 03/14/23 03/14/23 Range/Units 05:30 06:14 11:10 RBC (4.30-5.90) m/uL Hgb (13.0-17.5) gm/dL Hct (39.0-53.0) % Creatinine 0.44 L (0.66-1.25) mg/dL POC Glucose (mg/dL) 315 H 339 H (70-110) mg/dL Hemoglobin A1c (<=6.0) % Microbiology - Last 24 Hours (Table) 03/12/23 13:43 Blood Culture - Preliminary Blood 03/12/23 13:43 Blood Culture Gram Stain - Preliminary Blood Assessment and Plan Assessment: Severe left diabetic foot infection Postoperative day 1 left TMA Left foot gangrene Diabetes Plan: Continue current wound VAC and antibiotics. Will change wound VAC on Thursday.
[2023-03-14 16:11] LABS: Glucose,Whole Blood 319 mg/dL (70-110)
[2023-03-14] MEDS: HYDROmorphone 0.5 MG/0.5 ML SYRINGE IVP PRN ×2 (18:27→22:37)
[2023-03-14 20:23] LABS: Glucose,Whole Blood 317 mg/dL (70-110)
--- NOTE | 2023-03-14 20:54 | PN ---
PROGRESS NOTE DATE OF SERVICE: 03/14/2023 SUBJECTIVE: This 52-year-old gentleman was admitted with severe diabetic foot and infection, underwent left transmetatarsal amputation. No chest pain, no palpitations, no fever. OBJECTIVE: VITAL SIGNS: Pulse is 80, blood pressure 157/80, respirations 16. CHEST: Clear to auscultation. CARDIOVASCULAR: S1, S2. ABDOMEN: Soft. LEGS: Foot infection present. LABORATORY DATA: Glucose 339. ASSESSMENT: 1. Left foot diabetic ulcer, cellulitis, infection with failure of outpatient treatment, status post transmetatarsal amputation. 2. Diabetes mellitus type 2, uncontrolled. 3. History of noncompliance. 4. History of CAD. 5. History of scrotal abscess. RECOMMENDATIONS: Recommend to continue current management, continue symptomatic treatment. Closely follow with vascular. Increase Lantus to 25 units subcu b.i.d. and continue to monitor. Prognosis guarded. Further recommendations to follow. MMODL / IJN: [id number] /
[2023-03-14] MEDS: GABAPENTIN 300 MG CAP PO SCH (21:25)
[2023-03-15] MEDS: VANCOMYCIN 2,000 MG in SODIUM CHLORIDE 0.9% 500 ML 500 ML IVPB SCH ×3 (03:26→22:18)
[2023-03-15] MEDS: HYDROmorphone 0.5 MG/0.5 ML SYRINGE IVP PRN ×2 (03:45→06:48)
[2023-03-15 05:41] LABS: Glucose,Whole Blood 237 mg/dL (70-110)
[2023-03-15] MEDS: INSULIN ASPART (NovoLOG) 100 UNIT/ML VIAL SQ SCH ×4 (06:47→22:23)
[2023-03-15] MEDS: PANTOPRAZOLE 40 MG TABLET PO SCH (06:47)
[2023-03-15] MEDS: AMPICILLIN-SULBACTAM 3 GM in SODIUM CHLORIDE 0.9% 100 ML IVPB SCH ×4 (06:47→22:12)
[2023-03-15] MEDS: INSULIN DETEMIR (LEVEMIR) 100 UNIT/ML SYR SQ SCH ×2 (06:47→22:11)
[2023-03-15] MEDS ORDERED: NON FORMULARY DRUG (Omeprazole [Omeprazole] 20 MG Capsule.Dr) PO SCH (09:00)
[2023-03-15] MEDS: HEPARIN SODIUM,PORCINE/PF 5,000 UNIT/0.5 ML SYRINGE SQ SCH ×2 (09:27→22:11)
[2023-03-15] MEDS: GABAPENTIN 300 MG CAP PO SCH ×2 (09:27→22:10)
[2023-03-15] MEDS: metroNIDAZOLE-NS PMX 500 MG in SALINE 1 100ML.BAG IVPB SCH ×2 (09:27→17:51)
[2023-03-15] MEDS: HYDROcodone/APAP 5-325MG 1 EACH TAB PO PRN (09:34)
[2023-03-15 09:54] LABS: Basophils # (A) 0.03 X 10*3/uL (0.00-0.10); Basophils % (A) 0.4 %; Eosinophils # (A) 0.09 X 10*3/uL (0.04-0.35); Eosinophils % (A) 1.1 %; HGB 8.6 d/dL (12.0-15.0); Lymphocytes # (A) 2.36 X 10*3/uL (0.90-5.00); Lymphocytes % (A) 28.6 %; MCH 26.6 pg (27.0-32.0); MCHC 30.7 d/dL (32.0-37.0); MCV 86.7 FL (80.0-97.0); Mean Platelet Volume 9.2 FL (9.5-12.2); Monocytes # (A) 0.85 X 10*3/uL (0.20-1.00); Monocytes % (A) 10.3 %; NRBC Per 100 WBC 0 X 10*3/uL (0.00-0.01); Neutrophils # (A) 4.87 X 10*3/uL (1.80-7.70); Neutrophils % (A) 58.9 %; Platelet Count 392 X 10*3/uL (140-440); RBC 3.23 X 10*6/uL (4.40-5.60); RDW 13.4 % (11.5-14.5); WBC 8.26 X 10*3/uL (4.50-10.00)
[2023-03-15 10:11] LABS: African American GFR (CKD) >90 (>60 ml/min/1.73 sqM); Non-African American GFR(CKD) >90 (>60 ml/min/1.73 sqM)
[2023-03-15 10:30] LABS: Blood Urea Nitrogen 7.9 mg/dL (9.0-27.0); Calcium 7.8 mg/dL (8.7-10.3); Carbon Dioxide 26.4 mmol/L (21.6-31.8); Chloride 104 mmol/L (96-109); Glucose 245 mg/dL (70-110); Potassium 4.1 mmol/L (3.5-5.5); Sodium 139 mmol/L (135-145)
[2023-03-15 11:56] LABS: Glucose,Whole Blood 221 mg/dL (70-110)
[2023-03-15] MEDS ORDERED: METOCLOPRAMIDE 5 MG/ML 2 ML VIAL IVP PRN (16:16)
[2023-03-15 17:04] LABS: Glucose,Whole Blood 168 mg/dL (70-110)
[2023-03-15] MEDS ORDERED: METOCLOPRAMIDE 5 MG/ML 2 ML VIAL IVP SCH (18:00)
--- NOTE | 2023-03-15 20:31 | P.PN ---
Subjective Progress Note Date: 03/14/23 Principal diagnosis: Left foot gangrene Patient is a 52-year-old male with a past medical history significant for diabetes mellitus history of diabetic foot infection presenting to the hospital for increasing pain discoloration and drainage from his left foot, patient was noticed to have gangrene left first and third toe dorsum of the foot and the patient is status post left transmetatarsal amputation completed on 03/13/2023. On today's evaluation that is 03/14/2023 the patient denies having any fever or any chills patient pain to the left foot transmetatarsal amputation site is currently controlled patient denies having any chest pain shortness of breath or cough no abdominal pain and no diarrhea Objective - Vital Signs Vital signs: Vital Signs Temp 98.7 F 03/14/23 07:12 Pulse 80 03/14/23 07:12 Resp 16 03/14/23 07:12 BP 157/84 03/14/23 07:12 Pulse Ox 97 03/14/23 07:12 FiO2 Intake & Output 03/13/23 03/14/23 03/14/23 18:59 06:59 18:59 Intake Total 1300 Output Total 200 1400 Balance 1100 -1400 Weight 117.027 kg Intake: IV 1300 Output: Urine 1400 Estimated Blood Loss 200 Other: Voiding Method Toilet Urinal - Exam GENERAL DESCRIPTION: Middle-age male lying in bed in no distress RESPIRATORY SYSTEM: Unlabored breathing , decreased breath sounds at bases HEART: S1 S2 regular rate and rhythm ,no loud murmurs ABDOMEN: Soft , no tenderness EXTREMITIES: Left foot transmetatarsal amputation site wound is covered with a wound VAC - Labs CBC & Chem 7: 03/15/23 04:38 03/15/23 09:37 Labs: Abnormal Lab Results - Last 24 Hours (Table) 03/13/23 03/13/23 03/13/23 Range/Units 04:48 14:51 15:58 RBC 3.54 L (4.30-5.90) m/uL Hgb 9.6 L (13.0-17.5) gm/dL Hct 30.5 L (39.0-53.0) % Creatinine (0.66-1.25) mg/dL POC Glucose (mg/dL) 192 H (70-110) mg/dL Hemoglobin A1c 13.3 H (<=6.0) % 03/13/23 03/13/23 03/13/23 Range/Units 16:49 17:56 20:18 RBC (4.30-5.90) m/uL Hgb (13.0-17.5) gm/dL Hct (39.0-53.0) % Creatinine (0.66-1.25) mg/dL POC Glucose (mg/dL) 181 H 355 H 346 H (70-110) mg/dL Hemoglobin A1c (<=6.0) % 03/14/23 03/14/23 03/14/23 Range/Units 05:30 06:14 11:10 RBC (4.30-5.90) m/uL Hgb (13.0-17.5) gm/dL Hct (39.0-53.0) % Creatinine 0.44 L (0.66-1.25) mg/dL POC Glucose (mg/dL) 315 H 339 H (70-110) mg/dL Hemoglobin A1c (<=6.0) % Microbiology - Last 24 Hours (Table) 03/12/23 13:43 Blood Culture - Preliminary Blood 03/12/23 13:43 Blood Culture Gram Stain - Preliminary Blood Assessment and Plan (1) Bacteremia Current Visit: Yes Status: Acute Code(s): R78.81 - BACTEREMIA SNOMED Code(s): 9047600 (2) Diabetic ulcer of left foot Current Visit: Yes Status: Acute Code(s): E11.621 - TYPE 2 DIABETES MELLITUS WITH FOOT ULCER; L97.529 - NON-PRESSURE CHRONIC ULCER OTH PRT LEFT FOOT W UNSP SEVERITY SNOMED Code(s): 717151217 (3) Foot osteomyelitis, left Current Visit: Yes Status: Acute Code(s): M86.9 - OSTEOMYELITIS, UNSPECIFIED SNOMED Code(s): 3068477880306705 (4) Gangrene of left foot Current Visit: Yes Status: Acute Code(s): I96 - GANGRENE, NOT ELSEWHERE CLASSIFIED SNOMED Code(s): 40031030263267509 Plan: 1patient presented to hospital with extensive left diabetic foot infection with evidence of wet gangrene foul-smelling drainage we will need to cover for the polymicrobial wing usually associated with diabetic foot infection 2-patient positive blood culture with gram-positive cocci likely related to his diabetic foot infection 3-Pt is s/p transmetatarsal amputation However no OR cultures has been done. 4-We will continue patient on vancomycin and Zosyn watching his kidney function closely and continue with supportive care
--- NOTE | 2023-03-15 20:33 | P.PN ---
Subjective Progress Note Date: 03/15/23 Principal diagnosis: Left foot gangrene Patient is a 52-year-old male with a past medical history significant for diabetes mellitus history of diabetic foot infection presenting to the hospital for increasing pain discoloration and drainage from his left foot, patient was noticed to have gangrene left first and third toe dorsum of the foot and the patient is status post left transmetatarsal amputation completed on 03/13/2023. On today's evaluation that is 03/15/2023 the patient remains to be afebrile patient pain to the left foot transmetatarsal amputation site is currently controlled patient denies having any chest pain shortness of breath or cough no abdominal pain and no diarrhea with antibiotic therapy Objective - Vital Signs Vital signs: Vital Signs Temp 98.5 F 03/15/23 08:33 Pulse 91 03/15/23 08:33 Resp 19 03/15/23 08:33 BP 163/89 03/15/23 08:33 Pulse Ox 92 L 03/15/23 08:33 FiO2 Intake & Output 03/14/23 03/15/23 03/15/23 18:59 06:59 18:59 Intake Total 1000 Output Total 1000 Balance 1000 -1000 Intake: Oral 1000 Output: Urine 1000 Other: Voiding Method Toilet Toilet Urinal Urinal Urinal # Voids 2 - Exam GENERAL DESCRIPTION: Middle-age male lying in bed in no distress RESPIRATORY SYSTEM: Unlabored breathing , decreased breath sounds at bases HEART: S1 S2 regular rate and rhythm ,no loud murmurs ABDOMEN: Soft , no tenderness EXTREMITIES: Left foot transmetatarsal amputation site wound is covered with a wound VAC - Labs CBC & Chem 7: 03/15/23 04:38 03/15/23 09:37 Labs: Abnormal Lab Results - Last 24 Hours (Table) 03/14/23 03/14/23 03/14/23 Range/Units 11:10 16:10 20:21 RBC (4.40-5.60) X 10*6/uL Hgb (12.0-15.0) d/dL Hct (39.6-50.0) % MCH (27.0-32.0) pg MCHC (32.0-37.0) d/dL MPV (9.5-12.2) FL BUN (9.0-27.0) mg/dL Creatinine (0.6-1.5) mg/dL Glucose (70-110) mg/dL POC Glucose (mg/dL) 339 H 319 H 317 H (70-110) mg/dL Calcium (8.7-10.3) mg/dL 03/15/23 03/15/23 03/15/23 Range/Units 04:38 04:38 05:39 RBC 3.23 L (4.40-5.60) X 10*6/uL Hgb 8.6 L (12.0-15.0) d/dL Hct 28.0 L (39.6-50.0) % MCH 26.6 L (27.0-32.0) pg MCHC 30.7 L (32.0-37.0) d/dL MPV 9.2 L (9.5-12.2) FL BUN 7.9 L (9.0-27.0) mg/dL Creatinine 0.5 L (0.6-1.5) mg/dL Glucose 245 H (70-110) mg/dL POC Glucose (mg/dL) 237 H (70-110) mg/dL Calcium 7.8 L (8.7-10.3) mg/dL 03/15/23 Range/Units 09:37 RBC (4.40-5.60) X 10*6/uL Hgb (12.0-15.0) d/dL Hct (39.6-50.0) % MCH (27.0-32.0) pg MCHC (32.0-37.0) d/dL MPV (9.5-12.2) FL BUN (9.0-27.0) mg/dL Creatinine 0.43 L (0.6-1.5) mg/dL Glucose (70-110) mg/dL POC Glucose (mg/dL) (70-110) mg/dL Calcium (8.7-10.3) mg/dL Microbiology - Last 24 Hours (Table) 03/12/23 13:43 Blood Culture Gram Stain - Final Blood 03/12/23 13:43 Blood Culture - Preliminary Blood Assessment and Plan (1) Bacteremia Current Visit: Yes Status: Acute Code(s): R78.81 - BACTEREMIA SNOMED Code(s): 4673926 (2) Diabetic ulcer of left foot Current Visit: Yes Status: Acute Code(s): E11.621 - TYPE 2 DIABETES MELLITUS WITH FOOT ULCER; L97.529 - NON-PRESSURE CHRONIC ULCER OTH PRT LEFT FOOT W UNSP SEVERITY SNOMED Code(s): 307044630 (3) Foot osteomyelitis, left Current Visit: Yes Status: Acute Code(s): M86.9 - OSTEOMYELITIS, UNSPECIFIED SNOMED Code(s): 4644674458795201 (4) Gangrene of left foot Current Visit: Yes Status: Acute Code(s): I96 - GANGRENE, NOT ELSEWHERE CLASSIFIED SNOMED Code(s): 00330577572773672 Plan: 1patient presented to hospital with extensive left diabetic foot infection with evidence of wet gangrene foul-smelling drainage we will need to cover for the polymicrobial wing usually associated with diabetic foot infection 2-patient positive blood culture with gram-positive cocci likely related to his diabetic foot infection 3-Pt is s/p transmetatarsal amputation However no OR cultures has been done. 4-We will continue the patient on vancomycin and Unasyn awaiting for repeat blood cultures and inflammatory markers will likely need IV antibiotic on discharge questions concerns answered
[2023-03-15 20:55] LABS: Glucose,Whole Blood 185 mg/dL (70-110)
[2023-03-15] MEDS: ACETAMINOPHEN TAB 325 MG TAB PO PRN (22:11)
[2023-03-15] MEDS: PANTOPRAZOLE 40 MG/10 ML VIAL IVP SCH (22:12)
--- NOTE | 2023-03-15 23:41 | PN ---
PROGRESS NOTE DATE OF SERVICE: 03/15/2023 SUBJECTIVE: This is a 52-year-old gentleman, who was admitted with left foot diabetic ulcers. Complains of vomiting. No chest pain. No palpitations. No fever. OBJECTIVE: VITAL SIGNS: Pulse is 91, blood pressure 163/89, respirations 19. HEENT: Conjunctivae normal. NECK: No JVD. CARDIOVASCULAR: S1, S2. RESPIRATIONS: Breath sounds diminished at the bases. ABDOMEN: Soft. NERVOUS SYSTEM: Nonfocal. LABORATORY DATA: Hemoglobin 8.6. Glucose noted. ASSESSMENT: 1. Left foot diabetic ulcer, cellulitis, infection with failure of outpatient treatment, status post transmetatarsal amputation. 2. Diabetes mellitus type 2, uncontrolled. 3. Vomiting, possible acute gastritis. 4. History of noncompliance. 5. History of coronary artery disease. 6. History of scrotal abscess. RECOMMENDATIONS: Recommend to continue current management and continue symptomatic treatment. IV Protonix. Closely follow. Repeat labs in the morning. Closely follow with Vascular Surgery and Infectious Disease. Further recommendations to follow. MMODL / IJN: [id number] /
[2023-03-16] MEDS: AMPICILLIN-SULBACTAM 3 GM in SODIUM CHLORIDE 0.9% 100 ML IVPB SCH ×3 (04:09→17:41)
[2023-03-16] MEDS: VANCOMYCIN 2,000 MG in SODIUM CHLORIDE 0.9% 500 ML 500 ML IVPB SCH ×3 (05:48→22:15)
[2023-03-16 06:05] LABS: Glucose,Whole Blood 190 mg/dL (70-110)
[2023-03-16] MEDS: INSULIN ASPART (NovoLOG) 100 UNIT/ML VIAL SQ SCH ×4 (06:34→20:40)
[2023-03-16] MEDS: INSULIN DETEMIR (LEVEMIR) 100 UNIT/ML SYR SQ SCH ×2 (06:34→21:14)
[2023-03-16] MEDS: PANTOPRAZOLE 40 MG/10 ML VIAL IVP SCH ×2 (08:13→20:41)
[2023-03-16] MEDS: HYDROmorphone 0.5 MG/0.5 ML SYRINGE IVP PRN ×4 (08:18→20:41)
[2023-03-16] MEDS: HEPARIN SODIUM,PORCINE/PF 5,000 UNIT/0.5 ML SYRINGE SQ SCH ×2 (08:59→20:40)
[2023-03-16] MEDS: GABAPENTIN 300 MG CAP PO SCH ×2 (08:59→20:42)
[2023-03-16] MEDS: HYDROcodone/APAP 5-325MG 1 EACH TAB PO PRN (09:53)
--- NOTE | 2023-03-16 10:26 | P.PN ---
Subjective Progress Note Date: 03/16/23 Status post transmetatarsal amputation left foot Objective - Vital Signs Vital signs: Vital Signs Temp 97.9 F 03/16/23 08:12 Pulse 95 03/16/23 08:12 Resp 18 03/16/23 08:12 BP 153/83 03/16/23 08:12 Pulse Ox 98 03/16/23 08:12 FiO2 Intake & Output 03/15/23 03/16/23 03/16/23 18:59 06:59 18:59 Intake Total 1000 1200 Output Total 400 2250 Balance 600 -1050 Intake: Intake, IV Titration 1200 Amount Ampicillin-Sulbactam 3 gm 200 In Sodium Chloride 0.9% 100 ml @ 200 mls/hr IVPB Q6H [facility] Rx#:[id number] Vancomycin 2,000 mg In 1000 Sodium Chloride 0.9% 500 ml 500 ml @ 167 mls/hr IVPB Q8H [facility] Rx#: [id number] Oral 1000 Output: Drainage 50 Left Foot 50 Urine 2200 Emesis 400 Other: Voiding Method Urinal # Voids 2 2 # Bowel Movements 1 - Exam Patient awake, alert and in no apparent distress. The wound VAC was taken down and all sponge material removed. Good granular tissue is noted throughout. No evidence of undermining or tunneling on the dorsum of the foot. We will wash the foot and reapply wound VAC. - Labs CBC & Chem 7: 03/15/23 04:38 03/15/23 09:37 Labs: Abnormal Lab Results - Last 24 Hours (Table) 03/15/23 03/15/23 03/15/23 Range/Units 04:38 11:54 17:02 BUN 7.9 L (9.0-27.0) mg/dL Creatinine 0.5 L (0.6-1.5) mg/dL Glucose 245 H (70-110) mg/dL POC Glucose (mg/dL) 221 H 168 H (70-110) mg/dL Calcium 7.8 L (8.7-10.3) mg/dL 03/15/23 03/16/23 Range/Units 20:54 06:04 BUN (9.0-27.0) mg/dL Creatinine (0.6-1.5) mg/dL Glucose (70-110) mg/dL POC Glucose (mg/dL) 185 H 190 H (70-110) mg/dL Calcium (8.7-10.3) mg/dL Microbiology - Last 24 Hours (Table) 03/12/23 13:43 Blood Culture - Preliminary Blood 03/12/23 13:43 Blood Culture Gram Stain - Final Blood Assessment and Plan Assessment: Status post transmetatarsal amputation left foot with wound VAC placement Plan: Wound VAC change today. Time with Patient: Less than 30
[2023-03-16 11:51] LABS: Glucose,Whole Blood 231 mg/dL (70-110)
[2023-03-16 11:55] LABS: Basophils # (A) 0.04 X 10*3/uL (0.00-0.10); Basophils % (A) 0.5 %; Eosinophils % (A) 1.3 %; HCT 29.7 % (39.6-50.0); HGB 9.1 d/dL (12.0-15.0); Lymphocytes # (A) 1.81 X 10*3/uL (0.90-5.00); Lymphocytes % (A) 22.9 %; MCH 27.2 pg (27.0-32.0); MCHC 30.6 d/dL (32.0-37.0); MCV 88.9 FL (80.0-97.0); Mean Platelet Volume 9.5 FL (9.5-12.2); Monocytes # (A) 0.94 X 10*3/uL (0.20-1.00); Monocytes % (A) 11.9 %; NRBC Per 100 WBC 0 X 10*3/uL (0.00-0.01); Neutrophils # (A) 4.93 X 10*3/uL (1.80-7.70); Neutrophils % (A) 62.5 %; Platelet Count 426 X 10*3/uL (140-440); RBC 3.34 X 10*6/uL (4.40-5.60); RDW 13.7 % (11.5-14.5); WBC 7.89 X 10*3/uL (4.50-10.00)
[2023-03-16 12:18] LABS: BUN/Creat Ratio 18.25 Ratio (12.00-20.00); Blood Urea Nitrogen 7.3 mg/dL (9.0-27.0); Chloride 103 mmol/L (96-109); Glucose 182 mg/dL (70-110); Sodium 140 mmol/L (135-145)
[2023-03-16 12:19] LABS: Carbon Dioxide 28.7 mmol/L (21.6-31.8)
--- NOTE | 2023-03-16 12:41 | P.CONS ---
History of Present Illness - Reason for Consult Consult date: 03/16/23 wound vac - History of Present Illness This is a 52-year-old patient with history of diabetes and gangrene to the left foot. Patient is status post a metatarsal amputation currently with negative pressure wound VAC in place. Patient states he is a former smoker. Planning to go to rehab upon discharge. Patient currently has negative pressure wound VAC and [address] tolerating well. Indication site shows suture in place and are well approximated. Review Of Systems: Constitutional: No fever, no chills, no night sweats. No weight change. No weakness, fatigue or lethargy. No daytime sleepiness. Integumentary:reports wounds, no lesions. No rash or pruritus. No unusual bruising. No change in hair or nails. Physical exam: General Appearance: Alert, cooperative, no distress, appears stated age. Skin: See HPI all other Skin color, texture, tugor normal, no rashes or lesions. Neurologic: Alert oriented x3 Assessment: 1. Left foot gangrene 2. Diabetic foot ulcer with infection 3. Osteomyelitis Plan: 1. Continue with negative pressure wound VAC to the site change Thursday. Utilize black foam and 125 mm/Hg. we'll be happy to see the patient in the wound care center upon discharge. Thank you for the consultation any questions please contact the wound care center DNP note has been reviewed and discussed with Dr. Kilpatrick and the impression and plan of care has been directed as dictated. Past Medical History Past Medical History: No Reported History, Diabetes Mellitus Additional Past Medical History / Comment(s): Covid 3 years ago, with hospitalization History of Any Multi-Drug Resistant Organisms: None Reported Past Surgical History: Orthopedic Surgery Additional Past Surgical History / Comment(s): LEFT KNEE ARTHROSCOPY Past Anesthesia/Blood Transfusion Reactions: No Reported Reaction Past Psychological History: No Psychological Hx Reported Smoking Status: Former smoker Past Alcohol Use History: None Reported Past Drug Use History: None Reported Additional Drug Use History / Comment(s): Occasional marijuana use - Past Family History Family Family Medical History: No Reported History Additional Family Medical History / Comment(s): PATIENT ADOPTED FAMILY HX UNKNOWN Medications and Allergies Home Medications Medication Instructions Recorded Confirmed Type Acetaminophen [Tylenol] 650 mg PO Q6H PRN 03/12/23 03/12/23 History Omeprazole 20 mg PO DAILY 03/12/23 03/12/23 History metFORMIN HCL 1,000 mg PO BID 03/12/23 03/12/23 History Allergies Allergy/AdvReac Type Severity Reaction Status Date / Time Mushroom Allergy Anaphylaxis Verified 03/13/23 11:55 Physical Exam Vitals: Vital Signs Temp Pulse Resp BP Pulse Ox 03/16/23 08:12 97.9 F 95 18 153/83 98 03/16/23 02:00 97.7 F 94 17 154/99 97 03/15/23 20:00 98.9 F 99 153/92 95 03/15/23 14:30 98.0 F 93 19 150/82 95 Intake and Output 03/15/23 03/16/23 03/16/23 22:59 06:59 14:59 Intake Total 1000 1200 Output Total 250 2200 Balance 750 -1000 Intake: Intake, IV Titration 1200 Amount Ampicillin-Sulbactam 3 gm 200 In Sodium Chloride 0.9% 100 ml @ 200 mls/hr IVPB Q6H [facility] Rx#:[id number] Vancomycin 2,000 mg In 1000 Sodium Chloride 0.9% 500 ml 500 ml @ 167 mls/hr IVPB Q8H [facility] Rx#: [id number] Oral 1000 Output: Drainage 50 Left Foot 50 Urine 2200 Emesis 200 Other: # Voids 1 2 # Bowel Movements 1 1 Results CBC & Chem 7: 03/16/23 05:44 03/16/23 05:44 Labs: Abnormal Lab Results - Last 24 Hours (Table) 03/15/23 03/15/23 03/16/23 Range/Units 17:02 20:54 05:44 RBC 3.34 L (4.40-5.60) X 10*6/uL Hgb 9.1 L (12.0-15.0) d/dL Hct 29.7 L (39.6-50.0) % MCHC 30.6 L (32.0-37.0) d/dL BUN (9.0-27.0) mg/dL Creatinine (0.6-1.5) mg/dL Glucose (70-110) mg/dL POC Glucose (mg/dL) 168 H 185 H (70-110) mg/dL Calcium (8.7-10.3) mg/dL C-Reactive Protein (0.00-0.80) mg/dL 03/16/23 03/16/23 03/16/23 Range/Units 05:44 06:04 11:49 RBC (4.40-5.60) X 10*6/uL Hgb (12.0-15.0) d/dL Hct (39.6-50.0) % MCHC (32.0-37.0) d/dL BUN 7.3 L (9.0-27.0) mg/dL Creatinine 0.4 L (0.6-1.5) mg/dL Glucose 182 H (70-110) mg/dL POC Glucose (mg/dL) 190 H 231 H (70-110) mg/dL Calcium 8.0 L (8.7-10.3) mg/dL C-Reactive Protein 5.10 H (0.00-0.80) mg/dL Microbiology - Last 24 Hours (Table) 03/12/23 13:43 Blood Culture - Preliminary Blood 03/12/23 13:43 Blood Culture Gram Stain - Final Blood Assessment and Plan (1) Non-pressure chronic ulcer of other part of left foot with necrosis of bone Current Visit: Yes Status: Acute Code(s): L97.524 - NON-PRS CHRONIC ULCER OTH PRT LEFT FOOT W NECROSIS OF BONE SNOMED Code(s): 10287211236270488 (2) Diabetic ulcer of left foot Current Visit: Yes Status: Acute Code(s): E11.621 - TYPE 2 DIABETES MELLITUS WITH FOOT ULCER; L97.529 - NON-PRESSURE CHRONIC ULCER OTH PRT LEFT FOOT W UNSP SEVERITY SNOMED Code(s): 920836734 (3) Foot osteomyelitis, left Current Visit: Yes Status: Acute Code(s): M86.9 - OSTEOMYELITIS, UNSPECIFIED SNOMED Code(s): 4185529273703704 (4) Gangrene of left foot Current Visit: Yes Status: Acute Code(s): I96 - GANGRENE, NOT ELSEWHERE CLASSIFIED SNOMED Code(s): 68200440470895960
[2023-03-16 13:49] LABS: Erythrocyte Sedimentation Rate >130 mm/Hr (0-15)
[2023-03-16 16:32] LABS: Glucose,Whole Blood 278 mg/dL (70-110)
[2023-03-16] MEDS: SENNOSIDES 8.6 MG TAB PO SCH ×2 (16:44→21:14)
[2023-03-16 20:23] LABS: Glucose,Whole Blood 280 mg/dL (70-110)
--- NOTE | 2023-03-16 22:41 | P.PN ---
Subjective Progress Note Date: 03/16/23 Principal diagnosis: Left foot gangrene Patient is a 52-year-old male with a past medical history significant for diabetes mellitus history of diabetic foot infection presenting to the hospital for increasing pain discoloration and drainage from his left foot, patient was noticed to have gangrene left first and third toe dorsum of the foot and the patient is status post left transmetatarsal amputation completed on 03/13/2023. On today's evaluation that is 03/16/2023 patient denies having any fever or any chills patient is breathing comfortably no chest pain no shortness of breath or cough no abdominal pain or diarrhea pain to the left foot is currently controlled Objective - Vital Signs Vital signs: Vital Signs Temp 97.9 F 03/16/23 08:12 Pulse 95 03/16/23 08:12 Resp 18 03/16/23 08:12 BP 153/83 03/16/23 08:12 Pulse Ox 98 03/16/23 08:12 FiO2 Intake & Output 03/15/23 03/16/23 03/16/23 18:59 06:59 18:59 Intake Total 1000 1200 Output Total 400 2250 Balance 600 -1050 Intake: Intake, IV Titration 1200 Amount Ampicillin-Sulbactam 3 gm 200 In Sodium Chloride 0.9% 100 ml @ 200 mls/hr IVPB Q6H [facility] Rx#:[id number] Vancomycin 2,000 mg In 1000 Sodium Chloride 0.9% 500 ml 500 ml @ 167 mls/hr IVPB Q8H [facility] Rx#: [id number] Oral 1000 Output: Drainage 50 Left Foot 50 Urine 2200 Emesis 400 Other: Voiding Method Urinal # Voids 2 2 # Bowel Movements 1 - Exam GENERAL DESCRIPTION: Middle-age male lying in bed in no distress RESPIRATORY SYSTEM: Unlabored breathing , decreased breath sounds at bases HEART: S1 S2 regular rate and rhythm ,no loud murmurs ABDOMEN: Soft , no tenderness EXTREMITIES: Left foot transmetatarsal amputation site wound is covered with a wound VAC - Labs CBC & Chem 7: 03/16/23 05:44 03/16/23 05:44 Labs: Abnormal Lab Results - Last 24 Hours (Table) 03/15/23 03/15/23 03/16/23 Range/Units 17:02 20:54 05:44 RBC 3.34 L (4.40-5.60) X 10*6/uL Hgb 9.1 L (12.0-15.0) d/dL Hct 29.7 L (39.6-50.0) % MCHC 30.6 L (32.0-37.0) d/dL BUN (9.0-27.0) mg/dL Creatinine (0.6-1.5) mg/dL Glucose (70-110) mg/dL POC Glucose (mg/dL) 168 H 185 H (70-110) mg/dL Calcium (8.7-10.3) mg/dL C-Reactive Protein (0.00-0.80) mg/dL 03/16/23 03/16/23 03/16/23 Range/Units 05:44 06:04 11:49 RBC (4.40-5.60) X 10*6/uL Hgb (12.0-15.0) d/dL Hct (39.6-50.0) % MCHC (32.0-37.0) d/dL BUN 7.3 L (9.0-27.0) mg/dL Creatinine 0.4 L (0.6-1.5) mg/dL Glucose 182 H (70-110) mg/dL POC Glucose (mg/dL) 190 H 231 H (70-110) mg/dL Calcium 8.0 L (8.7-10.3) mg/dL C-Reactive Protein 5.10 H (0.00-0.80) mg/dL Microbiology - Last 24 Hours (Table) 03/12/23 13:43 Blood Culture - Preliminary Blood 03/12/23 13:43 Blood Culture Gram Stain - Final Blood Assessment and Plan (1) Bacteremia Current Visit: Yes Status: Acute Code(s): R78.81 - BACTEREMIA SNOMED Code(s): 0375400 (2) Diabetic ulcer of left foot Current Visit: Yes Status: Acute Code(s): E11.621 - TYPE 2 DIABETES MELLITUS WITH FOOT ULCER; L97.529 - NON-PRESSURE CHRONIC ULCER OTH PRT LEFT FOOT W UNSP SEVERITY SNOMED Code(s): 966414272 (3) Foot osteomyelitis, left Current Visit: Yes Status: Acute Code(s): M86.9 - OSTEOMYELITIS, UNSPECIFIED SNOMED Code(s): 3908210937854163 (4) Gangrene of left foot Current Visit: Yes Status: Acute Code(s): I96 - GANGRENE, NOT ELSEWHERE CLASSIFIED SNOMED Code(s): 23328377405489625 Plan: 1patient presented to hospital with extensive left diabetic foot infection with evidence of wet gangrene foul-smelling drainage we will need to cover for the polymicrobial wing usually associated with diabetic foot infection 2-patient positive blood culture with gram-positive cocci likely related to his diabetic foot infection 3-Pt is s/p transmetatarsal amputation However no OR cultures has been done. 4-We are still waiting for the final on the blood culture from blood culture has been repeated those are negative so far Will need a PICC line for outpatient IV antibiotic therapy continue the vancomycin and Unasyn at this point Time with Patient: Less than 30
[2023-03-17] MEDS: AMPICILLIN-SULBACTAM 3 GM in SODIUM CHLORIDE 0.9% 100 ML IVPB SCH ×3 (01:46→12:08)
--- NOTE | 2023-03-17 05:44 | P.PN ---
Subjective Progress Note Date: 03/16/23 This is a 52 -year-old male who was recently admitted foot pain and diabetic ulcers with cellulitis and failure of outpatient treatment being closely monitored. Infectious disease along with vascular surgery and wounds following as patient is status post transmetatarsal amputation on the left. Patient continues with wound VAC and IV antibiotics and wound VAC was changed today. Patient is currently afebrile with no reports of chest pain or shortness of breath. Patient was having some nausea although feels improved and will continue antinausea medications. Patient with significant weakness and wound care requiring IV antibiotics and planning for ECF with social work following. Encouraged increased activity as tolerated. Patient also reports having difficulty with bowel movements but will add stool softeners. He Review of systems: Constitutional: No reports of fatigue, fever, or chills Cardiovascular: No reports of chest pain or palpitations Respiratory: No reports of shortness of breath or cough GI: reports of occasional nausea, no reports of vomiting, Reporting some constipation : No reports of dysuria or retention Neurovascular: reports of generalized weakness All medications have been reviewed PHYSICAL EXAMINATION: GENERAL: The patient is alert and oriented x4, Well developed, well nourished. Obese HEENT: Pupils are round and equally reacting to light. EOMI. no scleral icterus. No conjunctival pallor. Normocephalic, atraumatic. No pharyngeal erythema. No thyromegaly. CARDIOVASCULAR: S1 and S2 muffled PULMONARY: diminished breath sounds bilaterally with no wheezing or rhonchi noted. ABDOMEN: soft. Nontender on exam. obese. non-distended, normoactive bowel sounds. No palpable organomegaly. MUSCULOSKELETAL: No joint swelling or deformity. EXTREMITIES: No cyanosis, clubbing, or pedal edema. Left foot with wound VAC NEUROLOGICAL: Gross neurological examination did not reveal any focal deficits. Diffuse weakness SKIN: No rashes. Assessment: Left foot diabetic ulcer with cellulitis and infection with failure of outpatient treatment, present on admission, status post transmetatarsal amputation Diabetes mellitus type 2, uncontrolled with hypoglycemia Vomiting with possible acute gastritis, improved History of noncompliance History of coronary disease [place] history of scrotal abscess Obesity with a BMI of 36.0 GI prophylaxis DVT prophylaxis Full code Plan: Recommend to continue with current medications and management with infectious disease and vascular surgery following. Patient is status post transmetatarsal 8 dictation on the left and wound VAC being changed today. Good suction noted Infectious disease following maintained on IV antibiotics will likely require IV antibiotics on discharge and continued wound care Social work following and plans for ECF with possible [facility] being planned Will discuss with other consultations about discharge planning and hopeful for discharge to ECF within the next 24-48 hours. The impression and plan of care has been dictated by Dorcas Spangler, nurse practitioner as directed. Dr. Jose Luis MD I have performed a history and examination and MDM of this patient, discussed the same with the dictator, and agree with the dictator's assessment and plan as written ,documented as a scribe. Based on total visit time, I have performed more than 50% of the visit. Any additional findings or plans will be noted. Objective - Vital Signs Vital signs: Vital Signs Temp 97.9 F 03/16/23 08:12 Pulse 95 03/16/23 08:12 Resp 18 03/16/23 08:12 BP 153/83 03/16/23 08:12 Pulse Ox 98 03/16/23 08:12 FiO2 Intake & Output 03/15/23 03/16/23 03/16/23 18:59 06:59 18:59 Intake Total 1000 1200 Output Total 400 2250 Balance 600 -1050 Intake: Intake, IV Titration 1200 Amount Ampicillin-Sulbactam 3 gm 200 In Sodium Chloride 0.9% 100 ml @ 200 mls/hr IVPB Q6H [facility] Rx#:[id number] Vancomycin 2,000 mg In 1000 Sodium Chloride 0.9% 500 ml 500 ml @ 167 mls/hr IVPB Q8H [facility] Rx#: [id number] Oral 1000 Output: Drainage 50 Left Foot 50 Urine 2200 Emesis 400 Other: Voiding Method Urinal # Voids 2 2 # Bowel Movements 1 - Labs CBC & Chem 7: 03/16/23 05:44 03/16/23 05:44 Labs: Abnormal Lab Results - Last 24 Hours (Table) 03/15/23 03/15/23 03/15/23 Range/Units 04:38 11:54 17:02 BUN 7.9 L (9.0-27.0) mg/dL Creatinine 0.5 L (0.6-1.5) mg/dL Glucose 245 H (70-110) mg/dL POC Glucose (mg/dL) 221 H 168 H (70-110) mg/dL Calcium 7.8 L (8.7-10.3) mg/dL 03/15/23 03/16/23 Range/Units 20:54 06:04 BUN (9.0-27.0) mg/dL Creatinine (0.6-1.5) mg/dL Glucose (70-110) mg/dL POC Glucose (mg/dL) 185 H 190 H (70-110) mg/dL Calcium (8.7-10.3) mg/dL Microbiology - Last 24 Hours (Table) 03/12/23 13:43 Blood Culture - Preliminary Blood 03/12/23 13:43 Blood Culture Gram Stain - Final Blood
[2023-03-17] MEDS: VANCOMYCIN 2,000 MG in SODIUM CHLORIDE 0.9% 500 ML 500 ML IVPB SCH (05:46)
[2023-03-17 05:52] LABS: Glucose,Whole Blood 222 mg/dL (70-110)
[2023-03-17 06:49] LABS: African American GFR (CKD) >90 (>60 ml/min/1.73 sqM); Non-African American GFR(CKD) >90 (>60 ml/min/1.73 sqM)
[2023-03-17] MEDS: INSULIN DETEMIR (LEVEMIR) 100 UNIT/ML SYR SQ SCH (06:52)
[2023-03-17] MEDS: INSULIN ASPART (NovoLOG) 100 UNIT/ML VIAL SQ SCH ×2 (06:52→12:37)
[2023-03-17] MEDS ORDERED: LIDOCAINE 1% INJ 10MG/ML (5 ML VIAL-PF) SQ ONE (08:59)
--- NOTE | 2023-03-17 09:57 | IR ---
PICC LINE PLACEMENT: HISTORY: Infection requiring long-term antibiotic therapy PROCEDURE: Ultrasound and fluoroscopic guidance of PICC line placement. COMPLICATIONS: None ANESTHESIA: 1. 1% Lidocaine locally. FINDINGS/TECHNIQUE: The procedure was explained to the patient. The risks, complications, benefits and alternatives were discussed and any questions were answered. Informed consent was obtained. The patient was placed supine on the fluoroscopic table and prepped and draped in the usual sterile fash ion. Utilizing a 21 gauge needle and sonographic and fluoroscopic guidance, access in the left basi lic vein was achieved and there is placement of a 0.018 guidewire. The vein is patent. A 4-F sheath was placed over the guidewire. The guidewire and dilator were removed and a 4-F. PICC line was plac ed through the sheath with the tip at the level of the SVC. The sheath was removed, the catheter was flushed and sutured into position. The patient was stable throughout the procedure and remained sta ble upon discharge from the Department of Radiology. The vein puncture was patent under ultrasound. A vásquez scale image was obtained to document patency of the vein punctured. All elements of the maximal barrier technique were utilized. FLUOROSCOPY TIME: DAP 0.567Gy cm2 IMPRESSION: Successful PICC line placement under ultrasound and fluoroscopic guidance.
[2023-03-17] MEDS: HYDROmorphone 0.5 MG/0.5 ML SYRINGE IVP PRN ×2 (10:04→15:20)
[2023-03-17] MEDS: PANTOPRAZOLE 40 MG/10 ML VIAL IVP SCH (10:05)
[2023-03-17] MEDS: SENNOSIDES 8.6 MG TAB PO SCH (10:06)
[2023-03-17] MEDS: HEPARIN SODIUM,PORCINE/PF 5,000 UNIT/0.5 ML SYRINGE SQ SCH (10:07)
[2023-03-17] MEDS: GABAPENTIN 300 MG CAP PO SCH (10:07)
[2023-03-17 11:28] LABS: Glucose,Whole Blood 223 mg/dL (70-110)
--- NOTE | 2023-03-17 13:28 | P.PN ---
Subjective Progress Note Date: 03/17/23 Principal diagnosis: Left foot gangrene Patient seen and evaluated as a follow-up. Doing well. Negative pressure wound VAC was changed yesterday. Pain is well controlled. Denies fevers chills, chest pain or shortness of breath. Patient has been afebrile. Objective - Vital Signs Vital signs: Vital Signs Temp 98.0 F 03/17/23 07:01 Pulse 91 03/17/23 07:01 Resp 17 03/17/23 07:01 BP 156/88 03/17/23 07:01 Pulse Ox 92 L 03/17/23 07:01 FiO2 Intake & Output 03/16/23 03/17/23 03/17/23 18:59 06:59 18:59 Intake Total 700 Output Total 1850 Balance 700 -1850 Intake: Intake, IV Titration 700 Amount Ampicillin-Sulbactam 3 gm 200 In Sodium Chloride 0.9% 100 ml @ 200 mls/hr IVPB Q6H [facility] Rx#:[id number] Vancomycin 2,000 mg In 500 Sodium Chloride 0.9% 500 ml 500 ml @ 167 mls/hr IVPB Q8H [facility] Rx#: [id number] Output: Urine 1850 Other: # Voids 3 # Bowel Movements 1 - Exam General appearance: The patient is alert, oriented, appears in no acute distress. HET: Head is normocephalic and atraumatic. Pupils are equal and reactive. Neck: Supple. Abdomen: Soft, nontender, nondistended. Extremities: Left wound VAC in place with mild serosanguineous drainage. Good capillary refill. Neurological: No focal deficits. Strength and sensation are grossly intact. - Labs CBC & Chem 7: 03/16/23 05:44 03/17/23 05:48 Labs: Abnormal Lab Results - Last 24 Hours (Table) 03/16/23 03/16/23 03/16/23 Range/Units 05:44 05:44 11:49 RBC 3.34 L (4.40-5.60) X 10*6/uL Hgb 9.1 L (12.0-15.0) d/dL Hct 29.7 L (39.6-50.0) % MCHC 30.6 L (32.0-37.0) d/dL ESR >130 H (0-15) mm/Hr BUN 7.3 L (9.0-27.0) mg/dL Creatinine 0.4 L (0.6-1.5) mg/dL Glucose 182 H (70-110) mg/dL POC Glucose (mg/dL) 231 H (70-110) mg/dL Calcium 8.0 L (8.7-10.3) mg/dL C-Reactive Protein 5.10 H (0.00-0.80) mg/dL 03/16/23 03/16/23 03/17/23 Range/Units :23 20:22 05:48 RBC (4.40-5.60) X 10*6/uL Hgb (12.0-15.0) d/dL Hct (39.6-50.0) % MCHC (32.0-37.0) d/dL ESR (0-15) mm/Hr BUN (9.0-27.0) mg/dL Creatinine 0.47 L (0.6-1.5) mg/dL Glucose (70-110) mg/dL POC Glucose (mg/dL) 278 H 280 H (70-110) mg/dL Calcium (8.7-10.3) mg/dL C-Reactive Protein (0.00-0.80) mg/dL 03/17/23 Range/Units 05:50 RBC (4.40-5.60) X 10*6/uL Hgb (12.0-15.0) d/dL Hct (39.6-50.0) % MCHC (32.0-37.0) d/dL ESR (0-15) mm/Hr BUN (9.0-27.0) mg/dL Creatinine (0.6-1.5) mg/dL Glucose (70-110) mg/dL POC Glucose (mg/dL) 222 H (70-110) mg/dL Calcium (8.7-10.3) mg/dL C-Reactive Protein (0.00-0.80) mg/dL Assessment and Plan Assessment: 1. Severe left diabetic foot infection 2. Postop day #3 left TMA 3. Left foot gangrene 4. Diabetes Plan: Continue current wound that, change Thursday. Follow-up with wound care on discharge. Follow-up with Dr. Mera in 2 weeks. Patient is cleared from vascular surgery for discharge. Await recommendations from infectious disease. Thank you for this consultation. The impression and plan of care has been dictated as directed. I performed a history and examination of this patient, discussed the same with the dictator. I agree with the dictator's note ,documented as a scribe. Any additional findings or plans will be noted.
[2023-03-17 14:31] VITALS: BP 153/89; PULSE 94; RESP 17; TEMP 98.2
--- NOTE | 2023-03-17 14:39 | P.DS ---
Providers Date of admission: 03/12/23 15:27 Expected date of discharge: 03/17/23 Attending physician: Jerson Greenberg Consults: 03/12/23 15:14 Consult Physician Urgent Consulting Provider: Silvano Cai Consult Reason/Comments: Left foot osteomyelitis, gangrene, diabetic ulceration Do you want consulting provider notified?: Yes Consult Physician Urgent Consulting Provider: Sana Patterson Consult Reason/Comments: Left foot osteomyelitis, gangrene Do you want consulting provider notified?: Yes Primary care physician: Rj Robert Hospital Course: Final diagnosis Left foot diabetic ulcer with cellulitis and infection with failure of outpatient treatment, present on admission, status post transmetatarsal amputation Diabetes mellitus type 2, uncontrolled with hyperglycemia Vomiting with possible acute gastritis, improved History of noncompliance History of coronary disease history of scrotal abscess Obesity with a BMI of 36.0 GI prophylaxis DVT prophylaxis Full code Discharge disposition Patient is being discharged in a stable condition with guarded prognosis to [facility] . Patient will follow-up with Dr. Robert in the outpatient setting upon discharge. Patient is to continue with IV antibiotics for the next 4 weeks per ID recommendations and close outpatient follow-up with vascular surgery and infectious disease as scheduled. Total time taken is greater than 35 minutes. Hospital course This is a 52-year-old male who was recently admitted with failure of outpatient treatment of left foot cellulitis along with diabetic ulcers. Patient was seen and evaluated by vascular surgery initially a bone scan was ordered although patient underwent transmetatarsal amputation of all the toes on the left and does have a wound VAC currently. Patient had dressing changed and will be following up outpatient in the next 1-2 weeks with vascular surgery. Patient has received a PICC line and has been cleared by consultations. Please refer to consultation notes for further HPI. Patient is a diabetic somewhat uncontrolled with hyperglycemia would recommend tight glycemic control and Accu-Cheks before meals and at bedtime with a consistent carb diet. Currently no reports of chest pain, shortness of breath, or palpitations. Patient is afebrile. No reports of nausea or vomiting and patient is tolerating diet. Patient will be going to [facility] today. Guarded prognosis. Physical exam: Gen: This is a 52-year-old male who is awake, alert and oriented 3, well- developed, well-nourished, obese HEENT: Head is atraumatic, normocephalic. Pupils equal, round. Sclerae is anicteric. NECK: Supple. No JVD. No lymphadenopathy. No thyromegaly. LUNGS: Clear to auscultation. No wheezes or rhonchi. No intercostal retractions. HEART: Regular rate and rhythm. No murmur. ABDOMEN: Soft. Bowel sounds are present. No masses. No tenderness. EXTREMITIES: No pedal edema. No calf tenderness. Left foot wound VAC with positive suction with minimal redness and swelling significantly improved NEUROLOGICAL: Patient is awake, alert and oriented x3. Cranial nerves 2 through 12 are grossly intact. Diffusely weak Please refer to medication reconciliation sheet for a list of medications. The impression and plan of care has been dictated by Dorcas Spangler, Nurse Practitioner as directed. Dr. Jose Luis MD I have performed a history and examination and MDM of this patient, discussed the same with the dictator, and agree with the dictator's assessment and plan as written ,documented as a scribe. Based on total visit time, I have performed more than 50% of the visit. Patient Condition at Discharge: Stable Plan - Discharge Summary Discharge Rx Participant: No New Discharge Prescriptions: New Ampicillin-Sulbactam [Unasyn 3 gm vial] 3 gm IVPB Q6H 30 Days #120 each Insulin Detemir (Levemir) [Levemir] 25 unit SQ BID@0700,2100 each Gabapentin [Neurontin] 300 mg PO BID #6 cap HYDROcodone/APAP 5-325MG [[place] 5-325] 1 each PO Q4HR PRN #4 tab PRN Reason: Moderate Pain (Scale 4 To 6) Pantoprazole [Protonix] 40 mg PO BID #60 tab Heparin Sodium,Porcine [Heparin Sodium] 5,000 unit SQ Q12HR #60 each INSULIN ASPART (NovoLOG) [NovoLOG (formulary)] 0 unit SQ ACHS each Sennosides [Senokot] 8.6 mg PO BID tab Continue Acetaminophen [Tylenol] 650 mg PO Q6H PRN PRN Reason: Pain metFORMIN HCL 1,000 mg PO BID Omeprazole 20 mg PO DAILY Discharge Medication List Acetaminophen [Tylenol] 650 mg PO Q6H PRN 03/12/23 [History] Omeprazole 20 mg PO DAILY 03/12/23 [History] metFORMIN HCL 1,000 mg PO BID 03/12/23 [History] Ampicillin-Sulbactam [Unasyn 3 gm vial] 3 gm IVPB Q6H 30 Days #120 each 03/17/23 [Rx] Gabapentin [Neurontin] 300 mg PO BID #6 cap 03/17/23 [Rx] HYDROcodone/APAP 5-325MG [[place] 5-325] 1 each PO Q4HR PRN #4 tab 03/17/23 [Rx] Heparin Sodium,Porcine [Heparin Sodium] 5,000 unit SQ Q12HR #60 each 03/17/23 [Rx] INSULIN ASPART (NovoLOG) [NovoLOG (formulary)] 0 unit SQ ACHS each 03/17/23 [Rx] Insulin Detemir (Levemir) [Levemir] 25 unit SQ BID@0700,2100 each 03/17/23 [Rx] Pantoprazole [Protonix] 40 mg PO BID #60 tab 03/17/23 [Rx] Sennosides [Senokot] 8.6 mg PO BID tab 03/17/23 [Rx] Follow up Appointment(s)/Referral(s): Rj Robert MD [Primary Care Provider] - 1-2 days Shakira Mera DO [STAFF PHYSICIAN] - 2 Weeks [facility] [NON-STAFF] - 1 Week [facility] [place], [NON-STAFF] - As Needed Sana Patterson MD [STAFF PHYSICIAN] - 1 Week Activity/Diet/Wound Care/Special Instructions: Patient is going to [facility] Activity as tolerated Continue with antibiotics for minimum 4 weeks with a PICC line per ID recommendations Recommend follow-up with vascular and infectious disease outpatient in 1-2 weeks Continue with wound VAC and local wound care Continue to monitor blood sugars before meals and at bedtime Discharge Disposition: TRANSFER TO SNF/ECF
[2023-03-17] MEDS: HYDROcodone/APAP 5-325MG 1 EACH TAB PO PRN (15:20)
--- NOTE | 2023-03-17 16:08 | P.PN ---
Subjective Progress Note Date: 03/17/23 Principal diagnosis: Left foot gangrene Patient is a 52-year-old male with a past medical history significant for diabetes mellitus history of diabetic foot infection presenting to the hospital for increasing pain discoloration and drainage from his left foot, patient was noticed to have gangrene left first and third toe dorsum of the foot and the patient is status post left transmetatarsal amputation completed on 03/13/2023. On today's evaluation that is 03/17/2023 patient remains to be afebrile, patient is breathing comfortably on room air, the patient denies chest pain no shortness of breath or cough no abdominal pain or diarrhea pain to the left foot is curren tly controlled Objective - Vital Signs Vital signs: Vital Signs Temp 98.0 F 03/17/23 07:01 Pulse 91 03/17/23 07:01 Resp 16 03/17/23 08:35 BP 156/88 03/17/23 07:01 Pulse Ox 92 L 03/17/23 07:01 FiO2 Intake & Output 03/16/23 03/17/23 03/17/23 18:59 06:59 18:59 Intake Total 700 Output Total 1850 Balance 700 -1850 Weight 117.027 kg Intake: Intake, IV Titration 700 Amount Ampicillin-Sulbactam 3 gm 200 In Sodium Chloride 0.9% 100 ml @ 200 mls/hr IVPB Q6H [facility] Rx#:[id number] Vancomycin 2,000 mg In 500 Sodium Chloride 0.9% 500 ml 500 ml @ 167 mls/hr IVPB Q8H [facility] Rx#: [id number] Output: Urine 1850 Other: Voiding Method Urinal # Voids 3 # Bowel Movements 1 - Exam GENERAL DESCRIPTION: Middle-age male lying in bed in no distress RESPIRATORY SYSTEM: Unlabored breathing , decreased breath sounds at bases HEART: S1 S2 regular rate and rhythm ,no loud murmurs ABDOMEN: Soft , no tenderness EXTREMITIES: Left foot transmetatarsal amputation site wound is covered with a wound VAC - Labs CBC & Chem 7: 03/16/23 05:44 03/17/23 05:48 Labs: Abnormal Lab Results - Last 24 Hours (Table) 03/16/23 03/16/23 03/16/23 Range/Units 05:44 16:23 20:22 ESR >130 H (0-15) mm/Hr Creatinine (0.66-1.25) mg/dL POC Glucose (mg/dL) 278 H 280 H (70-110) mg/dL 03/17/23 03/17/23 03/17/23 Range/Units 05:48 05:50 11:26 ESR (0-15) mm/Hr Creatinine 0.47 L (0.66-1.25) mg/dL POC Glucose (mg/dL) 222 H 223 H (70-110) mg/dL Microbiology - Last 24 Hours (Table) 03/16/23 05:44 Blood Culture - Preliminary Blood Assessment and Plan (1) Bacteremia Status: Acute Code(s): R78.81 - BACTEREMIA SNOMED Code(s): 5437652 (2) Diabetic ulcer of left foot Status: Acute Code(s): E11.621 - TYPE 2 DIABETES MELLITUS WITH FOOT ULCER; L97.529 - NON-PRESSURE CHRONIC ULCER OTH PRT LEFT FOOT W UNSP SEVERITY SNOMED Code(s): 658700559 (3) Foot osteomyelitis, left Status: Acute Code(s): M86.9 - OSTEOMYELITIS, UNSPECIFIED SNOMED Code(s): 4267875882204256 (4) Gangrene of left foot Status: Acute Code(s): I96 - GANGRENE, NOT ELSEWHERE CLASSIFIED SNOMED Code(s): 81613063897316913 Plan: 1patient presented to hospital with extensive left diabetic foot infection with evidence of wet gangrene foul-smelling drainage we will need to cover for the polymicrobial wing usually associated with diabetic foot infection 2-patient positive blood culture with gram-positive cocci likely related to his diabetic foot infection 3-Pt is s/p transmetatarsal amputation However no OR cultures has been done. 4-patient initial blood culture positive for gram-positive in chains, which was not been identified. Repeat Blood culture has been negative patient has previously grown mostly strep and anaerobes on the basis of those culture we will recommend Unasyn 3 g every 6 hours for 4 weeks discontinue vancomycin and blood pressure follow-up this was discussed with the and T4 admitted day working on discharge
[2023-03-18] MEDS ORDERED: VANCOMYCIN TROUGH DUE 1 EACH MISC MISCELLANE ONE (05:00)
== END 2023-03-17 16:03 | DRG 240 ==
LOC: EC 12:39 → 4SSUR 15:27
PROVIDERS: ADMIT Hospitalist; ATTEND Hospitalist
PROC: 0Y6N0ZD Detachment at Left Foot, Partial 4th Ray, Open Approach (ICD-10-PCS; principal; 2023-03-13 07:30)
PROC: 0Y6N0ZB Detachment at Left Foot, Partial 2nd Ray, Open Approach (ICD-10-PCS; principal; 2023-03-13 07:30)
PROC: 0Y6N0Z9 Detachment at Left Foot, Partial 1st Ray, Open Approach (ICD-10-PCS; principal; 2023-03-13 07:30)
PROC: 0KBW0ZZ Excision of Left Foot Muscle, Open Approach (ICD-10-PCS; principal; 2023-03-13 07:30)
PROC: 0Y6N0ZC Detachment at Left Foot, Partial 3rd Ray, Open Approach (ICD-10-PCS; principal; 2023-03-13 07:30)
PROC: 0Y6N0ZF Detachment at Left Foot, Partial 5th Ray, Open Approach (ICD-10-PCS; principal; 2023-03-13 07:30)
PROC: 02HV33Z Insertion of Infusion Device into Superior Vena Cava, Percutaneous Approach (ICD-10-PCS; 2023-03-17)
DX: E11.52 Type 2 diabetes mellitus with diabetic peripheral angiopathy with gangrene (principal); L03.116 Cellulitis of left lower limb; M86.9 Osteomyelitis, unspecified; E11.69 Type 2 diabetes mellitus with other specified complication; E11.621 Type 2 diabetes mellitus with foot ulcer; E11.628 Type 2 diabetes mellitus with other skin complications; E11.65 Type 2 diabetes mellitus with hyperglycemia; K29.00 Acute gastritis without bleeding; E66.9 Obesity, unspecified; Z68.36 Body mass index [BMI] 36.0-36.9, adult; I25.10 Atherosclerotic heart disease of native coronary artery without angina pectoris; L97.524 Non-pressure chronic ulcer of other part of left foot with necrosis of bone; Z79.84 Long term (current) use of oral hypoglycemic drugs; Z86.16 Personal history of COVID-19; Z91.199 Patient's noncompliance with other medical treatment and regimen due to unspecified reason; Z79.899 Other long term (current) drug therapy; Z87.891 Personal history of nicotine dependence
CPT/HCPCS: 36415; 36573; 64445; 64447; 80048; 80053; 80202; 82565; 83036; 83605; 85025; 85027; 85652; 86140; 87040; 96365; 96366; 96375; 99284

== ENCOUNTER 2023-04-08 10:56 | Day surgery (SDC) | payer BC ==
--- NOTE | 2023-04-08 10:04 | P.GSHP ---
History of Present Illness H&P Date: 04/08/23 Chief Complaint: Ulcer left foot Patient is status post left transmit amputation with open wound on the dorsum of the foot. - Constitutional Constitutional: Denies chills, Denies fever - EENT Eyes: denies blurred vision, denies pain Ears, nose, mouth and throat: Denies headache, Denies sore throat - Cardiovascular Cardiovascular: Denies chest pain, Denies shortness of breath - Respiratory Respiratory: Denies cough, Denies 7 - Gastrointestinal Gastrointestinal: Denies abdominal pain, Denies diarrhea, Denies nausea, Denies vomiting - Genitourinary (Female) Genitourinary: Denies dysuria, Denies hematuria - Genitourinary (Male) Genitourinary: Denies dysuria, Denies hematuria - Musculoskeletal Musculoskeletal: Denies myalgias - Integumentary Integumentary: Denies pruritus, Denies rash - Neurological Neurological: Denies numbness, Denies weakness - Psychiatric Psychiatric: Denies anxiety, Denies depression - Endocrine Endocrine: Denies fatigue, Denies weight change Past Medical History Past Medical History: Coronary Artery Disease (CAD), Diabetes Mellitus, GERD/Reflux Additional Past Medical History / Comment(s): Covid 3 years ago, with hospitalization,non healing wound to left foot post transmetatarsal amputation History of Any Multi-Drug Resistant Organisms: None Reported Past Surgical History: Orthopedic Surgery Additional Past Surgical History / Comment(s): LEFT KNEE ARTHROSCOPY , transmetatarsal amputation of left foot Past Anesthesia/Blood Transfusion Reactions: No Reported Reaction Smoking Status: Former smoker - Past Family History Family Family Medical History: No Reported History Additional Family Medical History / Comment(s): PATIENT ADOPTED FAMILY HX UNKNOWN Medications and Allergies Home Medications Medication Instructions Recorded Confirmed Type Acetaminophen [Tylenol] 650 mg PO Q6H PRN 03/12/23 04/02/23 History Omeprazole 20 mg PO DAILY 03/12/23 04/02/23 History metFORMIN HCL 1,000 mg PO BID 03/12/23 04/02/23 History Ampicillin-Sulbactam [Unasyn 3 gm 3 gm IVPB Q6H 30 Days #120 each 03/17/23 04/02/23 Rx vial] Gabapentin [Neurontin] 300 mg PO BID #6 cap 03/17/23 04/02/23 Rx HYDROcodone/APAP 5-325MG [[place] 1 each PO Q4HR PRN #4 tab 03/17/23 04/02/23 Rx 5-325] Heparin Sodium,Porcine (1 ml) 5,000 unit SQ Q12HR #60 each 03/17/23 04/02/23 Rx [Heparin Sodium] INSULIN ASPART (NovoLOG) [NovoLOG 0 unit SQ ACHS each 03/17/23 04/02/23 Rx (formulary)] Insulin Detemir (Levemir) [Levemir] 25 unit SQ BID@0700,2100 each 03/17/23 04/02/23 Rx Sennosides [Senokot] 8.6 mg PO BID tab 03/17/23 04/02/23 Rx Allergies Allergy/AdvReac Type Severity Reaction Status Date / Time Mushroom Allergy Anaphylaxis Verified 04/02/23 12:29 Surgical - Exam Osteopathic Statement: *. No significant issues noted on an osteopathic structural exam other than those noted in the History and Physical/Consult. - General well developed, well nourished, no distress - Eyes normal ocular movement, no icteric - ENT no hearing loss, no congestion - Neck no masses, trachea midline - Respiratory normal respiratory effort, clear to auscultation - Abdomen Abdomen: soft, non tender, no guarding, no rigid, no rebound - Integumentary no rash, no abnormal pigmentation - Neurologic no disoriented, no combative - Psychiatric oriented to time, oriented to person, oriented to place, speech is normal, memory intact 3.8 x 6 cm open ulcer dorsum lateral aspect left foot. Assessment and Plan (1) Diabetic ulcer of left foot associated with diabetes mellitus due to underlying condition, with necrosis of bone Status: Acute Code(s): E08.621 - DIABETES MELLITUS DUE TO UNDERLYING CONDITION W FOOT ULCER; L97.524 - NON-PRS CHRONIC ULCER OTH PRT LEFT FOOT W NECROSIS OF BONE SNOMED Code(s): 403577483 Plan: Patient is admitted for split-thickness skin graft dorsum left foot. We discussed with patient in detail options for wound treatments and the specific benefit and risk assessment of split-thickness skin graft. He verbalizes an understanding of the process and his desire to proceed.
[~2023-04-08 10:56] MED LIST: HYDROmorphone 0.5 MG/0.5 ML SYRINGE IVP PRN; LACTATED RINGERS 1,000 ML IV SCH; LIDOCAINE 1% (10MG/ML) FOR IV START INTRADERMA PRN; ONDANSETRON 4 MG/2 ML VIAL IVP ONE; droPERidol 5 MG/2 ML VIAL IVP ONE
[2023-04-08 12:06] VITALS: TEMP 96.7
[2023-04-08 12:09] LABS: Glucose,Whole Blood 130 mg/dL (70-110)
[2023-04-08] MEDS ORDERED: fentaNYL (PF) 50 MCG/ML 2 ML AMP ONE (12:22)
[2023-04-08] MEDS ORDERED: MIDAZOLAM 2 MG/2 ML VIAL ONE (12:22)
[2023-04-08] MEDS ORDERED: PROPOFOL 10 MG/ML 20 ML VIAL IV ONE (12:22)
[2023-04-08] MEDS ORDERED: KETAMINE 10 MG/ML 20 ML VIAL ONE (12:22)
[2023-04-08] MEDS ORDERED: MINERAL OIL 1 APPLIC/ML OIL TOPICAL ONE ×2 (12:44)
[2023-04-08] MEDS ORDERED: MINERAL OIL 1 APPLIC/ML OIL MISCELLANE ONE (12:44)
--- NOTE | 2023-04-08 13:30 | P.OP ---
Date of Procedure: 04/08/23 Preoperative Diagnosis: Ulceration left foot Postoperative Diagnosis: Same Procedure(s) Performed: Debridement left foot and split-thickness skin graft Anesthesia: MAC Surgeon: Roger Kilpatrick Estimated Blood Loss (ml): 20 Pathology: none sent Condition: stable Disposition: PACU Indications for Procedure: The patient has large ulceration on the dorsum of his left foot status post left transmetatarsal amputation. Operative Findings: The majority of the tissues of the dorsum of left foot are well granulated. Distally there was some nonviable fascia. Also some nonviable fatty tissue. Description of Procedure: The patient in supine position, under benefit of IV sedation, we prepped and draped in standard fashion. Using sharp curette scalpel and forceps we did a vigorous debridement of the area of ulceration including some slough and fibrous tissue as well as some fascia and subcutaneous tissue. The dimensions of the wound and the dimension the skin graft were 3.8 x 6 cm with a depth of about 0.7 cm. We then took to 1 inch strips about 2 inches long from the anterior left thigh using a dermatome thickness of about 0.08. This was meshed 1-3 and placed anatomically over the ulceration. It was smoothed out and flattened out gently with forceps. We then secured in place with personal 1 which was anchored with half inch Steri-Strips. Absorptive silver and hydrogel were then placed over the wound. Gauze and Kerlix were utilized to further secure the wound and Coban placed over this. The patient tolerated the procedure well and was taken recovery area in stable condition.
[2023-04-08 13:33] VITALS: RESP 16
[2023-04-08 13:36] LABS: Glucose,Whole Blood 93 mg/dL (70-110)
[2023-04-08 13:41] VITALS: BP 111/74; PULSE 87
== END 2023-04-08 14:21 | disposition home or self-care (01) ==
LOC: OR 10:56
PROVIDERS: ATTEND Thoracic Surgery (Cardiothoracic Vascular Surgery)
DX: E11.621 Type 2 diabetes mellitus with foot ulcer (principal); I25.10 Atherosclerotic heart disease of native coronary artery without angina pectoris; K21.9 Gastro-esophageal reflux disease without esophagitis; Z86.16 Personal history of COVID-19; Z87.891 Personal history of nicotine dependence; Z79.84 Long term (current) use of oral hypoglycemic drugs; Z79.899 Other long term (current) drug therapy; Z79.4 Long term (current) use of insulin
CPT/HCPCS: 15120; 15004; J2250; J0690; J2405; J3010; J2704

== ENCOUNTER 2023-12-01 21:16 | Emergency (ER) | payer BC, OTHER ==
--- NOTE | 2023-12-01 21:27 | ED ---
Eye Problem HPI - General Chief complaint: Eye Problems Stated complaint: left eye irritation Time Seen by Provider: 12/01/23 21:26 Source: patient, RN notes reviewed Mode of arrival: ambulatory Limitations: no limitations - History of Present Illness Initial comments: 53 year old male with a history of diabetes presents emergency department chief complaint of left eye pain. He states that this afternoon a bottle of garlic salt fell from his cabinets striking and hitting him in his left eye. Patient states that he immediately rinsed out his eye with salt and use warm compresses at home. States that he and his eyes been extremely irritating him he has been itching as well. No other acute symptoms. Patient denies loss of vision or blurry/double vision of the left eye - Related Data Home Medications Medication Instructions Recorded Confirmed Acetaminophen [Tylenol] 650 mg PO Q6H PRN 03/12/23 04/08/23 Omeprazole 20 mg PO DAILY 03/12/23 04/08/23 metFORMIN HCL 1,000 mg PO BID 03/12/23 04/08/23 Previous Rx's Medication Instructions Recorded Ampicillin-Sulbactam [Unasyn 3 gm 3 gm IVPB Q6H 30 Days #120 each 03/17/23 vial] Gabapentin [Neurontin] 300 mg PO BID #6 cap 03/17/23 HYDROcodone/APAP 5-325MG [[place] 1 each PO Q4HR PRN #4 tab 03/17/23 5-325] Heparin Sodium,Porcine (1 ml) 5,000 unit SQ Q12HR #60 each 03/17/23 [Heparin Sodium] INSULIN ASPART (NovoLOG) [NovoLOG 0 unit SQ ACHS each 03/17/23 (formulary)] Insulin Detemir (Levemir) [Levemir] 25 unit SQ BID@0700,2100 each 03/17/23 Sennosides [Senokot] 8.6 mg PO BID tab 03/17/23 Allergies Allergy/AdvReac Type Severity Reaction Status Date / Time Mushroom Allergy Anaphylaxis Verified 12/01/23 21:22 Review of Systems ROS Statement: Those systems with pertinent positive or pertinent negative responses have been documented in the HPI. ROS Other: All systems not noted in ROS Statement are negative. Past Medical History Past Medical History: Coronary Artery Disease (CAD), Diabetes Mellitus, GERD/Reflux Additional Past Medical History / Comment(s): Covid 3 years ago, with hospitalization,non healing wound to left foot post transmetatarsal amputation History of Any Multi-Drug Resistant Organisms: None Reported Past Surgical History: Orthopedic Surgery Additional Past Surgical History / Comment(s): LEFT KNEE ARTHROSCOPY , transmetatarsal amputation of left foot Past Anesthesia/Blood Transfusion Reactions: No Reported Reaction Past Psychological History: No Psychological Hx Reported Smoking Status: Former smoker Past Alcohol Use History: Occasional Past Drug Use History: None Reported - Past Family History Family Family Medical History: No Reported History Additional Family Medical History / Comment(s): PATIENT ADOPTED FAMILY HX UNKNOWN General Exam Limitations: no limitations General appearance: alert, in no apparent distress Expanded Eyelids: Laceration: Left (2 mm area of ulceration noted at the lower lashline ), Stye: Left, Erythema: Left, Swelling: Left Pupils: Regular, Round: Bilateral, Reactive: Bilateral Sclera/Conjunctival: Injection: Left ENT exam: Present: normal exam, mucous membranes moist Neck exam: Present: normal inspection. Absent: tenderness, meningismus, lymphadenopathy Respiratory exam: Present: normal lung sounds bilaterally. Absent: respiratory distress, wheezes, rales, rhonchi, stridor Cardiovascular Exam: Present: regular rate, normal rhythm, normal heart sounds. Absent: systolic murmur, diastolic murmur, rubs, gallop, clicks GI/Abdominal exam: Present: soft, normal bowel sounds. Absent: distended, tenderness, guarding, rebound, rigid Extremities exam: Present: normal inspection, full ROM, normal capillary refill. Absent: tenderness, pedal edema, joint swelling, calf tenderness Back exam: Present: normal inspection Neurological exam: Present: alert, oriented X3, CN II-XII intact Psychiatric exam: Present: normal affect, normal mood Skin exam: Present: warm, dry, intact, normal color. Absent: rash Course Vital Signs 12/01/23 21:22 Temperature 98.1 F Pulse Rate 102 H Respiratory 18 Rate Blood Pressure 150/93 O2 Sat by Pulse 99 Oximetry Medical Decision Making - Medical Decision Making Was pt. sent in by a medical professional or institution (, PA, COAT TAILOR, urgent care, hospital, or usp...) When possible be specific @ -No Did you speak to anyone other than the patient for history (EMS, parent, family, police, friend...)? What history was obtained from this source @ -No Did you review nursing and triage notes (agree or disagree)? Why? @ -I reviewed and agree with nursing and triage notes Were old charts reviewed (outside hosp., previous admission, EMS record, old EKG, old radiological studies, urgent care reports/EKG's, usp records)? Report findings @ -No old charts were reviewed Differential Diagnosis (chest pain, altered mental status, abdominal pain women, abdominal pain men, vaginal bleeding, weakness, fever, dyspnea, syncope, headache, dizziness, GI bleed, back pain, seizure, CVA, palpatations, mental health, musculoskeletal)? @ -foreign body in eye, corneal abrasion, scleral irritation EKG interpreted by me (3pts min.). @ -none X-rays interpreted by me (1pt min.). @ -None done CT interpreted by me (1pt min.). @ -None done U/S interpreted by me (1pt. min.). @ -None done What testing was considered but not performed or refused? (CT, X-rays, U/S, labs)? Why? @ -None What meds were considered but not given or refused? Why? @ -None Did you discuss the management of the patient with other professionals (pro fessionals i.e. , PA, COAT TAILOR, lab, RT, psych nurse, pediatric social worker, loan services professional, teacher, inspectors and regulatory officers, director of casework services)? Give summary @ -No Was smoking cessation discussed for >3mins.? @ -No Was critical care preformed (if so, how long)? @ -No Were there social determinants of health that impacted care today? How? (Homelessness, low income, unemployed, alcoholism, drug addiction, transportation, low edu. Level, literacy, decrease access to med. care, fci, rehab)? @ -No Was there de-escalation of care discussed even if they declined (Discuss DNR or withdrawal of care, Hospice)? DNR status @ -No What co-morbidities impacted this encounter? (DM, HTN, Smoking, COPD, CAD, Cancer, CVA, ARF, Chemo, Hep., AIDS, mental health diagnosis, sleep apnea, morbid obesity)? @ -None Was patient admitted / discharged? Hospital course, mention meds given and route, prescriptions, significant lab abnormalities, going to OR and other pertinent info. @ -Discharged. 53-year-old male chief complaint of left eye pain. Topical anesthetic drops and fluorescein stain was completed on the patient's left eye and direct visualization under Rodriguez lamp with no acute signs of ulceration, corneal abrasion, or foreign bodies noted. physical exam patient was found to have roughly 2 mm area of ulceration and 1 millimeter area of purulent material being expelled from the lower lash line. Patient's left lower eyelid and eye itself was extremely edematous. At this time patient will be sent home with topical antibiotic drops to be used 4 times a day for a week and continue to use warm compresses at home to aid in relief and removing foreign bodies from eye. Undiagnosed new problem with uncertain prognosis? @ -No Drug Therapy requiring intensive monitoring for toxicity (Heparin, Nitro, Insulin, Cardizem)? @ -No Were any procedures done? @ -Fluorescein staining and visualization under Rodriguez lamp Diagnosis/symptom? @ -Eye irritation, conjunctival injection, foreign body in eye, eye trauma Acute, or Chronic, or Acute on Chronic? @ -acute Uncomplicated (without systemic symptoms) or Complicated (systemic symptoms)? @ -uncomplicated Side effects of treatment? @ -No Exacerbation, Progression, or Severe Exacerbation? @ -No Poses a threat to life or bodily function? How? (Chest pain, [place], [place], pneumonia, PE, COPD, DKA, ARF, appy, cholecystitis, CVA, Diverticulitis, Homicidal, Suicidal, threat to staff... and all critical care pts) @ -No Disposition Clinical Impression: Blepharitis, Foreign body, eye Narrative: Please return to the Emergency Department if symptoms worsen or any other concerns. Continue to use topical antibiotic drops in left eye 1 drops every 4 hours for the next 7 days. an continue to use warm compresses at home. Disposition: HOME SELF-CARE Condition: Good Instructions (If sedation given, give patient instructions): Eye Wash (Into the eye) Is patient prescribed a controlled substance at d/c from ED?: No Referrals: None,Stated [Primary Care Provider] - 1-2 days Time of Disposition: 21:51
[2023-12-01] MEDS: PROPARACAINE 0.5% OPHTH DROPS 15 ML BTL LEFT EYE STA (21:33)
[2023-12-01] MEDS: FLUORESCEIN STRIPS 1 MG STRIP LEFT EYE ONE (21:34)
[2023-12-01 21:44] VITALS: RESP 18
[2023-12-01] MEDS: TOBRAMYCIN 0.3% OPHTH DROPS 5 ML BTL LEFT EYE STA (21:52)
[2023-12-01] MEDS: POLYMYXIN B-TRIMETHOPRIM SULF (10,000-1) OPHTH DROPS 10 ML BTL LEFT EYE SCH (22:19)
[2023-12-01 22:25] VITALS: BP 144/96; PULSE 93; TEMP 98.4
== END 2023-12-01 22:26 | disposition home or self-care (01) ==
LOC: EC 21:16
DX: T15.92XA Foreign body on external eye, part unspecified, left eye, initial encounter (principal); Z86.16 Personal history of COVID-19; Z87.891 Personal history of nicotine dependence; Z91.018 Allergy to other foods
CPT/HCPCS: 99282

== ENCOUNTER 2024-08-09 21:32 | Inpatient (IN) | payer OTHER ==
--- NOTE | 2024-08-09 22:19 | ED ---
General Adult HPI - General Stated complaint: SOB abnormal labs Time Seen by Provider: 08/09/24 21:36 Source: patient, EMS, RN notes reviewed Mode of arrival: EMS Limitations: physical limitation - History of Present Illness Initial comments: 54-year-old male presents emergency department chief complaint of diabetic issues, foot infection. Patient states that his insurance just got switched does not have his current diabetic medications. States blood sugars fairly elevated. 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 Patient states was done by Dr. Mera. Patient denies any fevers or chills states he just generalized does not feel well. - Related Data Home Medications Medication Instructions Recorded Confirmed Acetaminophen [Tylenol] 650 mg PO Q6H PRN 03/12/23 04/08/23 Omeprazole 20 mg PO DAILY 03/12/23 04/08/23 metFORMIN HCL 1,000 mg PO BID 03/12/23 04/08/23 Previous Rx's Medication Instructions Recorded Ampicillin-Sulbactam [Unasyn 3 gm 3 gm IVPB Q6H 30 Days #120 each 03/17/23 vial] Gabapentin [Neurontin] 300 mg PO BID #6 cap 03/17/23 HYDROcodone/APAP 5-325MG [[place] 1 each PO Q4HR PRN #4 tab 03/17/23 5-325] Heparin Sodium,Porcine (1 ml) 5,000 unit SQ Q12HR #60 each 03/17/23 [Heparin Sodium] INSULIN ASPART (NovoLOG) [NovoLOG 0 unit SQ ACHS each 03/17/23 (formulary)] Insulin Detemir (Levemir) [Levemir] 25 unit SQ BID@0700,2100 each 03/17/23 Sennosides [Senokot] 8.6 mg PO BID tab 03/17/23 Allergies Allergy/AdvReac Type Severity Reaction Status Date / Time Mushroom Allergy Anaphylaxis Verified 08/09/24 22:35 Review of Systems ROS Statement: Those systems with pertinent positive or pertinent negative responses have been documented in the HPI. ROS Other: All systems not noted in ROS Statement are negative. Past Medical History Past Medical History: Coronary Artery Disease (CAD), Diabetes Mellitus, GERD/Reflux Additional Past Medical History / Comment(s): Covid 3 years ago, with hospitalization,non healing wound to left foot post transmetatarsal amputation History of Any Multi-Drug Resistant Organisms: None Reported Past Surgical History: Orthopedic Surgery Additional Past Surgical History / Comment(s): LEFT KNEE ARTHROSCOPY , transmeta tarsal amputation of left foot Past Anesthesia/Blood Transfusion Reactions: No Reported Reaction Past Psychological History: No Psychological Hx Reported Smoking Status: Former smoker Past Alcohol Use History: Occasional Past Drug Use History: None Reported - Past Family History Family Family Medical History: No Reported History Additional Family Medical History / Comment(s): PATIENT ADOPTED FAMILY HX UNKNOWN General Exam Limitations: no limitations General appearance: alert, in no apparent distress Head exam: Present: atraumatic, normocephalic, normal inspection Eye exam: Present: normal appearance, PERRL, EOMI. Absent: scleral icterus, conjunctival injection, periorbital swelling ENT exam: Present: normal exam, normal oropharynx, mucous membranes moist Neck exam: Present: normal inspection, full ROM. Absent: tenderness, meningismus, lymphadenopathy Respiratory exam: Present: normal lung sounds bilaterally. Absent: respiratory distress, wheezes, rales, rhonchi, stridor Cardiovascular Exam: Present: regular rate, normal rhythm, normal heart sounds. Absent: systolic murmur, diastolic murmur, rubs, gallop, clicks Extremities exam: Present: other (Gangrenous changes of the third digit with blistering and erythematous changes of the distal foot with erythema spreading into the proximal foot) Neurological exam: Present: alert Skin exam: Present: warm, dry, intact, normal color. Absent: rash Course Vital Signs 08/09/24 22:34 Temperature 97.9 F Pulse Rate 110 H Respiratory 18 Rate Blood Pressure 136/78 O2 Sat by Pulse 99 Oximetry Medical Decision Making - Lab Data Result diagrams: 08/09/24 23:04 08/09/24 23:04 Lab Results 08/09/24 08/09/24 08/09/24 Range/Units 23:04 23:04 23:04 WBC 22.0 H (3.8-10.6) k/uL RBC 4.17 L (4.30-5.90) m/uL Hgb 11.8 L (13.0-17.5) gm/dL Hct 36.0 L (39.0-53.0) % MCV 86.3 (80.0-100.0) fL MCH 28.3 (25.0-35.0) pg MCHC 32.8 (31.0-37.0) g/dL RDW 12.4 (11.5-15.5) % Plt Count 375 (150-450) k/uL MPV 7.3 Neutrophils % 90 % Lymphocytes % 4 % Monocytes % 5 % Eosinophils % 0 % Basophils % 0 % Neutrophils # 19.7 H (1.3-7.7) k/uL Lymphocytes # 0.9 L (1.0-4.8) k/uL Monocytes # 1.1 H (0-1.0) k/uL Eosinophils # 0.1 (0-0.7) k/uL Basophils # 0.0 (0-0.2) k/uL VBG pH (7.31-7.41) VBG pCO2 (37-51) mmHg VBG HCO3 (24-28) mmol/L Sodium 127 L (137-145) mmol/L Potassium 4.2 (3.5-5.1) mmol/L Chloride 97 L (98-107) mmol/L Carbon Dioxide 18 L (22-30) mmol/L Anion Gap 12 mmol/L BUN 21 H (9-20) mg/dL Creatinine 1.17 (0.66-1.25) mg/dL Est GFR (CKD-EPI)AfAm 82 (>60 ml/min/1.73 sqM) Est GFR (CKD-EPI)NonAf 71 (>60 ml/min/1.73 sqM) Glucose 475 H (74-99) mg/dL Plasma Lactic Acid Markos 1.9 (0.7-2.0) mmol/L Calcium 8.3 L (8.4-10.2) mg/dL Total Bilirubin 0.7 (0.2-1.3) mg/dL AST 15 L (17-59) U/L ALT 9 (4-49) U/L Alkaline Phosphatase 127 H (38-126) U/L C-Reactive Protein 21.1 H (<1.0) mg/dL Total Protein 6.7 (6.3-8.2) g/dL Albumin 3.0 L (3.5-5.0) g/dL Acetone, Qual Positive (Negative) 08/09/24 Range/Units 23:04 WBC (3.8-10.6) k/uL RBC (4.30-5.90) m/uL Hgb (13.0-17.5) gm/dL Hct (39.0-53.0) % MCV (80.0-100.0) fL MCH (25.0-35.0) pg MCHC (31.0-37.0) g/dL RDW (11.5-15.5) % Plt Count (150-450) k/uL MPV Neutrophils % % Lymphocytes % % Monocytes % % Eosinophils % % Basophils % % Neutrophils # (1.3-7.7) k/uL Lymphocytes # (1.0-4.8) k/uL Monocytes # (0-1.0) k/uL Eosinophils # (0-0.7) k/uL Basophils # (0-0.2) k/uL VBG pH 7.48 H (7.31-7.41) VBG pCO2 27 L (37-51) mmHg VBG HCO3 20 L (24-28) mmol/L Sodium (137-145) mmol/L Potassium (3.5-5.1) mmol/L Chloride (98-107) mmol/L Carbon Dioxide (22-30) mmol/L Anion Gap mmol/L BUN (9-20) mg/dL Creatinine (0.66-1.25) mg/dL Est GFR (CKD-EPI)AfAm (>60 ml/min/1.73 sqM) Est GFR (CKD-EPI)NonAf (>60 ml/min/1.73 sqM) Glucose (74-99) mg/dL Plasma Lactic Acid Markos (0.7-2.0) mmol/L Calcium (8.4-10.2) mg/dL Total Bilirubin (0.2-1.3) mg/dL AST (17-59) U/L ALT (4-49) U/L Alkaline Phosphatase (38-126) U/L C-Reactive Protein (<1.0) mg/dL Total Protein (6.3-8.2) g/dL Albumin (3.5-5.0) g/dL Acetone, Qual (Negative) Disposition Clinical Impression: Foot osteomyelitis, right, Diabetic infection of right foot, Hyperglycemia Disposition: ADMITTED IP TO THIS HOSP Condition: Poor Time of Disposition: 01:03
--- NOTE | 2024-08-09 22:50 | XR ---
EXAMINATION TYPE: XR foot complete RT DATE OF EXAM: 08/09/2024 10:45 PM COMPARISON: None. CLINICAL INDICATION: Male, 54 years old with history of infection, pain TECHNIQUE: Frontal, lateral, and oblique images of the right foot are obtained. FINDINGS: Lucency consistent with gas is seen at the level of the third through fifth toes most promi nent along the dorsal surface extending from the metatarsal heads. Soft tissue swelling involving the distal second toe with fragmentation of the second distal phalanx. No acute displaced fracture of th e right foot. Hindfoot structures are maintained. IMPRESSION: There is soft tissue infection lateral distal dorsal foot. Acute osteomyelitis involving the distal second toe cannot be excluded. Correlate clinically. [facility], , 08/09/2024 10:48 PM
[2024-08-09 23:17] LABS: Basophils % (A) 0 %; Eosinophils # (A) 0.1 k/uL (0-0.7); Eosinophils % (A) 0 %; HGB 11.8 gm/dL (13.0-17.5); Lymphocytes # (A) 0.9 k/uL (1.0-4.8); Lymphocytes % (A) 4 %; MCH 28.3 pg (25.0-35.0); MCHC 32.8 g/dL (31.0-37.0); MCV 86.3 fL (80.0-100.0); Mean Platelet Volume 7.3; Monocytes # (A) 1.1 k/uL (0-1.0); Monocytes % (A) 5 %; Neutrophils # (A) 19.7 k/uL (1.3-7.7); Neutrophils % (A) 90 %; Platelet Count 375 k/uL (150-450); RBC 4.17 m/uL (4.30-5.90); RDW 12.4 % (11.5-15.5); VBG PH 7.48 (7.31-7.41)
[2024-08-09] MEDS ORDERED: VANCOMYCIN IV PER PHARMACY 1 EACH MISC MISCELLANE PRN (23:19)
[2024-08-09] MEDS ORDERED: NALOXONE 0.4 MG/ML 1 ML VIAL IV PRN (23:45)
[2024-08-09] MEDS ORDERED: DEXTROSE 50% SYRINGE 50 ML IVP PRN ×2 (23:46)
[2024-08-10 00:14] LABS: ALT 9 U/L (4-49); AST 15 U/L (17-59); African American GFR (CKD) 82 (>60 ml/min/1.73 sqM); Alkaline Phosphatase 127 U/L (38-126); Anion Gap 12 mmol/L; Blood Urea Nitrogen 21 mg/dL (9-20); Calcium 8.3 mg/dL (8.4-10.2); Carbon Dioxide 18 mmol/L (22-30); Chloride 97 mmol/L (98-107); Glucose 475 mg/dL (74-99); Non-African American GFR(CKD) 71 (>60 ml/min/1.73 sqM); Potassium 4.2 mmol/L (3.5-5.1); Sodium 127 mmol/L (137-145); Total Bilirubin 0.7 mg/dL (0.2-1.3); Total Protein 6.7 g/dL (6.3-8.2)
[2024-08-10 00:30] LABS: C Reactive Protein 21.1 mg/dL (<1.0)
[2024-08-10] MEDS: INSULIN REGULAR 100 UNIT/ML VIAL (IV) IV ONE (03:34)
[2024-08-10] MEDS: SODIUM CHLORIDE 0.9% 2,000 ML IV ONE (03:37)
[2024-08-10] MEDS: HYDROcodone/APAP 5-325MG 1 EACH TAB PO PRN (03:38)
[2024-08-10] MEDS: PIPERACILLIN-TAZOBACTAM 3.375 GM in SODIUM CHLORIDE 0.9% 100 ML IVPB SCH (03:40)
[2024-08-10] MEDS: VANCOMYCIN 1,750 MG in SODIUM CHLORIDE 0.9% 500 ML 500 ML IVPB STA (04:20)
[2024-08-10 06:55] LABS: Glucose,Whole Blood 352 mg/dL (70-110)
[2024-08-10] MEDS: INSULIN ASPART (NovoLOG) 100 UNIT/ML VIAL SQ SCH (08:41)
--- NOTE | 2024-08-10 10:39 | P.GSCN ---
History of Present Illness Consult date: 08/10/24 Reason for Consult: Right foot infection, osteomyelitis Requesting physician: Joe Roth History of present illness: This a pleasant 54-year-old male with a history of diabetes mellitus, previous left foot infection status post TMA, and coronary artery disease who presented to the emergency department with concerns of right foot infection. Patient states he started noticing redness and swelling to his right foot about a week ago and within the last couple days started noticing wound and black toe. Vascular surgery was consulted for foot wound and osteomyelitis. Patient denies any fevers, chills, abdominal pain nausea or vomiting. Has pain in the right foot. He has a history of a left transmetatarsal amputation double Dr. Mera in February 2023. Apparently patient has not been taking his diabetic medications as he had insurance change and has not followed with any PCPs. Patient's sugars have been elevated during this admission. Review of Systems A 14 point review systems was completed all pertinent positives and negatives as stated in the HPI. Past Medical History Past Medical History: Coronary Artery Disease (CAD), Diabetes Mellitus, GERD/Reflux Additional Past Medical History / Comment(s): Covid 3 years ago, with hospitalization,non healing wound to left foot post transmetatarsal amputation History of Any Multi-Drug Resistant Organisms: None Reported Past Surgical History: Orthopedic Surgery Additional Past Surgical History / Comment(s): LEFT KNEE ARTHROSCOPY , transmetatarsal amputation of left foot Past Anesthesia/Blood Transfusion Reactions: No Reported Reaction Past Psychological History: No Psychological Hx Reported Smoking Status: Former smoker Past Alcohol Use History: Occasional Past Drug Use History: None Reported - Past Family History Family Family Medical History: No Reported History Additional Family Medical History / Comment(s): PATIENT ADOPTED FAMILY HX UNKNOWN Medications and Allergies Home Medications Medication Instructions Recorded Confirmed Type No Known Home Medications 08/10/24 08/10/24 History Allergies Allergy/AdvReac Type Severity Reaction Status Date / Time Mushroom Allergy Anaphylaxis Verified 08/10/24 09:08 Surgical - Exam Vital Signs Temp Pulse Resp BP Pulse Ox 97.9 F 110 H 18 136/78 99 08/09/24 22:34 08/09/24 22:34 08/09/24 22:34 08/09/24 22:34 08/09/24 22:34 General appearance: The patient is alert, oriented, appears in no acute distress. HET: Head is normocephalic and atraumatic. Pupils are equal and reactive. Neck: Supple. Heart: Regular. Lungs: Equal expansion, normal respiratory effort. Abdomen: Soft, nontender, nondistended. Extremities: Left foot previous TMA well-healed. Right lower extremity s welling, erythema with necrotic diabetic wound to dorsal aspect of foot, third toe dry gangrene. Palpable DP pulse. Good capillary refill. Sensorimotor intact. Neurological: No focal deficits. Strength and sensation are grossly intact. Results - Labs 08/09/24 23:04 08/09/24 23:04 Abnormal Lab Results - Last 24 Hours (Table) 08/09/24 08/09/24 08/09/24 Range/Units 23:04 23:04 23:04 WBC 22.0 H (3.8-10.6) k/uL RBC 4.17 L (4.30-5.90) m/uL Hgb 11.8 L (13.0-17.5) gm/dL Hct 36.0 L (39.0-53.0) % Neutrophils # 19.7 H (1.3-7.7) k/uL Lymphocytes # 0.9 L (1.0-4.8) k/uL Monocytes # 1.1 H (0-1.0) k/uL VBG pH 7.48 H (7.31-7.41) VBG pCO2 27 L (37-51) mmHg VBG HCO3 20 L (24-28) mmol/L Sodium 127 L (137-145) mmol/L Chloride 97 L (98-107) mmol/L Carbon Dioxide 18 L (22-30) mmol/L BUN 21 H (9-20) mg/dL Glucose 475 H (74-99) mg/dL POC Glucose (mg/dL) (70-110) mg/dL Calcium 8.3 L (8.4-10.2) mg/dL AST 15 L (17-59) U/L Alkaline Phosphatase 127 H (38-126) U/L C-Reactive Protein 21.1 H (<1.0) mg/dL Albumin 3.0 L (3.5-5.0) g/dL 08/10/24 Range/Units 06:51 WBC (3.8-10.6) k/uL RBC (4.30-5.90) m/uL Hgb (13.0-17.5) gm/dL Hct (39.0-53.0) % Neutrophils # (1.3-7.7) k/uL Lymphocytes # (1.0-4.8) k/uL Monocytes # (0-1.0) k/uL VBG pH (7.31-7.41) VBG pCO2 (37-51) mmHg VBG HCO3 (24-28) mmol/L Sodium (137-145) mmol/L Chloride (98-107) mmol/L Carbon Dioxide (22-30) mmol/L BUN (9-20) mg/dL Glucose (74-99) mg/dL POC Glucose (mg/dL) 352 H (70-110) mg/dL Calcium (8.4-10.2) mg/dL AST (17-59) U/L Alkaline Phosphatase (38-126) U/L C-Reactive Protein (<1.0) mg/dL Albumin (3.5-5.0) g/dL Diabetes panel 08/09/24 Range/Units 23:04 Sodium 127 L (137-145) mmol/L Potassium 4.2 (3.5-5.1) mmol/L Chloride 97 L (98-107) mmol/L Carbon Dioxide 18 L (22-30) mmol/L BUN 21 H (9-20) mg/dL Creatinine 1.17 (0.66-1.25) mg/dL Glucose 475 H (74-99) mg/dL Calcium 8.3 L (8.4-10.2) mg/dL AST 15 L (17-59) U/L ALT 9 (4-49) U/L Alkaline Phosphatase 127 H (38-126) U/L Total Protein 6.7 (6.3-8.2) g/dL Albumin 3.0 L (3.5-5.0) g/dL Calcium panel 08/09/24 Range/Units 23:04 Calcium 8.3 L (8.4-10.2) mg/dL Albumin 3.0 L (3.5-5.0) g/dL Pituitary panel 08/09/24 Range/Units 23:04 Sodium 127 L (137-145) mmol/L Potassium 4.2 (3.5-5.1) mmol/L Chloride 97 L (98-107) mmol/L Carbon Dioxide 18 L (22-30) mmol/L BUN 21 H (9-20) mg/dL Creatinine 1.17 (0.66-1.25) mg/dL Glucose 475 H (74-99) mg/dL Calcium 8.3 L (8.4-10.2) mg/dL Adrenal panel 08/09/24 Range/Units 23:04 Sodium 127 L (137-145) mmol/L Potassium 4.2 (3.5-5.1) mmol/L Chloride 97 L (98-107) mmol/L Carbon Dioxide 18 L (22-30) mmol/L BUN 21 H (9-20) mg/dL Creatinine 1.17 (0.66-1.25) mg/dL Glucose 475 H (74-99) mg/dL Calcium 8.3 L (8.4-10.2) mg/dL Total Bilirubin 0.7 (0.2-1.3) mg/dL AST 15 L (17-59) U/L ALT 9 (4-49) U/L Alkaline Phosphatase 127 H (38-126) U/L Total Protein 6.7 (6.3-8.2) g/dL Albumin 3.0 L (3.5-5.0) g/dL - Imaging Comments: Right foot x-ray reports soft tissue infection lateral distal dorsal foot. Acute osteomyelitis involving the distal second toe cannot be excluded correlate clinically. Assessment and Plan Assessment: 1. Right diabetic foot infection, likely osteomyelitis 2. Right third toe with dry gangrene 3. Diabetes mellitus 4. Hyperglycemia 5. Hyponatremia 6. Medical noncompliance with medications Plan: 1. Keep n.p.o. 2. Type and screen 3. Antibiotics per recommendations from infectious disease 4. Patient to be scheduled for right foot wound excisional debridement, third toe amputation possible TMA with deep tissue cultures 5. Strict glycemic control 6. Patient will need medical clearance prior to surgery Thank you for this consultation, we will continue to follow. The impression and plan of care has been dictated as directed. I performed a history and examination of this patient, discussed the same with the dictator. I agree with the dictator's note ,documented as a scribe. Any additional findings or plans will be noted.
--- NOTE | 2024-08-10 10:45 | P.HPIM ---
History of Present Illness This is a pleasant 54 years old male with past medical history of coronary artery disease although patient was unsure about this. Diabetes mellitus and GERD Patient presents because of dyspnea that comes and go for several months. Patient states this has started happening to him since he got double pneumonia and COVID-pneumonia in 2021. Also he came because of 7 days of right foot infection and pain. Patient works as a cook in the [employer], he states that when it get busy he got short of breath. Also he has difficulty going upstairs and downstairs. Currently patient breathing is fine quiet with no wheezing. He denies any chest pain or discomfort or abdominal pain. He states that he used to smoke when he was young. Currently he is not. He drinks alcohol once a week. No illicit drug. His right forefoot looks badly infected and gangrenous His left foot is status post forefoot amputation in February 2023 Patient is afebrile, was mildly tachycardic on admission but currently vitals are stable He has leukocytosis of 22, hemoglobin 11.8, sodium 127, creatinine 1.1, glucose was 475 pH is high 7.4, pCO2 low at 27 Acetone was positive but anion gap 12 CRP elevated 2.1 Right foot x-ray showing soft tissue infection with acute osteomyelitis of the distal second toe Review of Systems Review of systems CONSTITUTIONAL: No fever, no malaise, no fatigue. HEENT: No recent visual problems or hearing problems. Denied any sore throat. CARDIOVASCULAR: No orthopnea, PND, no palpitations, no syncope. PULMONARY: No shortness of breath, no cough, no hemoptysis. GASTROINTESTINAL: No diarrhea, no nausea, no vomiting, no abdominal pain. Normoactive bowel sounds. NEUROLOGICAL: No headaches, no weakness, no numbness. HEMATOLOGICAL: Denies any bleeding or petechiae. GENITOURINARY: Denies any burning micturition, frequency, or urgency. MUSCULOSKELETAL/RHEUMATOLOGICAL: Denies any joint pain, swelling, or any muscle pain. ENDOCRINE: Denies any polyuria or polydipsia. Past Medical History Past Medical History: Coronary Artery Disease (CAD), Diabetes Mellitus, GERD/Reflux Additional Past Medical History / Comment(s): Covid 3 years ago, with hospitalization,non healing wound to left foot post transmetatarsal amputation History of Any Multi-Drug Resistant Organisms: None Reported Past Surgical History: Orthopedic Surgery Additional Past Surgical History / Comment(s): LEFT KNEE ARTHROSCOPY , transmetatarsal amputation of left foot Past Anesthesia/Blood Transfusion Reactions: No Reported Reaction Past Psychological History: No Psychological Hx Reported Smoking Status: Former smoker Past Alcohol Use History: Occasional Past Drug Use History: None Reported - Past Family History Family Family Medical History: No Reported History Additional Family Medical History / Comment(s): PATIENT ADOPTED FAMILY HX UNKNOWN Medications and Allergies Home Medications Medication Instructions Recorded Confirmed Type No Known Home Medications 08/10/24 08/10/24 History Allergies Allergy/AdvReac Type Severity Reaction Status Date / Time Mushroom Allergy Anaphylaxis Verified 08/10/24 09:08 Physical Exam Vitals: Vital Signs Temp Pulse Pulse Resp BP BP Pulse Ox 08/10/24 08:44 70 18 134/81 98 08/10/24 07:08 79 18 158/86 99 08/10/24 03:40 85 18 156/84 99 08/09/24 22:34 97.9 F 110 H 18 136/78 99 Intake and Output 08/09/24 08/10/24 08/10/24 22:59 06:59 14:59 Other: Weight 107.955 kg GENERAL: The patient is alert and oriented x3, not in any acute distress. Well developed, well nourished. HEENT: Pupils are round and equally reacting to light. EOMI. No scleral icterus. No conjunctival pallor. Normocephalic, atraumatic. No pharyngeal erythema. No thyromegaly. CARDIOVASCULAR: S1 and S2 present. No murmurs, rubs, or gallops. PULMONARY: Chest is clear to auscultation, no wheezing , no crackles. ABDOMEN: Soft, nontender, nondistended, normoactive bowel sounds. No palpable organomegaly. MUSCULOSKELETAL: No joint swelling or deformity. EXTREMITIES: No cyanosis, clubbing, or pedal edema. -Right middle toe and forefoot is gangrenous, foul-smelling with swelling redness and tenderness present with some purulent discharge. Left oot status post amputated forefoot. Wound is closed and healed NEUROLOGICAL: Gross neurological examination did not reveal any focal deficits. SKIN: No rashes. no petechiae. Results CBC & Chem 7: 08/09/24 23:04 12/10/24 23:04 Labs: Abnormal Lab Results - Last 24 Hours (Table) 08/09/24 08/09/24 08/09/24 Range/Units 23:04 23:04 23:04 WBC 22.0 H (3.8-10.6) k/uL RBC 4.17 L (4.30-5.90) m/uL Hgb 11.8 L (13.0-17.5) gm/dL Hct 36.0 L (39.0-53.0) % Neutrophils # 19.7 H (1.3-7.7) k/uL Lymphocytes # 0.9 L (1.0-4.8) k/uL Monocytes # 1.1 H (0-1.0) k/uL VBG pH 7.48 H (7.31-7.41) VBG pCO2 27 L (37-51) mmHg VBG HCO3 20 L (24-28) mmol/L Sodium 127 L (137-145) mmol/L Chloride 97 L (98-107) mmol/L Carbon Dioxide 18 L (22-30) mmol/L BUN 21 H (9-20) mg/dL Glucose 475 H (74-99) mg/dL POC Glucose (mg/dL) (70-110) mg/dL Hemoglobin A1c (<=6.0) % Calcium 8.3 L (8.4-10.2) mg/dL AST 15 L (17-59) U/L Alkaline Phosphatase 127 H (38-126) U/L C-Reactive Protein 21.1 H (<1.0) mg/dL Albumin 3.0 L (3.5-5.0) g/dL 08/09/24 08/10/24 Range/Units 23:04 06:51 WBC (3.8-10.6) k/uL RBC (4.30-5.90) m/uL Hgb (13.0-17.5) gm/dL Hct (39.0-53.0) % Neutrophils # (1.3-7.7) k/uL Lymphocytes # (1.0-4.8) k/uL Monocytes # (0-1.0) k/uL VBG pH (7.31-7.41) VBG pCO2 (37-51) mmHg VBG HCO3 (24-28) mmol/L Sodium (137-145) mmol/L Chloride (98-107) mmol/L Carbon Dioxide (22-30) mmol/L BUN (9-20) mg/dL Glucose (74-99) mg/dL POC Glucose (mg/dL) 352 H (70-110) mg/dL Hemoglobin A1c 14.8 H (<=6.0) % Calcium (8.4-10.2) mg/dL AST (17-59) U/L Alkaline Phosphatase (38-126) U/L C-Reactive Protein (<1.0) mg/dL Albumin (3.5-5.0) g/dL Assessment and Plan Assessment: Severe right forefoot infection with gangrene, with acute osteomyelitis of the distal second toe Peripheral artery disease status post left forefoot amputation in February 2023 Diabetes mellitus with hyperglycemia Exertional dyspnea History of coronary artery disease History of GERD History of COVID infection and pneumonia in 2019 Remote history of smoking Plan: Continue with antibiotic as per ID team Infectious disease consult already on the case. Vascular surgery planning for right toe and possible forefoot amputation EKG time 1 ordered Cardiology consult for preop evaluation Continue with insulin sliding scale and check hemoglobin A1c Labs and medication were reviewed.. Continue same treatment. Continue with symptomatic treatment. Resume home medication. Monitor labs and vitals. DVT and GI prophylaxis. Further recommendations as per clinical course of the patient DVT prophylaxis: Subcutaneous heparin GI Prophylaxis: Pepcid PT/OT: Pending Prognosis is guarded
[2024-08-10 12:13] LABS: Glucose,Whole Blood 244 mg/dL (70-110)
[2024-08-10] MEDS: SODIUM CHLORIDE 0.9% 1,000 ML IV SCH (12:17)
--- NOTE | 2024-08-10 12:36 | P.CRDCN ---
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 He does not follow with a glazier stained [employer] and denies any previous cardiac history. Regarding diabetes, his A1c came back at 14.8. He states he is supposed to be on insulin but has not been taking it for the past 6 to 8 months. He denies any other medical history such as hypertension, hyperlipidemia. Patient presented to the hospital due to concerns regarding right foot infection. He has been seen by vascular surgery for foot wound and osteomyelitis. He is scheduled for right foot wound excisional debridement, right third toe amputation this afternoon. We have been asked to get preop clearance per medical team. Patient currently denies having any chest pain. He states he has had shortness of breath since he had COVID several years ago. Patient also has ID on consult and has been started on IV vancomycin and Zosyn. Patient states that he is a non-smoker. He drinks alcohol only occasionally. He is adopted and does not know his family medical history. -EKG: Sinus rhythm with no acute ST-T wave changes -X-ray right foot: Soft tissue infection. Acute osteomyelitis in the distal second toe cannot be excluded -Laboratory studies: WBC 22, hemoglobin 9.8, sodium 127, potassium 4.2, BUN 21 and creatinine 1.17 C-reactive protein 21, acetone positive. A1c 14.8 -Home cardiac medications: None Review Of Systems: At the time of my exam: CONSTITUTIONAL: Denies fever or chills. HEENT: Denies blurred vision, vision changes, or eye pain. Denies hemoptysis CARDIOVASCULAR: Denies chest pain. Denies orthopnea. Denies PND. Denies palpitations RESPIRATORY: Chronic shortness of breath. GASTROINTESTINAL: Denies abdominal pain. Denies nausea or vomiting. HEMATOLOGIC: Denies bleeding disorders. GENITOURINARY: Denies any blood in urine. SKIN: Denies puritis. Denies rash. Physical examination: Gen: This is a 54-year-old male in no acute distress VS: reviewed HEENT: Head is atraumatic, normocephalic. Pupils equal, round. Sclerae is anicteric. NECK: Supple. No JVD. LUNGS: Clear to auscultation. No wheezes or rhonchi. No intercostal retractions. HEART: Regular rate and rhythm. No murmur. ABDOMEN: Soft No tenderness. EXTREMITIES: Left transmetatarsal amputation noted, healed. Right foot and toes with erythema and edema, gangrenous changes to the third toe. No calf tenderness. NEUROLOGICAL: Patient is awake, alert and oriented x3. Assessment: Right diabetic foot infection, probable osteomyelitis Right third toe with dry gangrene Diabetes mellitus uncontrolled with A1c 14.8 Acetone positive Hyponatremia Noncompliance Plan: Patient is cleared from cardiology for surgical intervention that is scheduled for this afternoon Patient requires appropriate control of blood sugars to be managed by medicine Obtain 2-D echocardiogram and Doppler study to assess cardiac structure and function Further recommendations to follow based upon clinical course Thank you kindly for this consultation. Nurse practitioner note has been reviewed, I agree with documented findings and plan of care. Patient was seen and examined. Past Medical History Past Medical History: Coronary Artery Disease (CAD), Diabetes Mellitus, GERD/Reflux Additional Past Medical History / Comment(s): Covid 3 years ago, with hospitalization,non healing wound to left foot post transmetatarsal amputation History of Any Multi-Drug Resistant Organisms: None Reported Past Surgical History: Orthopedic Surgery Additional Past Surgical History / Comment(s): LEFT KNEE ARTHROSCOPY , trans metatarsal amputation of left foot Past Anesthesia/Blood Transfusion Reactions: No Reported Reaction Past Psychological History: No Psychological Hx Reported Smoking Status: Former smoker Past Alcohol Use History: Occasional Past Drug Use History: None Reported - Past Family History Family Family Medical History: No Reported History Additional Family Medical History / Comment(s): PATIENT ADOPTED FAMILY HX UNKNOWN Medications and Allergies Home Medications Medication Instructions Recorded Confirmed Type No Known Home Medications 08/10/24 08/10/24 History Allergies Allergy/AdvReac Type Severity Reaction Status Date / Time Mushroom Allergy Anaphylaxis Verified 08/10/24 09:08 Physical Exam Vitals: Vital Signs Temp Pulse Pulse Resp BP BP Pulse Ox 08/10/24 08:44 70 18 134/81 98 08/10/24 07:08 79 18 158/86 99 08/10/24 03:40 85 18 156/84 99 08/09/24 22:34 97.9 F 110 H 18 136/78 99 Intake and Output 08/09/24 08/10/24 08/10/24 22:59 06:59 14:59 Other: Weight 107.955 kg Results 08/09/24 23:04 08/09/24 23:04 Cardiac Enzymes 08/09/24 Range/Units 23:04 AST 15 L (17-59) U/L CBC 08/09/24 Range/Units 23:04 WBC 22.0 H (3.8-10.6) k/uL RBC 4.17 L (4.30-5.90) m/uL Hgb 11.8 L (13.0-17.5) gm/dL Hct 36.0 L (39.0-53.0) % Plt Count 375 (150-450) k/uL Comprehensive Metabolic Panel 08/09/24 Range/Units 23:04 Sodium 127 L (137-145) mmol/L Potassium 4.2 (3.5-5.1) mmol/L Chloride 97 L (98-107) mmol/L Carbon Dioxide 18 L (22-30) mmol/L BUN 21 H (9-20) mg/dL Creatinine 1.17 (0.66-1.25) mg/dL Glucose 475 H (74-99) mg/dL Calcium 8.3 L (8.4-10.2) mg/dL AST 15 L (17-59) U/L ALT 9 (4-49) U/L Alkaline Phosphatase 127 H (38-126) U/L Total Protein 6.7 (6.3-8.2) g/dL Albumin 3.0 L (3.5-5.0) g/dL Current Medications Generic Name Dose Route Start Last Admin Trade Name Freq PRN Reason Stop Dose Admin Acetaminophen 650 mg 08/09/24 23:45 Acetaminophen Tab 325 Mg Tab PO Q6HR PRN Mild Pain or Fever > 100.5 Hydrocodone Bitart/Acetaminophen 1 each 08/09/24 23:45 08/10/24 08:47 Hydrocodone/Apap 5-325mg 1 Each Tab PO 1 each Q4HR PRN Administration Moderate Pain (Scale 4 to 6) Dextrose/Water 25 ml 08/09/24 23:46 Dextrose 50% Syringe 50 Ml IVP PER PROTOCOL PRN Hypoglycemia Protocol Dextrose/Water 50 ml 08/09/24 23:46 Dextrose 50% Syringe 50 Ml IVP PER PROTOCOL PRN Hypoglycemia Protocol Piperacillin Sod/Tazobactam 100 mls @ 25 mls/hr 08/10/24 00:00 08/10/24 03:40 Sod 3.375 gm/ Sodium Chloride IVPB 25 mls/hr Q8HR [facility] Administration Protocol Vancomycin HCl 1,750 mg/ 500 mls @ 167 mls/hr 08/10/24 16:00 Sodium Chloride IVPB Q12H [facility] Sodium Chloride 1,000 mls @ 75 mls/hr 08/10/24 11:00 Saline 0.9% IV .[id number] [facility] Insulin Aspart 0 unit 08/10/24 07:30 08/10/24 08:41 Insulin Aspart (Novolog) 100 Unit/Ml Vial SQ 10 unit ACHS [facility] Administration Protocol Naloxone HCl 0.2 mg 08/09/24 23:45 Naloxone 0.4 Mg/Ml 1 Ml Vial IV Q2M PRN Opioid Reversal Ondansetron HCl 4 mg 08/09/24 23:45 Ondansetron 4 Mg/2 Ml Vial IVP Q8HR PRN Nausea And Vomiting Intake and Output 08/09/24 08/10/24 08/10/24 22:59 06:59 14:59 Other: Weight 107.955 kg 08/09/24 23:04 08/09/24 23:04
[2024-08-10] MEDS: IV FLUID CONTINUATION 1,000 ML IV ONE (13:19)
[2024-08-10 13:21] LABS: Glucose,Whole Blood 233 mg/dL (70-110)
[2024-08-10] MEDS: ONDANSETRON 4 MG/2 ML VIAL IVP PRN (13:28)
[2024-08-10] MEDS: IPRATROPIUM-ALBUTEROL 3 ML NEB INHALATION STA (13:31)
[2024-08-10] MEDS: FAMOTIDINE 20 MG/2 ML VIAL IV STA (13:38)
[2024-08-10] MEDS ORDERED: PHENYLEPHRINE 10 MG/ML VIAL ONE (13:43)
[2024-08-10] MEDS ORDERED: GLYCOPYRROLATE 0.2 MG/ML 2 ML VIAL ONE (13:43)
[2024-08-10] MEDS ORDERED: SUCCINYLCHOLINE CHLORIDE 200 MG/10 ML VIAL IV ONE (13:43)
[2024-08-10] MEDS ORDERED: LIDOCAINE 1% INJ 10MG/ML (20 ML MDV) ONE (13:43)
[2024-08-10] MEDS ORDERED: MIDAZOLAM 2 MG/2 ML VIAL ONE (13:43)
[2024-08-10] MEDS ORDERED: KETAMINE HCL IN 0.9 % NACL 50 MG/5 ML SYRINGE ONE (13:43)
[2024-08-10] MEDS ORDERED: fentaNYL (PF) 50 MCG/ML 2 ML AMP ONE (13:43)
[2024-08-10] MEDS ORDERED: PROPOFOL 10 MG/ML 20 ML VIAL IV ONE (13:43)
[2024-08-10 14:43] LABS: Glucose,Whole Blood 199 mg/dL (70-110)
--- NOTE | 2024-08-10 14:45 | P.OP ---
Date of Procedure: 08/10/24 Description of Procedure: SURGEON: Shakira Mera DO WOOD SCALER: None PREOPERATIVE DIAGNOSIS: Infected diabetic foot wound with gangrene right third toe. POSTOPERATIVE DIAGNOSIS: Same. OPERATION: Right third toe amputation, dorsal foot debridement, deep cultures ANESTHESIA: General ESTIMATED BLOOD LOSS: Less than 5 cc SPECIMENS REMOVED: Right third toe, culture COMPLICATIONS: None immediately apparent OPERATIVE FINDINGS: Patient is a 54-year-old male with uncontrolled diabetes and medical noncompliance who presents with ischemic changes, necrosis and infection of his right third toe with wound extending to the dorsal and plantar portions. Due to the extent of the wound, surgical intervention is recommended with toe amputation and debridement. We did also discuss potential transmetatarsal amputation subsequent below-knee amputation at this time he is not willing to undergo this. He seemingly does understand that this is potential in the future should he become worse from his overall infectious picture DESCRIPTION OF PROCEDURE: This patient was brought to the operating room, general anesthesia was initiated. The operative foot was prepped and draped in sterile manner. An incision was made at the base of the third toe deep into skin and fascia on plantar and dorsal aspect until we reached the head of the metatarsal bone.The tendons were divided in plantar and dorsal aspects. This was extended to the level of the plantar foot wound as well as the dorsal foot ischemic tissues. The resultant wound after excision of the toe and nonviable tissue measured 13 x 5 x 4 cm to the level of tendon and bone. The deep tissues were cultured. Hemostasis was achieved with electrocautery. The area was copiously irrigated and Dakin solution was placed hemostasis was well controlled and pressure dressing was applied. The patient tolerated the procedure well.
[2024-08-10 16:42] LABS: Glucose,Whole Blood 250 mg/dL (70-110)
[2024-08-10] MEDS: VANCOMYCIN 1,750 MG in SODIUM CHLORIDE 0.9% 500 ML 500 ML IVPB SCH (17:01)
[2024-08-10 20:46] LABS: Glucose,Whole Blood 266 mg/dL (70-110)
--- NOTE | 2024-08-10 21:25 | P.CONS ---
History of Present Illness - Reason for Consult Consult date: 08/10/24 Diabetic foot infection/osteomyelitis Requesting physician: Joe Roth - Chief Complaint Right third toe discoloration for swelling redness x 1 week - History of Present Illness Patient is a 54-year-old male with a past medical history significant for coronary disease diabetes mellitus reflux COVID-19 infection patient presenting to the hospital for evaluation of right third toe discoloration with associated swelling redness that the pain has been getting worse over the last 1 week patient mentions started as a blister and has progressed to get worse with the right third toe becoming more discolored and has developed more swelling redness on the dorsum aspect of his right foot patient complaining of throbbing pain to right foot for the last few days intensity is about 8 of 10 without radiation with this is a diffuse swelling and redness and foul-smelling drainage patient on presentation to the hospital was afebrile and no fever have been called subsequently patient was nontachycardic hypotensive or hypoxic he did have a white count of 22,000 with a left shift creatinine is 1.17 liver enzymes are normal CRP is 21.1 serum strep was positive patient did have a x-ray of the foot soft tissue infection and lateral distal dorsum foot acute osteomyelitis involving the second toe not excluded patient has been started on vancomycin and Zosyn infectious disease was consulted for further management of antibiotic therapy Review of Systems Positive point and negatives has been mentioned in the HPI, complete review of systems was performed and all other systems are negative Past Medical History Past Medical History: Coronary Artery Disease (CAD), Diabetes Mellitus, GERD/Reflux Additional Past Medical History / Comment(s): Covid 3 years ago, with hosp italization,non healing wound to left foot post transmetatarsal amputation History of Any Multi-Drug Resistant Organisms: None Reported Past Surgical History: Orthopedic Surgery Additional Past Surgical History / Comment(s): LEFT KNEE ARTHROSCOPY , transmetatarsal amputation of left foot Past Anesthesia/Blood Transfusion Reactions: No Reported Reaction Past Psychological History: No Psychological Hx Reported Smoking Status: Former smoker Past Alcohol Use History: Occasional Past Drug Use History: None Reported - Past Family History Family Family Medical History: No Reported History Additional Family Medical History / Comment(s): PATIENT ADOPTED FAMILY HX UNKNOWN Medications and Allergies Home Medications Medication Instructions Recorded Confirmed Type No Known Home Medications 08/10/24 08/10/24 History Allergies Allergy/AdvReac Type Severity Reaction Status Date / Time Mushroom Allergy Anaphylaxis Verified 08/10/24 09:08 Physical Exam Vitals: Vital Signs Temp Pulse Pulse Resp BP BP Pulse Ox 08/10/24 08:44 70 18 134/81 98 08/10/24 07:08 79 18 158/86 99 08/10/24 03:40 85 18 156/84 99 08/09/24 22:34 97.9 F 110 H 18 136/78 99 Intake and Output 08/09/24 08/10/24 08/10/24 22:59 06:59 14:59 Other: Weight 107.955 kg GENERAL DESCRIPTION: Middle-aged male lying in bed, no distress. No tachypnea or accessory muscle of respiration use. HEENT: Shows Pallor , no scleral icterus. Oral mucous membrane is dry. NECK: Trachea central, no thyromegaly. LUNGS: Unlabored breathing. Clear to auscultation anteriorly. No wheeze or crackle. HEART: S1, S2, regular rate and rhythm. No loud murmur ABDOMEN: Soft, no tenderness , guarding or rigidity, no organomegaly EXTREMITIES: Right third toe necrotic did have diffuse swelling and redness on the dorsum hospital right foot with a foul-smelling drainage SKIN: No rash, no masses palpable. NEUROLOGICAL: The patient is awake, alert, oriented x3, mood and affect normal. Results CBC & Chem 7: 08/09/24 23:04 08/09/24 23:04 Labs: Abnormal Lab Results - Last 24 Hours (Table) 08/09/24 08/09/24 08/09/24 Range/Units 23:04 23:04 23:04 WBC 22.0 H (3.8-10.6) k/uL RBC 4.17 L (4.30-5.90) m/uL Hgb 11.8 L (13.0-17.5) gm/dL Hct 36.0 L (39.0-53.0) % Neutrophils # 19.7 H (1.3-7.7) k/uL Lymphocytes # 0.9 L (1.0-4.8) k/uL Monocytes # 1.1 H (0-1.0) k/uL VBG pH 7.48 H (7.31-7.41) VBG pCO2 27 L (37-51) mmHg VBG HCO3 20 L (24-28) mmol/L Sodium 127 L (137-145) mmol/L Chloride 97 L (98-107) mmol/L Carbon Dioxide 18 L (22-30) mmol/L BUN 21 H (9-20) mg/dL Glucose 475 H (74-99) mg/dL POC Glucose (mg/dL) (70-110) mg/dL Hemoglobin A1c (<=6.0) % Calcium 8.3 L (8.4-10.2) mg/dL AST 15 L (17-59) U/L Alkaline Phosphatase 127 H (38-126) U/L C-Reactive Protein 21.1 H (<1.0) mg/dL Albumin 3.0 L (3.5-5.0) g/dL 08/09/24 08/10/24 Range/Units 23:04 06:51 WBC (3.8-10.6) k/uL RBC (4.30-5.90) m/uL Hgb (13.0-17.5) gm/dL Hct (39.0-53.0) % Neutrophils # (1.3-7.7) k/uL Lymphocytes # (1.0-4.8) k/uL Monocytes # (0-1.0) k/uL VBG pH (7.31-7.41) VBG pCO2 (37-51) mmHg VBG HCO3 (24-28) mmol/L Sodium (137-145) mmol/L Chloride (98-107) mmol/L Carbon Dioxide (22-30) mmol/L BUN (9-20) mg/dL Glucose (74-99) mg/dL POC Glucose (mg/dL) 352 H (70-110) mg/dL Hemoglobin A1c 14.8 H (<=6.0) % Calcium (8.4-10.2) mg/dL AST (17-59) U/L Alkaline Phosphatase (38-126) U/L C-Reactive Protein (<1.0) mg/dL Albumin (3.5-5.0) g/dL Assessment and Plan (1) Diabetic infection of right foot Current Visit: Yes Status: Acute Code(s): E11.628 - TYPE 2 DIABETES MELLITUS WITH OTHER SKIN COMPLICATIONS; L08.9 - LOCAL INFECTION OF THE SKIN AND SUBCUTANEOUS TISSUE, UNSP SNOMED Code(s): 289790658 (2) Foot osteomyelitis, right Current Visit: Yes Status: Acute Code(s): M86.9 - OSTEOMYELITIS, UNSPECIFIED SNOMED Code(s): 2062577109597820 Plan: 1patient presented to hospital with extensive right diabetic foot infection with a venting wound of the right third toe and significant cellulitis and possible abscess on the dorsal aspect of the right foot with a foul-smelling drainage we will need to cover for the polymicrobial wing associated with diabetic foot infection. 2await surgical debridement possible amputation of the third toe and deep culture. 3patient is currently covered with the vancomycin and Zosyn to continue however will monitor his kidney function closely with this antibiotic admission We will follow on clinical condition and cultures to further adjust medication if needed Thank you for this consultation we will follow the patient along with you Dictation was produced using [employer]Spot dictation software. please excuse any grammatical, word or spelling errors. Time with Patient: Greater than 30
[2024-08-11 03:37] LABS: Basophils % (A) 0 %; Eosinophils # (A) 0.1 k/uL (0-0.7); Eosinophils % (A) 0 %; HCT 30.9 % (39.0-53.0); HGB 10.1 gm/dL (13.0-17.5); Lymphocytes # (A) 1.8 k/uL (1.0-4.8); Lymphocytes % (A) 15 %; MCH 28.4 pg (25.0-35.0); MCHC 32.7 g/dL (31.0-37.0); MCV 86.7 fL (80.0-100.0); Mean Platelet Volume 7.2; Monocytes # (A) 0.9 k/uL (0-1.0); Monocytes % (A) 7 %; Neutrophils # (A) 9.2 k/uL (1.3-7.7); Neutrophils % (A) 76 %; Platelet Count 321 k/uL (150-450); RBC 3.57 m/uL (4.30-5.90); RDW 12.5 % (11.5-15.5); WBC 12.2 k/uL (3.8-10.6)
[2024-08-11 04:01] LABS: African American GFR (CKD) >90 (>60 ml/min/1.73 sqM); Anion Gap 4 mmol/L; Blood Urea Nitrogen 23 mg/dL (9-20); Calcium 7.7 mg/dL (8.4-10.2); Carbon Dioxide 23 mmol/L (22-30); Chloride 101 mmol/L (98-107); Glucose 311 mg/dL (74-99); Non-African American GFR(CKD) >90 (>60 ml/min/1.73 sqM); Potassium 3.7 mmol/L (3.5-5.1); Sodium 128 mmol/L (137-145)
[2024-08-11] MEDS: guaiFENesin SYRUP 100MG/5ML 200 MG/10 ML CUP PO PRN (05:15)
[2024-08-11 06:01] LABS: Glucose,Whole Blood 339 mg/dL (70-110)
[2024-08-11] MEDS: BENZOCAINE/MENTHOL LOZENG 1 EACH LOZENGE MUCOUS MEM PRN (08:45)
--- NOTE | 2024-08-11 10:18 | US ---
EXAMINATION TYPE: US arterial LE multi level DATE OF EXAM: 08/11/2024 9:47 AM COMPARISONS: None. CLINICAL INDICATION: Male, 54 years old with history of Buttock wound to right foot; multiple wounds. Recent right 3rd digit amputee yesterday TECHNIQUE: Systolic pressures were taken of the upper and lower extremity arteries with ankle-brachia l indices and toe brachial indices calculated bilaterally. History of: Smoker: Prev Hypertension: No Diabetic: Yes Hyperlipidemia: No TIA/CVA: No Previous Vascular Surgery: No CAD: No DE: No Vascular Ulcers: No Claudication: Yes Gangrene: Yes FINDINGS: Brachial Artery systolic pressure: Right: def due to IV Left: 115 Posterior Tibial artery systolic pressure: Right: CNO Left: 171 Dorsalis Pedis artery systolic pressure: Right: deferred due to bandages Left: 147 Toe artery systolic pressure: Right: deferred due to bandages Left: deferred due to no toes Ankle-Brachial Indices: Right: N/A Left: 1.49 (Vessel hardening > 1.4; Normal 0.9 - 1.4, Moderate 0.7 - 0.9, Severe 0.5-0.7) Toe Brachial Indices: Right: N/A Left: N/A (Normal > 0.6; Mild 0.35 - 0.59, Moderate 0.12 - 0.34, Severe <0.12) IMPRESSION: 1. Normal left ankle-brachial brachial index.. 2. None able to obtain the right index due to bandages. [facility], , 08/11/2024 10:16 AM
--- NOTE | 2024-08-11 10:43 | P.PN ---
Subjective This is a pleasant 54 years old male with past medical history of coronary artery disease although patient was unsure about this. Diabetes mellitus and GERD Patient presents because of dyspnea that comes and go for several months. Patient states this has started happening to him since he got double pneumonia and COVID-pneumonia in 2021. Also he came because of 7 days of right foot infection and pain. Patient works as a cook in the [employer], he states that when it get busy he got short of breath. Also he has difficulty going upstairs and downstairs. Currently patient breathing is fine quiet with no wheezing. He denies any chest pain or discomfort or abdominal pain. He states that he used to smoke when he was young. Currently he is not. He drinks alcohol once a week. No illicit drug. His right forefoot looks badly infected and gangrenous His left foot is status post forefoot amputation in February 2023 Patient is afebrile, was mildly tachycardic on admission but currently vitals are stable He has leukocytosis of 22, hemoglobin 11.8, sodium 127, creatinine 1.1, glucose was 475 pH is high 7.4, pCO2 low at 27 Acetone was positive but anion gap 12 CRP elevated 2.1 Right foot x-ray showing soft tissue infection with acute osteomyelitis of the distal second toe 08/01 Patient is status post an potation of the left foot yesterday Hemoglobin A1c is elevated 14.8. Patient admits he was to be diabetic but he quit using insulin because about some insurance issues and changing doctors. He agrees to start insulin again and currently has insurance and intends to follow- up outpatient. We will check glucose per protocol and start him on Levemir 10 units and 3 units with NovoLog with meals Continue with antibiotic per ID team currently on IV vancomycin and Zosyn Follow-up wound culture Objective - Vital Signs Vital signs: Vital Signs Temp 98.4 F 08/11/24 02:00 Pulse 82 08/11/24 07:00 Resp 16 08/11/24 07:00 BP 124/75 08/11/24 07:00 Pulse Ox 97 08/11/24 07:00 FiO2 Intake & Output 08/10/24 08/11/24 08/11/24 18:59 06:59 18:59 Intake Total 800 2850 118 Output Total 10 Balance 790 2850 118 Weight 107.955 kg Intake: IV 800 Intake, IV Titration 1350 Amount Piperacillin-Tazobactam 3 100 .375 gm In Sodium Chloride 0.9% 100 ml @ 25 mls/hr IVPB Q8HR [facility] Rx# :[id number] Sodium Chloride 0.9% 1, 750 000 ml @ 75 mls/hr IV . [id number] [facility] Rx#:[id number] Vancomycin 1,750 mg In 500 Sodium Chloride 0.9% 500 ml 500 ml @ 167 mls/hr IVPB Q12H [facility] Rx#: [id number] Oral 1500 118 Output: Estimated Blood Loss 10 Other: Voiding Method Toilet Toilet Urinal Urinal # Voids 3 # Bowel Movements 1 - Exam GENERAL: The patient is alert and oriented x3, not in any acute distress. Well developed, well nourished. HEENT: Pupils are round and equally reacting to light. EOMI. No scleral icterus. No conjunctival pallor. Normocephalic, atraumatic. No pharyngeal erythema. No thyromegaly. CARDIOVASCULAR: S1 and S2 present. No murmurs, rubs, or gallops. PULMONARY: Chest is clear to auscultation, no wheezing , no crackles. ABDOMEN: Soft, nontender, nondistended, normoactive bowel sounds. No palpable organomegaly. MUSCULOSKELETAL: No joint swelling or deformity. EXTREMITIES: No cyanosis, clubbing, or pedal edema. -Right foot surgical wound with dressing in place -Left foot: Old wound is closed and healed NEUROLOGICAL: Gross neurological examination did not reveal any focal deficits. SKIN: No rashes. no petechiae. - Labs CBC & Chem 7: 08/11/24 02:51 08/11/24 02:47 Labs: Abnormal Lab Results - Last 24 Hours (Table) 08/10/24 08/10/24 08/10/24 Range/Units 12:12 13:20 14:40 WBC (3.8-10.6) k/uL RBC (4.30-5.90) m/uL Hgb (13.0-17.5) gm/dL Hct (39.0-53.0) % Neutrophils # (1.3-7.7) k/uL Sodium (137-145) mmol/L BUN (9-20) mg/dL Glucose (74-99) mg/dL POC Glucose (mg/dL) 244 H 233 H 199 H (70-110) mg/dL Calcium (8.4-10.2) mg/dL 08/10/24 08/10/24 08/11/24 Range/Units 16:40 20:45 02:47 WBC (3.8-10.6) k/uL RBC (4.30-5.90) m/uL Hgb (13.0-17.5) gm/dL Hct (39.0-53.0) % Neutrophils # (1.3-7.7) k/uL Sodium 128 L (137-145) mmol/L BUN 23 H (9-20) mg/dL Glucose 311 H (74-99) mg/dL POC Glucose (mg/dL) 250 H 266 H (70-110) mg/dL Calcium 7.7 L (8.4-10.2) mg/dL 08/11/24 08/11/24 Range/Units 02:51 05:59 WBC 12.2 H (3.8-10.6) k/uL RBC 3.57 L (4.30-5.90) m/uL Hgb 10.1 L (13.0-17.5) gm/dL Hct 30.9 L (39.0-53.0) % Neutrophils # 9.2 H (1.3-7.7) k/uL Sodium (137-145) mmol/L BUN (9-20) mg/dL Glucose (74-99) mg/dL POC Glucose (mg/dL) 339 H (70-110) mg/dL Calcium (8.4-10.2) mg/dL Microbiology - Last 24 Hours (Table) 08/09/24 23:04 Blood Culture - Preliminary Blood Assessment and Plan Assessment: Severe right forefoot infection with gangrene, with acute osteomyelitis of the distal second toe Peripheral artery disease status post left forefoot amputation in February 2023 Diabetes mellitus with hyperglycemia Exertional dyspnea. Resolved History of coronary artery disease History of GERD History of COVID infection and pneumonia in 2019 Remote history of smoking Plan: Continue with antibiotic as per ID team Infectious disease consult already on the case. Vascular surgery on the case Follow-up wound culture Start insulin both Levemir and sliding scale plus NovoLog with meals Cardiology consult for preop evaluation Labs and medication were reviewed.. Continue same treatment. Continue with symptomatic treatment. Resume home medication. Monitor labs and vitals. DVT and GI prophylaxis. Further recommendations as per clinical course of the patient DVT prophylaxis: Subcutaneous heparin GI Prophylaxis: Pepcid PT/OT: Pending Prognosis is guarded
--- NOTE | 2024-08-11 10:51 | P.PN ---
Subjective Progress Note Date: 08/11/24 Principal diagnosis: Right diabetic wound Patient is seen and examined today as a follow-up. He is postop day #1 for right foot excisional debridement and third toe amputation. Wound cultures are currently pending. Luminary blood cultures are negative at 24 hours. He denies any fevers or chills. Objective - Vital Signs Vital signs: Vital Signs Temp 98.4 F 08/11/24 02:00 Pulse 82 08/11/24 07:00 Resp 16 08/11/24 07:00 BP 124/75 08/11/24 07:00 Pulse Ox 97 08/11/24 07:00 FiO2 Intake & Output 08/10/24 08/11/24 08/11/24 18:59 06:59 18:59 Intake Total 800 2850 118 Output Total 10 Balance 790 2850 118 Weight 107.955 kg Intake: IV 800 Intake, IV Titration 1350 Amount Piperacillin-Tazobactam 3 100 .375 gm In Sodium Chloride 0.9% 100 ml @ 25 mls/hr IVPB Q8HR [facility] Rx# :[id number] Sodium Chloride 0.9% 1, 750 000 ml @ 75 mls/hr IV . [id number] [facility] Rx#:[id number] Vancomycin 1,750 mg In 500 Sodium Chloride 0.9% 500 ml 500 ml @ 167 mls/hr IVPB Q12H [facility] Rx#: [id number] Oral 1500 118 Output: Estimated Blood Loss 10 Other: Voiding Method Toilet Toilet Urinal Urinal # Voids 3 # Bowel Movements 1 - Exam General appearance: The patient is alert, oriented, appears in no acute distress. HET: Head is normocephalic and atraumatic. Pupils are equal and reactive. Neck: Supple. Heart: Regular. Lungs: Equal expansion, normal respiratory effort. Abdomen: Soft, nontender, nondistended. Extremities: Left healed TMA. Right foot with dressing clean dry and intact. Right lower extremity swelling. Neurological: No focal deficits. Strength and sensation are grossly intact. - Labs CBC & Chem 7: 08/11/24 02:51 08/11/24 02:47 Labs: Abnormal Lab Results - Last 24 Hours (Table) 08/10/24 08/10/24 08/10/24 Range/Units 12:12 13:20 14:40 WBC (3.8-10.6) k/uL RBC (4.30-5.90) m/uL Hgb (13.0-17.5) gm/dL Hct (39.0-53.0) % Neutrophils # (1.3-7.7) k/uL Sodium (137-145) mmol/L BUN (9-20) mg/dL Glucose (74-99) mg/dL POC Glucose (mg/dL) 244 H 233 H 199 H (70-110) mg/dL Calcium (8.4-10.2) mg/dL 08/10/24 08/10/24 08/11/24 Range/Units 16:40 20:45 02:47 WBC (3.8-10.6) k/uL RBC (4.30-5.90) m/uL Hgb (13.0-17.5) gm/dL Hct (39.0-53.0) % Neutrophils # (1.3-7.7) k/uL Sodium 128 L (137-145) mmol/L BUN 23 H (9-20) mg/dL Glucose 311 H (74-99) mg/dL POC Glucose (mg/dL) 250 H 266 H (70-110) mg/dL Calcium 7.7 L (8.4-10.2) mg/dL 08/11/24 08/11/24 Range/Units 02:51 05:59 WBC 12.2 H (3.8-10.6) k/uL RBC 3.57 L (4.30-5.90) m/uL Hgb 10.1 L (13.0-17.5) gm/dL Hct 30.9 L (39.0-53.0) % Neutrophils # 9.2 H (1.3-7.7) k/uL Sodium (137-145) mmol/L BUN (9-20) mg/dL Glucose (74-99) mg/dL POC Glucose (mg/dL) 339 H (70-110) mg/dL Calcium (8.4-10.2) mg/dL Microbiology - Last 24 Hours (Table) 08/09/24 23:04 Blood Culture - Preliminary Blood Assessment and Plan Assessment: 1. Postop day #1 for right foot excisional debridement, second toe debridement and third toe amputation 2. Right diabetic foot infection, likely osteomyelitis 3. Right third toe with dry gangrene, second toe wound 4. Diabetes mellitus 5. Hyperglycemia 6. Hyponatremia 7. Medical noncompliance with medications Plan: 1. Consistent carbohydrate diet 2. Type and screen 3. Antibiotics per recommendations from infectious disease 4. Wound cultures currently pending 5. Strict glycemic control 6. Lower extremity ABIs ordered 7. Daily dressing change with Dakin's wet-to-dry for now 8. Consult to wound care Thank you for this consultation, we will continue to follow. The impression and plan of care has been dictated as directed. I performed a history and examination of this patient, discussed the same with the dictator. I agree with the dictator's note ,documented as a scribe. Any additional findings or plans will be noted.
--- NOTE | 2024-08-11 11:01 | CA ---
Transthoracic Echo Report Name: Erick Espinosa Age: 54 Gender: M : 1970 Exam Date: 08/11/2024 08:58 Exam Location: [facility] Ht (in): 70 Wt (lb): 238 Ordering Physician: Marely Shannon Attending/Referring Phys: [id number], Shiva Director Of Public Works Cathie Gonzalez, RAY Procedure CPT: Indications: LVF Cardiac Hx: Technical Quality: Good Contrast 1: Total Dose (mL): Contrast 2: Total Dose (mL): MEASUREMENTS (Male / Female) Normal Values 2D ECHO LV Diastolic Diameter PLAX 4.2 cm 4.2 - 5.9 / 3.9 - 5.3 cm LV Systolic Diameter PLAX 3.1 cm IVS Diastolic Thickness 1.7 cm 0.6 - 1.0 / 0.6 - 0.9 cm LVPW Diastolic Thickness 1.4 cm 0.6 - 1.0 / 0.6 - 0.9 cm LV Relative Wall Thickness 0.7 RV Internal Dim ED PLAX 3.7 cm LA Systolic Diameter LX 4.1 cm 3.0 - 4.0 / 2.7 - 3.8 cm LV Diastolic Volume MOD 4C 126.7 cm??? LV Systolic Volume MOD 4C 57.2 cm??? LV Ejection Fraction MOD 4C 54.8 % LV Cardiac Index MOD 4C 2457.7 cm???/min???m??? LV Diastolic Length 4C 10.6 cm LV Systolic Length 4C 8.8 cm LV Diastolic Volume MOD 2C 162.4 cm??? LV Systolic Volume MOD 2C 64.1 cm??? LV Ejection Fraction MOD 2C 60.5 % LV Cardiac Index MOD 2C 3476.8 cm???/min???m??? LV Diastolic Length 2C 10.3 cm LV Systolic Length 2C 8.4 cm M-MODE Aortic Root Diameter MM 3.4 cm LA Systolic Diameter MM 2.6 cm LA Ao Ratio MM 0.8 DOPPLER AV Peak Velocity 149.1 cm/s AV Peak Gradient 8.9 mmHg Mitral E Point Velocity 133.1 cm/s Mitral A Point Velocity 89.4 cm/s Mitral E to A Ratio 1.5 MV Deceleration Time 220.0 ms MV E' Velocity 7.6 cm/s Mitral E to MV E' Ratio 17.4 TR Peak Velocity 265.6 cm/s TR Peak Gradient 28.2 mmHg Right Ventricular Systolic Press 38.2 mmHg FINDINGS Left Ventricle Left ventricular ejection fraction is estimated at 55-60 %. Left ventricular cavity size normal. Severely increased septal wall thickness. Normal left ventricular wall motion. Right Ventricle Mild right ventricular dilatation. Mild pulmonary hypertension. Right Atrium Mild right atrial dilatation. No right atrial thrombus or mass seen. Left Atrium Normal left atrial size. No left atrial thrombus or mass present. Mitral Valve Structurally normal mitral valve. No mitral stenosis, regurgitation or prolapse. Aortic Valve Trileaflet aortic valve. No aortic valve stenosis or regurgitation. Tricuspid Valve Structurally normal tricuspid valve. Mild tricuspid regurgitation. Pulmonic Valve Structurally normal pulmonic valve. No pulmonic regurgitation. Pericardium No pericardial or pleural effusion. Aorta Normal size aortic root and proximal ascending aorta. CONCLUSIONS Normal LV size and systolic function. No significant abnormality in the Doppler exam. No pericardial effusion Previewed by: Dr. Mike Tobin MD (Electronically Signed) Final Date: 11 August 2024 11:00
--- NOTE | 2024-08-11 11:28 | P.PN ---
Subjective Progress Note Date: 08/11/24 Reason for Consult (text): Preop evaluation History of present illness: This is a 54-year-old male does not follow with a barrel rifler hook with past medical history of diabetes, previous left foot infection status post TMA. He does not follow with a barrel rifler hook and denies any previous cardiac history. Regarding diabetes, his A1c came back at 14.8. He states he is supposed to be on insulin but has not been taking it for the past 6 to 8 months. He denies any other medical history such as hypertension, hyperlipidemia. Patient presented to the hospital due to concerns regarding right foot infection. He has been seen by vascular surgery for foot wound and osteomyelitis. He is scheduled for right foot wound excisional debridement, right third toe amputation this afternoon. We have been asked to get preop clearance per medical team. Patient currently denies having any chest pain. He states he has had shortness of breath since he had COVID several years ago. Patient also has ID on consult and has been started on IV vancomycin and Zosyn. Patient states that he is a non-smoker. He drinks alcohol only occasionally. He is adopted and does not know his family medical history. -EKG: Sinus rhythm with no acute ST-T wave changes -X-ray right foot: Soft tissue infection. Acute osteomyelitis in the distal second toe cannot be excluded -Laboratory studies: WBC 22, hemoglobin 9.8, sodium 127, potassium 4.2, BUN 21 and creatinine 1.17 C-reactive protein 21, acetone positive. A1c 14.8 -Home cardiac medications: None 08/11/2024 Patient seen and examined. Yesterday, patient underwent amputation of the third toe on the right foot along with a debridement. He states his pain to the foot is a #6. He denies having any chest pain. Blood pressure 124/75, heart rate 82, pulse ox 97% on room air. Echocardiogram reveals EF 55 to 60%. No significant abnormality in the Doppler exam. No pericardial effusion. Physical examination: Gen: This is a 54-year-old male in no acute distress VS: reviewed HEENT: Head is atraumatic, normocephalic. Pupils equal, round. Sclerae is anicteric. NECK: Supple. No JVD. LUNGS: Clear to auscultation. No wheezes or rhonchi. No intercostal retractions. HEART: Regular rate and rhythm. No murmur. ABDOMEN: Soft No tenderness. EXTREMITIES: Left transmetatarsal amputation noted, healed. Right foot and toes with erythema and edema, gangrenous changes to the third toe. No calf tenderness. NEUROLOGICAL: Patient is awake, alert and oriented x3. Assessment: Right diabetic foot infection, probable osteomyelitis Right third toe with dry gangrene Diabetes mellitus uncontrolled with A1c 14.8 Acetone positive Hyponatremia Noncompliance Plan: No further cardiac workup at this time. Cardiology will sign off and follow on an as-needed basis. Please reconsult for any new concerns. Nurse practitioner note has been reviewed, I agree with documented findings and plan of care. Patient was seen and examined. Objective - Vital Signs Vital signs: Vital Signs Temp 98.4 F 08/11/24 02:00 Pulse 82 08/11/24 07:00 Resp 16 08/11/24 07:00 BP 124/75 08/11/24 07:00 Pulse Ox 97 08/11/24 07:00 FiO2 Intake & Output 08/10/24 08/11/24 08/11/24 18:59 06:59 18:59 Intake Total 800 2850 118 Output Total 10 Balance 790 2850 118 Weight 107.955 kg Intake: IV 800 Intake, IV Titration 1350 Amount Piperacillin-Tazobactam 3 100 .375 gm In Sodium Chloride 0.9% 100 ml @ 25 mls/hr IVPB Q8HR [facility] Rx# :[id number] Sodium Chloride 0.9% 1, 750 000 ml @ 75 mls/hr IV . [id number] [facility] Rx#:[id number] Vancomycin 1,750 mg In 500 Sodium Chloride 0.9% 500 ml 500 ml @ 167 mls/hr IVPB Q12H [facility] Rx#: [id number] Oral 1500 118 Output: Estimated Blood Loss 10 Other: Voiding Method Toilet Toilet Urinal Urinal # Voids 3 # Bowel Movements 1 - Labs CBC & Chem 7: 08/11/24 02:51 08/11/24 02:47 Labs: Abnormal Lab Results - Last 24 Hours (Table) 08/10/24 08/10/24 08/10/24 Range/Units 12:12 13:20 14:40 WBC (3.8-10.6) k/uL RBC (4.30-5.90) m/uL Hgb (13.0-17.5) gm/dL Hct (39.0-53.0) % Neutrophils # (1.3-7.7) k/uL Sodium (137-145) mmol/L BUN (9-20) mg/dL Glucose (74-99) mg/dL POC Glucose (mg/dL) 244 H 233 H 199 H (70-110) mg/dL Calcium (8.4-10.2) mg/dL 08/10/24 08/10/24 08/11/24 Range/Units 16:40 20:45 02:47 WBC (3.8-10.6) k/uL RBC (4.30-5.90) m/uL Hgb (13.0-17.5) gm/dL Hct (39.0-53.0) % Neutrophils # (1.3-7.7) k/uL Sodium 128 L (137-145) mmol/L BUN 23 H (9-20) mg/dL Glucose 311 H (74-99) mg/dL POC Glucose (mg/dL) 250 H 266 H (70-110) mg/dL Calcium 7.7 L (8.4-10.2) mg/dL 08/11/24 08/11/24 Range/Units 02:51 05:59 WBC 12.2 H (3.8-10.6) k/uL RBC 3.57 L (4.30-5.90) m/uL Hgb 10.1 L (13.0-17.5) gm/dL Hct 30.9 L (39.0-53.0) % Neutrophils # 9.2 H (1.3-7.7) k/uL Sodium (137-145) mmol/L BUN (9-20) mg/dL Glucose (74-99) mg/dL POC Glucose (mg/dL) 339 H (70-110) mg/dL Calcium (8.4-10.2) mg/dL Microbiology - Last 24 Hours (Table) 08/09/24 23:04 Blood Culture - Preliminary Blood
[2024-08-11 11:36] VITALS: BMI 34.1
--- NOTE | 2024-08-11 11:37 | P.CONS ---
History of Present Illness - Reason for Consult Consult date: 08/11/24 wound care - History of Present Illness This is a 54-year-old patient with history of diabetes left foot transmet status post right foot third digit amputation and surgical debridement of the right dorsal foot being seen on for wound care. Patient has a ulceration to the right dorsal foot amputation site of the right third digit measuring approximately 13 x 5 x 4 cm with tendon muscle and nonviable tissue present. Patient does have granulation seen throughout the wound bed. Radiological images show osteomyelitis of the right foot. Patient has been utilizing Dakin's to the site. Patient states that he noticed some discoloration to his foot a few days ago and came to the hospital for evaluation. Review Of Systems: Constitutional: No fever, no chills, no night sweats. No weight change. No weakness, fatigue or lethargy. No daytime sleepiness. Integumentary:reports wounds, no lesions. No rash or pruritus. No unusual bruising. No change in hair or nails. Physical exam: General Appearance: Alert, cooperative, no distress, appears stated age. Skin: See HPI all other Skin color, texture, tugor normal, no rashes or lesions. Neurologic: Alert oriented x3 Assessment: 1. Nonhealing ulceration with bone necrosis 2. Diabetic foot ulceration 3. Osteomyelitis of the right foot Plan: 1. Apply Vaseline Emulsified dressing over exposed tendon black foam and negative pressure wound VAC at 125 mmHg continuous pressure. Change Thursday. Utilize Skin-Prep and drape to the periwound for protection. Patient would benefit from advanced wound care and wound care setting. We we will be happy to see him upon discharge. Thank you for the consultation any questions please contact the wound care center DNP note has been reviewed and discussed with Dr. Kilpatrick and the impression and plan of care has been directed as dictated. Past Medical History Past Medical History: Coronary Artery Disease (CAD), Diabetes Mellitus, GERD/Reflux Additional Past Medical History / Comment(s): Covid 3 years ago, with hospi talization,non healing wound to left foot post transmetatarsal amputation History of Any Multi-Drug Resistant Organisms: None Reported Past Surgical History: Orthopedic Surgery Additional Past Surgical History / Comment(s): LEFT KNEE ARTHROSCOPY , transmetatarsal amputation of left foot Past Anesthesia/Blood Transfusion Reactions: No Reported Reaction Past Psychological History: No Psychological Hx Reported Smoking Status: Former smoker Past Alcohol Use History: Occasional Past Drug Use History: None Reported - Past Family History Family Family Medical History: No Reported History Additional Family Medical History / Comment(s): PATIENT ADOPTED FAMILY HX UNKNOWN Medications and Allergies Home Medications Medication Instructions Recorded Confirmed Type No Known Home Medications 08/10/24 08/10/24 History Allergies Allergy/AdvReac Type Severity Reaction Status Date / Time Mushroom Allergy Anaphylaxis Verified 08/10/24 09:08 Physical Exam Vitals: Vital Signs Temp Pulse Resp BP Pulse Ox 08/11/24 07:00 82 16 124/75 97 08/11/24 02:00 98.4 F 89 16 119/61 96 08/10/24 20:00 98.2 F 87 16 98/58 97 08/10/24 15:25 97.6 F 84 16 117/73 96 08/10/24 15:00 85 18 120/75 100 08/10/24 14:49 87 16 124/82 98 08/10/24 14:34 98.5 F 90 14 136/82 100 08/10/24 13:07 98.7 F 81 18 126/78 97 Intake and Output 08/10/24 08/11/24 08/11/24 22:59 06:59 14:59 Intake Total 840 2310 118 Balance 840 2310 118 Intake: IV 300 Intake, IV Titration 1350 Amount Piperacillin-Tazobactam 3 100 .375 gm In Sodium Chloride 0.9% 100 ml @ 25 mls/hr IVPB Q8HR [facility] Rx# :[id number] Sodium Chloride 0.9% 1, 750 000 ml @ 75 mls/hr IV . [id number] [facility] Rx#:[id number] Vancomycin 1,750 mg In 500 Sodium Chloride 0.9% 500 ml 500 ml @ 167 mls/hr IVPB Q12H [facility] Rx#: [id number] Oral 540 960 118 Other: Voiding Method Toilet Toilet Urinal Urinal # Voids 3 # Bowel Movements 1 Weight 107.955 kg Results CBC & Chem 7: 08/11/24 02:51 08/11/24 02:47 Labs: Abnormal Lab Results - Last 24 Hours (Table) 08/10/24 08/10/24 08/10/24 Range/Units 12:12 13:20 14:40 WBC (3.8-10.6) k/uL RBC (4.30-5.90) m/uL Hgb (13.0-17.5) gm/dL Hct (39.0-53.0) % Neutrophils # (1.3-7.7) k/uL Sodium (137-145) mmol/L BUN (9-20) mg/dL Glucose (74-99) mg/dL POC Glucose (mg/dL) 244 H 233 H 199 H (70-110) mg/dL Calcium (8.4-10.2) mg/dL 08/10/24 08/10/24 08/11/24 Range/Units 16:40 20:45 02:47 WBC (3.8-10.6) k/uL RBC (4.30-5.90) m/uL Hgb (13.0-17.5) gm/dL Hct (39.0-53.0) % Neutrophils # (1.3-7.7) k/uL Sodium 128 L (137-145) mmol/L BUN 23 H (9-20) mg/dL Glucose 311 H (74-99) mg/dL POC Glucose (mg/dL) 250 H 266 H (70-110) mg/dL Calcium 7.7 L (8.4-10.2) mg/dL 08/11/24 08/11/24 Range/Units 02:51 05:59 WBC 12.2 H (3.8-10.6) k/uL RBC 3.57 L (4.30-5.90) m/uL Hgb 10.1 L (13.0-17.5) gm/dL Hct 30.9 L (39.0-53.0) % Neutrophils # 9.2 H (1.3-7.7) k/uL Sodium (137-145) mmol/L BUN (9-20) mg/dL Glucose (74-99) mg/dL POC Glucose (mg/dL) 339 H (70-110) mg/dL Calcium (8.4-10.2) mg/dL Microbiology - Last 24 Hours (Table) 08/09/24 23:04 Blood Culture - Preliminary Blood Assessment and Plan (1) Non-pressure 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
[2024-08-11 11:55] LABS: Glucose,Whole Blood 318 mg/dL (70-110)
[2024-08-11] MEDS: INSULIN DETEMIR (LEVEMIR) 100 UNIT/ML SYR SQ SCH (12:32)
[2024-08-11] MEDS: SODIUM HYPOCHLORITE 0.5% 480 ML BOT MISCELLANE SCH (13:22)
[2024-08-11] MEDS: INSULIN ASPART (NovoLOG) 100 UNIT/ML VIAL SQ SCH (13:23)
--- NOTE | 2024-08-11 15:05 | P.PN ---
Subjective Progress Note Date: 08/11/24 Principal diagnosis: Reason for follow-up is right diabetic foot infection Patient is a 54-year-old male with a past medical history significant for coronary disease diabetes mellitus reflux COVID-19 infection patient presenting to the hospital for evaluation of right third toe discoloration with associated swelling redness, patient be diagnosed with a sensitive right diabetic foot infection status post amputation of the right third toe as well as debridement on the dorsum aspect of the right foot. On today's evaluation that is 08/11/2024,the patient remains to be afebrile, patient is on room air not requiring supplemental oxygen and denies any shortness of breath no chest pain or cough.Patient denies having any nausea or vomiting, no abdominal pain and no diarrhea denies any worsening pain to the right foot. Patient white count is 12.2, creatinine 0.91 cultures are currently pending Objective - Vital Signs Vital signs: Vital Signs Temp 98.4 F 08/11/24 02:00 Pulse 82 08/11/24 07:00 Resp 16 08/11/24 07:00 BP 124/75 08/11/24 07:00 Pulse Ox 97 08/11/24 07:00 FiO2 Intake & Output 08/10/24 08/11/24 08/11/24 18:59 06:59 18:59 Intake Total 800 2850 236 Output Total 10 Balance 790 2850 236 Weight 107.955 kg 107.955 kg Intake: IV 800 Intake, IV Titration 1350 Amount Piperacillin-Tazobactam 3 100 .375 gm In Sodium Chloride 0.9% 100 ml @ 25 mls/hr IVPB Q8HR [facility] Rx# :[id number] Sodium Chloride 0.9% 1, 750 000 ml @ 75 mls/hr IV . [id number] [facility] Rx#:[id number] Vancomycin 1,750 mg In 500 Sodium Chloride 0.9% 500 ml 500 ml @ 167 mls/hr IVPB Q12H [facility] Rx#: [id number] Oral 1500 236 Output: Estimated Blood Loss 10 Other: Voiding Method Toilet Toilet Urinal Urinal # Voids 3 # Bowel Movements 1 - Exam GENERAL DESCRIPTION: An elderly male lying in bed in no distress RESPIRATORY SYSTEM: Unlabored breathing , decreased breath sounds at bases HEART: S1 S2 regular rate and rhythm , ABDOMEN: Soft , no tenderness EXTREMITIES: Right third toe amputation and did have significant wound to the dorsal aspect of the right foot postsurgery - Labs CBC & Chem 7: 08/11/24 02:51 08/11/24 02:47 Labs: Abnormal Lab Results - Last 24 Hours (Table) 08/10/24 08/10/24 08/10/24 Range/Units 13:20 14:40 16:40 WBC (3.8-10.6) k/uL RBC (4.30-5.90) m/uL Hgb (13.0-17.5) gm/dL Hct (39.0-53.0) % Neutrophils # (1.3-7.7) k/uL Sodium (137-145) mmol/L BUN (9-20) mg/dL Glucose (74-99) mg/dL POC Glucose (mg/dL) 233 H 199 H 250 H (70-110) mg/dL Calcium (8.4-10.2) mg/dL 08/10/24 08/11/24 08/11/24 Range/Units 20:45 02:47 02:51 WBC 12.2 H (3.8-10.6) k/uL RBC 3.57 L (4.30-5.90) m/uL Hgb 10.1 L (13.0-17.5) gm/dL Hct 30.9 L (39.0-53.0) % Neutrophils # 9.2 H (1.3-7.7) k/uL Sodium 128 L (137-145) mmol/L BUN 23 H (9-20) mg/dL Glucose 311 H (74-99) mg/dL POC Glucose (mg/dL) 266 H (70-110) mg/dL Calcium 7.7 L (8.4-10.2) mg/dL 08/11/24 08/11/24 Range/Units 05:59 11:53 WBC (3.8-10.6) k/uL RBC (4.30-5.90) m/uL Hgb (13.0-17.5) gm/dL Hct (39.0-53.0) % Neutrophils # (1.3-7.7) k/uL Sodium (137-145) mmol/L BUN (9-20) mg/dL Glucose (74-99) mg/dL POC Glucose (mg/dL) 339 H 318 H (70-110) mg/dL Calcium (8.4-10.2) mg/dL Microbiology - Last 24 Hours (Table) 08/09/24 23:04 Blood Culture - Preliminary Blood Assessment and Plan (1) Diabetic infection of right foot Current Visit: Yes Status: Acute Code(s): E11.628 - TYPE 2 DIABETES MELLITUS WITH OTHER SKIN COMPLICATIONS; L08.9 - LOCAL INFECTION OF THE SKIN AND SUBCUTANEOUS TISSUE, UNSP SNOMED Code(s): 988902415 (2) Foot osteomyelitis, right Current Visit: Yes Status: Acute Code(s): M86.9 - OSTEOMYELITIS, UNSPECIFIED SNOMED Code(s): 7131680301925648 Plan: 1patient presented to hospital with extensive right diabetic foot infection with a venting wound of the right third toe and significant cellulitis and possible abscess on the dorsal aspect of the right foot with a foul-smelling drainage we will need to cover for the polymicrobial wing associated with diabetic foot infection. 2patient is status post amputation of the third toe as well as extensive debridement of the dorsal aspect of the right foot with deep culture which are currently pending 3patient is broadly covered with vancomycin and Zosyn to continue however will monitor his kidney function closely creatinine is normal today Dictation was produced using [employer] dictation software. please excuse any grammatical, word or spelling errors. Time with Patient: Less than 30
[2024-08-11 15:38] LABS: Glucose,Whole Blood 405 mg/dL (70-110)
[2024-08-11] MEDS: ACETAMINOPHEN TAB 325 MG TAB PO PRN (16:21)
[2024-08-11 16:26] LABS: Glucose,Whole Blood 259 mg/dL (70-110)
[2024-08-11 20:24] LABS: Glucose,Whole Blood 228 mg/dL (70-110)
[2024-08-12 06:16] LABS: Glucose,Whole Blood 319 mg/dL (70-110)
--- NOTE | 2024-08-12 09:54 | P.PN ---
Subjective Progress Note Date: 08/12/24 Principal diagnosis: Right diabetic wound Patient is seen and examined today as a follow-up. He is status post right foot excisional debridement and third toe amputation. He was seen by transmission specialist and wound VAC was placed to his right foot. They recommend outpatien t follow-up with with wound care. Patient remains afebrile. He is on IV antibiotics. Wound culture preliminary growing gram-positive cocci. Arterial ultrasound of lower extremities with multiphasic waveforms. Objective - Vital Signs Vital signs: Vital Signs Temp 98.6 F 08/12/24 06:50 Pulse 94 08/12/24 06:50 Resp 17 08/12/24 06:50 BP 149/89 08/12/24 06:50 Pulse Ox 94 L 08/12/24 06:50 FiO2 Intake & Output 08/11/24 08/12/24 08/12/24 18:59 06:59 18:59 Intake Total 2286 Balance 2286 Weight 107.955 kg Intake: Intake, IV Titration 1300 Amount Piperacillin-Tazobactam 3 100 .375 gm In Sodium Chloride 0.9% 100 ml @ 25 mls/hr IVPB Q8HR [facility] Rx# :[id number] Sodium Chloride 0.9% 1, 700 000 ml @ 75 mls/hr IV . [id number] [facility] Rx#:[id number] Vancomycin 1,750 mg In 500 Sodium Chloride 0.9% 500 ml 500 ml @ 167 mls/hr IVPB Q12H [facility] Rx#: [id number] Oral 986 Other: # Voids 1 1 # Bowel Movements 1 - Exam General appearance: The patient is alert, oriented, appears in no acute distress. HET: Head is normocephalic and atraumatic. Pupils are equal and reactive. Neck: Supple. Heart: Regular. Lungs: Equal expansion, normal respiratory effort. Abdomen: Soft, nontender, nondistended. Extremities: Left healed TMA. Right foot with wound VAC in place. Good capillary refill. Neurological: No focal deficits. - Labs CBC & Chem 7: 08/11/24 02:51 08/11/24 02:47 Labs: Abnormal Lab Results - Last 24 Hours (Table) 08/10/24 08/11/24 08/11/24 Range/Units 03:21 11:53 16:24 POC Glucose (mg/dL) 405 H 318 H 259 H (70-110) mg/dL 08/11/24 08/12/24 Range/Units 20:22 06:14 POC Glucose (mg/dL) 228 H 319 H (70-110) mg/dL Microbiology - Last 24 Hours (Table) 08/09/24 23:04 Blood Culture - Preliminary Blood 08/10/24 14:30 Gram Stain - Preliminary Foot - Right Assessment and Plan Assessment: 1. Postop day #2 for right foot excisional debridement, second toe debridement and third toe amputation 2. Right diabetic foot infection, likely osteomyelitis 3. Right third toe with dry gangrene, second toe wound 4. Diabetes mellitus 5. Hyperglycemia 6. Hyponatremia 7. Medical noncompliance with medications Plan: 1. Consistent carbohydrate diet 2. Wound care on consult. Continue with local wound care as recommended by wound clinic 3. Antibiotics per recommendations from infectious disease 4. Wound cultures currently pending 5. Strict glycemic control 6. Lower extremity ABIs ordered and reviewed Thank you for this consultation. Patient is cleared from vascular surgery for discharge. The impression and plan of care has been dictated as directed. Dr. Mera I performed a history and examination of this patient, discussed the same with the dictator. I agree with the dictator's note ,documented as a scribe. Any additional findings or plans will be noted.
[2024-08-12 11:18] LABS: Glucose,Whole Blood 291 mg/dL (70-110)
--- NOTE | 2024-08-12 12:24 | P.PN ---
Subjective This is a pleasant 54 years old male with past medical history of coronary artery disease although patient was unsure about this. Diabetes mellitus and GERD Patient presents because of dyspnea that comes and go for several months. Patient states this has started happening to him since he got double pneumonia and COVID-pneumonia in 2021. Also he came because of 7 days of right foot infection and pain. Patient works as a cook in the [employer], he states that when it get busy he got short of breath. Also he has difficulty going upstairs and downstairs. Currently patient breathing is fine quiet with no wheezing. He denies any chest pain or discomfort or abdominal pain. He states that he used to smoke when he was young. Currently he is not. He drinks alcohol once a week. No illicit drug. His right forefoot looks badly infected and gangrenous His left foot is status post forefoot amputation in February 2023 Patient is afebrile, was mildly tachycardic on admission but currently vitals are stable He has leukocytosis of 22, hemoglobin 11.8, sodium 127, creatinine 1.1, glucose was 475 pH is high 7.4, pCO2 low at 27 Acetone was positive but anion gap 12 CRP elevated 2.1 Right foot x-ray showing soft tissue infection with acute osteomyelitis of the distal second toe 08/01 Patient is status post an potation of the left foot yesterday Hemoglobin A1c is elevated 14.8. Patient admits he was to be diabetic but he quit using insulin because about some insurance issues and changing doctors. He agrees to start insulin again and currently has insurance and intends to follow- up outpatient. We will check glucose per protocol and start him on Levemir 10 units and 3 units with NovoLog with meals Continue with antibiotic per ID team currently on IV vancomycin and Zosyn Follow-up wound culture 08/12 patient still complains from right foot pain, 04/09, wound VAC in place He remains on broad-spectrum antibiotics with Zosyn and IV vancomycin with close monitoring of electrolytes and kidney function His sugar still elevated we increased his Levemir to 13 units and 5 units of NovoLog with meals Patient was counseled about the importance of adherence to insulin therapy with risk benefits explained Objective - Vital Signs Vital signs: Vital Signs Temp 98.6 F 08/12/24 06:50 Pulse 94 08/12/24 06:50 Resp 17 08/12/24 06:50 BP 149/89 08/12/24 06:50 Pulse Ox 94 L 08/12/24 06:50 FiO2 Intake & Output 08/11/24 08/12/24 08/12/24 18:59 06:59 18:59 Intake Total 2286 Balance 2286 Weight 107.955 kg Intake: Intake, IV Titration 1300 Amount Piperacillin-Tazobactam 3 100 .375 gm In Sodium Chloride 0.9% 100 ml @ 25 mls/hr IVPB Q8HR [facility] Rx# :[id number] Sodium Chloride 0.9% 1, 700 000 ml @ 75 mls/hr IV . [id number] [facility] Rx#:[id number] Vancomycin 1,750 mg In 500 Sodium Chloride 0.9% 500 ml 500 ml @ 167 mls/hr IVPB Q12H [facility] Rx#: [id number] Oral 986 Other: Voiding Method Toilet # Voids 1 1 # Bowel Movements 1 - Exam GENERAL: The patient is alert and oriented x3, not in any acute distress. Well developed, well nourished. HEENT: Pupils are round and equally reacting to light. EOMI. No scleral icterus. No conjunctival pallor. Normocephalic, atraumatic. No pharyngeal erythema. No thyromegaly. CARDIOVASCULAR: S1 and S2 present. No murmurs, rubs, or gallops. PULMONARY: Chest is clear to auscultation, no wheezing , no crackles. ABDOMEN: Soft, nontender, nondistended, normoactive bowel sounds. No palpable organomegaly. MUSCULOSKELETAL: No joint swelling or deformity. EXTREMITIES: No cyanosis, clubbing, or pedal edema. -Right foot surgical wound with dressing in place -Left foot: Old wound is closed and healed NEUROLOGICAL: Gross neurological examination did not reveal any focal deficits. SKIN: No rashes. no petechiae. - Labs CBC & Chem 7: 08/11/24 02:51 08/11/24 02:47 Labs: Abnormal Lab Results - Last 24 Hours (Table) 08/10/24 08/11/24 08/11/24 Range/Units 03:21 16:24 20:22 POC Glucose (mg/dL) 405 H 259 H 228 H (70-110) mg/dL 08/12/24 08/12/24 Range/Units 06:14 11:17 POC Glucose (mg/dL) 319 H 291 H (70-110) mg/dL Microbiology - Last 24 Hours (Table) 08/09/24 23:04 Blood Culture - Preliminary Blood 08/10/24 14:30 Gram Stain - Preliminary Foot - Right Assessment and Plan Assessment: Severe right forefoot infection with gangrene, with acute osteomyelitis of the distal second toe. Status post I&D Peripheral artery disease status post left forefoot amputation in February 2023 Diabetes mellitus with hyperglycemia Exertional dyspnea. Resolved History of coronary artery disease History of GERD History of COVID infection and pneumonia in 2019 Remote history of smoking Plan: Continue with antibiotic as per ID team Infectious disease consult already on the case. Vascular surgery on the case. Wound VAC in place Follow-up wound culture Continue with Levemir insulin and 5 units of NovoLog with meals Labs and medication were reviewed.. Continue same treatment. Continue with symptomatic treatment. Resume home medication. Monitor labs and vitals. DVT and GI prophylaxis. Further recommendations as per clinical course of the patient DVT prophylaxis: Subcutaneous heparin GI Prophylaxis: Pepcid PT/OT: Pending Prognosis is guarded
[2024-08-12] MEDS: INSULIN ASPART (NovoLOG) 100 UNIT/ML VIAL SQ SCH (12:36)
[2024-08-12] MEDS: INSULIN DETEMIR (LEVEMIR) 100 UNIT/ML SYR SQ ONE (12:46)
--- NOTE | 2024-08-12 15:37 | P.PN ---
Subjective Progress Note Date: 08/12/24 Principal diagnosis: Reason for follow-up is right diabetic foot infection Patient is a 54-year-old male with a past medical history significant for coronary disease diabetes mellitus reflux COVID-19 infection patient presenting to the hospital for evaluation of right third toe discoloration with associated swelling redness, patient be diagnosed with a sensitive right diabetic foot infection status post amputation of the right third toe as well as debridement on the dorsum aspect of the right foot. On today's evaluation that is 08/12/2024, the patient continues to be afebrile, the patient is on room air and breathing comfortably, the Pt denies having any chest pain or cough, the patient denies having any abdominal pain no vomiting or any diarrhea still complaining of pain to the right foot about 8 out of 10. No new lab has been obtained today cultures currently pending Objective - Vital Signs Vital signs: Vital Signs Temp 98.2 F 08/12/24 13:00 Pulse 86 08/12/24 13:00 Resp 16 08/12/24 13:00 BP 145/74 08/12/24 13:00 Pulse Ox 96 08/12/24 13:00 FiO2 Intake & Output 08/11/24 08/12/24 08/12/24 18:59 06:59 18:59 Intake Total 2286 Balance 2286 Weight 107.955 kg Intake: Intake, IV Titration 1300 Amount Piperacillin-Tazobactam 3 100 .375 gm In Sodium Chloride 0.9% 100 ml @ 25 mls/hr IVPB Q8HR [facility] Rx# :[id number] Sodium Chloride 0.9% 1, 700 000 ml @ 75 mls/hr IV . [id number] [facility] Rx#:[id number] Vancomycin 1,750 mg In 500 Sodium Chloride 0.9% 500 ml 500 ml @ 167 mls/hr IVPB Q12H [facility] Rx#: [id number] Oral 986 Other: Voiding Method Toilet # Voids 1 1 # Bowel Movements 1 - Exam GENERAL DESCRIPTION: An elderly male lying in bed in no distress RESPIRATORY SYSTEM: Unlabored breathing , decreased breath sounds at bases HEART: S1 S2 regular rate and rhythm , ABDOMEN: Soft , no tenderness EXTREMITIES: Right third toe amputation and did have significant wound to the dorsal aspect of the right foot postsurgery - Labs CBC & Chem 7: 08/11/24 02:51 08/11/24 02:47 Labs: Abnormal Lab Results - Last 24 Hours (Table) 08/10/24 08/11/24 08/11/24 Range/Units 03:21 16:24 20:22 POC Glucose (mg/dL) 405 H 259 H 228 H (70-110) mg/dL 08/12/24 08/12/24 Range/Units 06:14 11:17 POC Glucose (mg/dL) 319 H 291 H (70-110) mg/dL Microbiology - Last 24 Hours (Table) 08/10/24 14:30 Gram Stain - Preliminary Foot - Right Wound Culture - Preliminary 08/09/24 23:04 Blood Culture - Preliminary Blood Assessment and Plan (1) Diabetic infection of right foot Current Visit: Yes Status: Acute Code(s): E11.628 - TYPE 2 DIABETES MELLITUS WITH OTHER SKIN COMPLICATIONS; L08.9 - LOCAL INFECTION OF THE SKIN AND SUBCUTANEOUS TISSUE, UNSP SNOMED Code(s): 491033991 (2) Foot osteomyelitis, right Current Visit: Yes Status: Acute Code(s): M86.9 - OSTEOMYELITIS, UNSPECIFIED SNOMED Code(s): 9482330345079773 Plan: 1patient presented to hospital with extensive right diabetic foot infection with a venting wound of the right third toe and significant cellulitis and possible abscess on the dorsal aspect of the right foot with a foul-smelling drainage we will need to cover for the polymicrobial wing associated with diabetic foot infection. 2patient is status post amputation of the third toe as well as extensive debridement of the dorsal aspect of the right foot with deep culture which are currently pending 3patient will be continued with vancomycin however we will switch Zosyn to Unasyn to decrease risk of nephrotoxicity Dictation was produced using [employer] software. please excuse any grammatical, word or spelling errors. Time with Patient: Less than 30
[2024-08-12 16:21] LABS: Glucose,Whole Blood 212 mg/dL (70-110)
[2024-08-12] MEDS: AMPICILLIN-SULBACTAM 3 GM in SODIUM CHLORIDE 0.9% 100 ML IVPB SCH (17:52)
[2024-08-12] MEDS: VANCOMYCIN TROUGH DUE 1 EACH MISC MISCELLANE ONE (20:08)
[2024-08-12] MEDS: VANCOMYCIN 1,750 MG in SODIUM CHLORIDE 0.9% 500 ML 500 ML IVPB SCH (20:08)
[2024-08-12 20:38] LABS: Glucose,Whole Blood 262 mg/dL (70-110)
[2024-08-13 03:59] LABS: African American GFR (CKD) >90 (>60 ml/min/1.73 sqM); Anion Gap 3 mmol/L; Blood Urea Nitrogen 15 mg/dL (9-20); Calcium 7.7 mg/dL (8.4-10.2); Carbon Dioxide 25 mmol/L (22-30); Chloride 102 mmol/L (98-107); Glucose 209 mg/dL (74-99); Non-African American GFR(CKD) >90 (>60 ml/min/1.73 sqM); Potassium 4.1 mmol/L (3.5-5.1); Sodium 130 mmol/L (137-145)
[2024-08-13 06:24] LABS: Glucose,Whole Blood 205 mg/dL (70-110)
[2024-08-13] MEDS: INSULIN DETEMIR (LEVEMIR) 100 UNIT/ML SYR SQ SCH (06:48)
[2024-08-13 11:18] LABS: Basophils # (A) 0.03 X 10*3/uL (0.00-0.10); Basophils % (A) 0.2 %; Eosinophils # (A) 0.09 X 10*3/uL (0.04-0.35); Eosinophils % (A) 0.7 %; HGB 9.4 g/dL (13.0-17.0); Lymphocytes # (A) 2.15 X 10*3/uL (0.90-5.00); Lymphocytes % (A) 15.8 %; MCH 28.1 pg (27.0-32.0); MCHC 31.3 g/dL (32.0-37.0); MCV 89.6 FL (80.0-97.0); Mean Platelet Volume 10.4 FL (9.5-12.2); Monocytes # (A) 1.24 X 10*3/uL (0.20-1.00); Monocytes % (A) 9.1 %; NRBC Per 100 WBC 0 X 10*3/uL (0.00-0.01); Neutrophils % (A) 73.2 %; Platelet Count 352 X 10*3/uL (140-440); RBC 3.35 X 10*6/uL (4.40-5.60); RDW 12.5 % (11.5-14.5); WBC 13.64 X 10*3/uL (4.50-10.00)
[2024-08-13 11:26] LABS: Glucose,Whole Blood 223 mg/dL (70-110)
--- NOTE | 2024-08-13 13:09 | P.PN ---
Subjective Progress Note Date: 08/13/24 54 years old male with past medical history of coronary artery disease although patient was unsure about this. Diabetes mellitus and GERD Patient presents because of dyspnea that comes and go for several months. Patient states this has started happening to him since he got double pneumonia and COVID-pneumonia in 2021. Also he came because of 7 days of right foot infection and pain. 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 Also he has difficulty going upstairs and downstairs. Currently patient breathing is fine quiet with no wheezing. He denies any chest pain or discomfort or abdominal pain. He states that he used to smoke when he was young. Currently he is not. He drinks alcohol once a week. No illicit drug. His right forefoot looks badly infected and gangrenous His left foot is status post forefoot amputation in February 2023 Patient is afebrile, was mildly tachycardic on admission but currently vitals are stable He has leukocytosis of 22, hemoglobin 11.8, sodium 127, creatinine 1.1, glucose was 475 pH is high 7.4, pCO2 low at 27 Acetone was positive but anion gap 12 CRP elevated 2.1 Right foot x-ray showing soft tissue infection with acute osteomyelitis of the distal second toe atient is status post an potation of the left foot yesterday Hemoglobin A1c is elevated 14.8. Patient admits he was to be diabetic but he quit using insulin because about some insurance issues and changing doctors. He agrees to start insulin again and currently has insurance and intends to follow-up outpatient. We will check glucose per protocol and start him on Levemir 10 units and 3 units with NovoLog with meals Continue with antibiotic per ID team currently on IV vancomycin and Zosyn Follow-up wound culture 08/12 patient still complains from right foot pain, 04/09, wound VAC in place He remains on broad-spectrum antibiotics with Zosyn and IV vancomycin with close monitoring of electrolytes and kidney function His sugar still elevated we increased his Levemir to 13 units and 5 units of NovoLog with meals Patient was counseled about the importance of adherence to insulin therapy with risk benefits explained 08/13: patient seen and evaluated at bedside, on evaluation patient does complain of right lower foot discomfort, discharge planning discussed. Patient would want to go to subacute rehab, will need IV antibiotics and wound care dressing taken cleansed by nursing staff EXAM: GENERAL: The patient is alert and oriented x3, ill appearance HEENT: Pupils are round and equally reacting to light. EOMI. Normocephalic, atraumatic. No pharyngeal erythema. No thyromegaly. CARDIOVASCULAR: S1 and S2 present. No murmurs, rubs, or gallops. PULMONARY: Chest is clear to auscultation, no wheezing , no crackles. ABDOMEN: Soft, nontender, nondistended, normoactive bowel sounds. No palpable organomegaly. MUSCULOSKELETAL: No joint swelling or deformity. EXTREMITIES: No cyanosis, clubbing, or pedal edema. Right foot surgical wound with dressing in placeLeft foot: Old wound is closed and healed NEUROLOGICAL: Gross neurological examination did not reveal any focal deficits. SKIN: Diabetic foot ulcer, wound VAC in place Assessment and Plan * diabetic foot infection osteomyelitis s/p right foot excisional debridement second toe, third toe amputation * Severe right forefoot infection with gangrene, with acute osteomyelitis of the distal second toe. Status post I&D * Peripheral artery disease status post left forefoot amputation in February 2023 * Diabetes mellitus with hyperglycemia * History of coronary artery disease * History of GERD * History of COVID infection and pneumonia in 2019 * Remote history of smoking Plan: * consult obtained from vascular surgery, infectious disease * continue Unasyn and vancomycin, management infectious disease * vascular surgery consulted for postoperative wound care * in regards to diabetes mellitus Accu-Cheks ACHS continue NovoLog, Lantus * Labs and medication were reviewed. * Case management to assist with placement antibiotics post discharge * DVT prophylaxis: Subcutaneous heparin * GI Prophylaxis: Pepcid * PT/OT Objective - Vital Signs Vital signs: Vital Signs Temp 99.0 F 08/13/24 07:27 Pulse 89 08/13/24 07:27 Resp 16 08/13/24 07:27 BP 165/89 08/13/24 07:27 Pulse Ox 96 08/13/24 07:27 FiO2 Intake & Output 08/12/24 08/13/24 08/13/24 18:59 06:59 18:59 Intake Total 4320 Balance 4320 Intake: Oral 4320 Other: Voiding Method Toilet Toilet # Voids 3 1 # Bowel Movements 1 - Labs CBC & Chem 7: 08/13/24 02:42 08/13/24 02:42 Labs: Abnormal Lab Results - Last 24 Hours (Table) 08/12/24 08/12/24 08/12/24 Range/Units 11:17 16:18 20:37 Sodium (137-145) mmol/L Glucose (74-99) mg/dL POC Glucose (mg/dL) 291 H 212 H 262 H (70-110) mg/dL Calcium (8.4-10.2) mg/dL 08/13/24 08/13/24 Range/Units 02:42 06:22 Sodium 130 L (137-145) mmol/L Glucose 209 H (74-99) mg/dL POC Glucose (mg/dL) 205 H (70-110) mg/dL Calcium 7.7 L (8.4-10.2) mg/dL Microbiology - Last 24 Hours (Table) 08/09/24 23:04 Blood Culture - Preliminary Blood 08/10/24 14:30 Gram Stain - Preliminary Foot - Right Wound Culture - Preliminary
--- NOTE | 2024-08-13 14:52 | P.PN ---
Subjective Progress Note Date: 08/13/24 Principal diagnosis: Reason for follow-up is right diabetic foot infection Patient is a 54-year-old male with a past medical history significant for coronary disease diabetes mellitus reflux COVID-19 infection patient presenting to the hospital for evaluation of right third toe discoloration with associated swelling redness, patient be diagnosed with a sensitive right diabetic foot infection status post amputation of the right third toe as well as debridement on the dorsum aspect of the right foot. On today's evaluation that is 08/13/2024, patient did not have any fever and denies any chills, patient is breathing comfortably on room air, patient with no chest pain or cough patient did not have any abdominal pain nausea vomiting or any loose stools still complaining of pain to the right foot. Patient white count is 13.64 creatinine 0.72 culture with Streptococcus agalactiae Objective - Vital Signs Vital signs: Vital Signs Temp 99.0 F 08/13/24 07:27 Pulse 89 08/13/24 07:27 Resp 16 08/13/24 07:27 BP 165/89 08/13/24 07:27 Pulse Ox 96 08/13/24 07:27 FiO2 Intake & Output 08/12/24 08/13/24 08/13/24 18:59 06:59 18:59 Intake Total 4320 Balance 4320 Intake: Oral 4320 Other: Voiding Method Toilet Toilet # Voids 3 1 # Bowel Movements 1 - Exam GENERAL DESCRIPTION: An elderly male lying in bed in no distress RESPIRATORY SYSTEM: Unlabored breathing , decreased breath sounds at bases HEART: S1 S2 regular rate and rhythm , ABDOMEN: Soft , no tenderness EXTREMITIES: Right third toe amputation and dorsum of the foot as a deep wound with no significant slough to some surrounding redness - Labs CBC & Chem 7: 08/13/24 02:42 08/13/24 02:42 Labs: Abnormal Lab Results - Last 24 Hours (Table) 08/12/24 08/12/24 08/13/24 Range/Units 16:18 20:37 02:42 WBC (4.50-10.00) X 10*3/uL RBC (4.40-5.60) X 10*6/uL Hgb (13.0-17.0) g/dL Hct (39.6-50.0) % MCHC (32.0-37.0) g/dL Immature Gran # (0.00-0.04) X 10*3/uL Neutrophils # (1.80-7.70) X 10*3/uL Monocytes # (0.20-1.00) X 10*3/uL Sodium 130 L (137-145) mmol/L Glucose 209 H (74-99) mg/dL POC Glucose (mg/dL) 212 H 262 H (70-110) mg/dL Calcium 7.7 L (8.4-10.2) mg/dL 08/13/24 08/13/24 08/13/24 Range/Units 02:42 06:22 11:24 WBC 13.64 H (4.50-10.00) X 10*3/uL RBC 3.35 L (4.40-5.60) X 10*6/uL Hgb 9.4 L (13.0-17.0) g/dL Hct 30.0 L (39.6-50.0) % MCHC 31.3 L (32.0-37.0) g/dL Immature Gran # 0.13 H (0.00-0.04) X 10*3/uL Neutrophils # 10.00 H (1.80-7.70) X 10*3/uL Monocytes # 1.24 H (0.20-1.00) X 10*3/uL Sodium (137-145) mmol/L Glucose (74-99) mg/dL POC Glucose (mg/dL) 205 H 223 H (70-110) mg/dL Calcium (8.4-10.2) mg/dL Microbiology - Last 24 Hours (Table) 08/09/24 23:04 Blood Culture - Preliminary Blood 08/10/24 14:30 Gram Stain - Preliminary Foot - Right Wound Culture - Preliminary Assessment and Plan (1) Diabetic infection of right foot Current Visit: Yes Status: Acute Code(s): E11.628 - TYPE 2 DIABETES MELLITUS WITH OTHER SKIN COMPLICATIONS; L08.9 - LOCAL INFECTION OF THE SKIN AND SUBCUTANEOUS TISSUE, UNSP SNOMED Code(s): 908422534 (2) Foot osteomyelitis, right Current Visit: Yes Status: Acute Code(s): M86.9 - OSTEOMYELITIS, UNSPECIFIED SNOMED Code(s): 7194805384476458 Plan: 1patient presented to hospital with extensive right diabetic foot infection with a venting wound of the right third toe and significant cellulitis and possible abscess on the dorsal aspect of the right foot with a foul-smelling drainage we will need to cover for the polymicrobial wing associated with diabetic foot infection. 2patient is status post amputation of the third toe as well as extensive debridement of the dorsal aspect of the right foot with deep culture which are currently growing Streptococcus agalactiae 3patient will be continued with Unasyn and vancomycin if no MRSA vancomycin will be discontinued he will need a PICC line for outpatient IV antibiotic Dictation was produced using [employer] software. please excuse any grammatical, word or spelling errors.
[2024-08-13] MEDS: VANCOMYCIN 1,750 MG in SODIUM CHLORIDE 0.9% 500 ML 500 ML IVPB SCH (15:47)
[2024-08-13 17:12] LABS: Glucose,Whole Blood 267 mg/dL (70-110)
[2024-08-13 20:53] LABS: Glucose,Whole Blood 300 mg/dL (70-110)
[2024-08-14 06:32] LABS: Glucose,Whole Blood 263 mg/dL (70-110)
[2024-08-14 07:39] LABS: African American GFR (CKD) >90 (>60 ml/min/1.73 sqM); Anion Gap 4 mmol/L; Blood Urea Nitrogen 15 mg/dL (9-20); Calcium 7.4 mg/dL (8.4-10.2); Carbon Dioxide 25 mmol/L (22-30); Chloride 104 mmol/L (98-107); Glucose 279 mg/dL (74-99); Non-African American GFR(CKD) >90 (>60 ml/min/1.73 sqM); Potassium 4.3 mmol/L (3.5-5.1); Sodium 133 mmol/L (137-145)
[2024-08-14] MEDS: VANCOMYCIN TROUGH DUE 1 EACH MISC MISCELLANE ONE (08:49)
[2024-08-14] MEDS: SENNOSIDES-DOCUSATE SODIUM 1 EACH TAB PO SCH (09:19)
[2024-08-14] MEDS: polyethylene glycoL 3350 17 GM POWD.PACK PO SCH (09:19)
[2024-08-14 11:44] LABS: Glucose,Whole Blood 288 mg/dL (70-110)
--- NOTE | 2024-08-14 12:12 | P.PN ---
Subjective Progress Note Date: 08/14/24 54 years old male with past medical history of coronary artery disease although patient was unsure about this. Diabetes mellitus and GERD Patient presents because of dyspnea that comes and go for several months. Patient states this has started happening to him since he got double pneumonia and COVID-pneumonia in 2021. Also he came because of 7 days of right foot infection and pain. 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 Also he has difficulty going upstairs and downstairs. Currently patient breathing is fine quiet with no wheezing. He denies any chest pain or discomfort or abdominal pain. He states that he used to smoke when he was young. Currently he is not. He drinks alcohol once a week. No illicit drug. His right forefoot looks badly infected and gangrenous His left foot is status post forefoot amputation in February 2023 Patient is afebrile, was mildly tachycardic on admission but currently vitals are stable He has leukocytosis of 22, hemoglobin 11.8, sodium 127, creatinine 1.1, glucose was 475 pH is high 7.4, pCO2 low at 27 Acetone was positive but anion gap 12 CRP elevated 2.1 Right foot x-ray showing soft tissue infection with acute osteomyelitis of the distal second toe atient is status post an potation of the left foot yesterday Hemoglobin A1c is elevated 14.8. Patient admits he was to be diabetic but he quit using insulin because about some insurance issues and changing doctors. He agrees to start insulin again and currently has insurance and intends to follow-up outpatient. We will check glucose per protocol and start him on Levemir 10 units and 3 units with NovoLog with meals Continue with antibiotic per ID team currently on IV vancomycin and Zosyn Follow-up wound culture 08/12 patient still complains from right foot pain, 04/09, wound VAC in place He remains on broad-spectrum antibiotics with Zosyn and IV vancomycin with close monitoring of electrolytes and kidney function His sugar still elevated we increased his Levemir to 13 units and 5 units of NovoLog with meals Patient was counseled about the importance of adherence to insulin therapy with risk benefits explained 08/13: patient seen and evaluated at bedside, on evaluation patient does complain of right lower foot discomfort, discharge planning discussed. Patient would want to go to subacute rehab, will need IV antibiotics and wound care dressing taken cleansed by nursing staff, 08/14- patient seen and evaluated at bedside, patient noted to have fever overnight, continue current antibiotics Unasyn and vancomycin, blood work reviewed sodium 133 creatinine 0.77 calcium of 7.4, patient complained of constipation however had 1 bowel movement earlier today EXAM: GENERAL: The patient is alert and oriented x3, ill appearance HEENT: Pupils are round and equally reacting to light. EOMI. Normocephalic, atraumatic. No pharyngeal erythema. No thyromegaly. CARDIOVASCULAR: S1 and S2 present. No murmurs, rubs, or gallops. PULMONARY: Chest is clear to auscultation, no wheezing , no crackles. ABDOMEN: Soft, nontender, nondistended, normoactive bowel sounds. No palpable organomegaly. MUSCULOSKELETAL: No joint swelling or deformity. EXTREMITIES: No cyanosis, clubbing, or pedal edema. Right foot surgical wound with dressing in placeLeft foot: Old wound is closed and healed NEUROLOGICAL: Gross neurological examination did not reveal any focal deficits. SKIN: Diabetic foot ulcer, wound VAC in place Assessment and Plan * diabetic foot infection osteomyelitis s/p right foot excisional debridement second toe, third toe amputation * Severe right forefoot infection with gangrene, with acute osteomyelitis of the distal second toe. Status post I&D * Peripheral artery disease status post left forefoot amputation in February 2023 * Diabetes mellitus with hyperglycemia * History of coronary artery disease * History of GERD * History of COVID infection and pneumonia in 2019 * Remote history of smoking Plan: * consult obtained from vascular surgery, infectious disease * continue Unasyn and vancomycin, management infectious disease * vascular surgery consulted for postoperative wound care * in regards to diabetes mellitus Accu-Cheks ACHS continue NovoLog, Lantus * Labs and medication were reviewed. * Case management to assist with placement antibiotics post discharge * DVT prophylaxis: Subcutaneous heparin * GI Prophylaxis: Pepcid * PT/OT, patient will like to be discharged to subacute rehab Objective - Vital Signs Vital signs: Vital Signs Temp 98.4 F 08/14/24 07:27 Pulse 88 08/14/24 07:27 Resp 16 08/14/24 07:27 BP 152/81 08/14/24 07:27 Pulse Ox 97 08/14/24 07:27 FiO2 Intake & Output 08/13/24 08/14/24 08/14/24 18:59 06:59 18:59 Intake Total 1620 Balance 1620 Intake: Oral 1620 Other: Voiding Method Toilet Toilet # Voids 2 4 - Labs CBC & Chem 7: 08/13/24 02:42 08/14/24 07:09 Labs: Abnormal Lab Results - Last 24 Hours (Table) 08/13/24 08/13/24 08/13/24 Range/Units 02:42 11:24 17:10 WBC 13.64 H (4.50-10.00) X 10*3/uL RBC 3.35 L (4.40-5.60) X 10*6/uL Hgb 9.4 L (13.0-17.0) g/dL Hct 30.0 L (39.6-50.0) % MCHC 31.3 L (32.0-37.0) g/dL Immature Gran # 0.13 H (0.00-0.04) X 10*3/uL Neutrophils # 10.00 H (1.80-7.70) X 10*3/uL Monocytes # 1.24 H (0.20-1.00) X 10*3/uL Sodium (137-145) mmol/L Glucose (74-99) mg/dL POC Glucose (mg/dL) 223 H 267 H (70-110) mg/dL Calcium (8.4-10.2) mg/dL 08/13/24 08/14/24 08/14/24 Range/Units 20:50 06:31 07:09 WBC (4.50-10.00) X 10*3/uL RBC (4.40-5.60) X 10*6/uL Hgb (13.0-17.0) g/dL Hct (39.6-50.0) % MCHC (32.0-37.0) g/dL Immature Gran # (0.00-0.04) X 10*3/uL Neutrophils # (1.80-7.70) X 10*3/uL Monocytes # (0.20-1.00) X 10*3/uL Sodium 133 L (137-145) mmol/L Glucose 279 H (74-99) mg/dL POC Glucose (mg/dL) 300 H 263 H (70-110) mg/dL Calcium 7.4 L (8.4-10.2) mg/dL Microbiology - Last 24 Hours (Table) 08/10/24 14:30 Anaerobic Culture - Preliminary Foot - Right 08/10/24 14:30 Gram Stain - Final Foot - Right Wound Culture - Final Strep agalactiae - (group b) 08/09/24 23:04 Blood Culture - Preliminary Blood
[2024-08-14] MEDS: CALCIUM GLUCONATE IN NACL 1 GM in SALINE 1 100ML.BAG IVPB ONE (12:22)
[2024-08-14 13:20] LABS: HCT 28.9 % (39.6-50.0); MCH 27.6 pg (27.0-32.0); MCHC 31.1 g/dL (32.0-37.0); MCV 88.7 FL (80.0-97.0); NRBC Per 100 WBC 0 X 10*3/uL (0.00-0.01); Platelet Count 412 X 10*3/uL (140-440); RBC 3.26 X 10*6/uL (4.40-5.60); RDW 12.6 % (11.5-14.5); WBC 15.05 X 10*3/uL (4.50-10.00)
--- NOTE | 2024-08-14 14:53 | P.PN ---
Subjective Progress Note Date: 08/14/24 Principal diagnosis: Reason for follow-up is right diabetic foot infection Patient is a 54-year-old male with a past medical history significant for coronary disease diabetes mellitus reflux COVID-19 infection patient presenting to the hospital for evaluation of right third toe discoloration with associated swelling redness, patient be diagnosed with a sensitive right diabetic foot infection status post amputation of the right third toe as well as debridement on the dorsum aspect of the right foot. On today's evaluation that is 08/14/2024, Patient did have a fever of 100.9 F at 1 AM the patient is afebrile since then the patient is currently breathing comfortably on room air no chest pain shortness of breath or cough no abdominal pain and no worsening pain to the right foot. Patient white count is 15.05 creatinine 0.77 Vanco trough is 21 culture with Streptococcus agalactiae Objective - Vital Signs Vital signs: Vital Signs Temp 98.4 F 08/14/24 07:27 Pulse 88 08/14/24 07:27 Resp 16 08/14/24 07:27 BP 152/81 08/14/24 07:27 Pulse Ox 97 08/14/24 07:27 FiO2 Intake & Output 08/13/24 08/14/24 08/14/24 18:59 06:59 18:59 Intake Total 1620 Balance 1620 Intake: Oral 1620 Other: Voiding Method Toilet Toilet # Voids 2 4 - Exam GENERAL DESCRIPTION: An elderly male lying in bed in no distress RESPIRATORY SYSTEM: Unlabored breathing , decreased breath sounds at bases HEART: S1 S2 regular rate and rhythm , ABDOMEN: Soft , no tenderness EXTREMITIES: Right foot wound is covered with a wound VAC - Labs CBC & Chem 7: 08/14/24 07:09 08/14/24 07:09 Labs: Abnormal Lab Results - Last 24 Hours (Table) 08/13/24 08/13/24 08/14/24 Range/Units 17:10 20:50 06:31 Sodium (137-145) mmol/L Glucose (74-99) mg/dL POC Glucose (mg/dL) 267 H 300 H 263 H (70-110) mg/dL Calcium (8.4-10.2) mg/dL 08/14/24 08/14/24 Range/Units 07:09 11:42 Sodium 133 L (137-145) mmol/L Glucose 279 H (74-99) mg/dL POC Glucose (mg/dL) 288 H (70-110) mg/dL Calcium 7.4 L (8.4-10.2) mg/dL Microbiology - Last 24 Hours (Table) 08/10/24 14:30 Anaerobic Culture - Preliminary Foot - Right 08/10/24 14:30 Gram Stain - Final Foot - Right Wound Culture - Final Strep agalactiae - (group b) Assessment and Plan (1) Diabetic infection of right foot Current Visit: Yes Status: Acute Code(s): E11.628 - TYPE 2 DIABETES MELLITUS WITH OTHER SKIN COMPLICATIONS; L08.9 - LOCAL INFECTION OF THE SKIN AND SUBCUTANEOUS TISSUE, UNSP SNOMED Code(s): 147434929 (2) Foot osteomyelitis, right Current Visit: Yes Status: Acute Code(s): M86.9 - OSTEOMYELITIS, UNSPECIFIED SNOMED Code(s): 1124046290937234 Plan: 1patient presented to hospital with extensive right diabetic foot infection with a venting wound of the right third toe and significant cellulitis and possible abscess on the dorsal aspect of the right foot with a foul-smelling drainage we will need to cover for the polymicrobial wing associated with diabetic foot infection. 2patient is status post amputation of the third toe as well as extensive debridement of the dorsal aspect of the right foot with deep culture which are currently growing Streptococcus agalactiae 3patient will be continued with Unasyn, will discontinue vancomycin did have a little bit of fever and slight worsening of the white count that need to be monitored closely will need PICC line for outpatient IV antibiotics Dictation was produced using [employer] dictation software. please excuse any grammatical, word or spelling errors. Time with Patient: Less than 30
[2024-08-14] MEDS ORDERED: VANCOMYCIN 1,500 MG in SODIUM CHLORIDE 0.9% 500 ML 500 ML IVPB SCH (16:00)
[2024-08-14 16:37] LABS: Glucose,Whole Blood 245 mg/dL (70-110)
[2024-08-14 21:18] LABS: Glucose,Whole Blood 195 mg/dL (70-110)
[2024-08-15 06:48] LABS: Glucose,Whole Blood 170 mg/dL (70-110)
[2024-08-15 08:45] LABS: HCT 28.5 % (39.6-50.0); MCH 27.5 pg (27.0-32.0); MCHC 31.6 g/dL (32.0-37.0); MCV 87.2 FL (80.0-97.0); Mean Platelet Volume 9.7 FL (9.5-12.2); NRBC Per 100 WBC 0 X 10*3/uL (0.00-0.01); Platelet Count 413 X 10*3/uL (140-440); RBC 3.27 X 10*6/uL (4.40-5.60); RDW 12.6 % (11.5-14.5); WBC 13.81 X 10*3/uL (4.50-10.00)
[2024-08-15 09:00] LABS: Blood Urea Nitrogen 12.4 mg/dL (9.0-27.0); Carbon Dioxide 22.8 mmol/L (21.6-31.8); Chloride 104 mmol/L (96-109); Glucose 143 mg/dL (70-110); Potassium 4.6 mmol/L (3.5-5.5); Sodium 135 mmol/L (135-145)
[2024-08-15 11:18] LABS: Glucose,Whole Blood 186 mg/dL (70-110)
--- NOTE | 2024-08-15 12:27 | P.PN ---
Subjective Progress Note Date: 08/15/24 Principal diagnosis: Reason for follow-up is right diabetic foot infection Patient is a 54-year-old male with a past medical history significant for coronary disease diabetes mellitus reflux COVID-19 infection patient presenting to the hospital for evaluation of right third toe discoloration with associated swelling redness, patient be diagnosed with a sensitive right diabetic foot infection status post amputation of the right third toe as well as debridement on the dorsum aspect of the right foot. On today's evaluation that is 08/15/2024, patient did have a fever of 100.4 F last night, the patient has been afebrile this morning, patient is breathing comfortably and is currently on room air, patient denies having any significant cough no chest pain, patient denies nausea vomiting or diarrhea and no abdominal pain and denies any worsening pain to the right foot. Patient white count is down to 13.81, creatinine 0.8 local culture growing Streptococcus agalactiae blood culture negative Objective - Vital Signs Vital signs: Vital Signs Temp 99.0 F 08/15/24 06:57 Pulse 91 08/15/24 06:57 Resp 20 08/15/24 06:57 BP 161/86 08/15/24 06:57 Pulse Ox 94 L 08/15/24 06:57 FiO2 Intake & Output 08/14/24 08/15/24 08/15/24 18:59 06:59 18:59 Intake Total 1100 Balance 1100 Intake: Intake, IV Titration 1100 Amount Ampicillin-Sulbactam 3 gm 200 In Sodium Chloride 0.9% 100 ml @ 200 mls/hr IVPB Q6HR [facility] Rx#:[id number] Sodium Chloride 0.9% 1, 900 000 ml @ 75 mls/hr IV . [id number] [facility] Rx#:[id number] Other: Voiding Method Toilet Toilet # Voids 2 1 # Bowel Movements 1 - Exam GENERAL DESCRIPTION: An elderly male lying in bed in no distress RESPIRATORY SYSTEM: Unlabored breathing , decreased breath sounds at bases HEART: S1 S2 regular rate and rhythm , ABDOMEN: Soft , no tenderness EXTREMITIES: Right foot wound is covered with a wound VAC - Labs CBC & Chem 7: 08/15/24 03:09 08/15/24 03:09 Labs: Abnormal Lab Results - Last 24 Hours (Table) 08/14/24 08/14/24 08/14/24 Range/Units 07:09 16:36 21:16 WBC 15.05 H (4.50-10.00) X 10*3/uL RBC 3.26 L (4.40-5.60) X 10*6/uL Hgb 9.0 L (13.0-17.0) g/dL Hct 28.9 L (39.6-50.0) % MCHC 31.1 L (32.0-37.0) g/dL Glucose (70-110) mg/dL POC Glucose (mg/dL) 245 H 195 H (70-110) mg/dL Calcium (8.7-10.3) mg/dL 08/15/24 08/15/24 08/15/24 Range/Units 03:09 03:09 06:42 WBC 13.81 H (4.50-10.00) X 10*3/uL RBC 3.27 L (4.40-5.60) X 10*6/uL Hgb 9.0 L (13.0-17.0) g/dL Hct 28.5 L (39.6-50.0) % MCHC 31.6 L (32.0-37.0) g/dL Glucose 143 H (70-110) mg/dL POC Glucose (mg/dL) 170 H (70-110) mg/dL Calcium 8.0 L (8.7-10.3) mg/dL 08/15/24 Range/Units 11:15 WBC (4.50-10.00) X 10*3/uL RBC (4.40-5.60) X 10*6/uL Hgb (13.0-17.0) g/dL Hct (39.6-50.0) % MCHC (32.0-37.0) g/dL Glucose (70-110) mg/dL POC Glucose (mg/dL) 186 H (70-110) mg/dL Calcium (8.7-10.3) mg/dL Microbiology - Last 24 Hours (Table) 08/10/24 14:30 Anaerobic Culture - Final Foot - Right 08/09/24 23:04 Blood Culture - Final Blood Assessment and Plan (1) Diabetic infection of right foot Current Visit: Yes Status: Acute Code(s): E11.628 - TYPE 2 DIABETES MELLITUS WITH OTHER SKIN COMPLICATIONS; L08.9 - LOCAL INFECTION OF THE SKIN AND SUBCUTA NEOUS TISSUE, UNSP SNOMED Code(s): 273610507 (2) Foot osteomyelitis, right Current Visit: Yes Status: Acute Code(s): M86.9 - OSTEOMYELITIS, UNSPECIFIED SNOMED Code(s): 4198474519849611 Plan: 1patient presented to hospital with extensive right diabetic foot infection with a venting wound of the right third toe and significant cellulitis and possible abscess on the dorsal aspect of the right foot with a foul-smelling drainage we will need to cover for the polymicrobial wing associated with diabetic foot infection. 2patient is status post amputation of the third toe as well as extensive debridement of the dorsal aspect of the right foot with deep culture which are currently growing Streptococcus agalactiae 3patient did have low-grade fever last night afebrile this morning white count is trending down he is covered with Unasyn will order PICC line for outpatient IV antibiotics Dictation was produced using [employer] dictation software. please excuse any grammatical, word or spelling errors. Time with Patient: Less than 30
--- NOTE | 2024-08-15 16:12 | P.PN ---
Subjective Progress Note Date: 08/15/24 Principal diagnosis: Right diabetic wound Patient is seen and examined today as a follow-up. He is status post right foot excisional debridement and third toe amputation. Wound care following. Wound VAC to right foot. Was changed on Thursday. Patient has had low-grade fever over the weekend. He remains on IV antibiotics. Infectious disease is recommending PICC line for discharge. Objective - Vital Signs Vital signs: Vital Signs Temp 99.0 F 08/15/24 06:57 Pulse 91 08/15/24 06:57 Resp 20 08/15/24 06:57 BP 161/86 08/15/24 06:57 Pulse Ox 94 L 08/15/24 06:57 FiO2 Intake & Output 08/14/24 08/15/24 08/15/24 18:59 06:59 18:59 Intake Total 1100 Balance 1100 Intake: Intake, IV Titration 1100 Amount Ampicillin-Sulbactam 3 gm 200 In Sodium Chloride 0.9% 100 ml @ 200 mls/hr IVPB Q6HR [facility] Rx#:[id number] Sodium Chloride 0.9% 1, 900 000 ml @ 75 mls/hr IV . [id number] [facility] Rx#:[id number] Other: Voiding Method Toilet # Voids 2 1 # Bowel Movements 1 - Exam General appearance: The patient is alert, oriented, appears in no acute distress. HET: Head is normocephalic and atraumatic. Pupils are equal and reactive. Neck: Supple. Heart: Regular. Lungs: Equal expansion, normal respiratory effort. Abdomen: Soft, nontender, nondistended. Extremities: Left healed TMA. Right foot with wound VAC in place. Good capillary refill. Neurological: No focal deficits. - Labs CBC & Chem 7: 08/15/24 03:09 08/15/24 03:09 Labs: Abnormal Lab Results - Last 24 Hours (Table) 08/14/24 08/14/24 08/14/24 Range/Units 07:09 11:42 16:36 WBC 15.05 H (4.50-10.00) X 10*3/uL RBC 3.26 L (4.40-5.60) X 10*6/uL Hgb 9.0 L (13.0-17.0) g/dL Hct 28.9 L (39.6-50.0) % MCHC 31.1 L (32.0-37.0) g/dL Glucose (70-110) mg/dL POC Glucose (mg/dL) 288 H 245 H (70-110) mg/dL Calcium (8.7-10.3) mg/dL 08/14/24 08/15/24 08/15/24 Range/Units 21:16 03:09 03:09 WBC 13.81 H (4.50-10.00) X 10*3/uL RBC 3.27 L (4.40-5.60) X 10*6/uL Hgb 9.0 L (13.0-17.0) g/dL Hct 28.5 L (39.6-50.0) % MCHC 31.6 L (32.0-37.0) g/dL Glucose 143 H (70-110) mg/dL POC Glucose (mg/dL) 195 H (70-110) mg/dL Calcium 8.0 L (8.7-10.3) mg/dL 08/15/24 Range/Units 06:42 WBC (4.50-10.00) X 10*3/uL RBC (4.40-5.60) X 10*6/uL Hgb (13.0-17.0) g/dL Hct (39.6-50.0) % MCHC (32.0-37.0) g/dL Glucose (70-110) mg/dL POC Glucose (mg/dL) 170 H (70-110) mg/dL Calcium (8.7-10.3) mg/dL Microbiology - Last 24 Hours (Table) 08/09/24 23:04 Blood Culture - Final Blood Assessment and Plan Assessment: 1. Postop day #2 for right foot excisional debridement, second toe debridement and third toe amputation 2. Right diabetic foot infection, likely osteomyelitis 3. Right third toe with dry gangrene, second toe wound 4. Diabetes mellitus 5. Hyperglycemia 6. Hyponatremia 7. Medical noncompliance with medications Plan: 1. Consistent carbohydrate diet 2. Wound care on consult. Continue with local wound care as recommended by wound clinic 3. Antibiotics per recommendations from infectious disease 4. Consult to physical therapy 5. Encourage ambulation, heel walk only 6. Strict glycemic control 7. Lower extremity ABIs ordered and reviewed Thank you for this consultation. Patient is cleared from vascular surgery for discharge. We will sign off at this time. The impression and plan of care has been dictated as directed. Dr. Mera I performed a history and examination of this patient, discussed the same with the dictator. I agree with the dictator's note ,documented as a scribe. Any additional findings or plans will be noted.
[2024-08-15 16:44] LABS: Glucose,Whole Blood 162 mg/dL (70-110)
[2024-08-15 19:13] LABS: Glucose,Whole Blood 168 mg/dL (70-110)
[2024-08-15] MEDS: hydrALAZINE HCL 20 MG/ML 1 ML VIAL IVP PRN (20:23)
--- NOTE | 2024-08-16 06:48 | P.PN ---
Subjective Progress Note Date: 08/15/24 54 years old male with past medical history of coronary artery disease although patient was unsure about this. Diabetes mellitus and GERD Patient presents because of dyspnea that comes and go for several months. Patient states this has started happening to him since he got double pneumonia and COVID-pneumonia in 2021. Also he came because of 7 days of right foot infection and pain. Patient works as a cook in the [employer], he states that when it get busy he got short of breath. Also he has difficulty going upstairs and downstairs. Currently patient breathing is fine quiet with no wheezing. He denies any chest pain or discomfort or abdominal pain. He states that he used to smoke when he was young. Currently he is not. He drinks alcohol once a week. No illicit drug. His right forefoot looks badly infected and gangrenous His left foot is status post forefoot amputation in February 2023 Patient is afebrile, was mildly tachycardic on admission but currently vitals are stable He has leukocytosis of 22, hemoglobin 11.8, sodium 127, creatinine 1.1, glucose was 475 pH is high 7.4, pCO2 low at 27 Acetone was positive but anion gap 12 CRP elevated 2.1 Right foot x-ray showing soft tissue infection with acute osteomyelitis of the distal second toe atient is status post an potation of the left foot yesterday Hemoglobin A1c is elevated 14.8. Patient admits he was to be diabetic but he quit using insulin because about some insurance issues and changing doctors. He agrees to start insulin again and currently has insurance and intends to follow-up outpatient. We will check glucose per protocol and start him on Levemir 10 units and 3 units with NovoLog with meals Continue with antibiotic per ID team currently on IV vancomycin and Zosyn Follow-up wound culture 08/12 patient still complains from right foot pain, 04/09, wound VAC in place He remains on broad-spectrum antibiotics with Zosyn and IV vancomycin with close monitoring of electrolytes and kidney function His sugar still elevated we increased his Levemir to 13 units and 5 units of NovoLog with meals Patient was counseled about the importance of adherence to insulin therapy with risk benefits explained 08/13: patient seen and evaluated at bedside, on evaluation patient does complain of right lower foot discomfort, discharge planning discussed. Patient would want to go to subacute rehab, will need IV antibiotics and wound care dressing taken cleansed by nursing staff, 08/14- patient seen and evaluated at bedside, patient noted to have fever overnight, continue current antibiotics Unasyn and vancomycin, blood work reviewed sodium 133 creatinine 0.77 calcium of 7.4, patient complained of constipation however had 1 bowel movement earlier today 08/15/2024 Patient is seen in follow-up with no acute overnight issues. Patient continues to have right lower foot pain being followed by infectious disease along with wound care and case management. Apparently patient has no insurance and currently no primary care provider and unable to arrange for home care. Patient would like to go to rehab although with no insurance, patient will be paying [id number] which she cannot afford. Case management is following working on discharge planning needs. Awaiting determination from infectious disease regarding antibiotic coverage. Hopeful for oral antibiotics as patient has no insurance. EXAM: GENERAL: The patient is alert and oriented x3, ill appearance HEENT: Pupils are round and equally reacting to light. EOMI. Normocephalic, atraumatic. No pharyngeal erythema. No thyromegaly. CARDIOVASCULAR: S1 and S2 present. No murmurs, rubs, or gallops. PULMONARY: Chest is clear to auscultation, no wheezing , no crackles. ABDOMEN: Soft, nontender, nondistended, normoactive bowel sounds. No palpable organomegaly. MUSCULOSKELETAL: No joint swelling or deformity. EXTREMITIES: No cyanosis, clubbing, or pedal edema. Right foot surgical wound with dressing in placeLeft foot: Old wound is closed and healed NEUROLOGICAL: Gross neurological examination did not reveal any focal deficits. SKIN: Diabetic foot ulcer, dressing noted Assessment and Plan * diabetic foot infection osteomyelitis s/p right foot excisional debridement second toe, third toe amputation * Severe right forefoot infection with gangrene, with acute osteomyelitis of the distal second toe. Status post I&D, culture showing MRSA * Peripheral artery disease status post left forefoot amputation in February 2023 * Diabetes mellitus with hyperglycemia * History of coronary artery disease * History of GERD * History of COVID infection and pneumonia in 2019 * Remote history of smoking * GI prophylaxis * DVT prophylaxis * Obesity with a BMI 34.1 * Full code Plan: * Patient evaluated and being followed by vascular surgery, infectious disease awaiting finalized cultures to determine discharge antibiotics. Preliminary MRSA noted * continue Unasyn and vancomycin, management infectious disease * vascular surgery following recommending outpatient follow-up. Wound care consulted and awaiting input and recommendations regarding treatment on discharge * in regards to diabetes mellitus Accu-Cheks ACHS continue NovoLog, Lantus * Labs and medication were reviewed. * Case management to assist with placement antibiotics post discharge although patient has no insurance and not able to afford [id number] payments for ECF. Patient also has no primary care provider making it difficult to obtain home care in the outpatient setting. * DVT prophylaxis: Subcutaneous heparin * GI Prophylaxis: Pepcid * PT/OT, patient will like to be discharged to subacute rehab The impression and plan of care has been dictated by Dorcas Spanlger, Nurse Practitioner as directed. Dr. Jose Luis MD I have performed a history and examination and MDM of this patient, discussed the same with the dictator, and agree with the dictator's assessment and plan as written ,documented as a scribe. Based on total visit time, I have performed more than 50% of the visit. 08/15/2024 Patient is seen in follow-up Objective - Vital Signs Vital signs: Vital Signs Temp 99.0 F 08/15/24 06:57 Pulse 91 08/15/24 06:57 Resp 20 08/15/24 06:57 BP 161/86 08/15/24 06:57 Pulse Ox 94 L 08/15/24 06:57 FiO2 Intake & Output 08/14/24 08/15/24 08/15/24 18:59 06:59 18:59 Intake Total 1100 Balance 1100 Intake: Intake, IV Titration 1100 Amount Ampicillin-Sulbactam 3 gm 200 In Sodium Chloride 0.9% 100 ml @ 200 mls/hr IVPB Q6HR [facility] Rx#:[id number] Sodium Chloride 0.9% 1, 900 000 ml @ 75 mls/hr IV . [id number] [facility] Rx#:[id number] Other: Voiding Method Toilet # Voids 2 1 # Bowel Movements 1 - Labs CBC & Chem 7: 08/15/24 03:09 08/15/24 03:09 Labs: Abnormal Lab Results - Last 24 Hours (Table) 08/14/24 08/14/24 08/14/24 Range/Units 07:09 11:42 16:36 WBC 15.05 H (4.50-10.00) X 10*3/uL RBC 3.26 L (4.40-5.60) X 10*6/uL Hgb 9.0 L (13.0-17.0) g/dL Hct 28.9 L (39.6-50.0) % MCHC 31.1 L (32.0-37.0) g/dL Glucose (70-110) mg/dL POC Glucose (mg/dL) 288 H 245 H (70-110) mg/dL Calcium (8.7-10.3) mg/dL 08/14/24 08/15/24 08/15/24 Range/Units 21:16 03:09 03:09 WBC 13.81 H (4.50-10.00) X 10*3/uL RBC 3.27 L (4.40-5.60) X 10*6/uL Hgb 9.0 L (13.0-17.0) g/dL Hct 28.5 L (39.6-50.0) % MCHC 31.6 L (32.0-37.0) g/dL Glucose 143 H (70-110) mg/dL POC Glucose (mg/dL) 195 H (70-110) mg/dL Calcium 8.0 L (8.7-10.3) mg/dL 08/15/24 Range/Units 06:42 WBC (4.50-10.00) X 10*3/uL RBC (4.40-5.60) X 10*6/uL Hgb (13.0-17.0) g/dL Hct (39.6-50.0) % MCHC (32.0-37.0) g/dL Glucose (70-110) mg/dL POC Glucose (mg/dL) 170 H (70-110) mg/dL Calcium (8.7-10.3) mg/dL Microbiology - Last 24 Hours (Table) 08/09/24 23:04 Blood Culture - Final Blood
[2024-08-16 07:02] LABS: Glucose,Whole Blood 190 mg/dL (70-110)
[2024-08-16 10:20] LABS: Basophils # (A) 0.03 X 10*3/uL (0.00-0.10); Basophils % (A) 0.2 %; Eosinophils # (A) 0.12 X 10*3/uL (0.04-0.35); Eosinophils % (A) 0.9 %; HCT 28.4 % (39.6-50.0); HGB 8.9 g/dL (13.0-17.0); Lymphocytes % (A) 16.4 %; MCH 27.2 pg (27.0-32.0); MCHC 31.3 g/dL (32.0-37.0); MCV 86.9 FL (80.0-97.0); Mean Platelet Volume 9.6 FL (9.5-12.2); Monocytes # (A) 1.43 X 10*3/uL (0.20-1.00); Monocytes % (A) 11.1 %; NRBC Per 100 WBC 0 X 10*3/uL (0.00-0.01); Neutrophils # (A) 9.01 X 10*3/uL (1.80-7.70); Neutrophils % (A) 70.3 %; Platelet Count 448 X 10*3/uL (140-440); RBC 3.27 X 10*6/uL (4.40-5.60); RDW 12.6 % (11.5-14.5); WBC 12.83 X 10*3/uL (4.50-10.00)
[2024-08-16 11:08] LABS: Glucose,Whole Blood 214 mg/dL (70-110)
[2024-08-16 13:02] LABS: BUN/Creat Ratio 18.38 Ratio (12.00-20.00); Blood Urea Nitrogen 14.7 mg/dL (9.0-27.0); Chloride 103 mmol/L (96-109); Glucose 195 mg/dL (70-110); Potassium 4.2 mmol/L (3.5-5.5); Sodium 135 mmol/L (135-145)
[2024-08-16 13:03] LABS: Calcium 7.8 mg/dL (8.7-10.3); Carbon Dioxide 22.2 mmol/L (21.6-31.8)
--- NOTE | 2024-08-16 15:12 | P.PN ---
Subjective Progress Note Date: 08/16/24 Principal diagnosis: Reason for follow-up is right diabetic foot infection Patient is a 54-year-old male with a past medical history significant for coronary disease diabetes mellitus reflux COVID-19 infection patient presenting to the hospital for evaluation of right third toe discoloration with associated swelling redness, patient be diagnosed with a sensitive right diabetic foot infection status post amputation of the right third toe as well as debridement on the dorsum aspect of the right foot. On today's evaluation that is 08/16/2024, Patient is afebrile this morning patient denies having any chest pain shortness of breath did have some chronic cough but no worsening , the patient is currently on room air, patient denies any abdominal pain no diarrhea no nausea no vomiting pain to the right foot is currently controlled. The patient white count is down to 12.83, creatinine 0.8 Objective - Vital Signs Vital signs: Vital Signs Temp 98.9 F 08/16/24 07:17 Pulse 90 08/16/24 07:17 Resp 17 08/16/24 07:17 BP 176/99 08/16/24 07:17 Pulse Ox 94 L 08/16/24 07:17 FiO2 Intake & Output 08/15/24 08/16/24 08/16/24 18:59 06:59 18:59 Intake Total 2720 380 Balance 2720 380 Intake: Intake, IV Titration 1100 Amount Ampicillin-Sulbactam 3 gm 200 In Sodium Chloride 0.9% 100 ml @ 200 mls/hr IVPB Q6HR [facility] Rx#:[id number] Sodium Chloride 0.9% 1, 900 000 ml @ 75 mls/hr IV . [id number] [facility] Rx#:[id number] Oral 1620 380 Other: Voiding Method Toilet Toilet # Voids 3 3 # Bowel Movements 2 - Exam GENERAL DESCRIPTION: An elderly male lying in bed in no distress RESPIRATORY SYSTEM: Unlabored breathing , decreased breath sounds at bases HEART: S1 S2 regular rate and rhythm , ABDOMEN: Soft , no tenderness EXTREMITIES: Right foot wound is covered with a wound VAC - Labs CBC & Chem 7: 08/16/24 06:22 08/16/24 06:22 Labs: Abnormal Lab Results - Last 24 Hours (Table) 08/15/24 08/15/24 08/16/24 Range/Units 16:33 19:11 06:22 WBC 12.83 H (4.50-10.00) X 10*3/uL RBC 3.27 L (4.40-5.60) X 10*6/uL Hgb 8.9 L (13.0-17.0) g/dL Hct 28.4 L (39.6-50.0) % MCHC 31.3 L (32.0-37.0) g/dL Plt Count 448 H (140-440) X 10*3/uL Immature Gran # 0.14 H (0.00-0.04) X 10*3/uL Neutrophils # 9.01 H (1.80-7.70) X 10*3/uL Monocytes # 1.43 H (0.20-1.00) X 10*3/uL Glucose (70-110) mg/dL POC Glucose (mg/dL) 162 H 168 H (70-110) mg/dL Calcium (8.7-10.3) mg/dL 08/16/24 08/16/24 08/16/24 Range/Units 06:22 07:01 11:01 WBC (4.50-10.00) X 10*3/uL RBC (4.40-5.60) X 10*6/uL Hgb (13.0-17.0) g/dL Hct (39.6-50.0) % MCHC (32.0-37.0) g/dL Plt Count (140-440) X 10*3/uL Immature Gran # (0.00-0.04) X 10*3/uL Neutrophils # (1.80-7.70) X 10*3/uL Monocytes # (0.20-1.00) X 10*3/uL Glucose 195 H (70-110) mg/dL POC Glucose (mg/dL) 190 H 214 H (70-110) mg/dL Calcium 7.8 L (8.7-10.3) mg/dL Microbiology - Last 24 Hours (Table) 08/10/24 14:30 Anaerobic Culture - Final Foot - Right Assessment and Plan (1) Diabetic infection of right foot Current Visit: Yes Status: Acute Code(s): E11.628 - TYPE 2 DIABETES MELLITUS WITH OTHER SKIN COMPLICATIONS; L08.9 - LOCAL INFECTION OF THE SKIN AND SUBCUTANEOUS TISSUE, UNSP SNOMED Code(s): 326267289 (2) Foot osteomyelitis, right Current Visit: Yes Status: Acute Code(s): M86.9 - OSTEOMYELITIS, UNSPECIFIED SNOMED Code(s): 8334420290481370 Plan: 1patient presented to hospital with extensive right diabetic foot infection with a venting wound of the right third toe and significant cellulitis and possible abscess on the dorsal aspect of the right foot with a foul-smelling drainage we will need to cover for the polymicrobial wing associated with d iabetic foot infection. 2patient is status post amputation of the third toe as well as extensive de bridement of the dorsal aspect of the right foot with deep culture which are currently growing Streptococcus agalactiae 3patient did have resolution of his fever and white count is trending down he i s covered with Unasyn however as the patient has to come to the outpatient infusion clinic daily we will suggest Rocephin 2 g daily along with oral Flagyl on discharge this was discussed with the case packer arranging for outpatient antibiotics and local care Dictation was produced using [employer] dictation software. please excuse any grammatical, word or spelling errors.
[2024-08-16 16:33] LABS: Glucose,Whole Blood 230 mg/dL (70-110)
[2024-08-16 20:14] LABS: Glucose,Whole Blood 238 mg/dL (70-110)
[2024-08-17 01:10] VITALS: RESP 20
[2024-08-17 06:09] LABS: Glucose,Whole Blood 225 mg/dL (70-110)
--- NOTE | 2024-08-17 08:51 | P.PN ---
Subjective Progress Note Date: 08/16/24 54 years old male with past medical history of coronary artery disease although patient was unsure about this. Diabetes mellitus and GERD Patient presents because of dyspnea that comes and go for several months. Patient states this has started happening to him since he got double pneumonia and COVID-pneumonia in 2021. Also he came because of 7 days of right foot infection and pain. Patient works as a cook in the [employer], he states that when it get busy he got short of breath. Also he has difficulty going upstairs and downstairs. Currently patient breathing is fine quiet with no wheezing. He denies any chest pain or discomfort or abdominal pain. He states that he used to smoke when he was young. Currently he is not. He drinks alcohol once a week. No illicit drug. His right forefoot looks badly infected and gangrenous His left foot is status post forefoot amputation in February 2023 Patient is afebrile, was mildly tachycardic on admission but currently vitals are stable He has leukocytosis of 22, hemoglobin 11.8, sodium 127, creatinine 1.1, glucose was 475 pH is high 7.4, pCO2 low at 27 Acetone was positive but anion gap 12 CRP elevated 2.1 Right foot x-ray showing soft tissue infection with acute osteomyelitis of the distal second toe atient is status post an potation of the left foot yesterday Hemoglobin A1c is elevated 14.8. Patient admits he was to be diabetic but he quit using insulin because about some insurance issues and changing doctors. He agrees to start insulin again and currently has insurance and intends to follow-up outpatient. We will check glucose per protocol and start him on Levemir 10 units and 3 units with NovoLog with meals Continue with antibiotic per ID team currently on IV vancomycin and Zosyn Follow-up wound culture 08/12 patient still complains from right foot pain, 04/09, wound VAC in place He remains on broad-spectrum antibiotics with Zosyn and IV vancomycin with close monitoring of electrolytes and kidney function His sugar still elevated we increased his Levemir to 13 units and 5 units of NovoLog with meals Patient was counseled about the importance of adherence to insulin therapy with risk benefits explained 08/13: patient seen and evaluated at bedside, on evaluation patient does complain of right lower foot discomfort, discharge planning discussed. Patient would want to go to subacute rehab, will need IV antibiotics and wound care dressing taken cleansed by nursing staff, 08/14- patient seen and evaluated at bedside, patient noted to have fever overnight, continue current antibiotics Unasyn and vancomycin, blood work reviewed sodium 133 creatinine 0.77 calcium of 7.4, patient complained of constipation however had 1 bowel movement earlier today 08/15/2024 Patient is seen in follow-up with no acute overnight issues. Patient continues to have right lower foot pain being followed by infectious disease along with wound care and case management. Apparently patient has no insurance and currently no primary care provider and unable to arrange for home care. Patient would like to go to rehab although with no insurance, patient will be paying [id number] which she cannot afford. Case management is following working on discharge planning needs. Awaiting determination from infectious disease regarding antibiotic coverage. Hopeful for oral antibiotics as patient has no insurance. 08/16/2024 The patient is seen in follow-up today with vascular surgery as well as infectious disease following. Vascular surgery has cleared the patient for discharge recommending outpatient follow-up and continued wound care and follow- up with the wound care center. Patient has received a PICC line and also antibiotic arrangements in the form of Unasyn along with oral Flagyl outpatient on discharge. Patient currently has no insurance and no primary care provider to provide home care and case management is following working on discharge planning. Patient stable for discharge today and has been cleared although does not have a ride home. Patient has been instructed to make arrangements for d ischarge planning hooker up. Review of systems: Constitutional: No reports of fatigue, fever, or chills Cardiovascular: No reports of chest pain or palpitations Respiratory: No reports of shortness of breath or cough GI: No reports of nausea, vomiting, or diarrhea : No reports of dysuria or retention Neurovascular: No reports of weakness or numbness All medications have been reviewed Physical EXAM: GENERAL: The patient is alert and oriented x3, ill appearance HEENT: Pupils are round and equally reacting to light. EOMI. Normocephalic, atraumatic. No pharyngeal erythema. No thyromegaly. CARDIOVASCULAR: S1 and S2 present. No murmurs, rubs, or gallops. PULMONARY: Chest is clear to auscultation, no wheezing , no crackles. ABDOMEN: Soft, nontender, nondistended, normoactive bowel sounds. No palpable organomegaly. MUSCULOSKELETAL: No joint swelling or deformity. EXTREMITIES: No cyanosis, clubbing, or pedal edema. Right foot surgical wound with dressing in placeLeft foot: Old wound is closed and healed NEUROLOGICAL: Gross neurological examination did not reveal any focal deficits. SKIN: Diabetic foot ulcer, dressing noted Assessment and Plan * diabetic foot infection osteomyelitis s/p right foot excisional debridement second toe, third toe amputation * Severe right forefoot infection with gangrene, with acute osteomyelitis of the distal second toe. Status post I&D, culture showing MRSA * Peripheral artery disease status post left forefoot amputation in February 2023 * Diabetes mellitus with hyperglycemia * History of coronary artery disease * History of GERD * History of COVID infection and pneumonia in 2019 * Remote history of smoking * GI prophylaxis * DVT prophylaxis * Obesity with a BMI 34.1 * Full code Plan: * Patient evaluated and being followed by vascular surgery, infectious disease with MRSA and patient is being given a PICC line and also oral Flagyl and Unasyn on discharge. Patient has no insurance and will require daily visits f or antibiotics along with following at the wound care center. Wound care instructions have been provided by the nurse practitioner for discharge. * continue Unasyn and vancomycin, management infectious disease for now and will need outpatient follow-up. Patient has received a PICC line and has ant ibiotics arranged. * vascular surgery following recommending outpatient follow-up. Vascular surgery has signed off * in regards to diabetes mellitus Accu-Cheks ACHS continue NovoLog, Lantus for discharge * Labs and medication were reviewed. * Case management to assist with placement antibiotics post discharge although patient has no insurance and not able to afford [id number] payments for ECF. Patient also has no primary care provider making it difficult to obtain home care in the outpatient setting. Resources provided and there is a Medicaid application that is pending. Patient instructed to follow-up with Medicaid by calling and checking the status * DVT prophylaxis: Subcutaneous heparin * GI Prophylaxis: Pepcid * Patient will be discharged early a.m. as he needs to be discharged 24 hours prior to going to his wound care appointment which is scheduled for , 08/18/2024 at 9:15 AM. Patient has been cleared by consultations and currently arranging for a ride home. The impression and plan of care has been dictated by Dorcas Spangler, Nurse Practitioner as directed. Dr. Jose Luis MD I have performed a history and examination and MDM of this patient, discussed t he same with the dictator, and agree with the dictator's assessment and plan as written ,documented as a scribe. Based on total visit time, I have performed more than 50% of the visit. Objective - Vital Signs Vital signs: Vital Signs Temp 98.9 F 08/16/24 07:17 Pulse 90 08/16/24 07:17 Resp 17 08/16/24 07:17 BP 176/99 08/16/24 07:17 Pulse Ox 94 L 08/16/24 07:17 FiO2 Intake & Output 08/15/24 08/16/24 08/16/24 18:59 06:59 18:59 Intake Total 2720 Balance 2720 Intake: Intake, IV Titration 1100 Amount Ampicillin-Sulbactam 3 gm 200 In Sodium Chloride 0.9% 100 ml @ 200 mls/hr IVPB Q6HR [facility] Rx#:[id number] Sodium Chloride 0.9% 1, 900 000 ml @ 75 mls/hr IV . [id number] [facility] Rx#:[id number] Oral 1620 Other: Voiding Method Toilet Toilet # Voids 3 3 # Bowel Movements 2 - Labs CBC & Chem 7: 08/16/24 06:22 08/16/24 06:22 Labs: Abnormal Lab Results - Last 24 Hours (Table) 08/15/24 08/15/24 08/15/24 Range/Units 11:15 16:33 19:11 POC Glucose (mg/dL) 186 H 162 H 168 H (70-110) mg/dL 08/16/24 Range/Units 07:01 POC Glucose (mg/dL) 190 H (70-110) mg/dL Microbiology - Last 24 Hours (Table) 08/10/24 14:30 Anaerobic Culture - Final Foot - Right
[2024-08-17 09:05] VITALS: BP 162/85; PULSE 96; TEMP 98.8
--- NOTE | 2024-08-18 17:50 | P.DS ---
Providers Date of admission: 08/10/24 01:08 Expected date of discharge: 08/17/24 Attending physician: Jerson Greenberg Consults: 08/09/24 23:45 Consult Physician Urgent Consulting Provider: Shakira Mera Consult Reason/Comments: Foot infection osteomyelitis Do you want consulting provider notified?: Yes Consult Physician Urgent Consulting Provider: Sana Patterson Consult Reason/Comments: Diabetic foot infection, osteomyelitis Do you want consulting provider notified?: Yes 08/10/24 10:39 Consult Physician Urgent Consulting Provider: Davide Main Consult Reason/Comments: pre op evaluation Do you want consulting provider notified?: Yes Primary care physician: Stated None Hospital Course: Final diagnosis diabetic foot infection osteomyelitis s/p right foot excisional debridement second toe, third toe amputation Severe right forefoot infection with gangrene, with acute osteomyelitis of the distal second toe. Status post I&D, culture showing MRSA Peripheral artery disease status post left forefoot amputation in February 2023 Diabetes mellitus with hyperglycemia History of coronary artery disease History of GERD History of COVID infection and pneumonia in 2019 Remote history of smoking GI prophylaxis DVT prophylaxis Obesity with a BMI 34.1 Full code Discharge disposition Patient is being discharged in a stable condition with guarded prognosis to home. Patient will follow-up with primary care provider to establish in the outpatient setting upon discharge once insurance is obtained. Patient has submitted for Medicaid application although is pending at this time. Patient is to continue with current medications including IV antibiotics per ID recommendations and outpatient follow-up with the wound care center as scheduled. Total time taken is greater than 35 minutes. Hospital course This is a 54 -year-old male who was recently admitted with diabetic foot infection with osteomyelitis underwent excisional debridement of the second toe along with third toe amputation. Multiple consultations including vascular surgery and infectious disease following with cultures finalizing as MRSA will be receiving a PICC line and also oral antibiotics. Patient currently has no insurance and no primary care provider thus making it difficult to provide home care. Patient will follow in the office daily for IV infusions and also at the wound care center and continue local wound care. Patient does have Medicaid application pending and has been instructed and provided resources on follow-up. Patient wanted to go to rehab although unable to afford [id number] expense. Patient lives at home with his parents. Patient has been cleared by consultations for discharge and also per case management needs to be discharged to be able to receive wound care in the clinic once outpatient and due to the holidays coming up this week. Please refer to other consultation notes for further HPI. Patient to follow-up with infectious disease, wound care, and vascular surgery outpatient. Currently no reports of chest pain, shortness of breath, or palpitations. Patient is afebrile. No reports of nausea or vomiting and patient is tolerating diet. Patient will be discharged home today. High risk for readmissions given noncompliance with follow-up, poor social support, and no insurance, along with ongoing significant comorbidities. Physical exam: Gen: This is a 54-year-old male who is awake, alert and oriented x 3, well- developed, elderly appearing, unkempt HEENT: Head is atraumatic, normocephalic. Pupils equal, round. Sclerae is anicteric. NECK: Supple. No JVD. No lymphadenopathy. No thyromegaly. LUNGS: Clear to auscultation. No wheezes or rhonchi. No intercostal retractions. HEART: Regular rate and rhythm. No murmur. ABDOMEN: Soft. Obese. Bowel sounds are present. No masses. No tenderness. EXTREMITIES: No pedal edema. No calf tenderness. Right foot surgical dressing is dry and intact and recently redressed NEUROLOGICAL: Patient is awake, alert and oriented x3. Cranial nerves 2 through 12 are grossly intact. Diffusely weak Please refer to medication reconciliation sheet for a list of medications. The impression and plan of care has been dictated by Dorcas Spangler, Nurse Practitioner as directed. Dr. Jose Luis MD I have performed a history and examination and MDM of this patient, discussed the same with the dictator, and agree with the dictator's assessment and plan as written ,documented as a scribe. Based on total visit time, I have performed more than 50% of the visit. Patient Condition at Discharge: Fair Plan - Discharge Summary Discharge Rx Participant: No New Discharge Prescriptions: New metroNIDAZOLE [Flagyl] 500 mg PO TID #90 tab Benzocaine/Menthol Lozeng [Cepacol lozenge] 1 each MUCOUS MEM Q4HR PRN lozenge PRN Reason: Sore Throat Insulin Detemir (Levemir) [Levemir] 13 unit SQ BID 30 Days #5 each polyethylene glycoL 3350 [Miralax] 17 gm PO DAILY #30 packet HYDROcodone/APAP 5-325MG [[place] 5-325] 1 each PO Q4HR PRN #12 tab PRN Reason: Moderate Pain (Scale 4 To 6) Sennosides-Docusate Sodium [Senokot-S] 1 each PO BID PRN #40 tab PRN Reason: Constipation Acetaminophen Tab [Tylenol] 650 mg PO Q6HR PRN tab PRN Reason: Mild Pain Or Fever > 100.5 Discharge Medication List metroNIDAZOLE [Flagyl] 500 mg PO TID #90 tab 08/16/24 [Rx] Acetaminophen Tab [Tylenol] 650 mg PO Q6HR PRN tab 08/17/24 [Rx] Benzocaine/Menthol Lozeng [Cepacol lozenge] 1 each MUCOUS MEM Q4HR PRN lozenge 08/17/24 [Rx] HYDROcodone/APAP 5-325MG [[place] 5-325] 1 each PO Q4HR PRN #12 tab 08/17/24 [Rx] Insulin Detemir (Levemir) [Levemir] 13 unit SQ BID 30 Days #5 each 08/17/24 [Rx] Sennosides-Docusate Sodium [Senokot-S] 1 each PO BID PRN #40 tab 08/17/24 [Rx] polyethylene glycoL 3350 [Miralax] 17 gm PO DAILY #30 packet 08/17/24 [Rx] Follow up Appointment(s)/Referral(s): [facility] [NON-STAFF] - As Needed None,Stated [Primary Care Provider] - 1-2 days Wound [facility] [NON-STAFF] - 08/18/24 9:15 am & [facility] [REFERRING] - 08/18/24 2:30 pm (Please come to [facility] for IV antibiotic administration. ) Patient Instructions/Handouts: Diabetic Foot Ulcers (DC), PICC (Peripherally Inserted Central Catheter) (DC) Activity/Diet/Wound Care/Special Instructions: Activity limited until follow-up Follow-up with the wound care center tomorrow as scheduled Continue taking medications as prescribed Continue with local wound care Continue IV antibiotics as well as oral antibiotics per ID recommendations Establish with a primary care provider on discharge Follow-up with your insurance application Continue diabetic diet Continue monitoring blood sugars and keep a diary of all readings Continue with twice daily long-acting insulin and hold insulin if blood sugars are 100 or less Discharge/Stand Alone Forms: Area PCPs Discharge Disposition: HOME SELF-CARE
== END 2024-08-17 11:15 | disposition home or self-care (01) | DRG 617 ==
LOC: EC 21:32 → 4SSUR 08-10 01:08 → 1SOBS 08-10 07:39 → 4SSUR 08-11 15:47
PROVIDERS: ADMIT Hospitalist; ATTEND Hospitalist
PROC: 0Y6T0Z0 Detachment at Right 3rd Toe, Complete, Open Approach (ICD-10-PCS; principal; 2024-08-10 07:30)
PROC: 02HV33Z Insertion of Infusion Device into Superior Vena Cava, Percutaneous Approach (ICD-10-PCS; 2024-08-15)
DX: E11.69 Type 2 diabetes mellitus with other specified complication (principal); E11.52 Type 2 diabetes mellitus with diabetic peripheral angiopathy with gangrene; E87.1 Hypo-osmolality and hyponatremia; M86.171 Other acute osteomyelitis, right ankle and foot; E11.621 Type 2 diabetes mellitus with foot ulcer; E11.65 Type 2 diabetes mellitus with hyperglycemia; E11.628 Type 2 diabetes mellitus with other skin complications; R79.82 Elevated C-reactive protein (CRP); E66.9 Obesity, unspecified; K59.00 Constipation, unspecified; K21.9 Gastro-esophageal reflux disease without esophagitis; L97.514 Non-pressure chronic ulcer of other part of right foot with necrosis of bone; I25.10 Atherosclerotic heart disease of native coronary artery without angina pectoris; Z68.34 Body mass index [BMI] 34.0-34.9, adult; Z86.16 Personal history of COVID-19; Z87.01 Personal history of pneumonia (recurrent); Z59.71 Insufficient health insurance coverage; Z79.4 Long term (current) use of insulin; Z79.84 Long term (current) use of oral hypoglycemic drugs; Z86.14 Personal history of Methicillin resistant Staphylococcus aureus infection; Z87.891 Personal history of nicotine dependence; Z89.432 Acquired absence of left foot; Z91.148 Patient's other noncompliance with medication regimen for other reason; Z91.199 Patient's noncompliance with other medical treatment and regimen due to unspecified reason
CPT/HCPCS: 36415; 36573; 80048; 80053; 80202; 82009; 82803; 83036; 83605; 85025; 85027; 86140; 86850; 86900; 86901; 87040; 87070; 87075; 87205; 93306; 93922; 93923; 96365; 96366; 96368; 99285

== ENCOUNTER → 2024-08-28 | Outpatient (CLI) | payer SELFPAY ==
[2024-08-28 11:27] VITALS: BP 206/117; PULSE 91; RESP 16; TEMP 97.9
== END ==
LOC: PROCWHC3 11:15
PROVIDERS: ATTEND Internal Medicine Infectious Disease
DX: Z53.9 Procedure and treatment not carried out, unspecified reason (principal)
CPT/HCPCS: 96365